=== PATIENT | male | born 1940 | race Caucasian/White ===

== ENCOUNTER 2016-08-08 17:17 | Outpatient (CLI) | payer MEDICARE, BC | END 2016-08-08 17:25 | disposition home or self-care (01) | LOC: SLEEP 17:17 | PROVIDERS: ATTEND Nurse Practitioner Family | DX: G47.10 Hypersomnia, unspecified (principal); R06.83 Snoring ==

== ENCOUNTER 2016-09-09 19:37 | Outpatient (CLI) | payer MEDICARE, BC | END 2016-09-10 05:54 | disposition home or self-care (01) | LOC: SLEEP 19:37 | PROVIDERS: ATTEND Otolaryngology Otolaryngology/Facial Plastic Surgery | DX: G47.33 Obstructive sleep apnea (adult) (pediatric) (principal) | CPT/HCPCS: 95811 ==

== ENCOUNTER 2016-11-18 20:20 | Outpatient (CLI) | payer MEDICARE, BC | END 2016-11-19 05:50 | disposition home or self-care (01) | LOC: SLEEP 20:20 | PROVIDERS: ATTEND Nurse Practitioner | DX: G47.33 Obstructive sleep apnea (adult) (pediatric) (principal) | CPT/HCPCS: 95811 ==

== ENCOUNTER 2018-12-07 22:02 | Inpatient (IN) | payer MEDICARE, BC ==
[~2018-12-07] VITALS: Ht 172.7 cm; Wt 91.2 kg
[2018-12-07 23:45] VITALS: BP 114/55
--- NOTE | 2018-12-07 23:45 | NUR ---
SERGIO RODAS JR admitted to room 412-1, with an admitting diagnosis of PNA/ POSS BOWEL PERFORATION, on 12/07/18 from [facility] via EMS, accompanied by EMS STAFF/SPOUSE.SERGIO RODAS JR introduced to surroundings, call light, bed controls, phone, TV, temperature control, lights, meal times, smoking policy, visitor policy, side rail policy, bathrooms and showers. Patient Rights given to patient in the handbook.SERGIO RODAS JR verbalizes understanding that [facility] is not responsible for the loss or damage to any personal effects or valuables that are kept in the patients posession during their hospitalization.
[2018-12-08] VITALS (28 sets, daily range): BP systolic 75–134; BP diastolic 50–72
--- OUTSIDE RECORDS SUMMARY | 2018-12-08 | XMS REPORT | Continuity of Care Document ---
Author Organization Unknown Address Unknown Allergies Active Description Code Type Severity Reaction Onset Reported/Identified Relationship to Patient Clinical Status Yes HYDROCODONE-ACETAMINOPHEN HYDROCODONE- ACETAMIN SEVERE Yes HYDROCODONE BITARTRATE MILD MILD Yes HYDROCODONE BITARTRATE MILD OTHER Yes HYDROCODONE-ACETAMINOPHEN SEVERE OTHER Medications Medication Packaging Start Date Stop Date Route Dosage Sig LACTATED RINGERS 1000CC IV BAG INJ ml 05/15/2017 05/22/2017 CONTINUOUSEVERY 0 Hour KETOROLAC VIAL INJ 30 MG/CC (TORADOL VIAL) MG 10/24/2018 10/24/2018 PRN ONCE Methylprednisolone inj susp 80mg (DEPO-Medrol) MG 10/24/2018 10/24/2018 ONCE&2111 DEXAMETHASONE VIAL INJ 4 MG/CC (DECADRON VIAL) MG 10/24/2018 10/31/2018 Q6H&0600,1200,1800,2359 LACTATED RINGERS 1000CC IV BAG INJ ml 12/07/2018 12/14/2018 CONTINUOUSEVERY 0 Hour ACETAMINOPHEN SUPPOS SUP 650 MG (TYLENOL) MG 12/07/2018 12/07/2018 ONCE&2116 IPRATROPIUM/ALBUTEROL INH SOLN (DUO-NEB INH SOLN) MLS 12/07/2018 12/07/2018 ONCE&2116 Piperacillin-tazobactam 3.375 Gm IV recon soln (Zosyn) GM 12/07/2018 12/07/2018 ONCE&2157 NORMAL SALINE 1000CC IV BAG INJ 0.9 % (NS 1000CC IV BAG) ml 12/07/2018 12/22/2018 CONTINUOUSEVERY 0 Hour Problems Date Dx Coded Attending Type Code Diagnosis Diagnosed By 01/18/2016 RANDOLPH SILVERIO V54.89 OTHER ORTHOPEDIC AFTERCARE 01/18/2016 RANDOLPH SILVERIO Z47.89 ENCOUNTER FOR OTHER ORTHOPEDIC AFTERCARE 04/16/2016 RANDOLPH SILVERIO V43.65 KNEE JOINT REPLACED BY OTHER MEANS 04/16/2016 RANDOLPH SILVERIO Z96.651 PRESENCE OF RIGHT ARTIFICIAL KNEE JOINT 05/16/2016 BHARGAVI, SERGIO Thompson 780.79 OTHER MALAISE AND FATIGUE 05/16/2016 BHARGAVI, SERGIO Varner 781.99 OTHER SYMPTOMS INVOLVING NERVOUS AND MUSCULOSKELETAL SYSTEMS 05/16/2016 BHARGAVISERGIO ABRAHAM R29.6 REPEATED FALLS 05/16/2016 BHARGAVI, SERGIO Thompson R53.1 WEAKNESS 05/15/2017 BHARGAVI, SERGIO Varner 427.31 ATRIAL FIBRILLATION 05/15/2017 BHARGAVI, SERGIO Varner 715.15 OSTEOARTHROSIS, LOCALIZED, PRIMARY, INVOLVING PELVIC REGION AND THIGH 05/15/2017 BHARGAVI, SERGIO Telly I48.1 PERSISTENT ATRIAL FIBRILLATION 05/15/2017 BHARGAVI, SERGIO Varner M16.12 UNILATERAL PRIMARY OSTEOARTHRITIS, LEFT HIP 07/24/2017 Robin Parrish W 401.9 UNSPECIFIED ESSENTIAL HYPERTENSION 07/24/2017 Pakaren, Robin W I10 ESSENTIAL (PRIMARY) HYPERTENSION 07/24/2017 Pakaren, Robin W 401.9 UNSPECIFIED ESSENTIAL HYPERTENSION 07/24/2017 Pakaren, Robin W 427.31 ATRIAL FIBRILLATION 07/24/2017 Pakaren, Robin W I10 ESSENTIAL (PRIMARY) HYPERTENSION 07/24/2017 Pakaren, Robin W I48.0 PAROXYSMAL ATRIAL FIBRILLATION 07/24/2017 Pakaren, Robin W 401.9 UNSPECIFIED ESSENTIAL HYPERTENSION 07/24/2017 Pakaren, Robin W 427.31 ATRIAL FIBRILLATION 07/24/2017 Pakaren, Robin W I10 ESSENTIAL (PRIMARY) HYPERTENSION 07/24/2017 Pakaren, Robin W I48.0 PAROXYSMAL ATRIAL FIBRILLATION 10/24/2018 DARINEL, FIDELIA W 274.00 GOUTY ARTHROPATHY, UNSPECIFIED 10/24/2018 LEISURE, FIDELIA W M10.0 IDIOPATHIC GOUT 10/24/2018 LEISURE, FIDELIA W M10.072 IDIOPATHIC GOUT, LEFT ANKLE AND FOOT Procedures There is no data. Results Test Result Range Protime - 05/07/16 09:36 INR 1.8 1.0-4.0 Protime 21.2 Sec 9.9-12.8 Protime - 05/14/16 09:59 INR 2.0 1.0-4.0 Protime 23.8 Sec 9.9-12.8 Protime - 06/04/16 09:54 INR 1.8 1.0-4.0 Protime 21.2 Sec 9.9-12.8 Protime - 06/18/16 09:36 INR 2.2 1.0-4.0 Protime 26.8 Sec 9.9-12.8 Comprehensive Metabolic Panel - 07/09/16 08:38 Albumin 4.3 g/dL 3.6-5.1 ALP 83 U/L 35-130 ALT 19 U/L 6-45 Anion Gap 13 6-14 AST 19 U/L 2-40 BUN 13 mg/dL 5-25 Calcium 8.9 mg/dL 8.3-10.4 Chloride 104 mmol/L 95-114 CO2 31 mEq/L 22-33 Creat 0.71 mg/dL 0.50-1.50 eGFR 108 mL/min/1.73m2 >59 Globulin 2.5 g/dL 2.3-3.5 Glucose 117 mg/dL 70-110 Osmo 298 280-295 Potassium 3.9 mmol/L 3.5-5.3 Sodium 144 mmol/L 134-148 TBil 1.0 mg/dL 0.2-1.2 TP 6.8 g/dL 6.0-8.3 Reticulocyte Count - 07/09/16 08:38 Reticulocyte Count 1.9 % 0.6-2.6 Holter Mont[place] 24 Hour - 07/12/16 16:29 Holter Monitor 24 Hour Complete Thyroid Stimulating Hormone - 07/30/16 06:39 TSH 1.65 mIU/mL 0.32-5.00 Protime - 08/30/16 07:00 INR 1.6 1.0-4.0 Protime 18.8 Sec 9.9-12.8 Protime - 09/13/16 09:51 INR 2.0 1.0-4.0 Protime 24.8 Sec 9.9-12.8 Protime - 09/25/16 07:19 INR 2.3 1.0-4.0 Protime 28.5 Sec 9.9-12.8 Thyroid Stimulating Hormone - 10/04/16 10:43 TSH 0.77 mIU/mL 0.32-5.00 PTH, Intact - 10/04/16 10:43 PTH, INTACT 29 PG/ML 15-65 Protime - 10/10/16 08:39 INR 2.3 1.0-4.0 Protime 27.7 Sec 9.9-12.8 Protime - 10/31/16 11:50 INR 2.5 1.0-4.0 Protime 30.0 Sec 9.9-12.8 Protime - 12/11/16 09:06 INR 2.9 1.0-4.0 Protime 36.3 Sec 9.9-12.8 Vitamin D, 25 OH - 01/10/17 08:00 Vitamin D, 25 OH 30.70 ng/mL 25.00-100.00 Protime - 02/07/17 06:35 INR 2.0 1.0-4.0 Protime 23.7 Sec 9.9-12.8 Protime - 03/07/17 09:33 INR 2.1 1.0-4.0 Protime 24.9 Sec 9.9-12.8 Protime - 04/10/17 10:34 INR 1.7 1.0-4.0 Protime 20.1 Sec 9.9-12.8 Protime - 04/21/17 08:14 INR 2.8 1.0-4.0 Protime 32.5 Sec 9.9-12.8 Lipid Panel - 04/23/17 08:59 C/HDL 4.4 3.7-6.7 Cholesterol 129 mg/dL 100-240 HDL 29 mg/dL 30-85 LDL-Calculated 67 mg/dL 0-100 Trig 163 mg/dL 35-160 VLDL 33 mg/dL 0-42 Protime - 05/06/17 11:32 INR 2.6 1.0-4.0 Protime 30.9 Sec 9.9-12.8 Protime - 05/15/17 12:06 INR 1.2 1.0-4.0 Protime 14.3 Sec 9.9-12.8 Protime - 05/21/17 10:10 INR 1.8 1.0-4.0 Protime 21.5 Sec 9.9-12.8 Protime - 06/04/17 12:57 INR 1.9 1.0-4.0 Protime 21.6 Sec 9.9-12.8 Protime - 06/19/17 09:38 INR 3.3 1.0-4.0 Protime 38.3 Sec 9.9-12.8 Protime - 06/20/17 07:18 INR 2.7 1.0-4.0 Protime 31.5 Sec 9.9-12.8 Protime - 07/02/17 07:54 INR 2.5 1.0-4.0 Protime 29.3 Sec 9.9-12.8 Protime - 07/24/17 08:48 INR 2.5 1.0-4.0 Protime 29.5 Sec 9.9-12.8 Lipid Panel - 07/24/17 08:51 C/HDL 3.9 3.7-6.7 Cholesterol 125 mg/dL 100-240 HDL 32 mg/dL 30-85 LDL-Calculated 66 mg/dL 0-100 Trig 133 mg/dL 35-160 VLDL 27 mg/dL 0-42 Protime - 07/30/17 08:38 INR 2.3 1.0-4.0 Protime 26.3 Sec 9.9-12.8 Protime - 10/01/17 08:51 INR 3.5 1.0-4.0 Protime 43.4 Sec 9.9-12.8 PSA Yearly Screen - 10/22/17 09:00 PSA TOTAL 0.5 ng/mL 0.0-4.0 Protime - 11/24/17 07:08 INR 2.9 1.0-4.0 Protime 33.9 Sec 9.9-12.8 Protime - 12/22/17 07:54 INR 3.0 1.0-4.0 Protime 34.6 Sec 9.9-12.8 Lipid Panel - 12/25/17 07:33 C/HDL 4.2 3.7-6.7 Cholesterol 138 mg/dL 100-240 HDL 33 mg/dL 30-85 LDL-Calculated 85 mg/dL 0-100 Trig 102 mg/dL 35-160 VLDL 20 mg/dL 0-42 Protime - 01/19/18 07:03 INR 2.8 1.0-4.0 Protime 32.7 Sec 9.9-12.8 Sed Rate - 01/22/18 07:57 Sed Rate 9 mm/hr 0-9 Protime - 02/24/18 08:47 INR 1.5 1.0-4.0 Protime 17.0 Sec 9.9-12.8 Protime - 03/03/18 09:41 INR 2.3 1.0-4.0 Protime 27.1 Sec 9.9-12.8 Uric Acid - 03/10/18 08:27 Uric Acid 6.5 mg/dL 2.6-7.2 Protime - 03/16/18 07:54 INR 2.8 1.0-4.0 Protime 32.2 Sec 9.9-12.8 Protime - 03/24/18 07:57 INR 3.5 1.0-4.0 Protime 40.5 Sec 9.9-12.8 Protime - 04/07/18 08:32 INR 2.6 1.0-4.0 Protime 30.1 Sec 9.9-12.8 Protime - 04/21/18 09:15 INR 2.3 1.0-4.0 Protime 26.9 Sec 9.9-12.8 Protime - 05/20/18 09:41 INR 3.5 1.0-4.0 Protime 41.8 Sec 9.9-12.8 Protime - 06/03/18 09:33 INR 2.0 1.0-4.0 Protime 23.3 Sec 9.9-12.8 Protime - 06/17/18 08:45 INR 2.0 1.0-4.0 Protime 23.9 Sec 9.9-12.8 Protime - 07/06/18 09:13 INR 1.7 1.0-4.0 Protime 20.6 Sec 9.9-12.8 Protime - 07/20/18 09:10 INR 1.8 1.0-4.0 Protime 20.9 Sec 9.9-12.8 Protime - 08/11/18 10:27 INR 1.9 1.0-4.0 Protime 22.6 Sec 9.9-12.8 Protime - 08/18/18 09:07 INR 1.9 1.0-4.0 Protime 22.0 Sec 9.9-12.8 Protime - 09/17/18 07:35 INR 2.1 1.0-4.0 Protime 25.0 Sec 9.9-12.8 Protime - 10/22/18 09:27 INR 1.7 1.0-4.0 Protime 20.2 Sec 9.9-12.8 Uric Acid - 10/24/18 21:15 Uric Acid 6.9 mg/dL 2.6-7.2 Protime - 11/06/18 08:46 INR 2.6 1.0-4.0 Protime 31.4 Sec 9.9-12.8 Protime - 11/20/18 09:34 INR 3.0 1.0-4.0 Protime 36.1 Sec 9.9-12.8 Protime - 12/04/18 06:43 INR 2.0 1.0-4.0 Protime 23.4 Sec 9.9-12.8 Surgical Pathology - 12/07/18 09:24 Surg Path Sent to [facility] Pathology Cardiac Panel - 12/07/18 20:25 CK 50 U/L 26-174 CK-MB 1.9 ng/ml 0.0-9.2 Myoglobin 29.0 ng/ml 1.6-154.9 Troponin <0.020 ng/mL 0.0-0.4 BNP - 12/07/18 20:25 BNP 73.10 pg/ml 0.00-100.00 Arterial Blood Gas - 12/07/18 20:30 Base 3.00 mmol/L 1.80-4.20 HCO3 28 mmol/L 20-31 O2 Sat 100 15L O2 % 95-100 pCO2 52 mm/Hg 35-45 pH 7.34 7.35-7.45 PO2 203 mm/Hg 80-95 EKG - 12/07/18 20:51 EKG Complete Urinalysis - 12/07/18 21:25 Icotest N/A Negative Urine Volume Urine Volume Insufficient (<10mL) May Affect Microscopic Exam Urine-Appearance Clear Clear Urine-Bacteria Negative Urine-Bilirubin Negative Negative Urine-Blood Negative Negative Urine-Color Yellow Colorless-Lt. Yellow Urine-Epithelial Cells 0-5/HPF Urine-Glucose Negative Negative Urine-Ketones Negative Negative Urine-Leukocytes Negative Negative Urine-Nitrite Negative Negative Urine-Other Culture to follow; cath urine specimen Urine-pH 5.0 5-8.5 Urine-Protein Negative Negative Urine-RBC 0-2/HPF Urine-Specific [place] 1.020 1.000-1.030 Urine-WBC 0-2/HPF Urobilinogen 0.2 0.2-1.0 Encounters ACCT No. Visit Date/Time Discharge Status Pt. Type Provider Facility Loc./Unit Complaint [id number] 12/07/2018 00:00:00 12/07/2018 10:00:00 DIS Outpatient Kenneth Ricci [id number] 12/04/2018 06:37:00 12/04/2018 23:59:00 DIS Outpatient TY LEAL [id number] 12/03/2018 12:26:00 12/03/2018 23:59:00 DIS Outpatient Kenneth Ricci [id number] 11/20/2018 09:29:00 11/20/2018 23:59:00 DIS Outpatient ELVISTY PETERSON [id number] 11/06/2018 08:39:00 11/06/2018 23:59:00 DIS Outpatient Josr Lopze [id number] 10/24/2018 20:52:00 10/24/2018 21:34:00 DIS Outpatient DARINEL [facility] [id number] 10/22/2018 09:23:00 10/22/2018 23:59:00 DIS Outpatient Josr Lopez [id number] 10/15/2018 08:39:00 10/15/2018 23:59:00 DIS Outpatient Josr Lopez [id number] 09/17/2018 07:33:00 09/17/2018 23:59:00 DIS Outpatient Josr Lopez [id number] 08/18/2018 09:04:00 08/18/2018 23:59:00 DIS Outpatient Robin Parrish [id number] 08/11/2018 10:24:00 08/11/2018 23:59:00 DIS Outpatient Josr Lopez [id number] 07/20/2018 09:06:00 07/20/2018 23:59:00 DIS Outpatient Robin Parrish [id number] 07/06/2018 09:08:00 07/06/2018 23:59:00 DIS Outpatient Josr Lopez [id number] 06/17/2018 08:39:00 06/17/2018 23:59:00 DIS Outpatient Josr Lopez [id number] 06/03/2018 09:25:00 06/03/2018 23:59:00 DIS Outpatient Robin Parrish [id number] 05/20/2018 09:36:00 05/20/2018 23:59:00 DIS Outpatient Robin Parrish [id number] 04/21/2018 09:11:00 04/21/2018 23:59:00 DIS Outpatient Paoni, Robin [id number] 04/07/2018 08:26:00 04/07/2018 23:59:00 DIS Outpatient Paoni, Robin [id number] 03/24/2018 07:54:00 03/24/2018 23:59:00 DIS Outpatient Paoni, Robin [id number] 03/16/2018 07:49:00 03/16/2018 23:59:00 DIS Outpatient Francois, Robin [id number] 03/10/2018 08:16:00 03/10/2018 23:59:00 DIS Outpatient Josr Lopez [id number] 03/03/2018 09:36:00 03/03/2018 23:59:00 DIS Outpatient Francois, Robin [id number] 02/24/2018 08:45:00 02/24/2018 23:59:00 DIS Outpatient Josr Lopez [id number] 02/17/2018 07:30:00 02/17/2018 23:59:00 DIS Outpatient Juan Josekaren, Robin [id number] 01/22/2018 07:54:00 01/22/2018 23:59:00 DIS Outpatient RAMAKRISHNA FLORES [id number] 12/25/2017 07:30:00 12/25/2017 23:59:00 DIS Outpatient Josr Lopez [id number] 12/22/2017 07:49:00 12/22/2017 23:59:00 DIS Outpatient Josr Lopez [id number] 11/24/2017 07:05:00 11/24/2017 23:59:00 DIS Outpatient Josr Lopez [id number] 10/22/2017 08:57:00 10/22/2017 23:59:00 DIS Outpatient Josr Lopez [id number] 10/01/2017 08:49:00 10/01/2017 23:59:00 DIS Outpatient Josr Lopez [id number] 08/27/2017 09:37:00 08/27/2017 23:59:00 DIS Outpatient Josr Lopez [id number] 07/30/2017 08:34:00 07/30/2017 23:59:00 DIS Outpatient Josr Lopez [id number] 07/24/2017 08:45:00 07/24/2017 23:59:00 DIS Outpatient Francois Robin [id number] 07/02/2017 07:35:00 07/02/2017 23:59:00 DIS Outpatient Josr Lopez [id number] 06/20/2017 07:15:00 06/20/2017 23:59:00 DIS Outpatient Josr Lopez [id number] 06/19/2017 09:31:00 06/19/2017 23:59:00 DIS Outpatient Josr Lopez [id number] 06/04/2017 12:54:00 06/04/2017 23:59:00 DIS Outpatient Josr Lopez [id number] 05/21/2017 00:00:00 05/21/2017 23:59:00 DIS Outpatient Robin Parrish [id number] 05/15/2017 10:28:00 05/15/2017 15:08:00 DIS Outpatient BHARGAVI SERGIO [id number] 05/06/2017 10:57:00 05/06/2017 23:59:00 DIS Outpatient BHARGAVISERGIO ABRAHAM [id number] 05/02/2017 10:37:00 05/02/2017 23:59:00 DIS Outpatient BHARGAVI SERGIO [id number] 04/23/2017 08:47:00 04/23/2017 23:59:00 DIS Outpatient Robin Parrish [id number] 04/21/2017 08:07:00 04/21/2017 23:59:00 DIS Outpatient Josr Lopez [id number] 04/10/2017 10:30:00 04/10/2017 23:59:00 DIS Outpatient Josr Lopez [id number] 03/07/2017 09:30:00 03/07/2017 23:59:00 DIS Outpatient Josr Lopez [id number] 02/07/2017 06:30:00 02/07/2017 23:59:00 DIS Outpatient Josr Lopez [id number] 01/10/2017 07:55:00 01/10/2017 23:59:00 DIS Outpatient BREANAISTEDALISSON [id number] 12/11/2016 09:03:00 12/11/2016 23:59:00 DIS Outpatient Josr Lopez [id number] 11/13/2016 07:37:00 11/13/2016 23:59:00 DIS Outpatient Josr Lopez [id number] 08/06/2016 12:49:00 11/06/2016 09:30:00 DIS Outpatient SERGIO BURK [id number] 10/31/2016 11:45:00 10/31/2016 23:59:00 DIS Outpatient Josr Lopez [id number] 10/10/2016 08:37:00 10/10/2016 23:59:00 DIS Outpatient Josr Lopez [id number] 10/04/2016 10:38:00 10/04/2016 23:59:00 DIS Outpatient DEMETRIUS GOFF JR [id number] 09/25/2016 07:14:00 09/25/2016 23:59:00 DIS Outpatient Josr Lopez [id number] 09/13/2016 09:47:00 09/13/2016 23:59:00 DIS Outpatient Josr Lopez [id number] 08/30/2016 06:53:00 08/30/2016 23:59:00 DIS Outpatient Josr Lopez [id number] 08/02/2016 10:59:00 08/02/2016 23:59:00 DIS Outpatient SERGIO BURK [id number] 07/30/2016 06:31:00 07/30/2016 23:59:00 DIS Outpatient Robin Parrish [id number] 07/12/2016 16:20:00 07/12/2016 23:59:00 DIS Outpatient Josr Lopez [id number] 07/09/2016 08:34:00 07/09/2016 23:59:00 DIS Outpatient Robin Parrish [id number] 06/18/2016 09:31:00 06/18/2016 23:59:00 DIS Outpatient Josr Lopez [id number] 06/04/2016 09:46:00 06/04/2016 23:59:00 DIS Outpatient Josr Lopez [id number] 05/14/2016 09:39:00 05/14/2016 23:59:00 DIS Outpatient Josr Lopez [id number] 05/07/2016 09:33:00 05/07/2016 23:59:00 DIS Outpatient Josr Lopez [id number] 01/18/2016 16:19:00 04/16/2016 11:30:00 DIS Outpatient RANDOLPH SILVERIO [id number] 12/07/2018 20:28:00 Document Registration [id number] 01/19/2018 06:58:05 Document Registration [id number] 05/14/2017 14:54:15 Document Registration [id number] 10/24/2018 20:52:00 Document Registration
--- OUTSIDE RECORDS SUMMARY | 2018-12-08 | XMS REPORT | Clinical Summary ---
Author Author [facility] Organization [facility] Address Unknown Phone Unavailable Care Team Providers Care Technical Buyer Name Role Phone PCP Unavailable Allergies Not on File Current Medications Not on file Active Problems Not on file Social History Tobacco Use Types Packs/Day Years Used Date Never Assessed Sex Assigned at Date Recorded Not on file Last Filed Vital Signs Not on file Plan of Treatment Not on file Results Not on filefrom Last 3 Months
[2018-12-08 00:28] LABS: PROTHROMBIN TIME PATIENT 17.4 SEC (12.2-14.7)
[2018-12-08 00:29] LABS: INR 1.4 (0.8-1.4)
--- NOTE | 2018-12-08 00:37 | NUR ---
CONTACTED DR FOSTER RE; CRITICAL LACTIC ACID 2.65 ORDER RECV'D FOR 2000 ML BOLUS IV. OK TO RUN AFTER PATIENT RETURNS FROM CT SCAN. TORBV
[2018-12-08] MEDS ORDERED: IOHEXOL 350 MG/ML 100 ML (OMNIPAQUE 350) VIAL IV ONE (01:45)
[2018-12-08] MEDS ORDERED: HOLD METFORMIN - RECEIVED CONTRAST 20 ML VIAL IV SCH (01:45)
[2018-12-08] MEDS ORDERED: NS 100 ML (IVPB) BAG IV ONE (01:45)
[2018-12-08] MEDS ORDERED: NS IV 1000 ML 1,000 ML ONE ×2 (01:51→04:36)
[2018-12-08] MEDS: NS IV 1000 ML 1,000 ML IV SCH ×2 (02:01→04:42)
[2018-12-08 02:05] LABS: BASOPHILS % (AUTO) 0 % (0-10); EOSINOPHILS % (AUTO) 0 % (0-10); HEMATOCRIT 33 % (40-54); HEMOGLOBIN 10.7 G/DL (13.3-17.7); LYMPHOCYTES # (AUTO) 0.7 X 10^3 (1.0-4.0); LYMPHOCYTES % (AUTO) 2 % (12-44); MEAN CORPUSCULAR HEMOGLOBIN 31 PG (25-34); MEAN CORPUSCULAR HGB CONC 32 G/DL (32-36); MEAN CORPUSCULAR VOLUME 97 FL (80-99); MEAN PLATELET VOLUME 8.6 FL (7.4-10.4); MONOCYTES % (AUTO) 11 % (0-12); NEUTROPHILS # (AUTO) 32.2 X 10^3 (1.8-7.8); NEUTROPHILS % (AUTO) 87 % (42-75); PLATELET COUNT 357 10^3/uL (130-400); RED CELL DISTRIBUTION WIDTH 15.5 % (10.0-14.5)
[2018-12-08 02:13] LABS: WHITE BLOOD COUNT 36.9 10^3/uL (4.3-11.0)
[2018-12-08 02:23] LABS: ALANINE AMINOTRANSFERASE 21 U/L (0-55); ALBUMIN 3.7 GM/DL (3.2-4.5); ALKALINE PHOSPHATASE 55 U/L (40-136); BILIRUBIN,TOTAL 1.6 MG/DL (0.1-1.0); BUN/CREATININE RATIO 17; CALCIUM 8.7 MG/DL (8.5-10.1); CARBON DIOXIDE 27 MMOL/L (21-32); CHLORIDE 103 MMOL/L (98-107); CREATININE SERUM 0.78 MG/DL (0.60-1.30); GFR ESTIMATED > 60; GLUCOSE 135 MG/DL (70-105); POTASSIUM 3.1 MMOL/L (3.6-5.0); SODIUM 141 MMOL/L (135-145); TOTAL PROTEIN 5.7 GM/DL (6.4-8.2)
[2018-12-08 02:44] LABS: LYMPHOCYTES % (MANUAL) 1 %; MONOCYTES % (MANUAL) 9 %; NEUTROPHILS % (MANUAL) 90 %
--- NOTE | 2018-12-08 02:47 | NUR ---
CONTACTED DR FOSTER RE: CRITICAL LAB VALUE WBC 36.9. 1G VANCOMYCIN IV X1 NOW. TORBV.
[2018-12-08] MEDS ORDERED: VANCOMYCIN INJECTION 1GM (OMNI 250 ML IV ONE (02:59)
[2018-12-08] MEDS ORDERED: VANCOMYCIN INJECTION 1,000 MG in NS (IVPB) 250 ML IV SCH (03:00)
[2018-12-08] MEDS: PIPERACILLIN/TAZOBACTAM (BULK) 4.5 GM in NS (IVPB) 100 ML IV SCH ×4 (04:35→23:33)
--- NOTE | 2018-12-08 07:11 | History & Physical-Hospitalist ---
History of Present Illness HPI/Chief Complaint The patient is a 78-year-old white male admitted to the hospitalist service after a phone call from the nurse practitioner in the [facility] emergency room. The patient had had a colonoscopy at [facility] performed by Dr. Ricci. This was at approximately 7 o'clock and by 1030 he was released and went home. Slice states that he was a bit sluggish through the day. They ate early supper at about 1630 hours. After that they went for a ride around [facility] and went back to their home. He had difficulty getting out of the car and ultimately leaned forward and slid down the front of his and sat on the driveway. He was unable to get up and she called her grandson and son-in-law to come help get him up. At that point they went to the [facility] emergency room arriving at about 1930 hours. He really had no localizing signs but was found to have a temperature of 104 at arrival and a white count of 31,000. He denies cough or sputum production. There was no apparent belly pain. I was then called and arrangements were made to transfer him here. He had been given Zosyn prior to his departure from the [facility]. On arrival here he underwent CT scans with contrast of the chest abdomen and pelvis. There was no pneumonia reported on the chest and no evidence of free air or abscess formation on the abdomen or pelvis. His maximum temp after arriving here was 99.6. His blood pressure has been 95/60 range. Lactic acid on arrival was 2.65 and he was given the fluid bolus to achieve the 30 mL/kg Date Seen 12/08/18 Time Seen by a Provider: 07:06 Attending Physician Hemal Foster MD PCP Robin Parrish DO Referring Physician Date of Admission Dec 07, 2018 at 23:56 Home Medications & Allergies Home Medications Reviewed patient Home Medication Reconciliation performed by pharmacy medication reconciliations procurement technician and/or nursing. Patients Allergies have been reviewed. Allergies Allergies Coded Allergies No Known Drug Allergies (Unverified12/07/18) Past Otxoimx-Gbqesu-Pecqbo Hx Patient Social History Alcohol Use: Denies Use Recreational Drug Use: No Physical Abuse Screen: No Sexual Abuse: No Recent Foreign Travel: No Contact w/other who traveled: No Recent Hopitalizations: No Recent Infectious Disease Expo: No Seasonal Allergies Seasonal Allergies: No Past Medical History HEENT: Cataract, Macular Degeneration Loss of Vision: Right Hearing Impairment: Denies History of Blood Disorders: No Adverse Reaction to Blood Back: No Review of Systems Constitutional: see HPI EENTM: no symptoms reported Respiratory: no symptoms reported Cardiovascular: other (known atrial fibrillation. Previous coronary bypass surgery.) Gastrointestinal: no symptoms reported Genitourinary: no symptoms reported Musculoskeletal: muscle weakness, other (childhood polio with some muscle wasting in the right lower extremity.) Skin: other Psychiatric/Neurological: No Symptoms Reported Physical Exam Physical Exam Vital Signs Vital Signs - First Documented 12/07/18 23:45 Temp 99.6 Pulse 94 Resp 20 B/P (MAP) 114/55 (74) Pulse Ox 94 O2 Delivery Nasal Cannula O2 Flow Rate 6.00 Capillary Refill : Height, Weight, BMI Height: 5'8.00" Weight: 189lbs. 2.0oz. 85.257347wc; 28.8 BMI Method: General Appearance: No Apparent Distress, WD/WN Eyes: Bilateral Eye Normal Inspection HEENT: Normal ENT Inspection Neck: Normal Inspection Respiratory: Chest Non Tender, Lungs Clear, Normal Breath Sounds, No Accessory Muscle Use, No Respiratory Distress Cardiovascular: Regular Rate, Rhythm, No Edema, No Gallop, No JVD, No Murmur Gastrointestinal: Normal Bowel Sounds, No Organomegaly, Non Tender, Soft Extremity: Other (right calf and quadriceps less developed than the left) Skin: Normal Color, Warm/Dry Lymphatic: No Adenopathy Results Results/Procedures Labs Laboratory Tests 12/08/18 01:55 Patient resulted labs reviewed. Assessment/Plan Admission Diagnosis 1.apparent bacteremia. 2.severe sepsis by definition. 3.history of atrial fibrillation. 4.history of childhood polio. Admission Status: Inpatient Order (span 2 midnights) Reason for Inpatient Admission: Will require greater than 2 midnights for administration of IV antibiotics. Clinical Quality Measures DVT/VTE Risk/Contraindication: Risk Factor Score Per Nursin RFS Level Per Nursing on Admit: 4+=Very High HEMAL FOSTER MD Dec 08, 2018 07:11
--- NOTE | 2018-12-08 07:42 | Diagnostic Imaging Report ---
PROCEDURE: CT chest, abdomen, and pelvis with contrast. TECHNIQUE: Multiple contiguous axial images were obtained through the chest, abdomen, and pelvis after the administration of intravenous contrast. Auto Exposure Controls were utilized during the CT exam to meet ALARA standards for radiation dose reduction. INDICATION: Fever, cough, shortness of air, recent colonoscopy. No priors. Chest: There is no alveolar consolidation. There is no substantial pleural fluid. The atherosclerotic aorta is nonaneurysmal. There is coronary arterial atherosclerosis and previous sternotomy without acute chest wall pathology. Sensitivity limited by motion artifact. No mass or suspicious nodule. Abdomen and pelvis: Lack of distention of the colon to the descending levels as well as at the hepatic flexure limiting those segmentals evaluations. There is noninflamed sigmoid diverticulosis. The urinary bladder is catheterized. Urinary tracts unobstructed with right mid to lower pole calculi. No ureteral stone. The pancreas and adrenals are negative. The pancreas is nonacute. There is left adrenal nodule indeterminate at the lateral limb measuring a thickness of 1.4 cm. Gallstone is present without bile duct dilatation. There is no ascites, abscess, hematoma or fluid collection. There is no free air. No acute appearing bony pathology. IMPRESSION: Chest: Nonaneurysmal atherosclerosis. No acute abnormality identified. Abdomen and pelvis: Gallstones and nonobstructing nephrolithiasis with noninflamed diverticulosis. Indeterminate left adrenal nodule. Areas of large bowel distention limiting evaluation of its nash. No definite pericolonic edema, perforation, abscess or obstruction. Dictated by: Dictated on workstation # [id number]
[2018-12-08] MEDS ORDERED: SOTA80TA62 PO (09:26)
[2018-12-08] MEDS ORDERED: FESO4TAB PO (09:26)
[2018-12-08] MEDS ORDERED: FLUO40CR8 TOP (09:26)
[2018-12-08] MEDS ORDERED: AMLO5TAB9 PO (09:26)
[2018-12-08] MEDS ORDERED: ATOR20TA66 PO (09:26)
[2018-12-08] MEDS ORDERED: SERT25TA5 PO (09:26)
[2018-12-08] MEDS ORDERED: WARF3TAB56 PO ×2 (09:26→09:43)
[2018-12-08] MEDS ORDERED: TELM1TAB27 PO (09:26)
[2018-12-08 09:32] LABS: BASOPHILS % (AUTO) 0 % (0-10); EOSINOPHILS % (AUTO) 0 % (0-10); HEMATOCRIT 31 % (40-54); HEMOGLOBIN 10.2 G/DL (13.3-17.7); LYMPHOCYTES # (AUTO) 0.6 X 10^3 (1.0-4.0); LYMPHOCYTES % (AUTO) 2 % (12-44); MEAN CORPUSCULAR HEMOGLOBIN 32 PG (25-34); MEAN CORPUSCULAR HGB CONC 33 G/DL (32-36); MEAN CORPUSCULAR VOLUME 98 FL (80-99); MEAN PLATELET VOLUME 8.4 FL (7.4-10.4); MONOCYTES # (AUTO) 2.9 X 10^3 (0.0-1.0); MONOCYTES % (AUTO) 9 % (0-12); NEUTROPHILS # (AUTO) 27.7 X 10^3 (1.8-7.8); NEUTROPHILS % (AUTO) 89 % (42-75); PLATELET COUNT 366 10^3/uL (130-400); RED CELL DISTRIBUTION WIDTH 15.5 % (10.0-14.5)
[2018-12-08 09:35] LABS: WHITE BLOOD COUNT 31.2 10^3/uL (4.3-11.0)
[2018-12-08 09:51] LABS: ALANINE AMINOTRANSFERASE 20 U/L (0-55); ALBUMIN 3.5 GM/DL (3.2-4.5); ALKALINE PHOSPHATASE 53 U/L (40-136); BILIRUBIN,TOTAL 1.1 MG/DL (0.1-1.0); BUN/CREATININE RATIO 18; CALCIUM 8.4 MG/DL (8.5-10.1); CARBON DIOXIDE 28 MMOL/L (21-32); CHLORIDE 107 MMOL/L (98-107); CREATININE SERUM 0.68 MG/DL (0.60-1.30); GFR ESTIMATED > 60; GLUCOSE 131 MG/DL (70-105); POTASSIUM 3.2 MMOL/L (3.6-5.0); SODIUM 143 MMOL/L (135-145); TOTAL PROTEIN 5.5 GM/DL (6.4-8.2)
[2018-12-08] MEDS ORDERED: TR1C15 TP (09:55)
[2018-12-08] MEDS ORDERED: ACET-93 PO (09:55)
--- NOTE | 2018-12-08 10:04 | NUR ---
SPOKE WITH PATIENT AND HIS ABOUT HOME MEDS AND COMPARED IT WITH THE EXTERNAL MED HISTORY. SHE VERIFIED THE FOLLOWING CREAMS: FLUOCINOLONE: APPLY TO FACE AND CHEST BID X 2 WEEKS, THEN APPLY TO ARMS BID X 2 WEEKS- THEN RESTART CYCLE (PATIENT HAS CURRENTLY JUST STARTED APPLY TO HIS ARMS). TRIAMCINOLONE: APPLY TO ARMS BID X WEEKS, THEN APPLY TO FACE AND CHEST BID X WEEKS - THEN RESTART CYCYLE (PATIENT IS CURRENTLY APPLYING TO HIS FACE AND CHEST) OTC MEDICATIONS: ACETAMINOPHEN 1000MG Q 8 H PRN
[2018-12-08] MEDS ORDERED: VANCOMYCIN INJECTION 0.1 MG in NS (IVPB) 250 ML IV SCH (10:30)
--- NOTE | 2018-12-08 10:38 | NUR ---
ptd vancomycin labs: scr 0.78 gram + in blood from [place] plan: Patient received vancomycin 1 gram at 0300 this morning, we will start vancomycin 1,250mg IV q12 hours, next dose due today at 1100. We will check a vancomycin trough on 12/09 @ 1000 and adjust if needed (goal 10-20).
[2018-12-08] MEDS: VANCOMYCIN 1250 MG/NS 250 ML IVPB IV SCH ×4 (10:58→23:33)
--- NOTE | 2018-12-08 14:44 | NUR ---
bedside report received from Samina SUE
[2018-12-08] MEDS ORDERED: SOTALOL 80 MG (BETAPACE) TAB ONE (16:05)
--- NOTE | 2018-12-08 16:17 | NUR ---
reported icu patient pulse 140s, dr kumar notified orders to give 40mg of sotalol and consult cardiology
--- NOTE | 2018-12-08 16:40 | NUR ---
Received pt from Sravani, 4th floor nurse. Pt transferred to ICU in bed and luke transfer well. Pt placed on monitors, and this RN spoke with ROSARIO Arzate, to find out the plan for pt. Will start pt on Cardizem drip as soon as pharmacy able to mix medication.
--- NOTE | 2018-12-08 16:55 | Consultation-Cardiology ---
HPI-Cardiology Cardiology Consultation: Date of Consultation 12/08/18 Time Seen by a Provider: 16:30 Date of Admission 12-08-18 Attending Physician Eva Foster MD Admitting Physician Robin Parrish DO Consulting Physician Liv Lberon MD HPI: Chief Complaint: A-fib with RVR Mr. Rodas is a 78 year old male who was transferred to [facility] from [facility] ED. He underwent colonoscopy yesterday by Dr. Ricci at [facility] d/t episodes of diarrhea at home. His spouse reports last night he began to feel unwell. She reports temp of 104 last night with weakness, increasing SOB. EMS was summoned. We were consulted d/t conversion to a-fib with RVR. He is currently not reporting any c/o CP. He does not report any palpitations. He does report feeling SOB. He denies any abdominal discomfort. He reports he was seeing Dr. Lopez of [facility] and had a stress test approx 6 months ago which they were told was ok. He is on chronic warfarin, but has been off of warfarin for several days in order to have colonoscopy yesterday. Review of Systems-Cardiology Review of Systems Constitutional: chills, fever, malaise Eyes: No vision change Ears/Nose/Throat: No epistaxis, No recent hearing loss Respiratory: As described under HPI Cardiovascular: As described under HPI Gastrointestinal: As described under HPI Genitourinary: No dysuria, No hematuria Musculoskeletal: back pain (chronic) Skin: No rash on exposed areas, No ulcerations on exposed areas Psychiatric/Neurological: No anxiety, No depression, No seizure, No focal weakness, No syncope Hematologic: No bleeding abnormalities JCL-Bztsln-Wxsysy Hx Patient Social History Alcohol Use: Denies Use Recreational Drug Use: No Recent Foreign Travel: No Recent Infectious Disease Expo: No Hospitalization with Isolation: Denies Physical Abuse Screen: No Sexual Abuse: No Past Medical History PMH As described under Assessment. Allergies and Home Medications Allergies Coded Allergies: No Known Drug Allergies (Unverified , 12/07/18) Home Medications Acetaminophen 500 Mg Tablet, 1,000 MG PO Q8H PRN for PAIN-MILD, (Reported) Amlodipine Besylate 5 Mg Tablet, 5 MG PO DAILY, (Reported) Atorvastatin Calcium 20 Mg Tablet, 20 MG PO DAILY, (Reported) Fesoterodine Fumarate 4 Mg Tab.sr.24h, 4 MG PO DAILY, (Reported) Fluorouracil 40 Gm Cream..g., TOP UD, (Reported) USES ON FACE & CHEST 2X DAILY X 2 WEEKS THEN ON ARMS 2X DAILY X 2 WEEKS (ALTERNATES LOCATIONS WITH TRIAMCINOLONE CREAM) Sertraline HCl 25 Mg Tablet, 25 MG PO DAILY, (Reported) Sotalol HCl 80 Mg Tablet, 80 MG PO BID, (Reported) Telmisartan/Hydrochlorothiazid 1 Each Tablet, 1 TAB PO DAILY, (Reported) Triamcinolone Acet 15 Gm Cr, TP UD, (Reported) USES ON FACE & CHEST 2X DAILY X 2 WEEKS THEN ON ARMS 2X DAILY X 2 WEEKS (ALTERNATES LOCATIONS WITH FLUOROURACIL CREAM) Warfarin Sodium 3 Mg Tablet, 3 MG PO Mo, (Reported) Warfarin Sodium 3 Mg Tablet, 4.5 MG PO SuTuWeThFrSa, (Reported) Patient Home Medication List Home Medication List Reviewed: Yes Physical Exam-Cardiology Physical Exam Vital Signs/I&O 12/11/18 12/11/18 12/11/18 12/11/18 03:00 03:57 04:00 04:00 Pulse 58 77 77 Resp 20 23 23 B/P (MAP) 117/56 (76) 140/63 (88) Pulse Ox 100 100 100 O2 Delivery NIV Bilevel NIV Bilevel NIV Bilevel O2 Flow Rate 30.00 40.00 30.00 FiO2 30 12/11/18 12/11/18 12/11/18 12/11/18 05:00 05:12 05:34 06:00 Pulse 77 76 Resp 24 16 B/P (MAP) 132/63 (86) 120/58 (78) Pulse Ox 100 97 O2 Delivery NIV Bilevel Nasal Cannula NIV Bilevel NIV Bilevel O2 Flow Rate 30.00 5.00 30.00 30.00 12/11/18 12/11/18 12/11/18 12/11/18 07:00 07:09 07:17 07:17 Pulse 78 73 59 Resp 21 B/P (MAP) 114/56 (75) Pulse Ox 97 100 100 O2 Delivery NIV Bilevel Vapotherm Vapotherm O2 Flow Rate 30.00 30.00 40.00 30.00 FiO2 40 12/11/18 12/11/18 12/11/18 12/11/18 08:00 08:58 09:00 11:26 Pulse 71 73 71 Resp 19 23 34 B/P (MAP) 131/63 (85) 133/69 (90) Pulse Ox 95 90 92 O2 Delivery Vapotherm NIV Bilevel NIV Bilevel O2 Flow Rate 80.00 50.00 50.00 30.00 40.00 12/11/18 12/11/18 11:26 14:37 Pulse 58 55 Resp 25 22 Pulse Ox 96 95 O2 Flow Rate 30.00 25.00 12/11/18 00:00 Intake Total 1895.0 ml Output Total 2275 ml Balance -380.0 ml Capillary Refill : Constitutional: AAO x 3, well-developed, well-nourished HEENT: PERRL, hearing is well preserved, oral hygience is good Neck: No carotid bruit; carotid pulses are 2 + bilaterally Respiratory: No accessory muscle use, No respiratory distress; chest expansion is symmetric, chest is bilaterally symmetric, other (good air entry) Cardiovascular: irregularly irregular; No JVD; S1 and S2, systolic murmur Gastrointestinal: No tender; distended, audible bowel sounds Extremities: no lower extremity edema bilateral Neurologic/Psychiatric: grossly intact, power is 5/5 both on sides Skin: No rash on exposed areas, No ulcerations on exposed areas Data Review Labs Laboratory Tests 12/11/18 03:06: White Blood Count 10.6, Red Blood Count 2.68L, Hemoglobin 8.2L, Hematocrit 27L, Mean Corpuscular Volume 99, Mean Corpuscular Hemoglobin 31, Mean Corpuscular Hemoglobin Concent 31L, Red Cell Distribution Width 15.9H, Platelet Count 323, Mean Platelet Volume 8.9, Neutrophils (%) (Auto) 77H, Lymphocytes (%) (Auto) 7L, Monocytes (%) (Auto) 16H, Eosinophils (%) (Auto) 0, Basophils (%) (Auto) 0, Neutrophils # (Auto) 8.2H, Lymphocytes # (Auto) 0.7L, Monocytes # (Auto) 1.7H, Eosinophils # (Auto) 0.0, Basophils # (Auto) 0.0, Sodium Level 143, Potassium Level 3.5L, Chloride Level 110H, Carbon Dioxide Level 24, Anion Gap 9, Blood Urea Nitrogen 23H, Creatinine 1.77H, Estimat Glomerular Filtration Rate 37, BUN/Creatinine Ratio 13, Glucose Level 106H, Calcium Level 7.7L, Phosphorus Level 2.2L, Magnesium Level 1.7L 12/11/18 03:15: Blood Gas Puncture Site LEFT RADIAL, Blood Gas Patient Temperature 98.9, Arterial Blood pH 7.38, Arterial Blood Partial Pressure CO2 45, Arterial Blood Partial Pressure O2 86, Arterial Blood HCO3 26, Arterial Blood Total CO2 27.5, Arterial Blood Oxygen Saturation 98, Arterial Blood Base Excess 1.7, Zachery Test YES-POS, Blood Gas Ventilator Setting NO, Blood Gas Inspired Oxygen 30% Microbiology 12/08/18 Blood Culture - Preliminary, Resulted No growth Radiology NAME: SERGIO RODAS [facility] REC#: [id number] PT STATUS: ADM IN : 1940 PHYSICIAN: EVA FOSTER MD ADMIT DATE: 12/07/18 Signed Date of Exam: 12/08/18 CT CHEST/ABDOMEN/PELVIS W PROCEDURE: CT chest, abdomen, and pelvis with contrast. TECHNIQUE: Multiple contiguous axial images were obtained through the chest, abdomen, and pelvis after the administration of intravenous contrast. Auto Exposure Controls were utilized during the CT exam to meet ALARA standards for radiation dose reduction. INDICATION: Fever, cough, shortness of air, recent colonoscopy. No priors. Chest: There is no alveolar consolidation. There is no substantial pleural fluid. The atherosclerotic aorta is nonaneurysmal. There is coronary arterial atherosclerosis and previous sternotomy without acute chest wall pathology. Sensitivity limited by motion artifact. No mass or suspicious nodule. Abdomen and pelvis: Lack of distention of the colon to the descending levels as well as at the hepatic flexure limiting those segmentals evaluations. There is noninflamed sigmoid diverticulosis. The urinary bladder is catheterized. Urinary tracts unobstructed with right mid to lower pole calculi. No ureteral stone. The pancreas and adrenals are negative. The pancreas is nonacute. There is left adrenal nodule indeterminate at the lateral limb measuring a thickness of 1.4 cm. Gallstone is present without bile duct dilatation. There is no ascites, abscess, hematoma or fluid collection. There is no free air. No acute appearing bony pathology. IMPRESSION: Chest: Nonaneurysmal atherosclerosis. No acute abnormality identified. Abdomen and pelvis: Gallstones and nonobstructing nephrolithiasis with noninflamed diverticulosis. Indeterminate left adrenal nodule. Areas of large bowel distention limiting evaluation of its nash. No definite pericolonic edema, perforation, abscess or obstruction. Dictated by: Dictated on workstation # [id number] Dict: 12/08/18 0640 Trans: 12/08/18 1154 Interpreted by: CHIARA SPICER Electronically signed by: CHIARA SPICER 12/08/18 1152 ECG Impression ECG Initial ECG Impression: Atrial Fibrillation w/RVR A/P-Cardiology Assessment/Admission Diagnosis A-fib with RVR Sepsis of undetermined etiology - surgical/medical services managing H/O PAF - maintained on Sotalol Chronic anti-coagulation with warfarin - sub-therapeutic INR CAD - H/O CABG x [address] Huang at [facility] [place] - reports recent MPI in the last [address] Lopez (reported to be normal) Sleep apnea - CPAP tx Hypokalemia - likely d/t chronic diuretics Discussion and Recomendations A-fib with RVR - start Cardizem gtt for rate control H/O PAF Chronic anticoagulation with warfarin - has been held for several days for colonoscopy by Dr. Ricci at [facility] yesterday - sub-therapeutic INR Start Lovenox for stroke prophylaxis if ok with surgical services Management of sepsis is with medical services Replace potassium Request records from [facility] to eval structure and function Monitor lab closely Further recs with be based on his hospital course We would like to thank medical services for this consult Clinical Quality Measures DVT/VTE Risk/Contraindication: Risk Factor Score Per Nursin RFS Level Per Nursing on Admit: 4+=Very High JED ROMERO Dec 08, 2018 16:55
--- NOTE | 2018-12-08 16:57 | NUR ---
Dr. Lebron consulted, notified, orders transfer to ICU, Carito IZQUIERDO giving orders, and here to see patient, bedside report given Shwetha RN , patient transfered to ICU 8
[2018-12-08] MEDS: DILTIAZEM IV FOR DRIP 125 MG in NS (IVPB) 100 ML IV SCH (17:04)
[2018-12-08] MEDS ORDERED: KCL 20 MEQ TAB (K-DUR) PO NR ×2 (17:15→21:00)
--- NOTE | 2018-12-08 17:26 | NUR ---
THIS RN SPOKE WITH DR. MANE WHO STATED THAT IS WAS OK TO START LOVENOX. NURSES TO WATCH FOR ANY INDICATION OF BLEEDING.
[2018-12-08] MEDS: ENOXAPARIN 100 MG/1 ML (LOVENOX) SYR SC SCH (17:33)
--- NOTE | 2018-12-08 18:15 | Consultation-Cardiology ---
HPI-Cardiology Cardiology Consultation: Date of Consultation 12/08/18 Time Seen by a Provider: 17:45 Date of Admission Attending Physician Hemal Dos Santos MD Admitting Physician Robin Parrish DO Consulting Physician BRENDA VANN MD, MA, FACP, FAC, [facility], [facility] Physician requesting consult: Dr Dos Santos HPI: Chief Complaint: Reason for consultation: A-fib with RVR, sepsis Mr. Madrid is a 78 year old male who was transferred to [facility] from [facility]. He underwent colonoscopy yesterday by Dr. Ricci at [facility] d/t episodes of diarrhea at home. His spouse reports last night he began to feel unwell. She reports temp of 104 last night with weakness, increasing SOB. EMS was summoned. We were consulted d/t conversion to a-fib with RVR. He is currently not reporting any c/o CP. He does not report any palpitations. He does report feeling SOB. He denies any abdominal discomfort. He reports he was seeing Dr. Lopez of [facility] and had a stress test approx 6 months ago which they were told was ok. He is on chronic warfarin, but has been off of warfarin for several days in order to have colonoscopy yesterday. Review of Systems-Cardiology Review of Systems Constitutional: chills, fever, malaise Eyes: No vision change Ears/Nose/Throat: No epistaxis, No recent hearing loss Respiratory: As described under HPI Cardiovascular: As described under HPI Gastrointestinal: As described under HPI Genitourinary: No dysuria, No hematuria Musculoskeletal: back pain (chronic) Skin: No rash on exposed areas, No ulcerations on exposed areas Psychiatric/Neurological: No anxiety, No depression, No seizure, No focal weakn ess, No syncope Hematologic: No bleeding abnormalities VWR-Iuzgej-Fqfvvu Hx Patient Social History Alcohol Use: Denies Use Recreational Drug Use: No Recent Foreign Travel: No Recent Infectious Disease Expo: No Hospitalization with Isolation: Denies Physical Abuse Screen: No Sexual Abuse: No Past Medical History PMH As described under Assessment. Allergies and Home Medications Allergies Coded Allergies: No Known Drug Allergies (Unverified , 12/07/18) Home Medications Acetaminophen 500 Mg Tablet, 1,000 MG PO Q8H PRN for PAIN-MILD, (Reported) Amlodipine Besylate 5 Mg Tablet, 5 MG PO DAILY, (Reported) Atorvastatin Calcium 20 Mg Tablet, 20 MG PO DAILY, (Reported) Fesoterodine Fumarate 4 Mg Tab.sr.24h, 4 MG PO DAILY, (Reported) Fluorouracil 40 Gm Cream..g., TOP UD, (Reported) USES ON FACE & CHEST 2X DAILY X 2 WEEKS THEN ON ARMS 2X DAILY X 2 WEEKS (ALTERNATES LOCATIONS WITH TRIAMCINOLONE CREAM) Sertraline HCl 25 Mg Tablet, 25 MG PO DAILY, (Reported) Sotalol HCl 80 Mg Tablet, 80 MG PO BID, (Reported) Telmisartan/Hydrochlorothiazid 1 Each Tablet, 1 TAB PO DAILY, (Reported) Triamcinolone Acet 15 Gm Cr, TP UD, (Reported) USES ON FACE & CHEST 2X DAILY X 2 WEEKS THEN ON ARMS 2X DAILY X 2 WEEKS ( ALTERNATES LOCATIONS WITH FLUOROURACIL CREAM) Warfarin Sodium 3 Mg Tablet, 3 MG PO Mo, (Reported) Warfarin Sodium 3 Mg Tablet, 4.5 MG PO SuTuWeThFrSa, (Reported) Patient Home Medication List Home Medication List Reviewed: Yes Physical Exam-Cardiology Physical Exam Vital Signs/I&O 12/08/18 12/08/18 12/08/18 12/08/18 06:45 07:00 08:00 08:00 Temp 98.6 98.8 Pulse 79 75 75 Resp 20 36 B/P (MAP) 111/62 (78) 107/60 (76) Pulse Ox 96 97 97 O2 Delivery Nasal Cannula Nasal Cannula Nasal Cannula O2 Flow Rate 6.00 6.00 6.00 12/08/18 12/08/18 12/08/18 12/08/18 10:06 12:00 12:51 14:00 Temp 98.6 99.4 98.5 Pulse 92 75 77 95 Resp 24 24 24 B/P (MAP) 107/61 (76) 108/62 (77) 109/68 (82) Pulse Ox 98 97 99 O2 Delivery Nasal Cannula Nasal Cannula Nasal Cannula O2 Flow Rate 6.00 6.00 6.00 12/08/18 12/08/18 12/08/18 12/08/18 15:46 16:04 16:28 17:04 Pulse 150 140 126 151 B/P (MAP) 118/67 (84) 134/71 Capillary Refill : Constitutional: AAO x 3, well-developed, well-nourished HEENT: PERRL, hearing is well preserved, oral hygience is good Neck: No carotid bruit; carotid pulses are 2 + bilaterally Respiratory: No accessory muscle use, No respiratory distress; chest expansion is symmetric, chest is bilaterally symmetric, other (good air entry) Cardiovascular: irregularly irregular; No JVD; S1 and S2, systolic murmur Gastrointestinal: No tender; distended, audible bowel sounds Extremities: no lower extremity edema bilateral Neurologic/Psychiatric: grossly intact, power is 5/5 both on sides Skin: No rash on exposed areas, No ulcerations on exposed areas Data Review Labs Laboratory Tests 12/07/18 23:55: Prothrombin Time 17.4H, INR Comment 1.4, Activated Partial Thromboplast Time 33, Lactic Acid Level 2.65*H 12/08/18 01:55: Lactic Acid Level 2.00, White Blood Count 36.9*H, Red Blood Count 3.42L, Hemoglobin 10.7L, Hematocrit 33L, Mean Corpuscular Volume 97, Mean Corpuscular Hemoglobin 31, Mean Corpuscular Hemoglobin Concent 32, Red Cell Distribution Width 15.5H, Platelet Count 357, Mean Platelet Volume 8.6, Neutrophils (%) (Auto) 87H, Lymphocytes (%) (Auto) 2L, Monocytes (%) (Auto) 11, Eosinophils (%) (Auto) 0, Basophils (%) (Auto) 0, Neutrophils # (Auto) 32.2H, Lymphocytes # (Auto) 0.7L, Monocytes # (Auto) 4.0H, Eosinophils # (Auto) 0.0, Basophils # (Auto) 0.0, Neutrophils % (Manual) 90, Lymphocytes % (Manual) 1, Monocytes % (Manual) 9, Sodium Level 141, Potassium Level 3.1L, Chloride Level 103, Carbon Dioxide Level 27, Anion Gap 11, Blood Urea Nitrogen 13, Creatinine 0.78, Estimat Glomerular Filtration Rate > 60, BUN/Creatinine Ratio 17, Glucose Level 135H, Calcium Level 8.7, Corrected Calcium 8.9, Total Bilirubin 1.6H, Aspartate Amino Transf (AST/SGOT) 15, Alanine Aminotransferase (ALT/SGPT) 21, Alkaline Phosphatase 55, Total Protein 5.7L, Albumin 3.7 12/08/18 09:24: White Blood Count 31.2*H, Red Blood Count 3.22L, Hemoglobin 10.2L, Hematocrit 31L, Mean Corpuscular Volume 98, Mean Corpuscular Hemoglobin 32, Mean Corpuscular Hemoglobin Concent 33, Red Cell Distribution Width 15.5H, Platelet Count 366, Mean Platelet Volume 8.4, Neutrophils (%) (Auto) 89H, Lymphocytes (%) (Auto) 2L, Monocytes (%) (Auto) 9, Eosinophils (%) (Auto) 0, Basophils (%) (Au to) 0, Neutrophils # (Auto) 27.7H, Lymphocytes # (Auto) 0.6L, Monocytes # (Auto) 2.9H, Eosinophils # (Auto) 0.0, Basophils # (Auto) 0.0, Sodium Level 143, Potassium Level 3.2L, Chloride Level 107, Carbon Dioxide Level 28, Anion Gap 8, Blood Urea Nitrogen 12, Creatinine 0.68, Estimat Glomerular Filtration Rate > 60, BUN/Creatinine Ratio 18, Glucose Level 131H, Calcium Level 8.4L, Corrected Calcium 8.8, Total Bilirubin 1.1H, Aspartate Amino Transf (AST/SGOT) 16, Alanine Aminotransferase (ALT/SGPT) 20, Alkaline Phosphatase 53, Total Protein 5.5L, Albumin 3.5 Microbiology 12/08/18 Blood Culture - Preliminary, Resulted No growth A/P-Cardiology Assessment/Admission Diagnosis PA-fib with RVR Sepsis of undetermined etiology - surgical/medical services managing Chronic anti-coagulation with warfarin - sub-therapeutic INR CAD - H/O CABG x [address] Huang at [facility] [place], [place] - reports recent MPI in the last [address] Lopez (reported to be normal) Sleep apnea - CPAP tx Hypokalemia - likely d/t chronic diuretics Discussion and Recomendations A-fib with RVR - start Cardizem gtt for rate control H/O PAF Chronic anticoagulation with warfarin - has been held for several days for colonoscopy by Dr. Ricci at [facility] yesterday - sub-therapeutic INR/ Start Lovenox for stroke prophylaxis if ok with surgical services Management of sepsis is with Medical Services Replace potassium Request records from [facility] structure and function Monitor lab closely Further recs with be based on his hospital course We would like to thank Medical Services for this consult I had a detailed discussion with him and his fam ( and two daughters) and answered CV-related questions Clinical Quality Measures DVT/VTE Risk/Contraindication: Risk Factor Score Per Nursin RFS Level Per Nursing on Admit: 4+=Very High BRENDA VANN MD FACP FAC CCDS Dec 08, 2018 18:15
[2018-12-08] MEDS ORDERED: RT-ALBUTEROL/IPRATROPIUM 3 ML (DUONEB) VIAL ONE (18:55)
[2018-12-08] MEDS ORDERED: morphine INJ 4 MG/ML 1 ML (VIAL/SYRINGE) ONE (19:13)
[2018-12-08] MEDS ORDERED: morphine INJ 4 MG/ML 1 ML (VIAL/SYRINGE) IV NR (19:15)
--- NOTE | 2018-12-08 19:45 | NUR ---
MORPHINE 4 MG GIVEN IV FOR AIR HUNGER AND PT PLACED IN BI-PAP AT 50%
--- NOTE | 2018-12-08 20:12 | NUR ---
PT RESTING WELL, TOLERATING BI-PAP WELL
[2018-12-08 20:21] LABS: ALBUMIN 3.6 GM/DL (3.2-4.5); BUN/CREATININE RATIO 16; CALCIUM 8.6 MG/DL (8.5-10.1); CARBON DIOXIDE 25 MMOL/L (21-32); CHLORIDE 106 MMOL/L (98-107); CREATININE SERUM 0.67 MG/DL (0.60-1.30); GFR ESTIMATED > 60; GLUCOSE 129 MG/DL (70-105); MAGNESIUM 1.4 MG/DL (1.8-2.4); POTASSIUM 3.5 MMOL/L (3.6-5.0); SODIUM 140 MMOL/L (135-145)
[2018-12-08] MEDS ORDERED: MAGNESIUM 1 GM/100 ML IVPB 200 ML IV ONE (20:31)
[2018-12-08] MEDS: MAGNESIUM 1 GM/100 ML IVPB 100 ML IV SCH (20:43)
[2018-12-08] MEDS ORDERED: SOTALOL 80 MG (BETAPACE) TAB PO NR (21:00)
--- NOTE | 2018-12-08 21:33 | Consultation (Surgery) ---
History of Present Illness History of Present Illness Patient Consulted On(katelyn/time) 12/08/18 21:25 Date Seen by Provider: Dec 08, 2018 Time Seen by Provider: 12:36 History of Present Illness consult requested by Dr. Dos Santos status post colonoscopy with snare polypectomy Patient is a 78-year-old male who underwent colonoscopy yesterday with hot biopsy polypectomy and snare polypectomy of polyps of the right colon. Patient course was uncomplicated. Patient yesterday evening began having significant shortness of breath and fever up to 104 Patient was taken by EMS to [facility]. He is not having any abdominal pain or discomfort. He contin ues to have respiratory issues and was transferred to [facility] for further management. Patient breathing has improved he states. He is not having any abdominal pain or discomfort. He has not had fever while here. He has no other complaints at this time. He denies any nausea vomiting fever sweats chills shortness of breath or chest pain at this time. Allergies and Home Medications Allergies Coded Allergies: No Known Drug Allergies (Unverified , 12/07/18) Home Medications Acetaminophen 500 Mg Tablet, 1,000 MG PO Q8H PRN for PAIN-MILD, (Reported) Amlodipine Besylate 5 Mg Tablet, 5 MG PO DAILY, (Reported) Atorvastatin Calcium 20 Mg Tablet, 20 MG PO DAILY, (Reported) Fesoterodine Fumarate 4 Mg Tab.sr.24h, 4 MG PO DAILY, (Reported) Fluorouracil 40 Gm Cream..g., TOP UD, (Reported) USES ON FACE & CHEST 2X DAILY X 2 WEEKS THEN ON ARMS 2X DAILY X 2 WEEKS (ALTERNATES LOCATIONS WITH TRIAMCINOLONE CREAM) Sertraline HCl 25 Mg Tablet, 25 MG PO DAILY, (Reported) Sotalol HCl 80 Mg Tablet, 80 MG PO BID, (Reported) Telmisartan/Hydrochlorothiazid 1 Each Tablet, 1 TAB PO DAILY, (Reported) Triamcinolone Acet 15 Gm Cr, TP UD, (Reported) USES ON FACE & CHEST 2X DAILY X 2 WEEKS THEN ON ARMS 2X DAILY X 2 WEEKS (ALTERNATES LOCATIONS WITH FLUOROURACIL CREAM) Warfarin Sodium 3 Mg Tablet, 3 MG PO Mo, (Reported) Warfarin Sodium 3 Mg Tablet, 4.5 MG PO SuTuWeThFrSa, (Reported) Patient Home Medication List Home Medication List Reviewed: Yes Past Vqtrjbe-Uazzip-Wezaog Hx Patient Social History Alcohol Use: Denies Use Recreational Drug Use: No Recent Foreign Travel: No Contact w/Someone Who Travel: No Recent Infectious Disease Expo: No Recent Hopitalizations: No Physical Abuse Screen: No Sexual Abuse: No Seasonal Allergies Seasonal Allergies: No Surgeries History of Surgeries: Yes Respiratory History of Respiratory Disorde: No Cardiovascular History of Cardiac Disorders: Yes Neurological History of Neurological Disord: No Genitourinary History of Genitourinary Disor: No Gastrointestinal History of Gastrointestinal Di: No Musculoskeletal History of Musculoskeletal Dis: No Endocrine History of Endocrine Disorders: No HEENT History of HEENT Disorders: Yes HEENT Disorders: Cataract, Macular Degeneration Loss of Vision: Right Hearing Impairment: Denies Cancer History of Cancer: No Psychosocial History of Psychiatric Problem: No Integumentary History of Skin or Integumenta: No Blood Transfusions History of Blood Disorders: No Adverse Reaction to a Blood Tr: No Family Medical History Significant Family History: No Pertinent Family Hx Review of Systems-General Constitutional: see HPI, fever EENTM: no symptoms reported Respiratory: see HPI Cardiovascular: no symptoms reported Gastrointestinal: no symptoms reported Genitourinary: no symptoms reported Musculoskeletal: no symptoms reported Skin: no symptoms reported Psychiatric/Neurological: No Symptoms Reported Physical Exam-General Problems Physical Exam Vital Signs Vital Signs - First Documented 12/07/18 12/08/18 23:45 20:00 Temp 99.6 Pulse 94 Resp 20 B/P (MAP) 114/55 (74) Pulse Ox 94 O2 Delivery Nasal Cannula O2 Flow Rate 6.00 FiO2 50 Capillary Refill : General Appearance: no apparent distress HEENT: PERRL/EOMI, normal ENT inspection Neck: non-tender, normal inspection Respiratory: chest non-tender, no respiratory distress, no accessory muscle use, other (appears slightly short of air) Cardiovascular: regular rate, rhythm Gastrointestinal: non tender, soft, no organomegaly, no pulsatile mass Back: normal inspection, no CVA tenderness, no vertebral tenderness Extremities: normal range of motion, normal inspection, no calf tenderness 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, no motor/sensory deficits, alert, normal mood/affect, oriented x 3 Skin: normal color, warm/dry Lymphatic: no adenopathy Data Review Labs Laboratory Tests 12/07/18 23:55: Prothrombin Time 17.4H, INR Comment 1.4, Activated Partial Thromboplast Time 33, Lactic Acid Level 2.65*H 12/08/18 01:55: Lactic Acid Level 2.00, White Blood Count 36.9*H, Red Blood Count 3.42L, Hemoglobin 10.7L, Hematocrit 33L, Mean Corpuscular Volume 97, Mean Corpuscular Hemoglobin 31, Mean Corpuscular Hemoglobin Concent 32, Red Cell Distribution Width 15.5H, Platelet Count 357, Mean Platelet Volume 8.6, Neutrophils (%) (Auto) 87H, Lymphocytes (%) (Auto) 2L, Monocytes (%) (Auto) 11, Eosinophils (%) (Auto) 0, Basophils (%) (Auto) 0, Neutrophils # (Auto) 32.2H, Lymphocytes # (Auto) 0.7L, Monocytes # (Auto) 4.0H, Eosinophils # (Auto) 0.0, Basophils # (Auto) 0.0, Neutrophils % (Manual) 90, Lymphocytes % (Manual) 1, Monocytes % (Manual) 9, Sodium Level 141, Potassium Level 3.1L, Chloride Level 103, Carbon Dioxide Level 27, Anion Gap 11, Blood Urea Nitrogen 13, Creatinine 0.78, Estimat Glomerular Filtration Rate > 60, BUN/Creatinine Ratio 17, Glucose Level 135H, Calcium Level 8.7, Corrected Calcium 8.9, Total Bilirubin 1.6H, Aspartate Amino Transf (AST/SGOT) 15, Alanine Aminotransferase (ALT/SGPT) 21, Alkaline Phosphatase 55, Total Protein 5.7L, Albumin 3.7 12/08/18 09:24: White Blood Count 31.2*H, Red Blood Count 3.22L, Hemoglobin 10.2L, Hematocrit 31L, Mean Corpuscular Volume 98, Mean Corpuscular Hemoglobin 32, Mean Corpuscular Hemoglobin Concent 33, Red Cell Distribution Width 15.5H, Platelet Count 366, Mean Platelet Volume 8.4, Neutrophils (%) (Auto) 89H, Lymphocytes (%) (Auto) 2L, Monocytes (%) (Auto) 9, Eosinophils (%) (Auto) 0, Basophils (%) (Auto) 0, Neutrophils # (Auto) 27.7H, Lymphocytes # (Auto) 0.6L, Monocytes # (Auto) 2.9H, Eosinophils # (Auto) 0.0, Basophils # (Auto) 0.0, Sodium Level 143, Potassium Level 3.2L, Chloride Level 107, Carbon Dioxide Level 28, Anion Gap 8, Blood Urea Nitrogen 12, Creatinine 0.68, Estimat Glomerular Filtration Rate > 60, BUN/Creatinine Ratio 18, Glucose Level 131H, Calcium Level 8.4L, Corrected Calcium 8.8, Total Bilirubin 1.1H, Aspartate Amino Transf (AST/SGOT) 16, Alanine Aminotransferase (ALT/SGPT) 20, Alkaline Phosphatase 53, Total Protein 5.5L, Albumin 3.5 12/08/18 19:35: Lactic Acid Level 1.04, Hemoglobin 10.5L, Sodium Level 140, Potassium Level 3.5L , Chloride Level 106, Carbon Dioxide Level 25, Anion Gap 9, Blood Urea Nitrogen 11, Creatinine 0.67, Estimat Glomerular Filtration Rate > 60, BUN/Creatinine Ratio 16, Glucose Level 129H, Calcium Level 8.6, Albumin 3.6, Magnesium Level 1.4L, Troponin I 0.055H, B-Type Natriuretic Peptide 265.2H Microbiology 12/08/18 Blood Culture - Preliminary, Resulted No growth Assessment/Plan Assessment/Plan Assessment/Plan Shortness of breath Hypoxia Status post colonoscopy with snare polypectomy and hot biopsy polypectomy 2 of right colon yesterday. Severe sepsis by criteria Fever Patient is 78-year-old male reviewed his CT scan is no evidence of any bowel perforation no free air. He is not having abdominal pain or discomfort in the abdomen. Patient no source of fever at this time. He is on broad-spectrum antibiotics and receiving IV fluids appropriate for severe sepsis. Patient has significant leukocytosis. Continue to follow. No surgical intervention needed at this time. Clinical Quality Measures DVT/VTE Risk/Contraindication: Risk Factor Score Per Nursin RFS Level Per Nursing on Admit: 4+=Very High ANDREAS MANE DO Dec 08, 2018 21:33
[2018-12-08] MEDS ORDERED: morphine INJ 4 MG/ML 1 ML (VIAL/SYRINGE) IV PRN (21:45)
[2018-12-08] MEDS: PANTOPRAZOLE 40 MG (PROTONIX) VIAL IV SCH (21:55)
[2018-12-08] MEDS ORDERED: RT-ALBUTEROL/IPRATROPIUM 3 ML (DUONEB) VIAL INH PRN (22:00)
--- NOTE | 2018-12-08 22:30 | NUR ---
PT NOW IN SR
[2018-12-09] VITALS (25 sets, daily range): BP systolic 80–137; BP diastolic 32–90
[2018-12-09] MEDS: RT-ALBUTEROL/IPRATROPIUM 3 ML (DUONEB) VIAL INH SCH ×6 (03:20→23:10)
[2018-12-09 03:37] LABS: BASOPHILS % (AUTO) 0 % (0-10); EOSINOPHILS % (AUTO) 0 % (0-10); HEMATOCRIT 30 % (40-54); HEMOGLOBIN 9.5 G/DL (13.3-17.7); LYMPHOCYTES % (AUTO) 5 % (12-44); MEAN CORPUSCULAR HEMOGLOBIN 31 PG (25-34); MEAN CORPUSCULAR HGB CONC 32 G/DL (32-36); MEAN CORPUSCULAR VOLUME 99 FL (80-99); MEAN PLATELET VOLUME 8.7 FL (7.4-10.4); MONOCYTES # (AUTO) 2.6 X 10^3 (0.0-1.0); MONOCYTES % (AUTO) 13 % (0-12); NEUTROPHILS # (AUTO) 16.7 X 10^3 (1.8-7.8); NEUTROPHILS % (AUTO) 82 % (42-75); PLATELET COUNT 370 10^3/uL (130-400); RED CELL DISTRIBUTION WIDTH 16.1 % (10.0-14.5); WHITE BLOOD COUNT 20.3 10^3/uL (4.3-11.0)
[2018-12-09 04:03] LABS: ALANINE AMINOTRANSFERASE 23 U/L (0-55); ALBUMIN 3.3 GM/DL (3.2-4.5); ALKALINE PHOSPHATASE 61 U/L (40-136); BILIRUBIN,TOTAL 0.5 MG/DL (0.1-1.0); BUN/CREATININE RATIO 16; CALCIUM 8.6 MG/DL (8.5-10.1); CARBON DIOXIDE 24 MMOL/L (21-32); CHLORIDE 107 MMOL/L (98-107); CREATININE SERUM 0.68 MG/DL (0.60-1.30); GFR ESTIMATED > 60; GLUCOSE 124 MG/DL (70-105); MAGNESIUM 2.1 MG/DL (1.8-2.4); PHOSPHORUS 1.5 MG/DL (2.3-4.7); SODIUM 138 MMOL/L (135-145); TOTAL PROTEIN 5.4 GM/DL (6.4-8.2)
[2018-12-09] MEDS: DILTIAZEM IV FOR DRIP 125 MG in NS (IVPB) 100 ML IV SCH (04:16)
[2018-12-09] MEDS: ENOXAPARIN 100 MG/1 ML (LOVENOX) SYR SC SCH (05:30)
--- NOTE | 2018-12-09 05:47 | Pulmonary Consultation ---
History of Present Illness History of Present Illness Date of Consultation 12/09/18 05:46 Date of Admission Allergies and Home Medications Allergies Coded Allergies: No Known Drug Allergies (Unverified , 12/07/18) Home Medications Acetaminophen 500 Mg Tablet, 1,000 MG PO Q8H PRN for PAIN-MILD, (Reported) Amlodipine Besylate 5 Mg Tablet, 5 MG PO DAILY, (Reported) Atorvastatin Calcium 20 Mg Tablet, 20 MG PO DAILY, (Reported) Fesoterodine Fumarate 4 Mg Tab.sr.24h, 4 MG PO DAILY, (Reported) Fluorouracil 40 Gm Cream..g., TOP UD, (Reported) USES ON FACE & CHEST 2X DAILY X 2 WEEKS THEN ON ARMS 2X DAILY X 2 WEEKS (ALTERNATES LOCATIONS WITH TRIAMCINOLONE CREAM) Sertraline HCl 25 Mg Tablet, 25 MG PO DAILY, (Reported) Sotalol HCl 80 Mg Tablet, 80 MG PO BID, (Reported) Telmisartan/Hydrochlorothiazid 1 Each Tablet, 1 TAB PO DAILY, (Reported) Triamcinolone Acet 15 Gm Cr, TP UD, (Reported) USES ON FACE & CHEST 2X DAILY X 2 WEEKS THEN ON ARMS 2X DAILY X 2 WEEKS (ALTERNATES LOCATIONS WITH FLUOROURACIL CREAM) Warfarin Sodium 3 Mg Tablet, 3 MG PO Mo, (Reported) Warfarin Sodium 3 Mg Tablet, 4.5 MG PO SuTuWeThFrSa, (Reported) Past Uqrdfee-Lsihip-Zhjooy Hx Patient Social History Alcohol Use: Denies Use Recreational Drug Use: No Recent Foreign Travel: No Contact w/Someone Who Travel: No Recent Infectious Disease Expo: No Recent Hopitalizations: No Seasonal Allergies Seasonal Allergies: No Past Medical History Surgeries: Yes Respiratory: No Cardiac: Yes Neurological: No Genitourinary: No Gastrointestinal: No Musculoskeletal: No Endocrine: No HEENT: Yes Cataract, Macular Degeneration Loss of Vision: Right Hearing Impairment: Denies Cancer: No Psychosocial: No Integumentary: No Blood Disorders: No Adverse Reaction/Blood Tranf: No Family Medical History No Pertinent Family Hx Sepsis Event Evaluation Height, Weight, BMI Height: 5'8.00" Weight: 189lbs. 2.0oz. [id number]; 28.8 BMI Method: Exam Exam Vital Signs Date Time Temp Pulse Resp B/P (MAP) Pulse Ox O2 Delivery O2 Flow Rate FiO2 12/09/18 05:00 73 16 110/54 (72) 97 NIV Bilevel 45.00 12/09/18 04:16 75 12/09/18 04:00 70 22 96/44 (61) 95 NIV Bilevel 45.00 12/09/18 04:00 97 NIV Bilevel 45 12/09/18 03:20 71 23 95 45.00 12/09/18 03:00 71 30 93/49 (64) 99 NIV Bilevel 45.00 12/09/18 02:00 74 13 98/61 (73) 100 NIV Bilevel 45.00 12/09/18 01:00 68 23 96/46 (63) 97 NIV Bilevel 45.00 12/09/18 01:00 68 12/09/18 00:00 97 NIV Bilevel 45 12/09/18 00:00 75 20 93/47 (62) 95 NIV Bilevel 45.00 12/08/18 23:00 76 12 95/52 (66) 93 NIV Bilevel 50.00 12/08/18 22:30 96 27 96 45.00 12/08/18 22:00 72 26 91/50 (64) 97 NIV Bilevel 50.00 12/08/18 21:41 107 96 12/08/18 21:00 74 21 106/50 (68) 97 NIV Bilevel 50.00 12/08/18 20:00 99.5 12/08/18 20:00 77 13 75/53 (60) 96 NIV Bilevel 50.00 12/08/18 20:00 97 NIV Bilevel 50 12/08/18 19:38 88 12/08/18 19:25 112 30 96 50.00 12/08/18 19:05 96 Nasal Cannula 6.00 12/08/18 19:00 104 12/08/18 19:00 137 20 120/62 (81) 95 Nasal Cannula 6.00 12/08/18 18:00 108 11 112/57 (75) 99 Nasal Cannula 6.00 12/08/18 17:45 124 9 104/67 (79) 98 Nasal Cannula 6.00 12/08/18 17:30 135 16 117/62 (80) 98 Nasal Cannula 6.00 12/08/18 17:15 129 37 96 Nasal Cannula 6.00 12/08/18 17:04 151 134/71 12/08/18 17:00 135 22 134/71 (92) 98 Nasal Cannula 6.00 12/08/18 16:45 133 14 122/72 (89) Nasal Cannula 6.00 12/08/18 16:28 126 12/08/18 16:04 140 118/67 (84) 12/08/18 15:46 150 12/08/18 14:00 98.5 95 24 109/68 (82) 99 Nasal Cannula 6.00 12/08/18 12:51 77 12/08/18 12:00 99.4 75 24 108/62 (77) 97 Nasal Cannula 6.00 12/08/18 10:06 98.6 92 24 107/61 (76) 98 Nasal Cannula 6.00 12/08/18 08:00 98.8 75 36 107/60 (76) 97 Nasal Cannula 6.00 12/08/18 08:00 97 Nasal Cannula 6.00 12/08/18 07:00 75 12/08/18 06:45 98.6 79 20 111/62 (78) 96 Nasal Cannula 6.00 I & O 12/09/18 07:00 Intake Total 840 ml Output Total 650 ml Balance 190 ml Height & Weight Height: 5'8.00" Weight: 189lbs. 2.0oz. 85.255617ni; 28.8 BMI Method: General Appearance: No Apparent Distress, WD/WN HEENT: Normal ENT Inspection Neck: Normal Inspection Respiratory: Chest Non Tender, Lungs Clear, Normal Breath Sounds, No Accessory Muscle Use, No Respiratory Distress Cardiovascular: Regular Rate, Rhythm, No Edema, No Gallop, No JVD, No Murmur Gastrointestinal: non tender, soft, no organomegaly, no pulsatile mass Extremity: Other (right calf and quadriceps less developed than the left) Skin: Normal Color, Warm/Dry Lymphatic: No Adenopathy Results Lab Laboratory Tests 12/08/18 01:55 12/08/18 09:24 12/08/18 19:35 12/09/18 03:05 Assessment/Plan Assessment/Plan Severe sepsis Afib RVR - now converted -Cardizem gtt -Cardiology following Hx of childhood polio ROSE -CPAP -Will try to get down load DANIELITO DELGADILLO DO Dec 09, 2018 05:47
[2018-12-09] MEDS: KCL 20 MEQ TAB (K-DUR) PO SCH (06:25)
[2018-12-09] MEDS: POTASSIUM CL 10MEQ/50ML IVPB 50 ML IV SCH (06:25)
[2018-12-09] MEDS: MAGNESIUM 1 GM/100 ML IVPB 100 ML IV SCH (06:25)
[2018-12-09] MEDS: PIPERACILLIN/TAZOBACTAM (BULK) 4.5 GM in NS (IVPB) 100 ML IV SCH ×3 (06:25→22:22)
--- NOTE | 2018-12-09 07:49 | Diagnostic Imaging Report ---
INDICATION: Respiratory distress. Comparison with CT scan from 12/08/2018. FINDINGS: Cardiomegaly and median sternotomy changes noted. No acute infiltrates have developed. There is mild atelectasis left lung base. No pneumothorax or pleural effusion. IMPRESSION: Postoperative residue with mild left basilar atelectasis. Dictated by: Dictated on workstation # [id number]
--- NOTE | 2018-12-09 09:17 | Progress Note-Cardiology ---
Cardiology SOAP Progress Note Subjective: Didn't sleep well. Feels tired. Reports malaise Does not report cp or palp or syncope or shortness of breath Objective: I&O/Vital Signs 12/08/18 12/08/18 12/08/18 12/08/18 21:41 22:00 22:30 23:00 Pulse 107 72 96 76 Resp 26 27 12 B/P (MAP) 91/50 (64) 95/52 (66) Pulse Ox 96 97 96 93 O2 Delivery NIV Bilevel NIV Bilevel O2 Flow Rate 50.00 45.00 50.00 12/09/18 12/09/18 12/09/18 12/09/18 00:00 00:00 01:00 01:00 Pulse 75 68 68 Resp 20 23 B/P (MAP) 93/47 (62) 96/46 (63) Pulse Ox 95 97 97 O2 Delivery NIV Bilevel NIV Bilevel NIV Bilevel O2 Flow Rate 45.00 45.00 FiO2 45 12/09/18 12/09/18 12/09/18 12/09/18 02:00 03:00 03:20 04:00 Pulse 74 71 71 Resp 13 30 23 B/P (MAP) 98/61 (73) 93/49 (64) Pulse Ox 100 99 95 97 O2 Delivery NIV Bilevel NIV Bilevel NIV Bilevel O2 Flow Rate 45.00 45.00 45.00 FiO2 45 12/09/18 12/09/18 12/09/18 12/09/18 04:00 04:16 05:00 06:00 Pulse 70 75 73 73 Resp 22 16 22 B/P (MAP) 96/44 (61) 110/54 (72) 113/56 (75) Pulse Ox 95 97 99 O2 Delivery NIV Bilevel NIV Bilevel NIV Bilevel O2 Flow Rate 45.00 45.00 45.00 12/09/18 12/09/18 12/09/18 12/09/18 07:00 07:02 07:57 08:00 Temp 98.6 Pulse 70 72 75 Resp 21 28 B/P (MAP) 104/54 (71) 88/32 (50) Pulse Ox 98 97 O2 Delivery Nasal Cannula Nasal Cannula O2 Flow Rate 5.00 5.00 12/09/18 12/09/18 08:03 08:23 Pulse Ox 95 O2 Delivery Nasal Cannula Nasal Cannula O2 Flow Rate 5.00 6.00 6/26/19 00:00 Intake Total 740 ml Output Total 500 ml Balance 240 ml Weight (Pounds): 189 Weight (Ounces): 2.0 Weight (Calculated Kilograms): 85.848283 Constitutional: AAO x 3, well-developed, well-nourished Respiratory: No accessory muscle use, No respiratory distress; chest expansion is symmetric, chest is bilaterally symmetric, other (good air entry) Cardiovascular: regular rate-rhythm; No JVD; S1 and S2, systolic murmur Gastrointestional: No tender; distended, audible bowel sounds Extremities: no lower extremity edema bilateral Neurologic/Psychiatric: grossly intact, power is 5/5 both on sides Skin: No rash on exposed areas, No ulcerations on exposed areas Results/Procedures: Labs Laboratory Tests 12/08/18 09:24: White Blood Count 31.2*H, Red Blood Count 3.22L, Hemoglobin 10.2L, Hematocrit 31L, Mean Corpuscular Volume 98, Mean Corpuscular Hemoglobin 32, Mean Lanie uscular Hemoglobin Concent 33, Red Cell Distribution Width 15.5H, Platelet Count 366, Mean Platelet Volume 8.4, Neutrophils (%) (Auto) 89H, Lymphocytes (%) (Auto) 2L, Monocytes (%) (Auto) 9, Eosinophils (%) (Auto) 0, Basophils (%) (Auto) 0, Neutrophils # (Auto) 27.7H, Lymphocytes # (Auto) 0.6L, Monocytes # (Auto) 2.9H, Eosinophils # (Auto) 0.0, Basophils # (Auto) 0.0, Sodium Level 143, Potassium Level 3.2L, Chloride Level 107, Carbon Dioxide Level 28, Anion Gap 8, Blood Urea Nitrogen 12, Creatinine 0.68, Estimat Glomerular Filtration Rate > 60, BUN/Creatinine Ratio 18, Glucose Level 131H, Calcium Level 8.4L, Corrected Calcium 8.8, Total Bilirubin 1.1H, Aspartate Amino Transf (AST/SGOT) 16, Alanine Aminotransferase (ALT/SGPT) 20, Alkaline Phosphatase 53, Total Protein 5.5L, Albumin 3.5 12/08/18 19:35: Hemoglobin 10.5L, Sodium Level 140, Potassium Level 3.5L, Chloride Level 106, Carbon Dioxide Level 25, Anion Gap 9, Blood Urea Nitrogen 11, Creatinine 0.67, Estimat Glomerular Filtration Rate > 60, BUN/Creatinine Ratio 16, Glucose Level 129H, Calcium Level 8.6, Albumin 3.6, Lactic Acid Level 1.04, Magnesium Level 1.4L, Troponin I 0.055H, B-Type Natriuretic Peptide 265.2H 12/09/18 03:05: White Blood Count 20.3H, Red Blood Count 3.03L, Hemoglobin 9.5L, Hematocrit 30L, Mean Corpuscular Volume 99, Mean Corpuscular Hemoglobin 31, Mean Corpuscular Hemoglobin Concent 32, Red Cell Distribution Width 16.1H, Platelet Count 370, Mean Platelet Volume 8.7, Neutrophils (%) (Auto) 82H, Lymphocytes (%) (Auto) 5L, Monocytes (%) (Auto) 13H, Eosinophils (%) (Auto) 0, Basophils (%) (Auto) 0, Neutrophils # (Auto) 16.7H, Lymphocytes # (Auto) 1.0, Monocytes # (Auto) 2.6H, Eosinophils # (Auto) 0.0, Basophils # (Auto) 0.0, Sodium Level 138, Potassium Le ian 4.0, Chloride Level 107, Carbon Dioxide Level 24, Anion Gap 7, Blood Urea Nitrogen 11, Creatinine 0.68, Estimat Glomerular Filtration Rate > 60, BUN/Creatinine Ratio 16, Glucose Level 124H, Calcium Level 8.6, Corrected Calcium 9.2, Total Bilirubin 0.5, Aspartate Amino Transf (AST/SGOT) 19, Alanine Aminotransferase (ALT/SGPT) 23, Alkaline Phosphatase 61, Total Protein 5.4L, Albumin 3.3, Magnesium Level 2.1, Phosphorus Level 1.5L, Thyroid Stimulating Hormone (TSH) 0.87 Microbiology 12/08/18 Blood Culture - Preliminary, Resulted No growth Laboratory Tests 12/08/18 01:55 12/08/18 09:24 12/08/18 19:35 12/09/18 03:05 A/P: Assessment: PA-fib with RVR, now NSR Sepsis of undetermined etiology - surgical/medical services managing Chronic anti-coagulation with warfarin - sub-therapeutic INR CAD - H/O CABG x [address] Huang at [facility], [place] - reports recent MPI in the last [address] Lopez (reported to be normal) Sleep apnea - CPAP tx Hypokalemia - likely d/t chronic diuretics Plan: * Stop diltiazem * Continue sotalol * Change to oral anticoag. I discussed the choice of OAC in detail with him and his and his two daughter last night. They agree with going a newer oral anticoag. Will initiate apixaban if approved by the Hospitalist and Surgical services * Monitor labs BRENDA VANN MD FACP FAC CCDS Dec 09, 2018 09:17
[2018-12-09] MEDS: PANTOPRAZOLE 40 MG (PROTONIX) VIAL IV SCH ×2 (09:29→21:29)
[2018-12-09] MEDS: SOTALOL 80 MG (BETAPACE) TAB PO SCH ×2 (09:29→21:29)
[2018-12-09] MEDS ORDERED: TROUGH ORDER-PHARMACY XX ONE (10:00)
--- NOTE | 2018-12-09 10:28 | NUR ---
VINCENT W/ DR GROVE TO START ELIQUIS.
[2018-12-09] MEDS: VANCOMYCIN 1250 MG/NS 250 ML IVPB IV SCH ×4 (10:56→22:22)
--- NOTE | 2018-12-09 11:16 | Progress Note-Hospitalist ---
Subjective HPI/CC On Admission Date Seen by Provider: Dec 09, 2018 Time Seen by Provider: 10:00 The patient is a 78-year-old white male admitted to the hospitalist service after a phone call from the nurse practitioner in the [facility] emergency room. The patient had had a colonoscopy at [facility] performed by Dr. Ricci. This was at approximately 7 o'clock and by 1030 he was released and went home. Slice states that he was a bit sluggish through the day. They ate early supper at about 1630 hours. After that they went for a ride around [facility] and went back to their home. He had difficulty getting out of the car and u ltimately leaned forward and slid down the front of his and sat on the driveway. He was unable to get up and she called her grandson and son-in-law to come help get him up. At that point they went to the [facility] emergency room arriving at about 1930 hours. He really had no localizing signs but was found to have a temperature of 104 at arrival and a white count of 31,000. He denies cough or sputum production. There was no apparent belly pain. I was then called and arrangements were made to transfer him here. He had been given Zosyn prior to his departure from the [facility]. On arrival here he underwent CT scans with contrast of the chest abdomen and pelvis. There was no pneumonia reported on the chest and no evidence of free air or abscess formation on the abdomen or pelvis. His maximum temp after arriving here was 99.6. His blood pressure has been 95/60 range. Lactic acid on arrival was 2.65 and he was given the fluid bolus to achieve the 30 mL/kg Subjective/Events-last exam Pt required ICU transfer and placement on Cardizem drip due to atrial fibrillati on with rapid ventricular response. required BIPAP last night. Maintained on oxygen right now and he is a little bit tachypneic so will remain in the ICU today. Updated the Pt and went back after rounds and talked to his who is requesting rehab so we will have PT and OT evaluate him and will likely admit to inpatient rehab on second floor to further his recovery prior to returning home since he is so weak he cannot return to home at current state. Review of Systems General: Fatigue Pulmonary: Dyspnea Focused Exam Lactate Level 12/07/18 23:55: Lactic Acid Level 2.65*H 12/08/18 01:55: Lactic Acid Level 2.00 12/08/18 19:35: Lactic Acid Level 1.04 Objective Exam Vital Signs Vital Signs Date Time Temp Pulse Resp B/P (MAP) Pulse Ox O2 Delivery O2 Flow Rate FiO2 12/09/18 18:59 94 Nasal Cannula 6.00 12/09/18 18:00 86 26 125/66 (85) 12/09/18 15:36 98.8 12/09/18 04:00 45 Capillary Refill : General Appearance: No Apparent Distress, WD/WN HEENT: PERRL/EOMI, TMs Normal, Normal ENT Inspection Neck: Normal Inspection Respiratory: Chest Non Tender, Lungs Clear, Normal Breath Sounds, No Respiratory Distress, Accessory Muscle Use, Decreased Breath Sounds Cardiovascular: Regular Rate, Rhythm, No Edema, No Gallop, No JVD, No Murmur Gastrointestinal: Normal Bowel Sounds, No Organomegaly, Non Tender, Soft Extremity: Other (right calf and quadriceps less developed than the left) Skin: Normal Color, Warm/Dry Lymphatic: No Adenopathy Results/Procedures Lab Laboratory Tests 12/09/18 03:05 Patient resulted labs reviewed. Assessment/Plan Assessment and Plan Assess & Plan/Chief Complaint Assessment: Severe sepsis Afib RVR requiring Cardizem drip now converted Hx of childhood polio ROSE on CPAP Debilitated status in need of IRF after stable Plan: Monitor respiratory status closely Appreciate Dr Vargas and Dr Lebron consultation Diagnosis/Problems Diagnosis/Problems (1) SEPSIS Status: Acute (2) Atrial fibrillation with rapid ventricular response Status: Acute (3) Tachypnea Status: Acute (4) ROSE on CPAP Status: Chronic (5) History of poliomyelitis Status: Chronic (6) Debilitated Status: Acute Clinical Quality Measures DVT/VTE Risk/Contraindication: Risk Factor Score Per Nursin RFS Level Per Nursing on Admit: 4+=Very High ISADORA GROVE DO Dec 09, 2018 11:16
[2018-12-09] MEDS ORDERED: LACTATED RINGERS 1,000 ML IV ONE (13:45)
--- NOTE | 2018-12-09 15:14 | Occupational Therapy Eval ---
OT Evaluation-General/PLF Medical Diagnosis Admission Date Dec 07, 2018 at 23:56 Medical Diagnosis: PNA/ POSS BOWEL PERFORATION Onset Date: Dec 09, 2018 Therapy Diagnosis Therapy Diagnosis: impaired ADL and mobility Height/Weight Height (Feet): 5 Height (Inches): 8.00 Weight (Pounds): 189 Weight (Ounces): 2.0 Precautions Precautions/Isolations: Fall Prevention, Standard Precautions, Pressure Ulcer Safety Interventions: None Medical History Additional Medical History Past Rgefewf-Eiijrw-Ihtsxf Hx Patient Social History Alcohol Use: Denies Use Recreational Drug Use: No Physical Abuse Screen: No Sexual Abuse: No Recent Foreign Travel: No Contact w/other who traveled: No Recent Hopitalizations: No Recent Infectious Disease Expo: No Seasonal Allergies Seasonal Allergies: No Past Medical History HEENT: Cataract, Macular Degeneration Loss of Vision: Right Hearing Impairment: Denies History of Blood Disorders: No Adverse Reaction to Blood Back: No Current History per h&P: "The patient is a 78-year-old white male admitted to the hospitalist service after a phone call from the nurse practitioner in the [facility] emergency room. The patient had had a colonoscopy at [facility] performed by Dr. Ricci. This was at approximately 7 o'clock and by 1030 he was released and went home. Slice states that he was a bit sluggish through the day. They ate early supper at about 1630 hours. After that they went for a ride around [facility] and went back to their home. He had difficulty getting out of the car and ultimately leaned forward and slid down the front of his and sat on the driveway. He was unable to get up and she called her grandson and son-in-law to come help get him up. At that point they went to the [facility] emergency room arriving at about 1930 hours. He really had no localizing signs but was found to have a temperature of 104 at arrival and a white count of 31,000. He denies cough or sputum production. There was no apparent belly pain. I was then called and arrangements were made to transfer him here. He had been given Zosyn prior to his departure from the [facility]. On arrival here he underwent CT scans with contrast of the chest abdomen and pelvis. There was no pneumonia reported on the chest and no evidence of free air or abscess formation on the abdomen or pelvis. His maximum temp after arriving here was 99.6. His blood pressure has been 95/60 range. Lactic acid on arrival was 2.65 " Social History Home: Single Level Current Living Status: Significant Other Entry Into Home: Stairs With Railing Steps Inside Home: 3 ADL-Prior Level of Function Therapy Code Descriptions/Definitions Functional [place] Measure: 0=Not Assessed/NA 4=Minimal Assistance 1=Total Assistance 5=Supervision or Setup 2=Maximal Assistance 6=Modified [place] 3=Moderate Assistance 7=Complete [place] Therapy Quality Codes: 6 Independent with activity with or without an assistive device 5 Patient requires set up or clean up by helper. Patient completes activity by themselves 4 Supervision or touching assist (CGA). [place] provide cues , steadying assist 3 The helper provides less than half the effort to complete the activity 2 The helper provides more than half the effort to complete the activity 1 Dependent. The helper does all the effort to complete an activity 7 Patient refused to complete or attempt activity 9 The patient did not perform the activity before the current illness or injury 88 Not attempted due to Medical conditions or safety concerns Functional Abilities and Goals: Independent: Patient completed the activities by him/herself, with or without an assistive device, with no assistance from a helper. Needed Some Help: Patient needed partial assistance from another person to complete activities. Dependent: A helper completed the activities for the patient. Unknown: Not Applicable: ADL PLOF Comments independent with ADLs/ functional transfers using no AD Self Care: Independent Functional Cognition: Independent OT Current Status Subjective pt agreed to OT evaluation session. pt reports no pain. pt and daughter present in room during evaluation session. Appearance noted post OT session pt sweating. NSG with patient post session. NOTED : LLE edema, warm, and RED. NSG is aware. Mental Status/Objective Patient Orientation: Person, Place, Time, Situation Attachments: [place] Catheter, IV, Oxygen, Telemetry Current Glasses/Contacts: Yes Hearing Aids: No Hand Dominance: Right Upper Extremity ROM WFL Upper Extremity Coordination figure to nose test WFL Upper Extremity Sensation WFL light touch Upper Extremity Strength 4-/5 MMT cornel UE ADL-Treatment Therapy Code Descriptions/Definitions Functional [place] Measure: 0=Not Assessed/NA 4=Minimal Assistance 1=Total Assistance 5=Supervision or Setup 2=Maximal Assistance 6=Modified [place] 3=Moderate Assistance 7=Complete [place] Therapy Quality Codes: 6 Independent with activity with or without an assistive device 5 Patient requires set up or clean up by helper. Patient completes activity by themselves 4 Supervision or touching assist (CGA). [place] provide cues , steadying assist 3 The helper provides less than half the effort to complete the activity 2 The helper provides more than half the effort to complete the activity 1 Dependent. The helper does all the effort to complete an activity 7 Patient refused to complete or attempt activity 9 The patient did not perform the activity before the current illness or injury 88 Not attempted due to Medical conditions or safety concerns pt currently dependent for all ADLs and functional mobility Other Treatments pt education on proper sit to stand method.. pt required TA to scoot forward in chair. noted activity tolerance and increase HR (90 BPM) with activity. pt attempted to stand but unsuccessful secondary to decrease overall strength. O2 desaturated to 84% with activity. pt education on pursed lip breathing. pt demo correctly. pt required 3 minute recovery time to increase o2 sats above 90%. OT Short Term Goals Short Term Goals Eating(FIM): 6 Grooming(FIM): 4 Bathing(FIM): 3 Upper Body Dressing(FIM): 3 Lower Body Dressing(FIM): 3 Toileting(FIM): 3 Transfers (B,C,W/C) (FIM): 2 Toilet/Commode Transfer(FIM): 2 1=Demonstrate adherence to instructed precautions during ADL tasks. 2=Patient will verbalize/demonstrate understanding of assistive devices/modifications for ADL. 3=Patient will improve strength/tolerance for activity to enable patient to pe rform ADL's. OT Laser Beam Color Scanner Operator Goals Prison Goals Eating (FIM): 7 Grooming(FIM): 6 Bathing(FIM): 5 Upper Body Dressing(FIM): 5 Lower Body Dressing(FIM): 5 Toileting(FIM): 5 Transfers (B,C,W/C) (FIM): 5 Toilet/Commode Transfer(FIM): 5 1=Demonstrate adherence to instructed precautions during ADL tasks. 2=Patient will verbalize/demonstrate understanding of assistive devices/modifications for ADL. 3=Patient will improve strength/tolerance for activity to enable patient to perform ADL's. OT Education/Plan Problem List/Assessment Assessment: Decreased Activ Tolerance, Decreased Safety Aware, Decreased UE Strength, Dependent Transfers, Impaired Bed Mobility, Impaired Cognition, Impaired Coordination, Impaired Funct Balance, Impaired I ADL's, Impaired Self- Care Skills pt present with functional limitations affecting areas of ADLs and functional transfers with deficits in the above mention. pt currently required total assist X 2 person to perform sit to stands, TA for LB dressing, UE dressing, and toileting. pt has very limited activity tolerance and tires easily from slight activity such as UE ROM. pt would benefit from OT Services to increase independence with ADLs//. functional transfers. pt is NOT safe to return home at this time. Discharge Recommendations Plan/Recommendations: Continue POC Therapy D/C Recommendations: Acute Rehab Treatment Plan/Plan of Care Treatment,Training & Education: Yes Patient would benefit from OT for education, treatment and training to promote independence in ADL's, mobility, safety and/or upper extremity function for ADL's. Plan of Care: ADL Retraining, Caregiver Training, Concurrent Therapy, Functional Mobility, Group Exercise/Act as Ind, UE Funct Exercise/Act Treatment Duration: Dec 30, 2018 Frequency: 5 times per week Estimated Hrs Per Day: .25 hour per day Agreement: Yes Rehab Potential: Fair Time/GCodes Start Time: 14:40 Stop Time: 15:10 Billed Treatment Time EVM 15 minutes FA 10 minutes BRANNON DUGAN OT Dec 09, 2018 15:14
--- NOTE | 2018-12-09 16:00 | NUR ---
IRF Evaluation Order received to evaluate patient for the ARU. Will continue to follow patient's progress as it relates to evaluation for rehabilitation program. Thank you for this referral.
--- NOTE | 2018-12-09 16:36 | Physical Therapy Evaluation ---
PT Evaluation-General Medical Diagnosis Admission Date Dec 07, 2018 at 23:56 Medical Diagnosis: PNA/ POSS BOWEL PERFORATION Onset Date: Dec 07, 2018 Therapy Diagnosis Therapy Diagnosis: impaired mobility, strength, endurance, balance Height/Weight Height (Feet): 5 Height (Inches): 8.00 Weight (Pounds): 189 Weight (Ounces): 2.0 Precautions Precautions/Isolations: Fall Prevention, Standard Precautions, Pressure Ulcer Referral Physician: Ceci Quarles DO Reason for Referral: Evaluation/Treatment Medical History Additional Medical History Past Medical History Surgeries: Yes Respiratory: No Cardiac: Yes Neurological: No Genitourinary: No Gastrointestinal: No Musculoskeletal: No Endocrine: No HEENT: Yes Cataract, Macular Degeneration Loss of Vision: Right Hearing Impairment: Denies Cancer: No Psychosocial: No Integumentary: No Blood Disorders: No Current History polio Reviewed History: Yes Social History Home: Single Level Current Living Status: Significant Other Entry Into Home: Stairs With Railing PT Steps Inside Home: 3 Prior/Core FIM Prior Level of Function Therapy Code Descriptions/Definitions Functional [place] Measure: 0=Not Assessed/NA 4=Minimal Assistance 1=Total Assistance 5=Supervision or Setup 2=Maximal Assistance 6=Modified [place] 3=Moderate Assistance 7=Complete [place] Therapy Quality Codes: 6 Independent with activity with or without an assistive device 5 Patient requires set up or clean up by helper. Patient completes activity by themselves 4 Supervision or touching assist (CGA). [place] provide cues , steadying assist 3 The helper provides less than half the effort to complete the activity 2 The helper provides more than half the effort to complete the activity 1 Dependent. The helper does all the effort to complete an activity 7 Patient refused to complete or attempt activity 9 The patient did not perform the activity before the current illness or injury 88 Not attempted due to Medical conditions or safety concerns Functional Abilities and Goals: Independent: Patient completed the activities by him/herself, with or without an assistive device, with no assistance from a helper. Needed Some Help: Patient needed partial assistance from another person to complete activities. Dependent: A helper completed the activities for the patient. Unknown: Not Applicable: Bed Mobility: 6 Transfers (B,C,W/C) (FIM): 6 Gait: 6 Stairs: 6 Indoor Mobility (Ambulation): Independent Stairs: Independent Patient used a 4 wheeled walker in his home PT Evaluation-Current Subjective Patient in recliner pre tx, agrees to PT, has no complaints of pain. Patient has redness in his left calf and a wound that seems to be seeping a bit. Demarco sign is negative, and he has no pain with squeezing calf. Pt/Family Goals "to get stronger" Objective Patient Orientation: Person, Place, Situation Attachments: Oxygen, [place] Catheter, IV 5L of O2 nasal canula ROM/Strength ROM Lower Extremities limited in right ankle due to past polio, cannot achieve neutral dorsiflexion Strength Lower Extremities right lower extremity (hip flexion 2/5, knee flexion 2/5, knee extension 2/5, dorsiflexion 0/5), left lower extremity (hip flexion 3/5, knee flexion 3+/5, knee extension 3+/5, dorsiflexion 3/5) Integumentary/Posture Bladder Incontinence: Pickens Cath Neuromuscular (Tone, Coordination, Reflexes) NT Sensory Hearing: Functional Hand Dominance: Right Sensation Right Lower Extremit: Intact Sensation Left Lower Extremity: Intact Transfers Therapy Code Descriptions/Definitions Functional [place] Measure: 0=Not Assessed/NA 4=Minimal Assistance 1=Total Assistance 5=Supervision or Setup 2=Maximal Assistance 6=Modified [place] 3=Moderate Assistance 7=Complete [place] Transfers (B, C, W/C) (FIM): 2 Sit to/from Stand: 2 Patient stood with PT x2 with max assist. His feet slide forward and help was needed to prevent this. He stands flexed at the hips and extended at the knees and ankles. He stood again a 3rd time so he could sit on the commode for a BM. Stand pivot max assist. Balance Sitting Static: Fair Sitting Dynamic: Fair Standing Static: Poor Standing Dynamic: Poor Treatment BLE exercises x15, ankle pumps (cant do on the right side), LAQ Assessment/Needs Patient has impaired mobility, strength, endurance, balance. He is max assist for standing and transfers. Patient on commode post tx with nursing in the room. Rehab Potential: Fair PT Short Term Goals Short Term Goals Time Frame: Dec 16, 2018 Transfers (B,C,W/C) (FIM): 3 Gait (FIM): 1 Gait Distance Comment: 3' Gait Level of Assist: 3 Gait Assistive Device: FWW PT Plan Problem List Problem List: Activity Tolerance, Functional Strength, Safety, Balance, Gait, Transfer, Bed Mobility, ROM Treatment/Plan Treatment Plan: Continue Plan of Care Treatment Plan: Bed Mobility, Concurrent Therapy, Education, Functional Activity Janny, Functional Strength, Gait, Safety, Therapeutic Exercise, Transfers Treatment Duration: Dec 16, 2018 Frequency: 6 times per week Estimated Hrs Per Day: .25 hour per day Patient and/or Family Agrees t: Yes Safety Risks/Education Patient Education: Transfer Techniques, Correct Positioning, Safety Issues Teaching Recipient: Patient Teaching Methods: Demonstration, Discussion Response to Teaching: Reinforcement Needed Discharge Recommendations Plan Patient will perform bed mobility and transfer training, balance and endurance training, functional strengthening, gait training, and education, to improve functional mobility and independence at home. Therapy D/C Recommendations: Home w/ Family Support Time/GCodes Time In: 1554 Time Out: 1625 Total Billed Treatment Time: 31 Total Billed Treatment 1 visit UMER 20' FA 11' EDY VOGEL PT Dec 09, 2018 16:36
--- NOTE | 2018-12-09 17:24 | NUR ---
PER [facility] MEADOWS TO START ELIQUIS IF HGB STABLE. DR GAGNON HGB IS 9.5 TODAY.
[2018-12-09] MEDS: APIXABAN 5 MG (ELIQUIS) TABLET PO SCH (21:30)
--- NOTE | 2018-12-09 22:24 | Progress Note ---
Subjective Date Seen by a Provider: Dec 09, 2018 Time Seen by a Provider: 07:25 Subjective/Events-last exam Patient transferred to ICU for afib rvr. Patient not having any abdominal pain. Breathing is a little improved he states. Deneis nause fever sweats chills Focused Exam Lactate Level 12/07/18 23:55: Lactic Acid Level 2.65*H 12/08/18 01:55: Lactic Acid Level 2.00 12/08/18 19:35: Lactic Acid Level 1.04 Objective Exam Vital Signs Date Time Temp Pulse Resp B/P (MAP) Pulse Ox O2 Delivery O2 Flow Rate FiO2 12/09/18 22:00 105 21 93/69 (77) 98 NIV Bilevel 60.00 12/09/18 22:00 100.1 12/09/18 21:00 75 21 105/51 (69) 97 NIV Bilevel 60.00 12/09/18 20:00 88 16 137/61 (86) 96 NIV Bilevel 60.00 12/09/18 20:00 99.8 12/09/18 19:00 76 26 90/66 (74) 94 NIV Bilevel 50.00 12/09/18 19:00 83 12/09/18 18:59 94 Nasal Cannula 6.00 12/09/18 18:00 86 26 125/66 (85) 100 NIV Bilevel 50.00 12/09/18 17:00 96 37 117/90 (99) 95 NIV Bilevel 50.00 12/09/18 16:49 NIV Bilevel 50.00 12/09/18 16:00 87 35 126/57 (80) 95 Nasal Cannula 5.00 12/09/18 15:36 98.8 12/09/18 15:15 100.0 12/09/18 15:15 97 Nasal Cannula 6.00 12/09/18 15:06 Nasal Cannula 5.00 12/09/18 15:00 90 28 91 Nasal Cannula 5.00 12/09/18 14:00 78 36 115/62 (79) 90 Nasal Cannula 5.00 12/09/18 13:00 66 25 109/50 (69) 97 Nasal Cannula 5.00 12/09/18 12:53 66 12/09/18 12:00 70 34 105/47 (66) 98 Nasal Cannula 5.00 12/09/18 11:37 99 Nasal Cannula 6.00 12/09/18 11:28 98.6 12/09/18 11:03 Nasal Cannula 5.00 12/09/18 11:00 67 22 104/45 (64) 97 Nasal Cannula 5.00 12/09/18 10:00 69 26 97/46 (63) 95 Nasal Cannula 5.00 12/09/18 09:00 70 26 80/39 (53) 92 Nasal Cannula 5.00 12/09/18 08:23 95 Nasal Cannula 6.00 12/09/18 08:03 Nasal Cannula 5.00 12/09/18 08:00 75 28 88/32 (50) 97 Nasal Cannula 5.00 12/09/18 07:57 98.6 12/09/18 07:02 72 12/09/18 07:00 70 21 104/54 (71) 98 Nasal Cannula 5.00 12/09/18 06:00 73 22 113/56 (75) 99 NIV Bilevel 45.00 12/09/18 05:00 73 16 110/54 (72) 97 NIV Bilevel 45.00 12/09/18 04:16 75 12/09/18 04:00 70 22 96/44 (61) 95 NIV Bilevel 45.00 12/09/18 04:00 97 NIV Bilevel 45 12/09/18 03:20 71 23 95 45.00 12/09/18 03:00 71 30 93/49 (64) 99 NIV Bilevel 45.00 12/09/18 02:00 74 13 98/61 (73) 100 NIV Bilevel 45.00 12/09/18 01:00 68 23 96/46 (63) 97 NIV Bilevel 45.00 12/09/18 01:00 68 12/09/18 00:00 97 NIV Bilevel 45 12/09/18 00:00 75 20 93/47 (62) 95 NIV Bilevel 45.00 12/08/18 23:00 76 12 95/52 (66) 93 NIV Bilevel 50.00 12/08/18 22:30 96 27 96 45.00 I & O 12/09/18 07:00 Intake Total 965 ml Output Total 775 ml Balance 190 ml Capillary Refill : General Appearance: No Apparent Distress, WD/WN HEENT: PERRL/EOMI, TMs Normal, Normal ENT Inspection Neck: Normal Inspection Respiratory: Chest Non Tender, No Accessory Muscle Use, No Respiratory Distress, Accessory Muscle Use Cardiovascular: Regular Rate, Rhythm Gastrointestinal: non tender, soft, no organomegaly, no pulsatile mass; No distended Extremity: Non Tender Neurologic/Psychiatric: Alert, Oriented x3 Skin: Normal Color, Warm/Dry Lymphatic: No Adenopathy Results Lab Laboratory Tests 12/09/18 03:05: White Blood Count 20.3H, Red Blood Count 3.03L, Hemoglobin 9.5L, Hematocrit 30L, Mean Corpuscular Volume 99, Mean Corpuscular Hemoglobin 31, Mean Corpuscular Hemoglobin Concent 32, Red Cell Distribution Width 16.1H, Platelet Count 370, Mean Platelet Volume 8.7, Neutrophils (%) (Auto) 82H, Lymphocytes (%) (Auto) 5L, Monocytes (%) (Auto) 13H, Eosinophils (%) (Auto) 0, Basophils (%) (Auto) 0, Neutrophils # (Auto) 16.7H, Lymphocytes # (Auto) 1.0, Monocytes # (Auto) 2.6H, Eosinophils # (Auto) 0.0, Basophils # (Auto) 0.0, Sodium Level 138, Potassium Level 4.0, Chloride Level 107, Carbon Dioxide Level 24, Anion Gap 7, Blood Urea Nitrogen 11, Creatinine 0.68, Estimat Glomerular Filtration Rate > 60, BUN/Creatinine Ratio 16, Glucose Level 124H, Calcium Level 8.6, Corrected Calcium 9.2, Phosphorus Level 1.5L, Magnesium Level 2.1, Total Bilirubin 0.5, Aspartate Amino Transf (AST/SGOT) 19, Alanine Aminotransferase (ALT/SGPT) 23, Alkaline Phosphatase 61, Total Protein 5.4L, Albumin 3.3, Thyroid Stimulating Hormone (TSH) 0.87 12/09/18 10:07: Vancomycin Level Trough 13.0 Microbiology 12/08/18 Blood Culture - Preliminary, Resulted No growth Assessment/Plan Assessment/Plan Assessment/Plan Shortness of breath Hypoxia Status post colonoscopy with snare polypectomy and hot biopsy polypectomy 2 of right colon yesterday. Severe sepsis by criteria Fever Afib rvr Patient is 78-year-old male reviewed his CT scan is no evidence of any bowel perforation no free air. He is not having abdominal pain or discomfort in the abdomen. Patient no source of fever at this time. He is on broad-spectrum antibiotics and receiving IV fluids appropriate for severe sepsis. Patient has significant leukocytosis now decreasing. Afib rvr on Cardizem and in ICU. Continue to follow. No surgical intervention needed at this time. On Lovenox, no evidence of bleeding, okay with switching to Eliquis. If any bleeding will need to hold. Clinical Quality Measures DVT/VTE Risk/Contraindication: Risk Factor Score Per Nursin RFS Level Per Nursing on Admit: 4+=Very High ANDREAS MANE DO Dec 09, 2018 22:24
[2018-12-10] VITALS (33 sets, daily range): BP systolic 85–127; BP diastolic 45–97
--- NOTE | 2018-12-10 00:35 | NUR ---
CALLED E-ICU AND INFORMED THEM THAT PATIENT WENT BACK INTO A-FIB WITH RATES INTO THE 140'S AROUND 2200 AND CARDIZEM WAS RESTARTED. AT 0000, HEART RATE WAS 95 AND BLOOD PRESSURES RUNNING UPPER 80'S/50. RECEIVED ORDER FOR 500ML NORMAL SALINE BOLUS.
[2018-12-10] MEDS ORDERED: NS IV 500 ML 500 ML ONE (00:59)
[2018-12-10] MEDS ORDERED: NS IV 500 ML 500 ML IV SCH (01:30)
[2018-12-10] MEDS: RT-ALBUTEROL/IPRATROPIUM 3 ML (DUONEB) VIAL INH SCH ×6 (02:28→21:56)
[2018-12-10 03:52] LABS: BASOPHILS % (AUTO) 0 % (0-10); EOSINOPHILS % (AUTO) 0 % (0-10); HEMATOCRIT 27 % (40-54); HEMOGLOBIN 8.9 G/DL (13.3-17.7); LYMPHOCYTES % (AUTO) 7 % (12-44); MEAN CORPUSCULAR HEMOGLOBIN 32 PG (25-34); MEAN CORPUSCULAR HGB CONC 33 G/DL (32-36); MEAN CORPUSCULAR VOLUME 100 FL (80-99); MEAN PLATELET VOLUME 9.3 FL (7.4-10.4); MONOCYTES # (AUTO) 2.8 X 10^3 (0.0-1.0); MONOCYTES % (AUTO) 19 % (0-12); NEUTROPHILS % (AUTO) 74 % (42-75); PLATELET COUNT 344 10^3/uL (130-400); RED CELL DISTRIBUTION WIDTH 15.9 % (10.0-14.5); WHITE BLOOD COUNT 14.7 10^3/uL (4.3-11.0)
[2018-12-10 04:14] LABS: CALCIUM 7.8 MG/DL (8.5-10.1); CREATININE SERUM 1.26 MG/DL (0.60-1.30); MAGNESIUM 1.9 MG/DL (1.8-2.4); PHOSPHORUS 2.4 MG/DL (2.3-4.7); POTASSIUM 3.7 MMOL/L (3.6-5.0)
[2018-12-10 04:43] LABS: ABG BASE EXCESS 0.5 MMOL/L (-2.5-2.5); ABG OXYGEN SATURATION 99 % (94-100); ABG PCO2 49 MMHG (35-45); ABG PO2 110 MMHG (79-93); ABG TCO2 27.3 MMOL/L (21.0-31.0)
[2018-12-10 04:44] LABS: ALLENS TEST YES-POS; INSPIRED O2 40% BIPAP; PATIENT TEMP 97.4; VENTILATOR NO
[2018-12-10 04:45] LABS: ABG PH 7.34 (7.37-7.43)
--- NOTE | 2018-12-10 05:49 | Pulmonary Progress Note ---
Subjective Time Seen by a Provider: 06:46 Subjective/Events-last exam Currently on BiPAP Sepsis Event Evaluation Height, Weight, BMI Height: 5'8.00" Weight: 189lbs. 2.0oz. 85.608915ew; 28.8 BMI Method: Focused Exam Lactate Level 12/07/18 23:55: Lactic Acid Level 2.65*H 12/08/18 01:55: Lactic Acid Level 2.00 12/08/18 19:35: Lactic Acid Level 1.04 Exam Exam Vital Signs Date Time Temp Pulse Resp B/P (MAP) Pulse Ox O2 Delivery O2 Flow Rate FiO2 12/10/18 05:12 54 18 91 NIV Bilevel 50.00 12/10/18 05:00 57 22 107/58 (74) 91 NIV Bilevel 40.00 12/10/18 04:00 53 18 101/50 (67) 96 NIV Bilevel 40.00 12/10/18 03:30 54 18 110/55 (73) 96 NIV Bilevel 40.00 12/10/18 03:00 53 17 92/50 (64) 97 NIV Bilevel 40.00 12/10/18 02:29 54 18 95 40.00 12/10/18 02:00 61 18 96/46 (63) 98 NIV Bilevel 40.00 12/10/18 01:00 64 17 91/47 (62) 98 NIV Bilevel 40.00 12/10/18 01:00 64 12/10/18 00:15 80 18 85/46 (59) 97 NIV Bilevel 40.00 12/10/18 00:02 79 18 90/53 (65) 97 NIV Bilevel 40.00 12/10/18 00:00 79 14 85/47 (60) 97 NIV Bilevel 40.00 12/10/18 00:00 95 NIV Bilevel 40 12/10/18 00:00 98.8 12/09/18 23:10 85 21 99 60.00 12/09/18 23:10 98 18 99 NIV Bilevel 40.00 12/09/18 23:00 95 13 92/52 (65) 98 NIV Bilevel 60.00 12/09/18 22:00 105 21 93/69 (77) 98 NIV Bilevel 60.00 12/09/18 22:00 100.1 12/09/18 21:00 75 21 105/51 (69) 97 NIV Bilevel 60.00 12/09/18 20:00 95 NIV Bilevel 60 12/09/18 20:00 88 16 137/61 (86) 96 NIV Bilevel 60.00 12/09/18 20:00 99.8 12/09/18 19:00 76 26 90/66 (74) 94 NIV Bilevel 50.00 12/09/18 19:00 83 12/09/18 18:59 94 Nasal Cannula 6.00 12/09/18 18:00 86 26 125/66 (85) 100 NIV Bilevel 50.00 12/09/18 17:00 96 37 117/90 (99) 95 NIV Bilevel 50.00 12/09/18 16:49 NIV Bilevel 50.00 12/09/18 16:00 87 35 126/57 (80) 95 Nasal Cannula 5.00 12/09/18 15:36 98.8 12/09/18 15:15 100.0 12/09/18 15:15 97 Nasal Cannula 6.00 12/09/18 15:06 Nasal Cannula 5.00 12/09/18 15:00 90 28 91 Nasal Cannula 5.00 12/09/18 14:00 78 36 115/62 (79) 90 Nasal Cannula 5.00 12/09/18 13:00 66 25 109/50 (69) 97 Nasal Cannula 5.00 12/09/18 12:53 66 12/09/18 12:00 70 34 105/47 (66) 98 Nasal Cannula 5.00 12/09/18 11:37 99 Nasal Cannula 6.00 12/09/18 11:28 98.6 12/09/18 11:03 Nasal Cannula 5.00 12/09/18 11:00 67 22 104/45 (64) 97 Nasal Cannula 5.00 12/09/18 10:00 69 26 97/46 (63) 95 Nasal Cannula 5.00 12/09/18 09:00 70 26 80/39 (53) 92 Nasal Cannula 5.00 12/09/18 08:23 95 Nasal Cannula 6.00 12/09/18 08:03 Nasal Cannula 5.00 12/09/18 08:00 75 28 88/32 (50) 97 Nasal Cannula 5.00 12/09/18 07:57 98.6 12/09/18 07:02 72 12/09/18 07:00 70 21 104/54 (71) 98 Nasal Cannula 5.00 12/09/18 06:00 73 22 113/56 (75) 99 NIV Bilevel 45.00 I & O 12/10/18 07:00 Intake Total 3085.0 ml Output Total 550 ml Balance 2535.0 ml Height & Weight Height: 5'8.00" Weight: 189lbs. 2.0oz. [id number]; 28.8 BMI Method: General Appearance: No Apparent Distress, WD/WN HEENT: PERRL/EOMI, TMs Normal, Normal ENT Inspection Neck: Normal Inspection Respiratory: Chest Non Tender, No Accessory Muscle Use, No Respiratory Distress, Accessory Muscle Use Cardiovascular: Regular Rate, Rhythm Gastrointestinal: non tender, soft, no organomegaly, no pulsatile mass; No distended Extremity: Non Tender Neurologic/Psychiatric: Alert, Oriented x3 Skin: Normal Color, Warm/Dry Lymphatic: No Adenopathy Results Lab Laboratory Tests 12/08/18 09:24 12/08/18 19:35 12/09/18 03:05 12/10/18 03:15 Assessment/Plan Assessment/Plan Severe sepsis with PNA -Vanco/Zosyn -IVF Respiratory failure -Currently on BiPAP -Trial on Vapotherm today. Cellulitis LLL Afib RVR - now converted -Cardizem gtt -Cardiology following Hx of childhood polio ROSE -CPAP -Will try to get down load DANIELITO DELGADILLO DO Dec 10, 2018 05:49
[2018-12-10] MEDS: POTASSIUM CL 10MEQ/50ML IVPB 50 ML IV SCH ×5 (06:08→13:12)
[2018-12-10] MEDS: MAGNESIUM 1 GM/100 ML IVPB 100 ML IV SCH (06:08)
[2018-12-10] MEDS: KCL 20 MEQ TAB (K-DUR) PO SCH (06:08)
[2018-12-10] MEDS ORDERED: LACTATED RINGERS 1,000 ML IV ONE (06:13)
[2018-12-10] MEDS: PIPERACILLIN/TAZOBACTAM (BULK) 4.5 GM in NS (IVPB) 100 ML IV SCH ×3 (06:20→23:33)
[2018-12-10] MEDS: LACTATED RINGERS 1,000 ML IV SCH (06:20)
[2018-12-10] MEDS: SOTALOL 80 MG (BETAPACE) TAB PO SCH ×2 (08:05→20:21)
[2018-12-10] MEDS: PANTOPRAZOLE 40 MG (PROTONIX) VIAL IV SCH ×2 (08:05→20:21)
[2018-12-10] MEDS: APIXABAN 5 MG (ELIQUIS) TABLET PO SCH ×2 (08:05→20:21)
--- NOTE | 2018-12-10 08:32 | Progress Note-Hospitalist ---
Subjective HPI/CC On Admission Date Seen by Provider: Dec 10, 2018 Time Seen by Provider: 08:15 The patient is a 78-year-old white male admitted to the hospitalist service after a phone call from the nurse practitioner in the [place] emergency room. The patient had had a colonoscopy at [place] performed by Dr. Ricci. This was at approximately 7 o'clock and by 1030 he was released and went home. Slice states that he was a bit sluggish through the day. They ate early supper at about 1630 hours. After that they went for a ride around [facility] and went back to their home. He had difficulty getting out of the car and u ltimately leaned forward and slid down the front of his and sat on the driveway. He was unable to get up and she called her grandson and son-in-law to come help get him up. At that point they went to the [place] emergency room arriving at about 1930 hours. He really had no localizing signs but was found to have a temperature of 104 at arrival and a white count of 31,000. He denies cough or sputum production. There was no apparent belly pain. I was then called and arrangements were made to transfer him here. He had been given Zosyn prior to his departure from the [place]. On arrival here he underwent CT scans with contrast of the chest abdomen and pelvis. There was no pneumonia reported on the chest and no evidence of free air or abscess formation on the abdomen or pelvis. His maximum temp after arriving here was 99.6. His blood pressure has been 95/60 range. Lactic acid on arrival was 2.65 and he was given the fluid bolus to achieve the 30 mL/kg Subjective/Events-last exam Pt had a recurrence of atrial fibrillation with rapid ventricular response relat ed to his breathing issue since he did require BiPAP. Bowel movement treatment will be given of Senna BID. Eating breakfast then will go back on BiPAP. Generalized weakness may need swingbed before inpatient rehab. Conferred with Dr. 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 Review of Systems General: Fatigue Focused Exam Lactate Level 12/07/18 23:55: Lactic Acid Level 2.65*H 12/08/18 01:55: Lactic Acid Level 2.00 12/08/18 19:35: Lactic Acid Level 1.04 Objective Exam Vital Signs Vital Signs Date Time Temp Pulse Resp B/P (MAP) Pulse Ox O2 Delivery O2 Flow Rate FiO2 12/10/18 20:27 NIV Bilevel 30.00 12/10/18 19:30 98.8 12/10/18 19:03 72 25 100 12/10/18 18:00 118/55 (76) 12/10/18 15:40 30 Capillary Refill : General Appearance: No Apparent Distress, WD/WN HEENT: PERRL/EOMI, TMs Normal, Normal ENT Inspection Neck: Normal Inspection Respiratory: Chest Non Tender, No Accessory Muscle Use, No Respiratory Distress, Accessory Muscle Use Cardiovascular: Regular Rate, Rhythm Gastrointestinal: Normal Bowel Sounds, No Organomegaly, Non Tender, Soft Extremity: Non Tender Neurologic/Psychiatric: Alert, Oriented x3 Skin: Normal Color, Warm/Dry Lymphatic: No Adenopathy Results/Procedures Lab Laboratory Tests 12/10/18 03:15 Patient resulted labs reviewed. Assessment/Plan Assessment and Plan Assess & Plan/Chief Complaint Assessment: Severe sepsis Afib RVR requiring Cardizem drip x 2 Hx of childhood polio ROSE on CPAP Debilitated status in need of IRF after stable Plan: Monitor respiratory status closely Appreciate Dr Vargas and Dr Lebron consultation Diagnosis/Problems Diagnosis/Problems (1) SEPSIS Status: Acute (2) Atrial fibrillation with rapid ventricular response Status: Acute (3) Tachypnea Status: Acute (4) ROSE on CPAP Status: Chronic (5) History of poliomyelitis Status: Chronic (6) Debilitated Status: Acute Clinical Quality Measures DVT/VTE Risk/Contraindication: Risk Factor Score Per Nursin RFS Level Per Nursing on Admit: 4+=Very High ISADORA GROVE DO Dec 10, 2018 08:32
[2018-12-10] MEDS ORDERED: FUROSEMIDE 40 MG/4 ML INJ (LASIX) IVP ONE (09:15)
--- NOTE | 2018-12-10 10:15 | Progress Note-Cardiology ---
Cardiology SOAP Progress Note Subjective: Has gen malaise and weakness Denies cp or palp or syncope Objective: I&O/Vital Signs 12/09/18 12/09/18 12/09/18 12/10/18 23:00 23:10 23:10 00:00 Temp 98.8 Pulse 95 98 85 Resp 13 18 21 B/P (MAP) 92/52 (65) Pulse Ox 98 99 99 O2 Delivery NIV Bilevel NIV Bilevel O2 Flow Rate 60.00 40.00 60.00 12/10/18 12/10/18 12/10/18 12/10/18 00:00 00:00 00:02 00:15 Pulse 79 79 80 Resp 14 18 18 B/P (MAP) 85/47 (60) 90/53 (65) 85/46 (59) Pulse Ox 95 97 97 97 O2 Delivery NIV Bilevel NIV Bilevel NIV Bilevel NIV Bilevel O2 Flow Rate 40.00 40.00 40.00 FiO2 40 12/10/18 12/10/18 12/10/18 12/10/18 01:00 01:00 02:00 02:29 Pulse 64 64 61 54 Resp 17 18 18 B/P (MAP) 91/47 (62) 96/46 (63) Pulse Ox 98 98 95 O2 Delivery NIV Bilevel NIV Bilevel O2 Flow Rate 40.00 40.00 40.00 12/10/18 12/10/18 12/10/18 12/10/18 03:00 03:30 04:00 04:00 Pulse 53 54 53 Resp 17 18 18 B/P (MAP) 92/50 (64) 110/55 (73) 101/50 (67) Pulse Ox 97 96 96 94 O2 Delivery NIV Bilevel NIV Bilevel NIV Bilevel NIV Bilevel O2 Flow Rate 40.00 40.00 40.00 FiO2 40 12/10/18 12/10/18 12/10/18 12/10/18 04:00 05:00 05:12 06:00 Temp 97.4 Pulse 57 54 57 Resp 22 18 23 B/P (MAP) 107/58 (74) 115/56 (75) Pulse Ox 91 91 94 O2 Delivery NIV Bilevel NIV Bilevel NIV Bilevel O2 Flow Rate 40.00 50.00 50.00 12/10/18 12/10/18 12/10/18 12/10/18 06:43 07:00 07:06 07:50 Pulse 56 57 60 Resp 19 15 B/P (MAP) 118/57 (77) Pulse Ox 95 96 O2 Delivery NIV Bilevel NIV Bilevel O2 Flow Rate 50.00 50.00 FiO2 50 12/10/18 12/10/18 12/10/18 08:00 08:00 09:00 Temp 97.9 Pulse 58 89 Resp 22 20 B/P (MAP) 112/57 (75) 109/64 (79) Pulse Ox 96 91 O2 Delivery Nasal Cannula Nasal Cannula O2 Flow Rate 5.00 5.00 12/10/18 00:00 Intake Total 2245.0 ml Output Total 450 ml Balance 1795.0 ml Weight (Pounds): 189 Weight (Ounces): 2.0 Weight (Calculated Kilograms): 85.484427 Constitutional: AAO x 3, well-developed, well-nourished Respiratory: No accessory muscle use, No respiratory distress; chest expansion is symmetric, chest is bilaterally symmetric, other (good air entry) Cardiovascular: regular rate-rhythm; No JVD; S1 and S2, systolic murmur Gastrointestional: No tender; distended, audible bowel sounds Extremities: no lower extremity edema bilateral Neurologic/Psychiatric: grossly intact, power is 5/5 both on sides Skin: No rash on exposed areas, No ulcerations on exposed areas Results/Procedures: Labs Laboratory Tests 12/10/18 03:15: White Blood Count 14.7H, Red Blood Count 2.75L, Hemoglobin 8.9L, Hematocrit 27L, Mean Corpuscular Volume 100H, Mean Corpuscular Hemoglobin 32, Mean Corpuscular Hemoglobin Concent 33, Red Cell Distribution Width 15.9H, Platelet Count 344, Mean Platelet Volume 9.3, Neutrophils (%) (Auto) 74, Lymphocytes (%) (Auto) 7L, Monocytes (%) (Auto) 19H, Eosinophils (%) (Auto) 0, Basophils (%) (Auto) 0, Neutrophils # (Auto) 11.0H, Lymphocytes # (Auto) 1.0, Monocytes # (Auto) 2.8H, Eosinophils # (Auto) 0.0, Basophils # (Auto) 0.0, Sodium Level 142, Potassium Level 3.7, Chloride Level 110H, Carbon Dioxide Level 25, Anion Gap 7, Blood Urea Nitrogen 16, Creatinine 1.26, Estimat Glomerular Filtration Rate 55, BUN/Creatinine Ratio 13, Glucose Level 137H, Calcium Level 7.8L, Phosphorus Level 2.4, Magnesium Level 1.9, B-Type Natriuretic Peptide 503.6H 12/10/18 04:35: Blood Gas Puncture Site R RAD, Blood Gas Patient Temperature 97.4, Arterial Blood pH 7.34*L, Arterial Blood Partial Pressure CO2 49H, Arterial Blood Partial Pressure O2 110H, Arterial Blood HCO3 26, Arterial Blood Total CO2 27.3, Arterial Blood Oxygen Saturation 99, Arterial Blood Base Excess 0.5, Zachery Test YES-POS, Blood Gas Ventilator Setting NO, Blood Gas Inspired Oxygen 40% BIPAP Microbiology 12/08/18 Blood Culture - Preliminary, Resulted No growth Laboratory Tests 12/08/18 19:35 12/09/18 03:05 12/10/18 03:15 A/P: Assessment: PA-fib Sepsis of undetermined etiology - surgical/medical services managing L leg cellulitis Stroke prophylaxis with apixaban CAD - H/O CABG x [address] Huang at [facility], [place] - reports recent MPI in the last [address] Lopez (reported to be normal) Sleep apnea - CPAP tx Plan: * Dilt for vent rate control * Sotalol for rhythm maintenance * Apixaban for stroke prophylaxis * Monitor labs BRENDA VANN MD FACP FAC CCDS Dec 10, 2018 10:14
[2018-12-10] MEDS: VANCOMYCIN 1250 MG/NS 250 ML IVPB IV SCH ×4 (10:52→22:11)
[2018-12-10] MEDS ORDERED: SENNA W/DOCUSATE (SENOKOT S) TABLET PO ONE (11:00)
--- NOTE | 2018-12-10 11:06 | Diagnostic Imaging Report ---
INDICATION: Respiratory distress. COMPARISON: 12/09/2018 FINDINGS: Heart size is stable. There is increased prominence of the central vascularity as well as increased bilateral perihilar mixed interstitial and airspace density suspicious for edema however pneumonia superimposed could not be excluded in the appropriate scenario. There does appear to be at least a small left pleural effusion. There is no pneumothorax. Midline sternal wires are intact. IMPRESSION: Suspicion for perihilar edema versus pneumonia with small left effusion. No pneumothorax. Dictated by: Dictated on workstation # [id number]
--- NOTE | 2018-12-10 12:01 | Physical Therapy Daily Note ---
PT Daily Note-Current Subjective Patient currently on BiPaP. Patient agrees to PT. Pain Numeric Pain Scale: 0-No Pain Location: No Pain Reported Mental Status Patient Orientation: Normal For Age Attachments: Oxygen (BiPap), [place] Catheter, IV Transfers Therapy Code Descriptions/Definitions Functional [place] Measure: 0=Not Assessed/NA 4=Minimal Assistance 1=Total Assistance 5=Supervision or Setup 2=Maximal Assistance 6=Modified [place] 3=Moderate Assistance 7=Complete [place] Therapy Quality Codes: 6 Independent with activity with or without an assistive device 5 Patient requires set up or clean up by helper. Patient completes activity by themselves 4 Supervision or touching assist (CGA). Traer provide cues , steadying assist 3 The helper provides less than half the effort to complete the activity 2 The helper provides more than half the effort to complete the activity 1 Dependent. The helper does all the effort to complete an activity 7 Patient refused to complete or attempt activity 9 The patient did not perform the activity before the current illness or injury 88 Not attempted due to Medical conditions or safety concerns Transfers (B, C, W/C) (FIM): 2 Scootin Rollin Supine to/from Sit: 2 Patient did perform 25% of activity to assist with bed mobility and sitting EOB. Patient maintained sitting EOB x 15 min with CGA and VC's for balance cues Exercises Supine Ex: Ankle pumps, Heel Slides Supine Reps: 10 (AAROM) Seated Therapy Exercises: Ankle pumps, Long arc quads Seated Reps: 10 Assessment PT/OT cotreat secondary to patient unable to tolerate separate times due to decreased SAO2 with minimal activity. PT addressed sitting balance and bilateral LE exercises while OT address bilateral UE exercises and UE position with bed mobility exercises with rolling side to side to change bedding due to urine leakage from catheter. Patient SAO2 decrease to 60's% with minimal activity and recovered when returned to supine with HOB elevated and bilateral LE's positioned on pillows with heels free. PT Short Term Goals Short Term Goals Time Frame: Dec 16, 2018 Transfers (B,C,W/C) (FIM): 3 Gait (FIM): 1 Gait Distance Comment: 3' Gait Level of Assist: 3 Gait Assistive Device: FWW PT Plan Treatment/Plan Treatment Plan: Continue Plan of Care Treatment Plan: Bed Mobility, Concurrent Therapy, Education, Functional Activity Janny, Functional Strength, Gait, Safety, Therapeutic Exercise, Transfe rs Treatment Duration: Dec 16, 2018 Frequency: 6 times per week Estimated Hrs Per Day: .25 hour per day Patient and/or Family Agrees t: Yes Time/GCodes Time In: 1120 Time Out: 1145 Total Billed Treatment Time: 25 Total Billed Treatment 1 visit FA x 2 25 min SHEA HOWARD PT Dec 10, 2018 12:01
--- NOTE | 2018-12-10 13:12 | Occupational Ther Daily Note ---
OT Current Status-Daily Note Subjective pt agreed to OT/ PT tx session with focus on increasing bed mobility, static sitting balance, and overall activity tolerance for daily activities. pt complains of no pain. Mental Status/Objective Therapy Code Descriptions/Definitions Functional [place] Measure: 0=Not Assessed/NA 4=Minimal Assistance 1=Total Assistance 5=Supervision or Setup 2=Maximal Assistance 6=Modified [place] 3=Moderate Assistance 7=Complete [place] ADL-Treatment Transfers (B, C, W/C) (FIM): 1 Other Treatment PT/ OT co-treat secondary to complexity of patient deficits requiring skills of both disciplines. PT addressed sitting balance and bilateral LE positioning/ exercises while OT address bilateral UE positioning/ sequencing with bed mobility. pt required MAX A to perform rolling from R<> L with tactile cuing for correct positioning with rolling side to side to change bedding due to urine leakage from catheter. pt perform supine to sit with MAX A X 2 person assist noted Patient SAO2 decrease to 60's% with minimal activity and recovered when returned to supine with HOB elevated. all needs met, call light within reach. Education OT Patient Education: Energy conservation, Progress toward Goal/Update tx plan, Purpose of tx/functional activities, Reviewed precautions, Rehab process, Safety issues, Transfer techniques Teaching Recipient: Patient Teaching Methods: Demonstration, Discussion Response to Teaching: Verbalize Understanding, Return Demonstration OT Short Term Goals Short Term Goals Eating(FIM): 6 Grooming(FIM): 4 Bathing(FIM): 3 Upper Body Dressing(FIM): 3 Lower Body Dressing(FIM): 3 Toileting(FIM): 3 Transfers (B,C,W/C) (FIM): 3 Toilet/Commode Transfer(FIM): 2 1=Demonstrate adherence to instructed precautions during ADL tasks. 2=Patient will verbalize/demonstrate understanding of assistive devices/modifications for ADL. 3=Patient will improve strength/tolerance for activity to enable patient to perform ADL's. OT Communications Field Technician Goals Intermediate Goals Eating (FIM): 7 Grooming(FIM): 6 Bathing(FIM): 5 Upper Body Dressing(FIM): 5 Lower Body Dressing(FIM): 5 Toileting(FIM): 5 Transfers (B,C,W/C) (FIM): 5 Toilet/Commode Transfer(FIM): 5 1=Demonstrate adherence to instructed precautions during ADL tasks. 2=Patient will verbalize/demonstrate understanding of assistive devices/modifications for ADL. 3=Patient will improve strength/tolerance for activity to enable patient to perform ADL's. OT Education/Plan Problem List/Assessment Assessment: Decreased Activ Tolerance, Decreased Safety Aware, Decreased UE Strength, Dependent Transfers, Impaired Bed Mobility, Impaired Cognition, Impaired Coordination, Impaired Funct Balance, Impaired I ADL's, Impaired Self- Care Skills pt present with functional limitations affecting areas of ADLs and functional transfers with deficits in the above mention. pt currently required total assist X 2 person to perform sit to stands, TA for LB dressing, UE dressing, and toileting. pt has very limited activity tolerance and tires easily from slight activity such as UE ROM. pt would benefit from OT Services to increase independence with ADLs//. functional transfers. pt is NOT safe to return home at this time. Discharge Recommendations Plan/Recommendations: Continue POC Barriers to Progress decrease O2 saturation Treatment Plan/Plan of Care Treatment,Training & Education: Yes Patient would benefit from OT for education, treatment and training to promote independence in ADL's, mobility, safety and/or upper extremity function for ADL's. Plan of Care: ADL Retraining, Caregiver Training, Concurrent Therapy, Functional Mobility, Group Exercise/Act as Ind, UE Funct Exercise/Act Treatment Duration: Dec 30, 2018 Frequency: 5 times per week Estimated Hrs Per Day: .25 hour per day Agreement: Yes Rehab Potential: Fair Time/GCodes Start Time: 11:20 Stop Time: 11:45 Billed Treatment Time FA 25 minutes, 2 units BRANNON DUGAN OT Dec 10, 2018 13:12
--- NOTE | 2018-12-10 14:29 | NUR ---
PROVIDED EDUCATION TO PATIENT AND ABOUT ELIQUIS THERAPY, DISCUSSED COMMON ADR (BRUISING, BLEEDING) AND HOW TO MANAGE. I WAS ABLE TO ANSWER ALL DRUG RELATED QUESTIONS. I ALSO PROVIDED A 30 DAY SUPPLY COUPON AND RECOMMENDED CONTACTING [employer] TO FIND OUT OUTPATIENT COPAY. Addendum: 12/10/18 at 1430 by [facility] ALSO DISCUSSED HOW TO TAKE, AND WHAT TO DO IF MISSED ANY DOSES.
--- NOTE | 2018-12-10 15:47 | Diagnostic Imaging Report ---
INDICATION: Central venous catheter evaluation. TIME OF EXAM: 1539 hours. FINDINGS: Since the study of earlier in the day, there has been mild overall improvement in central airspace disease. There has been placement of right upper extremity PICC with catheter tip projecting over the junction of superior vena cava and right atrium. Monitoring leads overlie the chest. IMPRESSION: Mild improvement in presumed pulmonary edema. There is no evidence of complication related to right upper extremity PICC. Dictated by: Dictated on workstation # [id number]
[2018-12-10] MEDS: DILTIAZEM IV FOR DRIP 125 MG in NS (IVPB) 100 ML IV SCH (16:39)
--- NOTE | 2018-12-10 20:51 | Progress Note ---
Subjective Date Seen by a Provider: Dec 10, 2018 Time Seen by a Provider: 17:00 Subjective/Events-last exam patient on NIV Bilevel 30 states that his breathing is a little bit easier now. Patient being diuresed and he states that is a lot of fluid coming off. He is not having any abdominal pain. He did have a bowel movement with no blood he states. his breathing seems to be the main issue.denies nausea vomiting fever sweats chills or chest pain at this time. Focused Exam Lactate Level 12/07/18 23:55: Lactic Acid Level 2.65*H 12/08/18 01:55: Lactic Acid Level 2.00 12/08/18 19:35: Lactic Acid Level 1.04 Objective Exam Vital Signs Date Time Temp Pulse Resp B/P (MAP) Pulse Ox O2 Delivery O2 Flow Rate FiO2 12/10/18 20:27 NIV Bilevel 30.00 12/10/18 19:30 98.8 Nasal Cannula 5.00 12/10/18 19:03 72 25 100 40.00 12/10/18 19:00 72 12/10/18 18:00 64 21 118/55 (76) 100 NIV Bilevel 30.00 12/10/18 17:00 82 29 114/52 (72) 100 NIV Bilevel 30.00 12/10/18 16:00 68 20 115/97 (103) 100 NIV Bilevel 30.00 12/10/18 15:43 97.9 12/10/18 15:40 NIV Bilevel 30 12/10/18 15:30 NIV Bilevel 30.00 12/10/18 15:16 88 12/10/18 15:00 98 25 112/54 (73) 96 NIV Bilevel 40.00 12/10/18 14:29 115 25 100 40.00 12/10/18 14:00 110 22 127/60 (82) 100 NIV Bilevel 40.00 12/10/18 13:51 NIV Bilevel 40.00 12/10/18 13:01 86 12/10/18 13:00 92 25 108/64 (79) 100 Room Air 5.00 12/10/18 12:00 101 15 112/63 (79) 90 NIV Bilevel 40.00 12/10/18 12:00 97.9 12/10/18 11:19 92 12/10/18 11:01 NIV Bilevel 40 6/27/19 11:00 90 17 115/70 (85) 97 NIV Bilevel 40.00 12/10/18 10:42 NIV Bilevel 40.00 12/10/18 10:36 100 25 99 50.00 12/10/18 10:00 97 39 112/57 (75) 94 Nasal Cannula 5.00 12/10/18 09:40 93 12/10/18 09:00 89 20 109/64 (79) 91 Nasal Cannula 5.00 12/10/18 08:00 97.9 12/10/18 08:00 58 22 112/57 (75) 96 Nasal Cannula 5.00 12/10/18 07:50 NIV Bilevel 50 12/10/18 07:06 60 12/10/18 07:00 57 15 118/57 (77) 96 NIV Bilevel 50.00 12/10/18 06:43 56 19 95 50.00 12/10/18 06:00 57 23 115/56 (75) 94 NIV Bilevel 50.00 12/10/18 05:12 54 18 91 NIV Bilevel 50.00 12/10/18 05:00 57 22 107/58 (74) 91 NIV Bilevel 40.00 12/10/18 04:00 97.4 12/10/18 04:00 94 NIV Bilevel 40 12/10/18 04:00 53 18 101/50 (67) 96 NIV Bilevel 40.00 12/10/18 03:30 54 18 110/55 (73) 96 NIV Bilevel 40.00 12/10/18 03:00 53 17 92/50 (64) 97 NIV Bilevel 40.00 12/10/18 02:29 54 18 95 40.00 12/10/18 02:00 61 18 96/46 (63) 98 NIV Bilevel 40.00 12/10/18 01:00 64 17 91/47 (62) 98 NIV Bilevel 40.00 12/10/18 01:00 64 12/10/18 00:15 80 18 85/46 (59) 97 NIV Bilevel 40.00 12/10/18 00:02 79 18 90/53 (65) 97 NIV Bilevel 40.00 12/10/18 00:00 79 14 85/47 (60) 97 NIV Bilevel 40.00 12/10/18 00:00 95 NIV Bilevel 40 12/10/18 00:00 98.8 12/09/18 23:10 85 21 99 60.00 12/09/18 23:10 98 18 99 NIV Bilevel 40.00 12/09/18 23:00 95 13 92/52 (65) 98 NIV Bilevel 60.00 12/09/18 22:00 105 21 93/69 (77) 98 NIV Bilevel 60.00 12/09/18 22:00 100.1 12/09/18 21:00 75 21 105/51 (69) 97 NIV Bilevel 60.00 I & O 12/10/18 07:00 Intake Total 3085.0 ml Output Total 900 ml Balance 2185.0 ml Capillary Refill : General Appearance: WD/WN, Chronically ill HEENT: PERRL/EOMI, TMs Normal, Normal ENT Inspection Neck: Normal Inspection Respiratory: Chest Non Tender, Accessory Muscle Use, Other (slightly labored breathing) Cardiovascular: Regular Rate, Rhythm Gastrointestinal: non tender, soft, no organomegaly, no pulsatile mass; No distended Extremity: Non Tender, Other (Left lower extremities slight swelling small scab left medial lower extremity slight surrounding erythema) Neurologic/Psychiatric: Alert, Oriented x3 Skin: Normal Color, Warm/Dry Lymphatic: No Adenopathy Results Lab Laboratory Tests 12/10/18 03:15: White Blood Count 14.7H, Red Blood Count 2.75L, Hemoglobin 8.9L, Hematocrit 27L, Mean Corpuscular Volume 100H, Mean Corpuscular Hemoglobin 32, Mean Corpuscular Hemoglobin Concent 33, Red Cell Distribution Width 15.9H, Platelet Count 344, Mean Platelet Volume 9.3, Neutrophils (%) (Auto) 74, Lymphocytes (%) (Auto) 7L, Monocytes (%) (Auto) 19H, Eosinophils (%) (Auto) 0, Basophils (%) (Auto) 0, Neutrophils # (Auto) 11.0H, Lymphocytes # (Auto) 1.0, Monocytes # (Auto) 2.8H, Eosinophils # (Auto) 0.0, Basophils # (Auto) 0.0, Sodium Level 142, Potassium Level 3.7, Chloride Level 110H, Carbon Dioxide Level 25, Anion Gap 7, Blood Urea Nitrogen 16, Creatinine 1.26, Estimat Glomerular Filtration Rate 55, BUN/Creatinine Ratio 13, Glucose Level 137H, Calcium Level 7.8L, Phosphorus Level 2.4, Magnesium Level 1.9, B-Type Natriuretic Peptide 503.6H 12/10/18 04:35: Blood Gas Puncture Site R RAD, Blood Gas Patient Temperature 97.4, Arterial Blood pH 7.34*L, Arterial Blood Partial Pressure CO2 49H, Arterial Blood Partial Pressure O2 110H, Arterial Blood HCO3 26, Arterial Blood Total CO2 27.3, Arterial Blood Oxygen Saturation 99, Arterial Blood Base Excess 0.5, Zachery Test YES-POS, Blood Gas Ventilator Setting NO, Blood Gas Inspired Oxygen 40% BIPAP Microbiology 12/08/18 Blood Culture - Preliminary, Resulted No growth Assessment/Plan Assessment/Plan Assessment/Plan Shortness of breath Hypoxia Status post colonoscopy with snare polypectomy and hot biopsy polypectomy 2 of right colon yesterday. Severe sepsis by criteria Fever Afib rvr Cellulitis left lower extremity Patient is 78-year-old male reviewed his CT scan is no evidence of any bowel perforation no free air. He is not having abdominal pain or discomfort in the abdomen. Patient no source of fever at this time. He is on broad-spectrum antibiotics and receiving IV fluids appropriate for severe sepsis. Patient has significant leukocytosis now decreasing. Afib rvr on Cardizem and in ICU. Continue to follow. had a bowel movement with no evidence of gross blood. Continue to monitor. No surgical intervention needed at this time. On Eliquis. If any bleeding will need to hold. Clinical Quality Measures DVT/VTE Risk/Contraindication: Risk Factor Score Per Nursin RFS Level Per Nursing on Admit: 4+=Very High ANDREAS MANE DO Dec 10, 2018 20:51
[2018-12-11] VITALS (31 sets, daily range): BP systolic 104–157; BP diastolic 49–96
[2018-12-11] MEDS: RT-ALBUTEROL/IPRATROPIUM 3 ML (DUONEB) VIAL INH SCH ×6 (01:41→22:03)
[2018-12-11 03:27] LABS: BASOPHILS % (AUTO) 0 % (0-10); EOSINOPHILS % (AUTO) 0 % (0-10); HEMATOCRIT 27 % (40-54); HEMOGLOBIN 8.2 G/DL (13.3-17.7); LYMPHOCYTES # (AUTO) 0.7 X 10^3 (1.0-4.0); LYMPHOCYTES % (AUTO) 7 % (12-44); MEAN CORPUSCULAR HEMOGLOBIN 31 PG (25-34); MEAN CORPUSCULAR HGB CONC 31 G/DL (32-36); MEAN CORPUSCULAR VOLUME 99 FL (80-99); MEAN PLATELET VOLUME 8.9 FL (7.4-10.4); MONOCYTES # (AUTO) 1.7 X 10^3 (0.0-1.0); MONOCYTES % (AUTO) 16 % (0-12); NEUTROPHILS # (AUTO) 8.2 X 10^3 (1.8-7.8); NEUTROPHILS % (AUTO) 77 % (42-75); PLATELET COUNT 323 10^3/uL (130-400); RED CELL DISTRIBUTION WIDTH 15.9 % (10.0-14.5); WHITE BLOOD COUNT 10.6 10^3/uL (4.3-11.0)
[2018-12-11 03:27] LABS: ABG BASE EXCESS 1.7 MMOL/L (-2.5-2.5); ABG OXYGEN SATURATION 98 % (94-100); ABG PCO2 45 MMHG (35-45); ABG PH 7.38 (7.37-7.43); ABG PO2 86 MMHG (79-93); ABG TCO2 27.5 MMOL/L (21.0-31.0)
[2018-12-11 03:28] LABS: ALLENS TEST YES-POS; INSPIRED O2 30%; PATIENT TEMP 98.9; VENTILATOR NO
[2018-12-11 03:44] LABS: CALCIUM 7.7 MG/DL (8.5-10.1); CREATININE SERUM 1.77 MG/DL (0.60-1.30); MAGNESIUM 1.7 MG/DL (1.8-2.4); PHOSPHORUS 2.2 MG/DL (2.3-4.7); POTASSIUM 3.5 MMOL/L (3.6-5.0)
[2018-12-11] MEDS: POTASSIUM CL 10MEQ/50ML IVPB 50 ML IV SCH ×3 (04:33→05:29)
[2018-12-11] MEDS: MAGNESIUM 1 GM/100 ML IVPB 100 ML IV SCH ×3 (04:33→05:29)
[2018-12-11] MEDS: KCL 20 MEQ TAB (K-DUR) PO SCH (05:17)
--- NOTE | 2018-12-11 06:11 | Pulmonary Progress Note ---
Subjective Time Seen by a Provider: 06:13 Subjective/Events-last exam Pt is very weak. Currently on BiPAP Sepsis Event Evaluation Height, Weight, BMI Height: 5'8.00" Weight: 197lbs. 3.0oz. 89.688571mm; 28.8 BMI Method: Focused Exam Lactate Level 12/08/18 19:35: Lactic Acid Level 1.04 Exam Exam Vital Signs Date Time Temp Pulse Resp B/P (MAP) Pulse Ox O2 Delivery O2 Flow Rate FiO2 12/11/18 05:34 NIV Bilevel 30.00 12/11/18 05:12 Nasal Cannula 5.00 12/11/18 05:00 77 24 132/63 (86) 100 NIV Bilevel 30.00 12/11/18 04:00 NIV Bilevel 30 12/11/18 04:00 77 23 140/63 (88) 100 NIV Bilevel 30.00 12/11/18 03:57 77 23 100 40.00 12/11/18 03:00 58 20 117/56 (76) 100 NIV Bilevel 30.00 12/11/18 02:00 59 21 120/58 (78) 99 NIV Bilevel 30.00 12/11/18 01:41 60 30 100 40.00 12/11/18 01:00 61 12/11/18 01:00 58 16 122/58 (79) 100 NIV Bilevel 30.00 12/11/18 00:00 NIV Bilevel 30 12/11/18 00:00 59 24 110/59 (76) 99 NIV Bilevel 30.00 12/10/18 23:00 61 16 107/54 (71) 100 NIV Bilevel 30.00 12/10/18 22:00 62 22 116/58 (77) 100 NIV Bilevel 30.00 12/10/18 21:56 64 30 99 40.00 12/10/18 21:00 75 17 118/57 (77) 100 NIV Bilevel 30.00 12/10/18 20:27 NIV Bilevel 30.00 12/10/18 20:00 NIV Bilevel 30 12/10/18 20:00 86 20 127/69 (88) 96 Nasal Cannula 5.00 12/10/18 19:30 98.8 Nasal Cannula 5.00 12/10/18 19:03 72 25 100 40.00 12/10/18 19:00 72 12/10/18 19:00 71 18 102/55 (71) 100 NIV Bilevel 30.00 12/10/18 18:00 64 21 118/55 (76) 100 NIV Bilevel 30.00 12/10/18 17:00 82 29 114/52 (72) 100 NIV Bilevel 30.00 12/10/18 16:00 68 20 115/97 (103) 100 NIV Bilevel 30.00 12/10/18 15:43 97.9 12/10/18 15:40 NIV Bilevel 30 12/10/18 15:30 NIV Bilevel 30.00 12/10/18 15:16 88 12/10/18 15:00 98 25 112/54 (73) 96 NIV Bilevel 40.00 12/10/18 14:29 115 25 100 40.00 12/10/18 14:00 110 22 127/60 (82) 100 NIV Bilevel 40.00 12/10/18 13:51 NIV Bilevel 40.00 12/10/18 13:01 86 12/10/18 13:00 92 25 108/64 (79) 100 Room Air 5.00 12/10/18 12:00 101 15 112/63 (79) 90 NIV Bilevel 40.00 12/10/18 12:00 97.9 12/10/18 11:19 92 12/10/18 11:01 NIV Bilevel 40 12/10/18 11:00 90 17 115/70 (85) 97 NIV Bilevel 40.00 12/10/18 10:42 NIV Bilevel 40.00 12/10/18 10:36 100 25 99 50.00 12/10/18 10:00 97 39 112/57 (75) 94 Nasal Cannula 5.00 12/10/18 09:40 93 12/10/18 09:00 89 20 109/64 (79) 91 Nasal Cannula 5.00 12/10/18 08:00 97.9 12/10/18 08:00 58 22 112/57 (75) 96 Nasal Cannula 5.00 12/10/18 07:50 NIV Bilevel 50 12/10/18 07:06 60 12/10/18 07:00 57 15 118/57 (77) 96 NIV Bilevel 50.00 12/10/18 06:43 56 19 95 50.00 I & O 12/11/18 07:00 Intake Total 2745.0 ml Output Total 2775 ml Balance -30.0 ml Height & Weight Height: 5'8.00" Weight: 197lbs. 3.0oz. 89.420770wu; 28.8 BMI Method: General Appearance: No Apparent Distress, WD/WN HEENT: PERRL/EOMI, TMs Normal, Normal ENT Inspection Neck: Normal Inspection Respiratory: Chest Non Tender, No Accessory Muscle Use, No Respiratory Distress, Accessory Muscle Use Cardiovascular: Regular Rate, Rhythm Gastrointestinal: non tender, soft, no organomegaly, no pulsatile mass; No distended Extremity: Non Tender Neurologic/Psychiatric: Alert, Oriented x3 Skin: Normal Color, Warm/Dry Lymphatic: No Adenopathy Results Lab Laboratory Tests 12/10/18 03:15 12/11/18 03:06 Assessment/Plan Assessment/Plan Severe sepsis with PNA -Vanco/Zosyn -IVF Respiratory failure -BiPAP QHS and PRN -Trial pt back to Vapotherm today Cellulitis LLL Afib RVR - now converted -Cardizem gtt -Cardiology following Hx of childhood polio Debility/weakness -PT/OT ROSE -CPAP DANIELITO DELGADILLO DO Dec 11, 2018 06:11
[2018-12-11] MEDS ORDERED: POTASSIUM PHOSPHATE INJ 30 MM in NS (IVPB) 250 ML IV ONE (06:15)
[2018-12-11] MEDS: LACTATED RINGERS 1,000 ML IV SCH (06:35)
--- NOTE | 2018-12-11 06:54 | Diagnostic Imaging Report ---
Indication: Respiratory distress. Portable chest 3:54 AM There are postop changes from CABG surgery. Right upper extremity PICC line tip projects over the SVC. Heart size and pulmonary vascularity are normal. There is minimal perihilar atelectasis. There are no effusions or pneumothoraces. Impression: Postsurgical changes. No acute abnormality seen. Dictated by: Dictated on workstation # [id number]
[2018-12-11] MEDS: PANTOPRAZOLE 40 MG (PROTONIX) VIAL IV SCH ×2 (08:17→20:19)
[2018-12-11] MEDS: APIXABAN 5 MG (ELIQUIS) TABLET PO SCH (08:17)
[2018-12-11] MEDS: PIPERACILLIN/TAZOBACTAM (BULK) 4.5 GM in NS (IVPB) 100 ML IV SCH ×3 (08:17→22:53)
[2018-12-11] MEDS: SOTALOL 80 MG (BETAPACE) TAB PO SCH (08:17)
--- NOTE | 2018-12-11 10:02 | Progress Note-Cardiology ---
Cardiology SOAP Progress Note Subjective: More short of breath this morning Gen malaise No cp or palp or syncope Objective: I&O/Vital Signs 12/10/18 12/10/18 12/11/18 12/11/18 22:00 23:00 00:00 00:00 Pulse 62 61 59 Resp 22 16 24 B/P (MAP) 116/58 (77) 107/54 (71) 110/59 (76) Pulse Ox 100 100 99 O2 Delivery NIV Bilevel NIV Bilevel NIV Bilevel NIV Bilevel O2 Flow Rate 30.00 30.00 30.00 FiO2 30 12/11/18 12/11/18 12/11/18 12/11/18 01:00 01:00 01:41 02:00 Pulse 58 61 60 59 Resp 16 30 21 B/P (MAP) 122/58 (79) 120/58 (78) Pulse Ox 100 100 99 O2 Delivery NIV Bilevel NIV Bilevel O2 Flow Rate 30.00 40.00 30.00 12/11/18 12/11/18 12/11/18 12/11/18 03:00 03:57 04:00 04:00 Pulse 58 77 77 Resp 20 23 23 B/P (MAP) 117/56 (76) 140/63 (88) Pulse Ox 100 100 100 O2 Delivery NIV Bilevel NIV Bilevel NIV Bilevel O2 Flow Rate 30.00 40.00 30.00 FiO2 30 12/11/18 12/11/18 12/11/18 12/11/18 05:00 05:12 05:34 06:00 Pulse 77 76 Resp 24 16 B/P (MAP) 132/63 (86) 120/58 (78) Pulse Ox 100 97 O2 Delivery NIV Bilevel Nasal Cannula NIV Bilevel NIV Bilevel O2 Flow Rate 30.00 5.00 30.00 30.00 12/11/18 12/11/18 12/11/18 12/11/18 07:00 07:09 07:17 07:17 Pulse 78 73 59 Resp 21 B/P (MAP) 114/56 (75) Pulse Ox 97 100 100 O2 Delivery NIV Bilevel Vapotherm Vapotherm O2 Flow Rate 30.00 30.00 40.00 30.00 FiO2 40 12/11/18 12/11/18 12/11/18 08:00 08:58 09:00 Pulse 71 73 71 Resp 19 23 34 B/P (MAP) 131/63 (85) 133/69 (90) Pulse Ox 95 90 92 O2 Delivery Vapotherm NIV Bilevel O2 Flow Rate 80.00 50.00 50.00 40.00 12/11/18 00:00 Intake Total 1895.0 ml Output Total 2275 ml Balance -380.0 ml Weight (Pounds): 197 Weight (Ounces): 3.0 Weight (Calculated Kilograms): 89.177482 Constitutional: AAO x 3, well-developed, well-nourished Respiratory: No accessory muscle use, No respiratory distress; chest expansion is symmetric, chest is bilaterally symmetric, other (good air entry) Cardiovascular: regular rate-rhythm; No JVD; S1 and S2, systolic murmur Gastrointestional: No tender; distended, audible bowel sounds Extremities: no lower extremity edema bilateral Neurologic/Psychiatric: grossly intact, power is 5/5 both on sides Skin: No rash on exposed areas, No ulcerations on exposed areas Results/Procedures: Labs Laboratory Tests 12/11/18 03:06: White Blood Count 10.6, Red Blood Count 2.68L, Hemoglobin 8.2L, Hematocrit 27L, Mean Corpuscular Volume 99, Mean Corpuscular Hemoglobin 31, Mean Corpuscular Hemoglobin Concent 31L, Red Cell Distribution Width 15.9H, Platelet Count 323, Mean Platelet Volume 8.9, Neutrophils (%) (Auto) 77H, Lymphocytes (%) (Auto) 7L, Monocytes (%) (Auto) 16H, Eosinophils (%) (Auto) 0, Basophils (%) (Auto) 0, Neutrophils # (Auto) 8.2H, Lymphocytes # (Auto) 0.7L, Monocytes # (Auto) 1.7H, Eosinophils # (Auto) 0.0, Basophils # (Auto) 0.0, Sodium Level 143, Potassium Level 3.5L, Chloride Level 110H, Carbon Dioxide Level 24, Anion Gap 9, Blood Urea Nitrogen 23H, Creatinine 1.77H, Estimat Glomerular Filtration Rate 37, BUN/Creatinine Ratio 13, Glucose Level 106H, Calcium Level 7.7L, Phosphorus Level 2.2L, Magnesium Level 1.7L 12/11/18 03:15: Blood Gas Puncture Site LEFT RADIAL, Blood Gas Patient Temperature 98.9, Arter ial Blood pH 7.38, Arterial Blood Partial Pressure CO2 45, Arterial Blood Partial Pressure O2 86, Arterial Blood HCO3 26, Arterial Blood Total CO2 27.5, Arterial Blood Oxygen Saturation 98, Arterial Blood Base Excess 1.7, Zachery Test YES-POS, Blood Gas Ventilator Setting NO, Blood Gas Inspired Oxygen 30% Microbiology 12/08/18 Blood Culture - Preliminary, Resulted No growth Laboratory Tests 12/10/18 03:15 12/11/18 03:06 A/P: Assessment: Worsening of shortness of breath: consider volume overload and/or ac cooper CHF PA-fib Ac renal insufficiency Echo 12/09/18: LVEF 55-60%, mild MR, mild enlargement of LA, RVSP 38 mmHg Sepsis of undetermined etiology - surgical/medical services managing L leg cellulitis Stroke prophylaxis with apixaban CAD - H/O CABG x [address] Huang at [facility], [place] - reports recent MPI in the last [address] Lopez (reported to be normal) Sleep apnea - CPAP tx Plan: * I discussed his case with Dr Vargas on the phone this am * iv diuretics today * Dilt for vent rate control * Sotalol for rhythm maintenance * Apixaban for stroke prophylaxis * Monitor labs * Dr Deleon covering the Cardiology Service over the weekend BRENDA VANN MD FACP [facility] Dec 11, 2018 10:02
[2018-12-11] MEDS ORDERED: warFARin 3 MG (COUMADIN) TAB PO SCH (10:15)
[2018-12-11] MEDS ORDERED: ALPRAZolam 0.25 MG (XANAX) TAB PO PRN (10:15)
[2018-12-11] MEDS ORDERED: FUROSEMIDE 40 MG/4 ML INJ (LASIX) IVP ONE (10:15)
--- NOTE | 2018-12-11 10:33 | Progress Note-Hospitalist ---
Subjective HPI/CC On Admission Date Seen by Provider: Dec 11, 2018 Time Seen by Provider: 09:45 The patient is a 78-year-old white male admitted to the hospitalist service after a phone call from the nurse practitioner in the [place] emergency room. The patient had had a colonoscopy at [place] performed by Dr. Ricci. This was at approximately 7 o'clock and by 1030 he was released and went home. Slice states that he was a bit sluggish through the day. They ate early supper at about 1630 hours. After that they went for a ride around [facility] and went back to their home. He had difficulty getting out of the car and u ltimately leaned forward and slid down the front of his and sat on the driveway. He was unable to get up and she called her grandson and son-in-law to come help get him up. At that point they went to the [place] emergency room arriving at about 1930 hours. He really had no localizing signs but was found to have a temperature of 104 at arrival and a white count of 31,000. He denies cough or sputum production. There was no apparent belly pain. I was then called and arrangements were made to transfer him here. He had been given Zosyn prior to his departure from the [place]. On arrival here he underwent CT scans with contrast of the chest abdomen and pelvis. There was no pneumonia reported on the chest and no evidence of free air or abscess formation on the abdomen or pelvis. His maximum temp after arriving here was 99.6. His blood pressure has been 95/60 range. Lactic acid on arrival was 2.65 and he was given the fluid bolus to achieve the 30 mL/kg Subjective/Events-last exam Patient requiring BiPAP again Very well may require intubation before it started Updated patient and family regarding this possibility Inpatient rehabilitation still an option once he becomes strong enough and stabilizes We'll restart some of his home medications Overall guarded prognosis considering elevated creatinine about 1.77 likely due to poor oral intake Review of Systems General: Fatigue Pulmonary: Dyspnea Neurological: Confusion Focused Exam Lactate Level 12/08/18 19:35: Lactic Acid Level 1.04 Objective Exam Vital Signs Vital Signs Date Time Temp Pulse Resp B/P (MAP) Pulse Ox O2 Delivery O2 Flow Rate FiO2 12/11/18 11:26 58 25 96 30.00 12/11/18 11:26 NIV Bilevel 12/11/18 07:17 40 12/10/18 19:30 98.8 Capillary Refill : General Appearance: WD/WN, Moderate Distress, Other (biPAP intact) HEENT: PERRL/EOMI, TMs Normal, Normal ENT Inspection Neck: Normal Inspection Respiratory: Chest Non Tender, No Accessory Muscle Use, No Respiratory Distress, Accessory Muscle Use Cardiovascular: Regular Rate, Rhythm Gastrointestinal: Normal Bowel Sounds, No Organomegaly, Non Tender, Soft Extremity: Non Tender Neurologic/Psychiatric: Alert, Oriented x3 Skin: Normal Color, Warm/Dry Lymphatic: No Adenopathy Results/Procedures Lab Laboratory Tests 12/11/18 03:06 Patient resulted labs reviewed. Assessment/Plan Assessment and Plan Assess & Plan/Chief Complaint Assessment: Severe sepsis Acute respiratory status dependent on biPAP now may need vent Afib RVR requiring Cardizem drip x 2 Hx of childhood polio ROSE on CPAP Debilitated status in need of IRF after stable Plan: Monitor respiratory status closely Appreciate Dr Vargas and Dr Lebron consultation Diagnosis/Problems Diagnosis/Problems (1) SEPSIS Status: Acute (2) Atrial fibrillation with rapid ventricular response Status: Acute (3) Tachypnea Status: Acute (4) ROSE on CPAP Status: Chronic (5) History of poliomyelitis Status: Chronic (6) Debilitated Status: Acute Clinical Quality Measures DVT/VTE Risk/Contraindication: Risk Factor Score Per Nursin RFS Level Per Nursing on Admit: 4+=Very High ISADORA GROVE DO Dec 11, 2018 10:33
[2018-12-11] MEDS ORDERED: LOSARTAN 100 MG (COZAAR) TABLET PO SCH (10:35)
[2018-12-11] MEDS ORDERED: HYDROCHLOROTHIAZIDE 12.5 MG (HCTZ) CAP PO SCH (10:35)
--- NOTE | 2018-12-11 11:10 | Progress Note ---
Subjective Date Seen by a Provider: Dec 11, 2018 Time Seen by a Provider: 11:07 Subjective/Events-last exam Having slightly increased difficulty with breathing. Not having any abdominal pain. Having bowel function, no gross blood. Denies fever sweats chills or chest pain at this time. Focused Exam Lactate Level 12/08/18 19:35: Lactic Acid Level 1.04 Objective Exam Vital Signs Date Time Temp Pulse Resp B/P (MAP) Pulse Ox O2 Delivery O2 Flow Rate FiO2 12/11/18 09:00 71 34 133/69 (90) 92 NIV Bilevel 50.00 12/11/18 08:58 73 23 90 50.00 12/11/18 08:00 71 19 131/63 (85) 95 Vapotherm 80.00 40.00 12/11/18 07:17 59 100 Vapotherm 40.00 30.00 12/11/18 07:17 100 Vapotherm 30.00 40 12/11/18 07:09 73 12/11/18 07:00 78 21 114/56 (75) 97 NIV Bilevel 30.00 12/11/18 06:00 76 16 120/58 (78) 97 NIV Bilevel 30.00 12/11/18 05:34 NIV Bilevel 30.00 12/11/18 05:12 Nasal Cannula 5.00 12/11/18 05:00 77 24 132/63 (86) 100 NIV Bilevel 30.00 12/11/18 04:00 NIV Bilevel 30 12/11/18 04:00 77 23 140/63 (88) 100 NIV Bilevel 30.00 12/11/18 03:57 77 23 100 40.00 12/11/18 03:00 58 20 117/56 (76) 100 NIV Bilevel 30.00 12/11/18 02:00 59 21 120/58 (78) 99 NIV Bilevel 30.00 12/11/18 01:41 60 30 100 40.00 12/11/18 01:00 61 12/11/18 01:00 58 16 122/58 (79) 100 NIV Bilevel 30.00 12/11/18 00:00 NIV Bilevel 30 12/11/18 00:00 59 24 110/59 (76) 99 NIV Bilevel 30.00 12/10/18 23:00 61 16 107/54 (71) 100 NIV Bilevel 30.00 12/10/18 22:00 62 22 116/58 (77) 100 NIV Bilevel 30.00 12/10/18 21:56 64 30 99 40.00 12/10/18 21:00 75 17 118/57 (77) 100 NIV Bilevel 30.00 12/10/18 20:27 NIV Bilevel 30.00 12/10/18 20:00 NIV Bilevel 30 12/10/18 20:00 86 20 127/69 (88) 96 Nasal Cannula 5.00 12/10/18 19:30 98.8 Nasal Cannula 5.00 12/10/18 19:03 72 25 100 40.00 12/10/18 19:00 72 12/10/18 19:00 71 18 102/55 (71) 100 NIV Bilevel 30.00 12/10/18 18:00 64 21 118/55 (76) 100 NIV Bilevel 30.00 12/10/18 17:00 82 29 114/52 (72) 100 NIV Bilevel 30.00 12/10/18 16:00 68 20 115/97 (103) 100 NIV Bilevel 30.00 12/10/18 15:43 97.9 12/10/18 15:40 NIV Bilevel 30 12/10/18 15:30 NIV Bilevel 30.00 12/10/18 15:16 88 12/10/18 15:00 98 25 112/54 (73) 96 NIV Bilevel 40.00 12/10/18 14:29 115 25 100 40.00 12/10/18 14:00 110 22 127/60 (82) 100 NIV Bilevel 40.00 12/10/18 13:51 NIV Bilevel 40.00 12/10/18 13:01 86 12/10/18 13:00 92 25 108/64 (79) 100 Room Air 5.00 12/10/18 12:00 101 15 112/63 (79) 90 NIV Bilevel 40.00 12/10/18 12:00 97.9 12/10/18 11:19 92 I & O 12/11/18 07:00 Intake Total 3645.0 ml Output Total 2775 ml Balance 870.0 ml Capillary Refill : General Appearance: No Apparent Distress, WD/WN HEENT: PERRL/EOMI, TMs Normal, Normal ENT Inspection Neck: Normal Inspection Respiratory: Chest Non Tender, Accessory Muscle Use Cardiovascular: Regular Rate, Rhythm Gastrointestinal: non tender, soft, no organomegaly, no pulsatile mass; No distended Extremity: Non Tender Neurologic/Psychiatric: Alert, Oriented x3 Skin: Normal Color, Warm/Dry Lymphatic: No Adenopathy Results Lab Laboratory Tests 12/11/18 03:06: White Blood Count 10.6, Red Blood Count 2.68L, Hemoglobin 8.2L, Hematocrit 27L, Mean Corpuscular Volume 99, Mean Corpuscular Hemoglobin 31, Mean Corpuscular Hemoglobin Concent 31L, Red Cell Distribution Width 15.9H, Platelet Count 323, Mean Platelet Volume 8.9, Neutrophils (%) (Auto) 77H, Lymphocytes (%) (Auto) 7L, Monocytes (%) (Auto) 16H, Eosinophils (%) (Auto) 0, Basophils (%) (Auto) 0, Neutrophils # (Auto) 8.2H, Lymphocytes # (Auto) 0.7L, Monocytes # (Auto) 1.7H, Eosinophils # (Auto) 0.0, Basophils # (Auto) 0.0, Sodium Level 143, Potassium Level 3.5L, Chloride Level 110H, Carbon Dioxide Level 24, Anion Gap 9, Blood Urea Nitrogen 23H, Creatinine 1.77H, Estimat Glomerular Filtration Rate 37, BUN/Creatinine Ratio 13, Glucose Level 106H, Calcium Level 7.7L, Phosphorus Level 2.2L, Magnesium Level 1.7L 12/11/18 03:15: Blood Gas Puncture Site LEFT RADIAL, Blood Gas Patient Temperature 98.9, Arterial Blood pH 7.38, Arterial Blood Partial Pressure CO2 45, Arterial Blood Partial Pressure O2 86, Arterial Blood HCO3 26, Arterial Blood Total CO2 27.5, Arterial Blood Oxygen Saturation 98, Arterial Blood Base Excess 1.7, Zachery Test YES-POS, Blood Gas Ventilator Setting NO, Blood Gas Inspired Oxygen 30% Microbiology 12/08/18 Blood Culture - Preliminary, Resulted No growth Assessment/Plan Assessment/Plan Assessment/Plan Shortness of breath Hypoxia Status post colonoscopy with snare polypectomy and hot biopsy polypectomy 2 of right colon yesterday. Severe sepsis by criteria Fever Afib rvr Cellulitis left lower extremity Patient is 78-year-old male reviewed his CT scan is no evidence of any bowel perforation no free air. He is not having abdominal pain or discomfort in the abdomen. Patient no source of fever at this time. He is on broad-spectrum antibiotics and receiving IV fluids appropriate for severe sepsis. Patient had significant leukocytosis now decreased. Having bowel movements with no evidence of gross blood. No surgical intervention needed at this time. On Eliquis. If any bleeding will need to hold. Will sign off, call if needed. Clinical Quality Measures DVT/VTE Risk/Contraindication: Risk Factor Score Per Nursin RFS Level Per Nursing on Admit: 4+=Very High ANDREAS MANE DO Dec 11, 2018 11:10
--- NOTE | 2018-12-11 11:36 | NUR ---
CONTACTED DR VANN ABOUT SCR UPTO 1.77 HOLD LOSARTAN AND HYDROCHLORTHIAZIDE RENAL DOSE SOTALOL TO 80MG PO DAILY AND ELIQUIS TO 2.5MG PO BID
--- NOTE | 2018-12-11 11:48 | Physical Therapy Daily Note ---
PT Daily Note-Current Subjective Patient and family agree to PT. Mental Status Patient Orientation: Normal For Age Attachments: Oxygen (BiPap), [place] Catheter, IV Transfers Therapy Code Descriptions/Definitions Functional [place] Measure: 0=Not Assessed/NA 4=Minimal Assistance 1=Total Assistance 5=Supervision or Setup 2=Maximal Assistance 6=Modified [place] 3=Moderate Assistance 7=Complete [place] Therapy Quality Codes: 6 Independent with activity with or without an assistive device 5 Patient requires set up or clean up by helper. Patient completes activity by themselves 4 Supervision or touching assist (CGA). [place] provide cues , steadying assist 3 The helper provides less than half the effort to complete the activity 2 The helper provides more than half the effort to complete the activity 1 Dependent. The helper does all the effort to complete an activity 7 Patient refused to complete or attempt activity 9 The patient did not perform the activity before the current illness or injury 88 Not attempted due to Medical conditions or safety concerns Transfers (B, C, W/C) (FIM): 1 Scootin Rollin Supine to/from Sit: 1 Patient is unable to maintain sitting EOB without assistance. Patient leans to right and has difficulty self correcting requiring maximum assistance. Patient sat EOB performing bilateral LE exercises while OT addressed sitting balance/then switched with patient performing bilateral UE exercises while PT addressed sitting balance. Exercises Supine Ex: Ankle pumps, Heel Slides, Straight leg raise Supine Reps: 15 (AAROM) Seated Therapy Exercises: Long arc quads Seated Reps: 15 (AROM) Assessment Patient fatigues with minimal activity with cotreating with OT/PT. SAO2 did maintain >90% during treatment, however, patient is unable to maintain sitting EOB without assistance. PT Short Term Goals Short Term Goals Time Frame: Dec 16, 2018 Transfers (B,C,W/C) (FIM): 3 Gait (FIM): 1 Gait Distance Comment: 3' Gait Level of Assist: 3 Gait Assistive Device: FWW PT Plan Treatment/Plan Treatment Plan: Continue Plan of Care Treatment Plan: Bed Mobility, Concurrent Therapy, Education, Functional Activity Janny, Functional Strength, Gait, Safety, Therapeutic Exercise, Transfers Treatment Duration: Dec 16, 2018 Frequency: 6 times per week Estimated Hrs Per Day: .25 hour per day Patient and/or Family Agrees t: Yes Time/GCodes Time In: 1046 Time Out: 1104 Total Billed Treatment Time: 18 Total Billed Treatment 1 visit FA 18 min SHEA HOWARD PT Dec 11, 2018 11:48
--- NOTE | 2018-12-11 13:13 | Occupational Ther Daily Note ---
OT Current Status-Daily Note Subjective pt laying in bed upon OT/ PT arrival in no apparent distress. pt agreed to tx session. pt co/o no pain. Mental Status/Objective Therapy Code Descriptions/Definitions Functional [place] Measure: 0=Not Assessed/NA 4=Minimal Assistance 1=Total Assistance 5=Supervision or Setup 2=Maximal Assistance 6=Modified [place] 3=Moderate Assistance 7=Complete [place] Other Treatment noted pt incontinent when therapy enter room. pt required MOD A to perform rolling R<> L and tactile/ hand over hand placement of placement. pt required MAX A to perform supine to sit. noted Right lateral leaning requiring heavy skilled cuing for self correcting with MAX A. . while seated EOB pt performing bilateral LE exercises while OT addressed sitting balance/then switched with patient performing bilateral UE exercises while PT addressed sit ting balance. Patient fatigues with minimal activity with co-treating with OT/PT. SAO2 did maintain >90% during treatment Education OT Patient Education: Correct positioning, Energy conservation, Progress toward Goal/Update tx plan, Purpose of tx/functional activities, Reviewed precautions, Safety issues, Transfer techniques Teaching Recipient: Patient, Family Teaching Methods: Demonstration, Discussion Response to Teaching: Verbalize Understanding, Return Demonstration OT Short Term Goals Short Term Goals Eating(FIM): 6 Grooming(FIM): 4 Bathing(FIM): 3 Upper Body Dressing(FIM): 3 Lower Body Dressing(FIM): 3 Toileting(FIM): 3 Transfers (B,C,W/C) (FIM): 3 Toilet/Commode Transfer(FIM): 2 1=Demonstrate adherence to instructed precautions during ADL tasks. 2=Patient will verbalize/demonstrate understanding of assistive devices/modifications for ADL. 3=Patient will improve strength/tolerance for activity to enable patient to perform ADL's. OT Penitentiary Goals Penitentiary Goals Eating (FIM): 7 Grooming(FIM): 6 Bathing(FIM): 5 Upper Body Dressing(FIM): 5 Lower Body Dressing(FIM): 5 Toileting(FIM): 5 Transfers (B,C,W/C) (FIM): 5 Toilet/Commode Transfer(FIM): 5 1=Demonstrate adherence to instructed precautions during ADL tasks. 2=Patient will verbalize/demonstrate understanding of assistive devices/modifications for ADL. 3=Patient will improve strength/tolerance for activity to enable patient to perform ADL's. OT Education/Plan Problem List/Assessment Assessment: Decreased Activ Tolerance, Decreased Safety Aware, Decreased UE Strength, Dependent Transfers, Impaired Bed Mobility, Impaired Coordination, Impaired Funct Balance, Impaired I ADL's, Impaired Self-Care Skills, Restricted Funct UE ROM pt present with functional limitations affecting areas of ADLs and functional transfers with deficits in the above mention. pt currently required total assist X 2 person to perform sit to stands, TA for LB dressing, UE dressing, and toileting. pt has very limited activity tolerance and tires easily from slight activity such as UE ROM. pt would benefit from OT Services to increase independence with ADLs//. functional transfers. pt is NOT safe to return home at this time. Discharge Recommendations Plan/Recommendations: Continue POC Treatment Plan/Plan of Care Treatment,Training & Education: Yes Patient would benefit from OT for education, treatment and training to promote independence in ADL's, mobility, safety and/or upper extremity function for ADL's. Plan of Care: ADL Retraining, Caregiver Training, Concurrent Therapy, Functional Mobility, Group Exercise/Act as Ind, UE Funct Exercise/Act Treatment Duration: Dec 30, 2018 Frequency: 5 times per week Estimated Hrs Per Day: .25 hour per day Agreement: Yes Rehab Potential: Fair Time/GCodes Start Time: 10:46 Stop Time: 11:04 Billed Treatment Time FA 18 minutes, 1 unit BRANNON DUGAN OT Dec 11, 2018 13:13
--- NOTE | 2018-12-11 17:34 | NUR ---
0900 PT UNABLE TO TOLERATE VAPOTHERM, PT STRUGGLING FOR AIR, AND SA02 READING'S IN THE UPPER 70-80'S . PT PLACED ON BIPAP PER RT. MORPHINE 2MG GIVEN IVP FOR AIR HUNGER. AT BEDSIDE.
[2018-12-11] MEDS: TOLTERODINE LA 2 MG (DETROL LA) CAP PO SCH (20:19)
[2018-12-11] MEDS: SERTRALINE 50 MG (ZOLOFT) TABLET PO SCH (20:20)
[2018-12-11] MEDS: APIXABAN 2.5 MG (ELIQUIS) TABLET PO SCH (20:20)
[2018-12-11] MEDS ORDERED: SOTALOL 80 MG (BETAPACE) TAB PO SCH (21:00)
--- NOTE | 2018-12-11 21:08 | Wound Care Assessment ---
Wound Care Assessment Date Seen by Provider: Dec 11, 2018 Time Seen by Provider: 21:03 Chief Complaint Ulcer L calf. HPI The patient is a 78 year old male admitted for pneumonia, noted to have cellulitis of L calf. The patient had a lesion of the L calf cauterized as an out-patient a month ago and the wound has not healed. The redness has developed over the last week. He is on multiple antibiotics for his pneumonia. Dakin's dressings ordered. Will follow. Past Medical History: Admits Heart Disease (Atrial fibrillation) COPD, ROSE, CAD, HTN, Hx of Polio, Pneumonia with sepsis. Recreational Drug Use: No Alcohol Use: Denies Use Review of Systems General: Chills HEENT: Visual Changes (macular degeneration.) Pulmonary: Dyspnea Cardiovascular: Chest Pain Gastrointestinal: No: Abdominal Pain Genitourinary: No Dysuria Musculoskeletal: leg pain (Left.) Neurological: Weakness Other systems Endocrine -- No history of diabetes. Integumentary -- Skin cancer removed L calf a month ago. Exam Vital Signs Date Time Temp Pulse Resp B/P (MAP) Pulse Ox O2 Delivery O2 Flow Rate FiO2 12/11/18 20:21 97.5 12/11/18 20:00 64 38 133/70 (91) 93 Vapotherm 80.00 40.00 12/11/18 19:58 40 Capillary Refill : General Appearance: WD/WN, mild distress HEENT: normal ENT inspection Neck: non-tender, normal inspection; No carotid bruit, No thyromegaly Cardiovascular: regular rate, rhythm, no gallop Respiratory: rhonchi (left chest) Gastrointestinal: normal bowel sounds, non tender, no organomegaly Extremities: swelling (and erythema L calf) Skin: other (L medial calf -- 1.8 x 1.9 x 0.2 cm, 100% eschar, no drainage, periwound with erythema and tenderness.) Results Laboratory Tests 12/11/18 03:06: White Blood Count 10.6, Red Blood Count 2.68L, Hemoglobin 8.2L, Hematocrit 27L, Mean Corpuscular Volume 99, Mean Corpuscular Hemoglobin 31, Mean Corpuscular Hemoglobin Concent 31L, Red Cell Distribution Width 15.9H, Platelet Count 323, Mean Platelet Volume 8.9, Neutrophils (%) (Auto) 77H, Lymphocytes (%) (Auto) 7L, Monocytes (%) (Auto) 16H, Eosinophils (%) (Auto) 0, Basophils (%) (Auto) 0, Neutrophils # (Auto) 8.2H, Lymphocytes # (Auto) 0.7L, Monocytes # (Auto) 1.7H, Eosinophils # (Auto) 0.0, Basophils # (Auto) 0.0, Sodium Level 143, Potassium Level 3.5L, Chloride Level 110H, Carbon Dioxide Level 24, Anion Gap 9, Blood Urea Nitrogen 23H, Creatinine 1.77H, Estimat Glomerular Filtration Rate 37, BUN/Creatinine Ratio 13, Glucose Level 106H, Calcium Level 7.7L, Phosphorus Level 2.2L, Magnesium Level 1.7L 12/11/18 03:15: Blood Gas Puncture Site LEFT RADIAL, Blood Gas Patient Temperature 98.9, Arterial Blood pH 7.38, Arterial Blood Partial Pressure CO2 45, Arterial Blood Partial Pressure O2 86, Arterial Blood HCO3 26, Arterial Blood Total CO2 27.5, Arterial Blood Oxygen Saturation 98, Arterial Blood Base Excess 1.7, Zachery Test YES-POS, Blood Gas Ventilator Setting NO, Blood Gas Inspired Oxygen 30% Microbiology 12/08/18 Blood Culture - Preliminary, Resulted No growth 12/10/18 MRSA Screen - Final, Complete MRSA not isolated Microbiology 12/10/18 MRSA Screen - Final, Complete MRSA not isolated Assessment/Plan/Dx 1. Ulcer, L calf, non-healing. full thickness. 2. R/O arterial insufficiency L leg. 3. Cellulitis l calf, due to non-healing would L calf. 4. Coronary artery disease, atrial fibrillation, COPD with respiratory failure. Plan: Will begin dakin's dressings. Arterial evaluation can await greater clinical stability. Will follow. CATALINO MEIER MD Dec 11, 2018 21:08
[2018-12-11] MEDS: TRIAMCINOLONE 0.1% CR (KENALOG) 15 GM TUBE TP SCH ×2 (22:32→22:33)
[2018-12-12] VITALS (27 sets, daily range): BP systolic 107–146; BP diastolic 51–91
[2018-12-12] MEDS: RT-ALBUTEROL/IPRATROPIUM 3 ML (DUONEB) VIAL INH SCH ×6 (01:00→21:40)
[2018-12-12 04:02] LABS: ABG BASE EXCESS 4.5 MMOL/L (-2.5-2.5); ABG OXYGEN SATURATION 98 % (94-100); ABG PCO2 47 MMHG (35-45); ABG PO2 93 MMHG (79-93); ABG TCO2 30.6 MMOL/L (21.0-31.0)
[2018-12-12 04:05] LABS: BASOPHILS % (AUTO) 0 % (0-10); EOSINOPHILS % (AUTO) 0 % (0-10); HEMATOCRIT 28 % (40-54); HEMOGLOBIN 8.8 G/DL (13.3-17.7); LYMPHOCYTES # (AUTO) 0.7 X 10^3 (1.0-4.0); LYMPHOCYTES % (AUTO) 7 % (12-44); MEAN CORPUSCULAR HEMOGLOBIN 31 PG (25-34); MEAN CORPUSCULAR HGB CONC 31 G/DL (32-36); MEAN CORPUSCULAR VOLUME 99 FL (80-99); MEAN PLATELET VOLUME 8.9 FL (7.4-10.4); MONOCYTES # (AUTO) 1.8 X 10^3 (0.0-1.0); MONOCYTES % (AUTO) 18 % (0-12); NEUTROPHILS # (AUTO) 7.8 X 10^3 (1.8-7.8); NEUTROPHILS % (AUTO) 75 % (42-75); PLATELET COUNT 333 10^3/uL (130-400); RED CELL DISTRIBUTION WIDTH 15.4 % (10.0-14.5); WHITE BLOOD COUNT 10.4 10^3/uL (4.3-11.0)
[2018-12-12 04:07] LABS: ALLENS TEST YES-POS; INSPIRED O2 80%; PATIENT TEMP 97.6; VENTILATOR NO
[2018-12-12 04:24] LABS: CREATININE SERUM 1.93 MG/DL (0.60-1.30); POTASSIUM 3.7 MMOL/L (3.6-5.0)
[2018-12-12] MEDS: MAGNESIUM 1 GM/100 ML IVPB 100 ML IV SCH (05:44)
[2018-12-12] MEDS: POTASSIUM CL 10MEQ/50ML IVPB 50 ML IV SCH (05:44)
--- NOTE | 2018-12-12 06:30 | Pulmonary Progress Note ---
Sepsis Event Evaluation Height, Weight, BMI Height: 5'8.00" Weight: 192lbs. 5.0oz. 87.084884ve; 28.8 BMI Method: Exam Exam Vital Signs Date Time Temp Pulse Resp B/P (MAP) Pulse Ox O2 Delivery O2 Flow Rate FiO2 12/12/18 06:00 55 24 140/62 (88) 95 NIV Bilevel 30.00 12/12/18 05:00 59 23 137/66 (89) 95 NIV Bilevel 30.00 12/12/18 04:00 57 23 146/66 (92) 94 NIV Bilevel 30.00 12/12/18 04:00 NIV Bilevel 40 12/12/18 03:50 57 22 94 40.00 12/12/18 03:50 97.6 12/12/18 03:00 55 20 129/91 (104) 93 NIV Bilevel 30.00 12/12/18 02:00 57 21 123/54 (77) 94 NIV Bilevel 30.00 12/12/18 01:00 56 20 94 40.00 12/12/18 01:00 55 12/12/18 01:00 55 19 128/56 (80) 91 NIV Bilevel 30.00 12/12/18 00:00 52 19 123/51 (75) 93 NIV Bilevel 30.00 12/12/18 00:00 NIV Bilevel 30 12/11/18 23:00 57 19 113/53 (73) 93 NIV Bilevel 30.00 12/11/18 22:29 NIV Bilevel 30.00 12/11/18 22:03 62 30 90 30.00 12/11/18 22:00 63 13 123/54 (77) 97 Vapotherm 80.00 40.00 12/11/18 21:00 67 23 133/72 (92) 96 Vapotherm 80.00 40.00 12/11/18 20:21 97.5 12/11/18 20:00 64 38 133/70 (91) 93 Vapotherm 80.00 40.00 12/11/18 20:00 Vapotherm 40.00 80 12/11/18 19:58 92 Vapotherm 80.00 40 12/11/18 19:00 64 32 128/78 (95) 93 Vapotherm 80.00 40.00 12/11/18 19:00 64 12/11/18 18:55 92 Vapotherm 80.00 40 12/11/18 18:19 56 30 91 25.00 12/11/18 18:00 55 18 114/62 (79) 91 NIV Bilevel 25.00 12/11/18 17:00 56 24 124/53 (76) 94 NIV Bilevel 25.00 12/11/18 16:45 NIV Bilevel 30 12/11/18 16:00 57 24 113/76 (88) 95 NIV Bilevel 25.00 12/11/18 15:00 55 27 116/53 (74) 93 NIV Bilevel 25.00 12/11/18 14:39 NIV Bilevel 25.00 12/11/18 14:37 55 22 95 25.00 12/11/18 14:00 54 19 112/54 (73) 96 NIV Bilevel 50.00 12/11/18 13:15 55 12/11/18 13:00 53 19 114/54 (74) 92 NIV Bilevel 50.00 12/11/18 12:45 NIV Bilevel 30 12/11/18 12:00 56 23 104/49 (67) 91 NIV Bilevel 50.00 12/11/18 11:26 58 97 50 12/11/18 11:26 58 25 96 30.00 12/11/18 11:26 NIV Bilevel 30.00 12/11/18 11:00 87 22 109/54 (72) 97 NIV Bilevel 50.00 12/11/18 10:00 84 12 104/59 (74) 93 NIV Bilevel 50.00 12/11/18 09:00 71 34 133/69 (90) 92 NIV Bilevel 50.00 12/11/18 08:58 73 23 90 50.00 12/11/18 08:20 NIV Bilevel 30 12/11/18 08:00 71 19 131/63 (85) 95 Vapotherm 80.00 40.00 12/11/18 07:17 59 100 Vapotherm 40.00 30.00 12/11/18 07:17 100 Vapotherm 30.00 40 12/11/18 07:09 73 12/11/18 07:00 78 21 114/56 (75) 97 NIV Bilevel 30.00 I & O 12/12/18 07:00 Intake Total 1190 ml Output Total 3250 ml Balance -2060 ml Height & Weight Height: 5'8.00" Weight: 192lbs. 5.0oz. 87.424632ho; 28.8 BMI Method: General Appearance: WD/WN, Moderate Distress, Other (biPAP intact) HEENT: PERRL/EOMI, TMs Normal, Normal ENT Inspection Neck: Normal Inspection Respiratory: Chest Non Tender, No Accessory Muscle Use, No Respiratory Distress, Accessory Muscle Use Cardiovascular: Regular Rate, Rhythm Gastrointestinal: non tender, soft, no organomegaly, no pulsatile mass; No distended Extremity: Non Tender Neurologic/Psychiatric: Alert, Oriented x3 Skin: Normal Color, Warm/Dry Lymphatic: No Adenopathy Results Lab Laboratory Tests 12/11/18 03:06 12/12/18 03:50 Assessment/Plan Assessment/Plan Severe sepsis with PNA -Vanco/Zosyn -IVF Respiratory failure -BiPAP QHS and PRN -Trial pt back to Vapotherm today Cellulitis LLL Thrush -Nystatin S/S Afib RVR - now converted -Cardizem gtt -Cardiology following Hx of childhood polio Debility/weakness -PT/OT ROSE -CPAP DANIELITO DELGADILLO DO Dec 12, 2018 06:30
[2018-12-12] MEDS: KCL 20 MEQ TAB (K-DUR) PO SCH (07:14)
--- NOTE | 2018-12-12 08:20 | Diagnostic Imaging Report ---
INDICATION: Respiratory distress. COMPARISON: 12/11/2018. FINDINGS: Single view of the chest demonstrates cardiac enlargement with increasing bilateral interstitial pulmonary infiltrates. There is no pneumothorax or large effusion. Sternal wires are midline. PICC line is in good position. IMPRESSION: Cardiac enlargement with increasing bilateral interstitial infiltrates representing pneumonia versus pulmonary edema. Followup recommended. Dictated by: Dictated on workstation # [id number]
--- NOTE | 2018-12-12 08:34 | Cardiology Progress Note ---
Subjective Date Seen by Provider: Dec 12, 2018 Time Seen by Provider: 08:32 Subjective/Events-last exam patient is laying down in bed, still having shortness of breath. Event since admission were reviewed. I visited with the patient and his family, all questions were answered. Review of Systems General: No Chills, No Night Sweats; Fatigue, Malaise; No Appetite, No Other HEENT: No Head Aches, No Visual Changes, No Eye Pain, No Ear Pain, No Dysphasia, No Sinus Congestion, No Post Nasal Drip, No Sore Throat, No Other Pulmonary: Dyspnea, Cough; No Pleuritic Chest Pain, No Other Cardiovascular: No: Chest Pain, Palpitations, Orthopnea, Paroxysmal Noc. Dyspnea, Edema, Lt Headedness, Other Objective-Cardiology Exam Last Set of Vital Signs Vital Signs 12/12/18 12/12/18 12/12/18 06:00 07:37 07:47 Temp 97.1 Pulse 55 Resp 24 B/P (MAP) 140/62 (88) Pulse Ox 95 O2 Delivery Vapotherm O2 Flow Rate 40.00 FiO2 80 Capillary Refill : I&O Intake and Output 12/12/18 00:00 Intake Total 2390 ml Output Total 3000 ml Balance -610 ml Intake Oral 720 ml IV Total 1670 ml Output Urine Total 3000 ml General: Alert, Oriented X3, Cooperative HEENT: Atraumatic, PERRLA Neck: Supple, No JVD, No Thyromegaly Lungs: Normal Air Movement, Other (bilateral rhonchi) Heart: Regular Rate, Normal S1, Normal S2, No Murmurs Abdomen: Normal Bowel Sounds, Soft, No Tenderness, No Hepatosplenomegaly, No Masses Extremities: No Clubbing, No Cyanosis, No Edema, Normal Pulses, No Tenderness/Swelling Skin: No Rashes, No Breakdown, No Significant Lesion Neuro: Normal Gait, Normal Speech, Strength at 5/5 X4 Ext, Normal Tone, Sensation Intact Psych/Mental Status: Mental Status NL, Mood NL Results Lab Laboratory Tests 12/12/18 03:50 A/P-Cardiology Admission Diagnosis Sepsis Pneumonia Paroxysmal atrial fibrillation Coronary artery disease Assessment/Plan Sepsis with pneumonia, receiving antibiotics. Managed by Dr. Vargas. Paroxysmal atrial fibrillation, back in sinus rhythm, has history of paroxysmal atrial fibrillation and maintained on oral anticoagulation. Has been taking Eliquis 2.5 mg twice daily, consider increasing the dose to 5 mg twice daily. Coronary artery disease, history of CABG done in 2004. Clinically stable. Hypertension, controlled on current medication. Continue to monitor Hyperlipidemia, monitor lipids Anemia, monitor H&H. Obstructive sleep apnea using C Pap at home Clinical Quality Measures DVT/VTE Risk/Contraindication: Risk Factor Score Per Nursin RFS Level Per Nursing on Admit: 4+=Very High JEROME JIMÉNEZ MD Dec 12, 2018 08:34
[2018-12-12] MEDS: PIPERACILLIN/TAZOBACTAM (BULK) 4.5 GM in NS (IVPB) 100 ML IV SCH ×3 (08:59→23:00)
[2018-12-12] MEDS: SOTALOL 80 MG (BETAPACE) TAB PO SCH (08:59)
[2018-12-12] MEDS: TOLTERODINE LA 2 MG (DETROL LA) CAP PO SCH (08:59)
[2018-12-12] MEDS: NYSTATIN ORAL SUSP 5 ML UDC PO SCH ×3 (08:59→18:30)
[2018-12-12] MEDS: APIXABAN 2.5 MG (ELIQUIS) TABLET PO SCH ×2 (09:00→20:18)
[2018-12-12] MEDS: SERTRALINE 50 MG (ZOLOFT) TABLET PO SCH (09:00)
[2018-12-12] MEDS ORDERED: NON-FORMULARY MEDICATION 1 EA EA (Amlodipine Besylate 5 MG) PO SCH (09:00)
[2018-12-12] MEDS: TRIAMCINOLONE 0.1% CR (KENALOG) 15 GM TUBE TP SCH ×2 (09:00→20:18)
[2018-12-12] MEDS: PANTOPRAZOLE 40 MG (PROTONIX) VIAL IV SCH ×2 (09:17→20:17)
--- NOTE | 2018-12-12 12:25 | Progress Note-Hospitalist ---
Subjective HPI/CC On Admission Date Seen by Provider: Dec 12, 2018 Time Seen by Provider: 09:45 The patient is a 78-year-old white male admitted to the hospitalist service after a phone call from the nurse practitioner in the [place] emergency room. The patient had had a colonoscopy at [place] performed by Dr. Ricci. This was at approximately 7 o'clock and by 1030 he was released and went home. Slice states that he was a bit sluggish through the day. They ate early supper at about 1630 hours. After that they went for a ride around [facility] and went back to their home. He had difficulty getting out of the car and u ltimately leaned forward and slid down the front of his and sat on the driveway. He was unable to get up and she called her grandson and son-in-law to come help get him up. At that point they went to the [place] emergency room arriving at about 1930 hours. He really had no localizing signs but was found to have a temperature of 104 at arrival and a white count of 31,000. He denies cough or sputum production. There was no apparent belly pain. I was then called and arrangements were made to transfer him here. He had been given Zosyn prior to his departure from the [place]. On arrival here he underwent CT scans with contrast of the chest abdomen and pelvis. There was no pneumonia reported on the chest and no evidence of free air or abscess formation on the abdomen or pelvis. His maximum temp after arriving here was 99.6. His blood pressure has been 95/60 range. Lactic acid on arrival was 2.65 and he was given the fluid bolus to achieve the 30 mL/kg Subjective/Events-last exam patient on Vapotherm feeling less short of breath than yesterday. Minimal e xertion even moving around the bed does however lead to dyspnea. He's had a loose sounding cough but has not been able to produce much of any sputum. He denies night sweats chills or fever said no abdominal pain or nausea tolerating liquids and solids with reduced appetite. Objective Exam Vital Signs Vital Signs Date Time Temp Pulse Resp B/P (MAP) Pulse Ox O2 Delivery O2 Flow Rate FiO2 12/12/18 11:57 Vapotherm 40.00 80 12/12/18 10:15 97 12/12/18 10:00 65 35 132/64 (86) 12/12/18 07:37 97.1 Capillary Refill : General Appearance: WD/WN, Moderate Distress, Other (biPAP intact) HEENT: PERRL/EOMI, TMs Normal, Normal ENT Inspection Neck: Normal Inspection Respiratory: Chest Non Tender, No Respiratory Distress, Accessory Muscle Use, Decreased Breath Sounds, Other (scattered rhonchi with decreased breath sounds especially in the bases. No wheezing with regular respiration noted) Cardiovascular: Regular Rate, Rhythm Gastrointestinal: Normal Bowel Sounds, No Organomegaly, Non Tender, Soft Extremity: Non Tender Neurologic/Psychiatric: Alert, Oriented x3 Skin: Normal Color, Warm/Dry Lymphatic: No Adenopathy Results/Procedures Lab Laboratory Tests 12/12/18 03:50 Patient resulted labs reviewed. Assessment/Plan Assessment and Plan Assess & Plan/Chief Complaint Sepsis with pneumonia, receiving antibiotics with likely underlying severe COPD while he improved patient significant risk for mucus plugging and respiratory decline continue Vapotherm BiPAP at bedtime and as needed during the day risk for mechanical ventilation high Paroxysmal atrial fibrillation, back in sinus rhythm, has history of paroxysmal atrial fibrillation and maintained on oral anticoagulation. Has been taking Eliquis 2.5 mg twice daily, consider increasing the dose to 5 mg twice daily. Coronary artery disease, history of CABG done in 2004. Clinically stable. Hypertension, controlled on current medication. Continue to monitor Hyperlipidemia, monitor lipids Anemia, monitor H&H. Obstructive sleep apnea using BiPAP Clinical Quality Measures DVT/VTE Risk/Contraindication: Risk Factor Score Per Nursin RFS Level Per Nursing on Admit: 4+=Very High OMARI HUMPHRIES MD Dec 12, 2018 12:25
--- NOTE | 2018-12-12 13:00 | NUR ---
PATIENT ON BED PINEDA, THIS NURSE ENTERED ROOM TO CHECK IF PATIENT WAS READY TO COME OFF, UPON ENTERING PATIENT ROOM, PATIENT O2 SATS 75% ON VAPOTHERM. PATIENT NAME CALLED OUT, PATIENT OPEN EYES, VERY LETHARGIC, CLOSED EYES AGAIN. PATIENT PLACED ON BIPAP, ET 100% PUFF OF AIR GIVEN OF 2 MINUTES PER BIPAP SETTINGS. RT REQUESTED TO COME CHECK ON PATIENT AT THIS TIME.
--- NOTE | 2018-12-12 13:03 | NUR ---
PATIENT O2 SATS UP TO 93%
--- NOTE | 2018-12-12 13:20 | NUR ---
NOTIFIED DR. DELGADILLO OF RESIDENT CHANGE IN CONDITION. RECEIVED ORDER FOR RT ADRIAN DÍAZ AT BEDSIDE TO DRAW. Addendum: 12/12/18 at 1320 by HERNAN BURGOS RN RT ADRIAN AT BEDSIDE TO DRAW ANIBAL
[2018-12-12 13:28] LABS: ABG BASE EXCESS 4.2 MMOL/L (-2.5-2.5); ABG OXYGEN SATURATION 99 % (94-100); ABG PCO2 48 MMHG (35-45); ABG PH 7.39 (7.37-7.43); ABG PO2 123 MMHG (79-93); ABG TCO2 30.6 MMOL/L (21.0-31.0)
[2018-12-12 13:29] LABS: ALLENS TEST YES-POS; INSPIRED O2 60%; PATIENT TEMP 96.9; VENTILATOR NO
--- NOTE | 2018-12-12 14:03 | Physical Therapy Progress Note ---
Therapy Progress Note /Hold PT per nursing. Reports Pt had "an episode" this AM and had to be placed back on bi-pap and is now lethargic. PT will follow 12/14/18 MELANY FAJARDO DPT Dec 12, 2018 14:03
[2018-12-12] MEDS: ATORVASTATIN 20 MG (LIPITOR) TABLET PO SCH (20:17)
[2018-12-13] VITALS (27 sets, daily range): BP systolic 105–171; BP diastolic 51–85
[2018-12-13] MEDS: RT-ALBUTEROL/IPRATROPIUM 3 ML (DUONEB) VIAL INH SCH ×6 (01:13→22:00)
[2018-12-13 03:47] LABS: BASOPHILS % (AUTO) 0 % (0-10); EOSINOPHILS % (AUTO) 0 % (0-10); HEMATOCRIT 26 % (40-54); HEMOGLOBIN 8.1 G/DL (13.3-17.7); LYMPHOCYTES # (AUTO) 0.9 X 10^3 (1.0-4.0); LYMPHOCYTES % (AUTO) 8 % (12-44); MEAN CORPUSCULAR HEMOGLOBIN 31 PG (25-34); MEAN CORPUSCULAR HGB CONC 31 G/DL (32-36); MEAN CORPUSCULAR VOLUME 100 FL (80-99); MEAN PLATELET VOLUME 8.7 FL (7.4-10.4); MONOCYTES # (AUTO) 1.7 X 10^3 (0.0-1.0); MONOCYTES % (AUTO) 14 % (0-12); NEUTROPHILS # (AUTO) 9.1 X 10^3 (1.8-7.8); NEUTROPHILS % (AUTO) 78 % (42-75); PLATELET COUNT 362 10^3/uL (130-400); RED CELL DISTRIBUTION WIDTH 15.5 % (10.0-14.5); WHITE BLOOD COUNT 11.7 10^3/uL (4.3-11.0)
[2018-12-13 04:06] LABS: CALCIUM 7.5 MG/DL (8.5-10.1); CREATININE SERUM 1.87 MG/DL (0.60-1.30); MAGNESIUM 2.1 MG/DL (1.8-2.4); PHOSPHORUS 3.3 MG/DL (2.3-4.7); POTASSIUM 3.5 MMOL/L (3.6-5.0)
--- NOTE | 2018-12-13 05:14 | Pulmonary Progress Note ---
Sepsis Event Evaluation Height, Weight, BMI Height: 5'8.00" Weight: 192lbs. 5.0oz. 87.935844hq; 28.8 BMI Method: Exam Exam Vital Signs Date Time Temp Pulse Resp B/P (MAP) Pulse Ox O2 Delivery O2 Flow Rate FiO2 12/13/18 04:34 97.0 12/13/18 04:33 NIV Bilevel 50 12/13/18 04:21 53 18 97 45.00 12/13/18 04:00 54 17 128/60 (82) 97 NIV Bilevel 30.00 12/13/18 03:00 53 18 123/55 (77) 92 NIV Bilevel 30.00 12/13/18 02:00 56 18 120/51 (74) 97 NIV Bilevel 30.00 12/13/18 01:14 58 31 97 50.00 12/13/18 01:00 56 12/13/18 01:00 57 24 116/57 (76) 97 NIV Bilevel 30.00 12/13/18 00:45 NIV Bilevel 50 12/13/18 00:20 97.8 12/13/18 00:00 75 21 134/66 (88) 97 NIV Bilevel 30.00 12/12/18 23:00 57 21 122/61 (81) 98 NIV Bilevel 30.00 12/12/18 22:00 56 19 136/65 (88) 95 NIV Bilevel 30.00 12/12/18 21:40 57 20 94 50.00 12/12/18 21:00 69 17 138/60 (86) 94 NIV Bilevel 30.00 12/12/18 20:15 98.1 12/12/18 20:10 97.9 12/12/18 20:10 NIV Bilevel 50 12/12/18 20:00 68 23 113/51 (71) 94 NIV Bilevel 30.00 12/12/18 19:00 70 12/12/18 19:00 70 20 125/64 (84) 96 NIV Bilevel 30.00 12/12/18 18:52 96 Vapotherm 40.00 80 12/12/18 18:00 68 21 115/51 (72) 97 NIV Bilevel 30.00 12/12/18 17:00 56 18 111/58 (75) 95 NIV Bilevel 30.00 6/29/19 16:22 96.5 12/12/18 16:00 Vapotherm 40.00 80 12/12/18 16:00 54 18 120/55 (76) 94 NIV Bilevel 30.00 12/12/18 15:00 72 18 107/52 (70) 94 NIV Bilevel 30.00 12/12/18 14:25 71 21 92 50.00 12/12/18 14:00 80 28 125/66 (85) 91 NIV Bilevel 30.00 12/12/18 13:00 67 11 114/65 (81) 90 NIV Bilevel 30.00 12/12/18 13:00 63 12/12/18 12:00 97.4 12/12/18 12:00 62 35 114/89 (97) 96 NIV Bilevel 30.00 12/12/18 11:57 Vapotherm 40.00 80 12/12/18 11:00 91 29 140/69 (92) 97 NIV Bilevel 30.00 12/12/18 10:15 97 Vapotherm 40.00 80 12/12/18 10:00 65 35 132/64 (86) 97 NIV Bilevel 30.00 12/12/18 09:00 68 20 137/59 (85) 98 NIV Bilevel 30.00 12/12/18 08:00 70 42 136/63 (87) 97 NIV Bilevel 30.00 12/12/18 07:47 Vapotherm 40.00 80 12/12/18 07:37 97.1 12/12/18 07:00 61 29 142/65 (90) 95 NIV Bilevel 30.00 12/12/18 07:00 62 12/12/18 06:00 55 24 140/62 (88) 95 NIV Bilevel 30.00 I & O 12/13/18 07:00 Intake Total 1870 ml Output Total 1350 ml Balance 520 ml Height & Weight Height: 5'8.00" Weight: 192lbs. 5.0oz. 87.811841ba; 28.8 BMI Method: General Appearance: WD/WN, Moderate Distress, Other (biPAP intact) HEENT: PERRL/EOMI, TMs Normal, Normal ENT Inspection Neck: Normal Inspection Respiratory: Chest Non Tender, No Respiratory Distress, Accessory Muscle Use, Decreased Breath Sounds, Other (scattered rhonchi with decreased breath sounds especially in the bases. No wheezing with regular respiration noted) Cardiovascular: Regular Rate, Rhythm Gastrointestinal: non tender, soft, no organomegaly, no pulsatile mass; No distended Extremity: Non Tender Neurologic/Psychiatric: Alert, Oriented x3 Skin: Normal Color, Warm/Dry Lymphatic: No Adenopathy Results Lab Laboratory Tests 12/12/18 03:50 12/13/18 03:36 Assessment/Plan Assessment/Plan Severe sepsis with PNA -Vanco/Zosyn -IVF Respiratory failure -BiPAP QHS and PRN -Trial pt back to Vapotherm today Cellulitis LLL Thrush -Nystatin S/S Afib RVR - now converted -Cardizem gtt -Cardiology following Hx of childhood polio Debility/weakness -PT/OT ROSE -CPAP DANIELITO DELGADILLO DO Dec 13, 2018 05:14
[2018-12-13] MEDS ORDERED: morphine INJ 4 MG/ML 1 ML (VIAL/SYRINGE) IV PRN (05:15)
[2018-12-13] MEDS ORDERED: FUROSEMIDE 40 MG/4 ML INJ (LASIX) IVP ONE (05:15)
[2018-12-13] MEDS ORDERED: FUROSEMIDE 40 MG/4 ML INJ (LASIX) ONE (06:34)
[2018-12-13] MEDS: NYSTATIN ORAL SUSP 5 ML UDC PO SCH ×4 (06:35→18:01)
[2018-12-13] MEDS: KCL 20 MEQ TAB (K-DUR) PO SCH (06:35)
[2018-12-13] MEDS: POTASSIUM CL 10MEQ/50ML IVPB 50 ML IV SCH ×3 (06:35→06:42)
[2018-12-13] MEDS: MAGNESIUM 1 GM/100 ML IVPB 100 ML IV SCH (06:36)
[2018-12-13] MEDS ORDERED: KCL 20 MEQ TAB (K-DUR) PO ONE (06:45)
[2018-12-13] MEDS: PIPERACILLIN/TAZOBACTAM (BULK) 4.5 GM in NS (IVPB) 100 ML IV SCH ×3 (07:31→22:42)
[2018-12-13] MEDS: APIXABAN 2.5 MG (ELIQUIS) TABLET PO SCH ×2 (08:03→20:19)
[2018-12-13] MEDS: PANTOPRAZOLE 40 MG (PROTONIX) VIAL IV SCH ×2 (08:03→20:19)
[2018-12-13] MEDS: SOTALOL 80 MG (BETAPACE) TAB PO SCH (08:03)
[2018-12-13] MEDS: TRIAMCINOLONE 0.1% CR (KENALOG) 15 GM TUBE TP SCH ×2 (08:03→20:19)
[2018-12-13] MEDS: TOLTERODINE LA 2 MG (DETROL LA) CAP PO SCH (08:03)
[2018-12-13] MEDS: SERTRALINE 50 MG (ZOLOFT) TABLET PO SCH (08:03)
[2018-12-13] MEDS: DAKIN'S 1/4 STRENGTH (0.125%) 473 ML BTL TOP SCH (08:11)
--- NOTE | 2018-12-13 08:34 | Diagnostic Imaging Report ---
INDICATION: Respiratory distress. COMPARISON: 12/12/2018. FINDINGS: Single view of the chest demonstrates cardiac enlargement with unchanged bilateral interstitial infiltrates. There is no pneumothorax or large effusion. Sternal wires are midline. The right PICC line is in stable position. IMPRESSION: Unchanged aeration of the lungs. Dictated by: Dictated on workstation # [id number]
--- NOTE | 2018-12-13 10:22 | Cardiology Progress Note ---
Subjective Date Seen by Provider: Dec 13, 2018 Time Seen by Provider: 10:20 Subjective/Events-last exam patient had worsening shortness of breath, currently on BiPAP Review of Systems General: No Chills, No Night Sweats; Fatigue, Malaise; No Appetite, No Other HEENT: No Head Aches, No Visual Changes, No Eye Pain, No Ear Pain, No Dysphasia, No Sinus Congestion, No Post Nasal Drip, No Sore Throat, No Other Pulmonary: Dyspnea; No Cough, No Pleuritic Chest Pain, No Other Cardiovascular: No: Chest Pain, Palpitations, Orthopnea, Paroxysmal Noc. Dyspnea, Edema, Lt Headedness, Other Objective-Cardiology Exam Last Set of Vital Signs Vital Signs 12/13/18 12/13/18 12/13/18 12/13/18 07:50 08:00 08:10 10:06 Temp 97.7 Pulse 62 Resp 29 B/P (MAP) 110/55 (73) Pulse Ox 97 O2 Delivery NIV Bilevel O2 Flow Rate 45.00 FiO2 50 Capillary Refill : I&O Intake and Output 12/13/18 00:00 Intake Total 2140 ml Output Total 1850 ml Balance 290 ml Intake Oral 1220 ml IV Total 920 ml Output Urine Total 1850 ml # Voids 2 General: Alert, Oriented X3, Cooperative HEENT: Atraumatic, PERRLA Neck: Supple, No JVD, No Thyromegaly Lungs: Normal Air Movement, Other (bilateral rhonchi) Heart: Regular Rate, Normal S1, Normal S2, No Murmurs Abdomen: Normal Bowel Sounds, Soft, No Tenderness, No Hepatosplenomegaly, No Masses Extremities: No Clubbing, No Cyanosis, No Edema, Normal Pulses, No Tenderness /Swelling Skin: No Rashes, No Breakdown, No Significant Lesion Neuro: Normal Gait, Normal Speech, Strength at 5/5 X4 Ext, Normal Tone, Sensation Intact Psych/Mental Status: Mental Status NL, Mood NL Results Lab Laboratory Tests 12/13/18 03:36 A/P-Cardiology Admission Diagnosis Sepsis Pneumonia Paroxysmal atrial fibrillation Coronary artery disease Assessment/Plan Sepsis with pneumonia, receiving antibiotics. Managed by Dr. Vargas. Acute respiratory failure secondary to pneumonia and fluid overload, echocardiogram done on December 09, [address] Lebron to have normal LV size and function with ejection fraction 60 percent. Given Lasix 40 mg IV today. Continue to monitor tolerance and response Chronic kidney disease stage III, continue to monitor renal function closely Paroxysmal atrial fibrillation, back in sinus rhythm, has history of paroxysmal atrial fibrillation and maintained on oral anticoagulation. Has been taking Eliquis 2.5 mg twice daily, consider increasing the dose to 5 mg twice daily. Coronary artery disease, history of CABG done in 2004. Clinically stable. Hypertension, controlled on current medication. Continue to monitor Hyperlipidemia, monitor lipids Anemia, likely worse, continue to monitor H&H Obstructive sleep apnea using C Pap at home Clinical Quality Measures DVT/VTE Risk/Contraindication: Risk Factor Score Per Nursin RFS Level Per Nursing on Admit: 4+=Very High JEROME JIMÉNEZ MD Dec 13, 2018 10:22
--- NOTE | 2018-12-13 11:49 | Progress Note-Hospitalist ---
Subjective HPI/CC On Admission Date Seen by Provider: Dec 13, 2018 Time Seen by Provider: 08:15 The patient is a 78-year-old white male admitted to the hospitalist service after a phone call from the nurse practitioner in the [place] emergency room. The patient had had a colonoscopy at [place] performed by Dr. Ricci. This was at approximately 7 o'clock and by 1030 he was released and went home. Slice states that he was a bit sluggish through the day. They ate early supper at about 1630 hours. After that they went for a ride around [facility] and went back to their home. He had difficulty getting out of the car and u ltimately leaned forward and slid down the front of his and sat on the driveway. He was unable to get up and she called her grandson and son-in-law to come help get him up. At that point they went to the [place] emergency room arriving at about 1930 hours. He really had no localizing signs but was found to have a temperature of 104 at arrival and a white count of 31,000. He denies cough or sputum production. There was no apparent belly pain. I was then called and arrangements were made to transfer him here. He had been given Zosyn prior to his departure from the [place]. On arrival here he underwent CT scans with contrast of the chest abdomen and pelvis. There was no pneumonia reported on the chest and no evidence of free air or abscess formation on the abdomen or pelvis. His maximum temp after arriving here was 99.6. His blood pressure has been 95/60 range. Lactic acid on arrival was 2.65 and he was given the fluid bolus to achieve the 30 mL/kg Subjective/Events-last exam patient only had one event this morning where he felt short of breath with some desaturation which responded to BiPAP. Currently does not appear to be in respiratory distress reporting minimal sputum production and no chest pain. He denies night sweats chills or fever. Appetite is improving without nausea. Objective Exam Vital Signs Vital Signs Date Time Temp Pulse Resp B/P (MAP) Pulse Ox O2 Delivery O2 Flow Rate FiO2 12/13/18 11:25 Vapotherm 60.00 35.00 12/13/18 10:06 62 29 97 12/13/18 08:10 50 12/13/18 07:50 97.7 Capillary Refill : General Appearance: WD/WN, Moderate Distress, Other (biPAP intact) HEENT: PERRL/EOMI, TMs Normal, Normal ENT Inspection Neck: Normal Inspection Respiratory: Chest Non Tender, No Respiratory Distress, Accessory Muscle Use, Decreased Breath Sounds, Other (scattered rhonchi with decreased breath sounds especially in the bases. No wheezing with regular respiration noted) Cardiovascular: Regular Rate, Rhythm Gastrointestinal: Normal Bowel Sounds, No Organomegaly, Non Tender, Soft Extremity: Non Tender Neurologic/Psychiatric: Alert, Oriented x3 Skin: Normal Color, Warm/Dry Lymphatic: No Adenopathy Results/Procedures Lab Laboratory Tests 12/13/18 03:36 Patient resulted labs reviewed. 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 Rsk for mechanical ventilation still high with little pulmonary reserve. Paroxysmal atrial fibrillation, back in sinus rhythm, has history of paroxysmal atrial fibrillation and maintained on oral anticoagulation. Has been taking Eliquis 2.5 mg twice daily, consider increasing the dose to 5 mg twice daily. Coronary artery disease, history of CABG done in 2004. Clinically stable. Hypertension, controlled on current medication. Continue to monitor Hyperlipidemia, monitor lipids Anemia, monitor H&H. Obstructive sleep apnea using BiPAP Critical Care Critically Ill Patient Clinical Quality Measures DVT/VTE Risk/Contraindication: Risk Factor Score Per Nursin RFS Level Per Nursing on Admit: 4+=Very High OMARI HUMPHRIES MD Dec 13, 2018 11:49
[2018-12-13] MEDS: ATORVASTATIN 20 MG (LIPITOR) TABLET PO SCH (20:19)
[2018-12-14] VITALS (28 sets, daily range): BP systolic 91–188; BP diastolic 45–78
[2018-12-14] MEDS: RT-ALBUTEROL/IPRATROPIUM 3 ML (DUONEB) VIAL INH SCH ×5 (02:15→19:20)
[2018-12-14 03:11] LABS: BASOPHILS % (AUTO) 0 % (0-10); EOSINOPHILS % (AUTO) 0 % (0-10); HEMATOCRIT 27 % (40-54); HEMOGLOBIN 8.4 G/DL (13.3-17.7); LYMPHOCYTES # (AUTO) 0.7 X 10^3 (1.0-4.0); LYMPHOCYTES % (AUTO) 5 % (12-44); MEAN CORPUSCULAR HEMOGLOBIN 31 PG (25-34); MEAN CORPUSCULAR HGB CONC 32 G/DL (32-36); MEAN CORPUSCULAR VOLUME 100 FL (80-99); MEAN PLATELET VOLUME 8.8 FL (7.4-10.4); MONOCYTES # (AUTO) 1.8 X 10^3 (0.0-1.0); MONOCYTES % (AUTO) 13 % (0-12); NEUTROPHILS # (AUTO) 11.1 X 10^3 (1.8-7.8); NEUTROPHILS % (AUTO) 81 % (42-75); PLATELET COUNT 380 10^3/uL (130-400); RED CELL DISTRIBUTION WIDTH 15.1 % (10.0-14.5); WHITE BLOOD COUNT 13.7 10^3/uL (4.3-11.0)
[2018-12-14 03:29] LABS: CALCIUM 7.9 MG/DL (8.5-10.1); CREATININE SERUM 1.84 MG/DL (0.60-1.30); MAGNESIUM 1.8 MG/DL (1.8-2.4); PHOSPHORUS 2.5 MG/DL (2.3-4.7); POTASSIUM 3.6 MMOL/L (3.6-5.0)
[2018-12-14] MEDS: NYSTATIN ORAL SUSP 5 ML UDC PO SCH ×5 (04:28→23:55)
--- NOTE | 2018-12-14 05:56 | Diagnostic Imaging Report ---
Indication: Respiratory distress Portable chest 3:16 AM There are postop changes from CABG surgery. Right upper extremity PICC line tip projects over the SVC. There are diffuse alveolar infiltrates that could represent pulmonary edema versus inflammatory etiology. This is unchanged from the previous day. Impression: Stable chest with diffuse alveolar infiltrates possibly represent pulmonary edema. There is no appreciable effusion. Dictated by: Dictated on workstation # [id number]
[2018-12-14] MEDS: PIPERACILLIN/TAZOBACTAM (BULK) 4.5 GM in NS (IVPB) 100 ML IV SCH ×3 (06:16→23:54)
--- NOTE | 2018-12-14 06:36 | Pulmonary Progress Note ---
Subjective Time Seen by a Provider: 06:46 Subjective/Events-last exam Pt is still requiring a lot of oxygen via Vapotherm. Sepsis Event Evaluation Height, Weight, BMI Height: 5'8.00" Weight: 200lbs. 9.0oz. 90.430791fb; 28.8 BMI Method: Exam Exam Vital Signs Date Time Temp Pulse Resp B/P (MAP) Pulse Ox O2 Delivery O2 Flow Rate FiO2 12/14/18 06:00 70 30 146/58 (87) 97 NIV Bilevel 40.00 12/14/18 05:00 70 24 93/63 (73) 94 NIV Bilevel 40.00 12/14/18 04:22 97.2 12/14/18 04:20 Vapotherm 35.00 50 12/14/18 04:00 86 16 152/75 (100) NIV Bilevel 40.00 12/14/18 03:00 62 18 147/58 (87) 96 NIV Bilevel 40.00 12/14/18 02:15 64 26 100 40.00 12/14/18 02:08 61 25 140/70 (93) 100 NIV Bilevel 40.00 12/14/18 01:00 59 12/14/18 01:00 59 21 140/55 (83) 98 NIV Bilevel 40.00 12/14/18 00:20 98.0 12/14/18 00:04 Vapotherm 35.00 50 12/14/18 00:00 60 12 104/64 (77) 99 NIV Bilevel 40.00 12/13/18 23:00 64 21 136/53 (80) 98 NIV Bilevel 40.00 12/13/18 22:00 57 29 139/55 (83) 100 NIV Bilevel 40.00 12/13/18 22:00 57 22 100 40.00 12/13/18 21:00 60 33 121/53 (75) 99 NIV Bilevel 40.00 12/13/18 20:34 Vapotherm 35.00 50 12/13/18 20:10 97.0 12/13/18 20:07 71 27 100 40.00 12/13/18 20:07 75 22 91 NIV Bilevel 40.00 12/13/18 20:00 70 36 131/76 (94) 94 Vapotherm 50.00 35.00 12/13/18 19:00 68 12/13/18 19:00 68 34 141/64 (89) 98 Vapotherm 60.00 35.00 12/13/18 18:25 96 Vapotherm 35.00 50 12/13/18 18:00 68 35 146/62 (90) 96 Vapotherm 60.00 35.00 12/13/18 17:00 65 15 142/64 (90) 98 Vapotherm 60.00 35.00 12/13/18 16:53 Vapotherm 35.00 50 12/13/18 16:00 98.1 12/13/18 16:00 70 31 128/68 (88) 96 Vapotherm 60.00 35.00 12/13/18 15:00 67 22 127/55 (79) 98 Vapotherm 60.00 35.00 12/13/18 14:13 98 Vapotherm 35.00 50 12/13/18 14:00 63 19 128/56 (80) 98 Vapotherm 60.00 35.00 12/13/18 13:00 64 13 105/77 (86) 98 Vapotherm 60.00 35.00 12/13/18 12:51 66 12/13/18 12:34 Vapotherm 40.00 12/13/18 12:34 97.1 12/13/18 12:00 63 13 124/85 (98) 99 Vapotherm 60.00 35.00 12/13/18 11:25 Vapotherm 60.00 35.00 12/13/18 11:00 58 10 130/65 (86) 100 NIV Bilevel 50.00 12/13/18 10:06 62 29 97 45.00 12/13/18 10:00 61 20 131/65 (87) 90 NIV Bilevel 50.00 12/13/18 09:00 61 15 134/64 (87) 95 NIV Bilevel 50.00 12/13/18 08:10 NIV Bilevel 50 12/13/18 08:00 62 21 110/55 (73) 96 NIV Bilevel 50.00 12/13/18 07:50 97.7 12/13/18 07:21 NIV Bilevel 50.00 12/13/18 07:04 87 12/13/18 07:00 83 36 171/71 (104) 86 NIV Bilevel 30.00 I & O 12/14/18 07:00 Intake Total 1120 ml Output Total 2820 ml Balance -1700 ml Height & Weight Height: 5'8.00" Weight: 200lbs. 9.0oz. 90.176120ny; 28.8 BMI Method: General Appearance: WD/WN, Moderate Distress, Other (biPAP intact) HEENT: PERRL/EOMI, TMs Normal, Normal ENT Inspection Neck: Normal Inspection Respiratory: Chest Non Tender, No Respiratory Distress, Accessory Muscle Use, Decreased Breath Sounds, Other (scattered rhonchi with decreased breath sounds especially in the bases. No wheezing with regular respiration noted) Cardiovascular: Regular Rate, Rhythm Gastrointestinal: normal bowel sounds, non tender, no organomegaly Extremity: Non Tender Neurologic/Psychiatric: Alert, Oriented x3 Skin: Normal Color, Warm/Dry Lymphatic: No Adenopathy Results Lab Laboratory Tests 12/13/18 03:36 12/14/18 03:00 Assessment/Plan Assessment/Plan Severe sepsis with PNA - -Vanco/Zosyn -IVF - hep locked -Repeat [facility] cultures -UA was cancelled per lab from admission. -Will place another order for UA. Lab knows not to cancel Respiratory failure -BiPAP QHS and PRN -Trial pt back to Vapotherm today -Persistent bilateral infiltrates per CXR. Pt has little reserve Pulmonary edema from IVF EF 60% per echo -Continue Lasix Diarrhea - -Check Cdiff toxin Atelectasis -IS and easy pap Cellulitis LLL Thrush -Nystatin S/S Afib RVR - now converted -Cardizem gtt -Cardiology following Hx of childhood polio Debility/weakness -PT/OT ROSE -CPAP DANIELITO DELGADILLO DO Dec 14, 2018 06:36
[2018-12-14] MEDS ORDERED: FUROSEMIDE 40 MG/4 ML INJ (LASIX) IVP ONE (06:45)
[2018-12-14] MEDS ORDERED: PHARMACY TO DOSE IV SCH (06:45)
[2018-12-14] MEDS ORDERED: POTASSIUM CL 10MEQ/50ML IVPB 50 ML IV SCH (07:00)
[2018-12-14] MEDS: POTASSIUM CL 10MEQ/50ML IVPB 50 ML IV SCH (07:20)
[2018-12-14] MEDS: MAGNESIUM 1 GM/100 ML IVPB 100 ML IV SCH (07:20)
[2018-12-14] MEDS: KCL 20 MEQ TAB (K-DUR) PO SCH (07:21)
[2018-12-14] MEDS ORDERED: KCL 20 MEQ TAB (K-DUR) PO ONE (08:00)
[2018-12-14 08:40] LABS: BILIRUBIN,URINE NEGATIVE (NEGATIVE); CLARITY,URINE CLEAR; COLOR,URINE YELLOW; GLUCOSE, URINE (UA) NEGATIVE (NEGATIVE); KETONES,URINE NEGATIVE (NEGATIVE); LEUKOCYTE ESTERASE ,URINE 1+ (NEGATIVE); NITRITE,URINE NEGATIVE (NEGATIVE); PH,URINE 7 (5-9); PROTEIN,URINE NEGATIVE (NEGATIVE); UROBILINOGEN,URINE NORMAL (NORMAL)
[2018-12-14 08:52] LABS: BACTERIA,URINE TRACE /HPF; RBC,URINE 25-50 /HPF
[2018-12-14] MEDS: DAKIN'S 1/4 STRENGTH (0.125%) 473 ML BTL TOP SCH (09:00)
[2018-12-14] MEDS: PANTOPRAZOLE 40 MG (PROTONIX) VIAL IV SCH (09:04)
[2018-12-14] MEDS: VANCOMYCIN 1250 MG/NS 250 ML IVPB IV SCH ×2 (09:04)
[2018-12-14] MEDS: TRIAMCINOLONE 0.1% CR (KENALOG) 15 GM TUBE TP SCH ×2 (09:05→21:26)
--- NOTE | 2018-12-14 09:49 | Progress Note-Cardiology ---
Cardiology SOAP Progress Note Subjective: Short of breath No cp or palp or syncope Gen malaise Objective: I&O/Vital Signs 12/13/18 12/13/18 12/13/18 12/14/18 22:00 22:00 23:00 00:00 Pulse 57 57 64 60 Resp 22 29 21 12 B/P (MAP) 139/55 (83) 136/53 (80) 104/64 (77) Pulse Ox 100 100 98 99 O2 Delivery NIV Bilevel NIV Bilevel NIV Bilevel O2 Flow Rate 40.00 40.00 40.00 40.00 12/14/18 12/14/18 12/14/18 12/14/18 00:04 00:20 01:00 01:00 Temp 98.0 Pulse 59 59 Resp 21 B/P (MAP) 140/55 (83) Pulse Ox 98 O2 Delivery Vapotherm NIV Bilevel O2 Flow Rate 35.00 40.00 FiO2 50 12/14/18 12/14/18 12/14/18 12/14/18 02:08 02:15 03:00 04:00 Pulse 61 64 62 86 Resp 25 26 18 16 B/P (MAP) 140/70 (93) 147/58 (87) 152/75 (100) Pulse Ox 100 100 96 O2 Delivery NIV Bilevel NIV Bilevel NIV Bilevel O2 Flow Rate 40.00 40.00 40.00 40.00 12/14/18 12/14/18 12/14/18 12/14/18 04:20 04:22 05:00 06:00 Temp 97.2 Pulse 70 70 Resp 24 30 B/P (MAP) 93/63 (73) 146/58 (87) Pulse Ox 94 97 O2 Delivery Vapotherm NIV Bilevel NIV Bilevel O2 Flow Rate 35.00 40.00 40.00 FiO2 50 12/14/18 12/14/18 12/14/18 12/14/18 06:25 06:36 06:52 07:00 Pulse 75 80 94 Resp 13 24 B/P (MAP) Pulse Ox 92 94 90 O2 Delivery Vapotherm Vapotherm Vapotherm O2 Flow Rate 70.00 35.00 100.00 35.00 35.00 FiO2 50 12/14/18 12/14/18 08:00 08:16 Pulse 68 Resp 28 Pulse Ox 95 O2 Delivery Vapotherm O2 Flow Rate 100.00 40.00 FiO2 35 7/1/19 00:00 Intake Total 620 ml Output Total 1320 ml Balance -700 ml Weight (Pounds): 200 Weight (Ounces): 9.0 Weight (Calculated Kilograms): 90.866900 Constitutional: AAO x 3, well-developed, well-nourished Respiratory: No accessory muscle use, No respiratory distress; chest expansion is symmetric, chest is bilaterally symmetric, other (good air entry) Cardiovascular: regular rate-rhythm; No JVD; S1 and S2, systolic murmur Gastrointestional: No tender; distended, audible bowel sounds Extremities: no lower extremity edema bilateral Neurologic/Psychiatric: grossly intact, power is 5/5 both on sides Skin: No rash on exposed areas, No ulcerations on exposed areas Results/Procedures: Labs Laboratory Tests 12/14/18 03:00: White Blood Count 13.7H, Red Blood Count 2.68L, Hemoglobin 8.4L, Hematocrit 27L, Mean Corpuscular Volume 100H, Mean Corpuscular Hemoglobin 31, Mean Corpuscular Hemoglobin Concent 32, Red Cell Distribution Width 15.1H, Platelet Count 380, Mean Platelet Volume 8.8, Neutrophils (%) (Auto) 81H, Lymphocytes (%) (Auto) 5L, Monocytes (%) (Auto) 13H, Eosinophils (%) (Auto) 0, Basophils (%) (Auto) 0, Neutrophils # (Auto) 11.1H, Lymphocytes # (Auto) 0.7L, Monocytes # (Auto) 1.8H, Eosinophils # (Auto) 0.0, Basophils # (Auto) 0.0, Sodium Level 145, Potassium Level 3.6, Chloride Level 107, Carbon Dioxide Level 29, Anion Gap 9, Blood Urea Nitrogen 27H, Creatinine 1.84H, Estimat Glomerular Filtration Rate 36, BUN/Creatinine Ratio 15, Glucose Level 120H, Calcium Level 7.9L, Phosphorus Level 2.5, Magnesium Level 1.8 12/14/18 07:00: Lactic Acid Level 0.71 12/14/18 07:30: Urine Color YELLOW, Urine Clarity CLEAR, Urine pH 7, Urine Specific Wells 1.005L, Urine Protein NEGATIVE, Urine Glucose (UA) NEGATIVE, Urine Ketones NEGATIVE, Urine Nitrite NEGATIVE, Urine Bilirubin NEGATIVE, Urine Urobilinogen NORMAL, Urine Leukocyte Esterase 1+H, Urine RBC (Auto) 4+H, Urine RBC 25-50H, Urine WBC 2-5, Urine Squamous Epithelial Cells 2-5, Urine Crystals NONE, Urine Bacteria TRACE, Urine Casts NONE, Urine Mucus NEGATIVE, Urine Culture Indicated YES Microbiology 12/08/18 Blood Culture - Final, Complete No growth 12/10/18 MRSA Screen - Final, Complete MRSA not isolated Laboratory Tests 12/13/18 03:36 12/14/18 03:00 A/P: Assessment: Multifactorial shortness of breath: sepsis, PAF, anemia, renal insuff, ac cooper CHF PA-fib Ac renal insufficiency Echo 12/09/18: LVEF 55-60%, mild MR, mild enlargement of LA, RVSP 38 mmHg Sepsis of undetermined etiology - surgical/medical services managing L leg cellulitis Stroke prophylaxis with apixaban CAD - H/O CABG x [address] Huang at [facility], [place] - reports recent MPI in the last [address] Lopez (reported to be normal) Sleep apnea - CPAP tx Plan: * Complex management due to multiple comorbidities * Continue current regimen * Monitor labs * I spoke with him and his and answered questions BRENDA VANN MD FACP FAC CCDS Dec 14, 2018 09:49
[2018-12-14] MEDS ORDERED: warFARin 3 MG (COUMADIN) TAB PO SCH (10:15)
--- NOTE | 2018-12-14 10:18 | Physical Therapy Progress Note ---
Therapy Progress Note Per RN, patient SAO2 decreases with bed change and he is unable to safely tolerated therapy on this date. PT will continue to monitor patient status. SHEA HOWARD PT Dec 14, 2018 10:18
--- NOTE | 2018-12-14 10:55 | Occ Therapy Progress Note ---
Therapy Progress Note Per chart review and PT, patient SAO2 decreases with bed change and he is unable to safely tolerated therapy this date. OT will attempt to see patient 12/15/18 BRANNON DUGAN OT Dec 14, 2018 10:55
[2018-12-14] MEDS: SOTALOL 80 MG (BETAPACE) TAB PO SCH (12:43)
[2018-12-14] MEDS: SERTRALINE 50 MG (ZOLOFT) TABLET PO SCH (12:43)
[2018-12-14] MEDS: APIXABAN 2.5 MG (ELIQUIS) TABLET PO SCH ×2 (12:43→21:25)
[2018-12-14] MEDS: TOLTERODINE LA 2 MG (DETROL LA) CAP PO SCH (12:43)
--- NOTE | 2018-12-14 13:32 | Progress Note-Hospitalist ---
Subjective HPI/CC On Admission Date Seen by Provider: Dec 14, 2018 Time Seen by Provider: 07:45 The patient is a 78-year-old white male admitted to the hospitalist service after a phone call from the nurse practitioner in the [place] emergency room. The patient had had a colonoscopy at [place] performed by Dr. Ricci. This was at approximately 7 o'clock and by 1030 he was released and went home. Slice states that he was a bit sluggish through the day. They ate early supper at about 1630 hours. After that they went for a ride around [facility] and went back to their home. He had difficulty getting out of the car and kade orozco leaned forward and slid down the front of his and sat on the driveway. He was unable to get up and she called her grandson and son-in-law to come help get him up. At that point they went to the [place] emergency room arriving at about 1930 hours. He really had no localizing signs but was found to have a temperature of 104 at arrival and a white count of 31,000. He denies cough or sputum production. There was no apparent belly pain. I was then called and arrangements were made to transfer him here. He had been given Zosyn prior to his departure from the [place]. On arrival here he underwent CT scans with contrast of the chest abdomen and pelvis. There was no pneumonia reported on the chest and no evidence of free air or abscess formation on the abdomen or pelvis. His maximum temp after arriving here was 99.6. His blood pressure has been 95/60 range. Lactic acid on arrival was 2.65 and he was given the fluid bolus to achieve the 30 mL/kg Subjective/Events-last exam Pt reports feeling terrible and short of breath. Had just requested to be put back on BiPAP prior to my admission. at bedside. No questions. Focused Exam Lactate Level 12/14/18 07:00: Lactic Acid Level 0.71 Objective Exam Vital Signs Vital Signs Date Time Temp Pulse Resp B/P (MAP) Pulse Ox O2 Delivery O2 Flow Rate FiO2 12/14/18 12:00 57 18 117/50 (72) 97 Vapotherm 100.00 35.00 12/14/18 12:00 97.0 12/14/18 12:00 35 Capillary Refill : General Appearance: WD/WN, Mild Distress, Other (biPAP in place) Respiratory: No Accessory Muscle Use, Rhonci, Other (on BiPAP) Cardiovascular: Regular Rate, Rhythm, No Murmur Gastrointestinal: Normal Bowel Sounds, No Organomegaly, Non Tender, Soft Extremity: No Pedal Edema Neurologic/Psychiatric: Alert, Oriented x3 Results/Procedures Lab Laboratory Tests 12/14/18 03:00 Patient resulted labs reviewed. Assessment/Plan Assessment and Plan Assess & Plan/Chief Complaint Acute Respiratory Failure due to pneumonia On BiPAP Pulm consulted, appreciate recs Poor pulmonary reserve- dyspneic with minimal exertion May need mechanical ventilation- patient agreeable to that and trach if needed Severe sepsis Continue on abx Cultures from [facility] requested- original blood cultures grew Group G Strep Continue Vanc Afib RVR Rate controlled Cardiology consulted, appreciate recs Continue sotalol Eliquis NAA Creatinine stable Continue renally dosed meds Post polio syndrome Critical Care Critically Ill Patient Clinical Quality Measures DVT/VTE Risk/Contraindication: Risk Factor Score Per Nursin RFS Level Per Nursing on Admit: 4+=Very High MARJORIE VERDIN MD Dec 14, 2018 13:32
[2018-12-14] MEDS: PATIENT MAY USE OWN MED,SINGLE MED PO SCH (15:52)
[2018-12-14] MEDS ORDERED: ATROPINE INJECTION 1 MG/10 ML SYR (ABBOTT) ONE (18:11)
--- NOTE | 2018-12-14 18:16 | NUR ---
TIME LINE NOTE 181-PCCT NOTIFIED NURSE PT HEARTRATE IN 40'S, THIS NURSE ENTERED PATIENT ROOM ET NOTED PATIENT O2 SAT 40'S, PATIENT BLUE ET "GASPS FOR AIR", CALLED FOR HELP FROM [employer]WORKERS, PHILLIP RN BEGAN BAGGING PATIENT 1817-CODE BLUE BUTTON PUSHED R/T PT RESP ARREST 1817-RT TOOK OVER BAGGING AT THIS TIME 1820 DR MORGAN, DR VANN PRESENT IN PT ROOM 1824 DR TERRY WOODS TOOK OVER CODE FROM DR. MORGAN ET DR. VANN, ABG DRAWN 1826 PT PLACED ON BIPAP AT THIS TIME 183 PH 7.27 PCO2 PH 78, NOTIFIED DR. STEWART OF RESULTS, DR STATED TO WAIT TO SEE CXR 183 RECEIVED ORDERS FOR BLOOD DRAW CXR, EKG 184 PATIENT CLEANED UP LINENS CHANGED, ET FAMILY LET BACK IN ROOM AT THIS TIME, DR. TERRY WOODS SPOKE WITH FAMILY ET EXPLAINED SITUATION TO FAMILY, NO QUESTIONS FROM FAMILY 184 DR. STEWART SIGNED OFF, STATED WOULD FOLLOW UP ET MONITOR LABS AT THIS TIME.
[2018-12-14 18:33] LABS: ABG BASE EXCESS 8.4 MMOL/L (-2.5-2.5); ABG OXYGEN SATURATION 98 % (94-100); ABG PO2 95 MMHG (79-93); ABG TCO2 37.7 MMOL/L (21.0-31.0)
[2018-12-14 18:34] LABS: ALLENS TEST YES-POS; INSPIRED O2 70% BIPAP; PATIENT TEMP 97.6; VENTILATOR NO
[2018-12-14 18:36] LABS: ABG PCO2 78 MMHG (35-45); ABG PH 7.27 (7.37-7.43)
--- NOTE | 2018-12-14 18:53 | Diagnostic Imaging Report ---
INDICATION: Respiratory arrest. TIME OF EXAM: 6:35 p.m. COMPARISON: Correlation is made with prior study from earlier the same day. FINDINGS: Changes of median sternotomy are noted. An external pacer overlies the right hemithorax. Congestive changes are noted in both lungs; however, this does appear to be improved since earlier today. No significant effusion is seen. There is no pneumothorax. IMPRESSION: Improving pulmonary infiltrates when compared with exam earlier the same day. Dictated by: Dictated on workstation # [id number]
[2018-12-14] MEDS: ATORVASTATIN 20 MG (LIPITOR) TABLET PO SCH (21:25)
[2018-12-15] VITALS (23 sets, daily range): BP systolic 110–164; BP diastolic 48–109
[2018-12-15 03:19] LABS: BASOPHILS % (AUTO) 0 % (0-10); EOSINOPHILS # (AUTO) 0.1 10^3/uL (0.0-0.3); EOSINOPHILS % (AUTO) 1 % (0-10); HEMATOCRIT 26 % (40-54); HEMOGLOBIN 8.3 G/DL (13.3-17.7); LYMPHOCYTES # (AUTO) 0.8 X 10^3 (1.0-4.0); LYMPHOCYTES % (AUTO) 6 % (12-44); MEAN CORPUSCULAR HEMOGLOBIN 32 PG (25-34); MEAN CORPUSCULAR HGB CONC 31 G/DL (32-36); MEAN CORPUSCULAR VOLUME 100 FL (80-99); MEAN PLATELET VOLUME 8.6 FL (7.4-10.4); MONOCYTES # (AUTO) 1.7 X 10^3 (0.0-1.0); MONOCYTES % (AUTO) 13 % (0-12); NEUTROPHILS # (AUTO) 10.1 X 10^3 (1.8-7.8); NEUTROPHILS % (AUTO) 79 % (42-75); PLATELET COUNT 474 10^3/uL (130-400); RED CELL DISTRIBUTION WIDTH 15.2 % (10.0-14.5); WHITE BLOOD COUNT 12.8 10^3/uL (4.3-11.0)
[2018-12-15 03:38] LABS: CREATININE SERUM 1.8 MG/DL (0.60-1.30); MAGNESIUM 1.8 MG/DL (1.8-2.4); PHOSPHORUS 2.5 MG/DL (2.3-4.7); POTASSIUM 3.6 MMOL/L (3.6-5.0)
[2018-12-15 04:24] LABS: ABG BASE EXCESS 11.6 MMOL/L (-2.5-2.5); ABG OXYGEN SATURATION 93 % (94-100); ABG PCO2 61 MMHG (35-45); ABG PO2 67 MMHG (79-93); ABG TCO2 38.8 MMOL/L (21.0-31.0)
[2018-12-15 04:26] LABS: ALLENS TEST YES-POS; INSPIRED O2 50%; PATIENT TEMP 98.4; VENTILATOR NO
--- NOTE | 2018-12-15 05:36 | Pulmonary Progress Note ---
Sepsis Event Evaluation Height, Weight, BMI Height: 5'8.00" Weight: 200lbs. 9.0oz. 90.836954pg; 28.8 BMI Method: Focused Exam Lactate Level 12/14/18 07:00: Lactic Acid Level 0.71 Exam Exam Vital Signs Date Time Temp Pulse Resp B/P (MAP) Pulse Ox O2 Delivery O2 Flow Rate FiO2 12/15/18 04:17 98.4 12/15/18 04:17 NIV Bilevel 50 12/15/18 04:00 58 12 148/66 (93) 95 NIV Bilevel 50.00 12/15/18 03:00 63 32 136/57 (83) 95 NIV Bilevel 50.00 12/15/18 02:00 62 25 141/56 (84) 97 NIV Bilevel 50.00 12/15/18 01:00 59 12/15/18 01:00 59 19 121/48 (72) 93 NIV Bilevel 50.00 12/15/18 00:30 98.2 12/15/18 00:22 NIV Bilevel 50 12/15/18 00:00 59 23 133/50 (77) 93 NIV Bilevel 50.00 12/14/18 23:00 61 19 117/53 (74) 98 NIV Bilevel 50.00 12/14/18 22:00 55 21 133/48 (76) 99 NIV Bilevel 50.00 12/14/18 21:00 59 22 137/56 (83) 96 NIV Bilevel 50.00 12/14/18 20:35 NIV Bilevel 50 12/14/18 20:05 97.9 12/14/18 20:00 81 32 133/64 (87) 96 NIV Bilevel 50.00 12/14/18 19:30 NIV Bilevel 50.00 12/14/18 19:20 80 21 100 50.00 12/14/18 19:00 81 14 111/51 (71) 100 NIV Bilevel 70.00 12/14/18 19:00 80 12/14/18 18:27 NIV Bilevel 70.00 12/14/18 18:00 77 49 188/78 (114) 82 Vapotherm 70.00 35.00 12/14/18 17:00 64 32 133/61 (85) 100 Vapotherm 70.00 35.00 12/14/18 16:00 Vapotherm 100.00 35 12/14/18 16:00 66 12 148/60 (89) 100 Vapotherm 70.00 35.00 12/14/18 15:07 66 98 80 12/14/18 15:07 98 Vapotherm 35.00 80 12/14/18 15:00 64 24 91/57 (68) 100 Vapotherm 80.00 35.00 12/14/18 14:00 71 49 125/45 (71) 100 Vapotherm 80.00 35.00 12/14/18 13:00 67 12/14/18 13:00 66 22 136/63 (87) 99 Vapotherm 80.00 35.00 12/14/18 12:00 57 18 117/50 (72) 97 Vapotherm 100.00 35.00 12/14/18 12:00 97.0 12/14/18 12:00 Vapotherm 100.00 35 12/14/18 11:10 59 22 100 40.00 12/14/18 11:00 60 31 133/55 (81) 98 Vapotherm 100.00 35.00 12/14/18 10:00 58 26 141/55 (83) 98 Vapotherm 100.00 35.00 12/14/18 09:00 58 29 134/63 (86) 94 Vapotherm 100.00 35.00 12/14/18 08:16 68 28 95 40.00 12/14/18 08:00 82 27 153/70 (97) 98 Vapotherm 100.00 35.00 12/14/18 08:00 Vapotherm 100.00 35 12/14/18 07:00 94 12/14/18 07:00 80 27 100 Vapotherm 100.00 35.00 12/14/18 06:52 80 24 90 Vapotherm 100.00 35.00 12/14/18 06:36 94 Vapotherm 35.00 50 12/14/18 06:25 75 13 92 Vapotherm 70.00 35.00 12/14/18 06:00 70 30 146/58 (87) 97 NIV Bilevel 40.00 I & O 12/15/18 07:00 Intake Total 1770 ml Output Total 4025 ml Balance -2255 ml Height & Weight Height: 5'8.00" Weight: 200lbs. 9.0oz. 90.811469cc; 28.8 BMI Method: General Appearance: WD/WN, Mild Distress, Other (biPAP in place) Respiratory: No Accessory Muscle Use, Rhonci, Other (on BiPAP) Cardiovascular: Regular Rate, Rhythm, No Murmur Gastrointestinal: normal bowel sounds, non tender, no organomegaly Extremity: No Pedal Edema Neurologic/Psychiatric: Alert, Oriented x3 Results Lab Laboratory Tests 12/14/18 03:00 12/15/18 03:07 Assessment/Plan Assessment/Plan Severe sepsis with PNA - -Vanco/Zosyn -Pt may need intubation today. -IVF - hep locked -Repeat [facility] cultures -UA was cancelled per lab from admission. -Will place another order for UA. Lab knows not to cancel Respiratory failure -BiPAP QHS and PRN -Trial pt back to Vapotherm today -Persistent bilateral infiltrates per CXR. Pt has little reserve Pulmonary edema from IVF EF 60% per echo -Continue Lasix Diarrhea - -Check Cdiff toxin Atelectasis -IS and easy pap Cellulitis LLL Thrush -Nystatin S/S Afib RVR - now converted -Cardizem gtt -Cardiology following Hx of childhood polio Debility/weakness -PT/OT ROSE -CPAP DANIELITO DELGADILLO DO Dec 15, 2018 05:36
[2018-12-15] MEDS: KCL 20 MEQ TAB (K-DUR) PO SCH (06:32)
[2018-12-15] MEDS: NYSTATIN ORAL SUSP 5 ML UDC PO SCH ×4 (06:33→23:15)
[2018-12-15] MEDS: MAGNESIUM 1 GM/100 ML IVPB 100 ML IV SCH (06:33)
[2018-12-15] MEDS: POTASSIUM CL 10MEQ/50ML IVPB 50 ML IV SCH (06:33)
[2018-12-15] MEDS: PIPERACILLIN/TAZOBACTAM (BULK) 4.5 GM in NS (IVPB) 100 ML IV SCH ×3 (06:34→23:15)
[2018-12-15] MEDS: RT-ALBUTEROL/IPRATROPIUM 3 ML (DUONEB) VIAL INH SCH ×5 (06:53→22:14)
--- NOTE | 2018-12-15 07:48 | Progress Note-Hospitalist ---
Subjective HPI/CC On Admission Date Seen by Provider: Dec 15, 2018 Time Seen by Provider: 07:43 The patient is a 78-year-old white male admitted to the hospitalist service after a phone call from the nurse practitioner in the [facility] emergency room. The patient had had a colonoscopy at [facility] performed by Dr. Ricci. This was at approximately 7 o'clock and by 1030 he was released and went home. Slice states that he was a bit sluggish through the day. They ate early supper at about 1630 hours. After that they went for a ride around [facility] and went back to their home. He had difficulty getting out of the car and kade orozco leaned forward and slid down the front of his and sat on the driveway. He was unable to get up and she called her grandson and son-in-law to come help get him up. At that point they went to the [facility] emergency room arriving at about 1930 hours. He really had no localizing signs but was found to have a temperature of 104 at arrival and a white count of 31,000. He denies cough or sputum production. There was no apparent belly pain. I was then called and arrangements were made to transfer him here. He had been given Zosyn prior to his departure from the [facility]. On arrival here he underwent CT scans with contrast of the chest abdomen and pelvis. There was no pneumonia reported on the chest and no evidence of free air or abscess formation on the abdomen or pelvis. His maximum temp after arriving here was 99.6. His blood pressure has been 95/60 range. Lactic acid on arrival was 2.65 and he was given the fluid bolus to achieve the 30 mL/kg Subjective/Events-last exam Pt reports feeling much better today. Breathing better today. Reviewed events from last night with RN. Focused Exam Lactate Level 12/14/18 07:00: Lactic Acid Level 0.71 Objective Exam Vital Signs Vital Signs Date Time Temp Pulse Resp B/P (MAP) Pulse Ox O2 Delivery O2 Flow Rate FiO2 12/15/18 07:00 97.4 12/15/18 06:55 98 Vapotherm 35.00 70 12/15/18 06:00 64 32 152/65 (94) Capillary Refill : General Appearance: No Apparent Distress, WD/WN, Chronically ill Respiratory: No Accessory Muscle Use, No Respiratory Distress, Rhonci Cardiovascular: Regular Rate, Rhythm, No Murmur Gastrointestinal: Normal Bowel Sounds, No Organomegaly, Non Tender, Soft Extremity: No Calf Tenderness, No Pedal Edema Neurologic/Psychiatric: Alert, Oriented x3, Normal Mood/Affect Results/Procedures Lab Laboratory Tests 12/15/18 03:07 Patient resulted labs reviewed. Assessment/Plan Assessment and Plan Assess & Plan/Chief Complaint Acute Respiratory Failure due to pneumonia Alternating from BiPAP to Vapotherm tondrew Suffered respiratory arrest last night that required BVM ventilation Pulm consulted, appreciate recs Poor pulmonary reserve- dyspneic with minimal exertion May need mechanical ventilation- patient agreeable to that and trach if needed Lasix given this am Severe sepsis Continue on abx Cultures from [facility] requested- original blood cultures grew Group G Strep Continue Vanc/Zosyn Afib RVR Rate controlled Cardiology consulted, appreciate recs Continue sotalol Eliquis NAA Creatinine stable Continue renally dosed meds Mild contraction alkalosis- monitor for worsening tomorrow with repeat lasix dose today Post polio syndrome Anemia Stable around 8 Check iron levels Transfuse to keep greater than 8 given cardiac history and critical illness Critical Care Critically Ill Patient Diagnosis/Problems Diagnosis/Problems (1) Acute respiratory failure (2) NAA (acute kidney injury) (3) Normocytic anemia (4) Streptococcal pneumonia (5) SEPSIS Status: Acute (6) Atrial fibrillation with rapid ventricular response Status: Acute (7) History of poliomyelitis Status: Chronic Clinical Quality Measures DVT/VTE Risk/Contraindication: Risk Factor Score Per Nursin RFS Level Per Nursing on Admit: 4+=Very High MARJORIE VERDIN MD Dec 15, 2018 07:48
--- NOTE | 2018-12-15 07:58 | Physical Therapy Progress Note ---
Therapy Progress Note PT to Hold secondary to decline in medical status. PT will continue to monitor patient status to determine when to resume services. SHEA HOWARD PT Dec 15, 2018 07:58
[2018-12-15] MEDS: VANCOMYCIN 1250 MG/NS 250 ML IVPB IV SCH ×2 (08:20)
[2018-12-15] MEDS: [UNRECOGNIZED DRUG - REMARK] PO SCH (08:21)
[2018-12-15] MEDS: FUROSEMIDE 40 MG/4 ML INJ (LASIX) IVP SCH (08:22)
[2018-12-15] MEDS: SOTALOL 80 MG (BETAPACE) TAB PO SCH (08:24)
[2018-12-15] MEDS: DAKIN'S 1/4 STRENGTH (0.125%) 473 ML BTL TOP SCH (08:24)
[2018-12-15] MEDS: SERTRALINE 50 MG (ZOLOFT) TABLET PO SCH (08:24)
[2018-12-15] MEDS: PANTOPRAZOLE 40 MG (PROTONIX) TAB PO SCH (08:24)
[2018-12-15] MEDS: APIXABAN 2.5 MG (ELIQUIS) TABLET PO SCH ×2 (08:24→20:19)
[2018-12-15] MEDS: TRIAMCINOLONE 0.1% CR (KENALOG) 15 GM TUBE TP SCH ×2 (08:25→20:19)
[2018-12-15] MEDS: PATIENT MAY USE OWN MED,SINGLE MED PO SCH (08:27)
--- NOTE | 2018-12-15 08:36 | Diagnostic Imaging Report ---
PATIENT HISTORY: Respiratory distress. TECHNIQUE: Frontal view of the chest. COMPARISON: 12/14/2018 FINDINGS: Lung volumes are mildly low. The right PICC line tip projects over the low SVC. Sternotomy wires and post CABG changes are seen. There is mild cardiomegaly with central vascular congestion. Mild interstitial and airspace opacities are seen. Overall aeration appears stable since the prior exam. There is no pleural effusion or pneumothorax. IMPRESSION: Bilateral pulmonary opacities, with stable aeration compared to the prior study. Dictated by: Dictated on workstation # [id number]
--- NOTE | 2018-12-15 08:38 | Progress Note-Cardiology ---
Cardiology SOAP Progress Note Subjective: Sitting up in bed. Family x2 at the bedside. He states his breathing is unchanged from yesterday. No c/o CP or palpitations. Objective: I&O/Vital Signs 12/15/18 12/15/18 12/15/18 12/15/18 05:39 06:00 06:55 07:00 Pulse 64 76 Resp 32 B/P (MAP) 152/65 (94) Pulse Ox 100 98 O2 Delivery Vapotherm Vapotherm Vapotherm O2 Flow Rate 70.00 70.00 35.00 FiO2 70 12/15/18 12/15/18 12/15/18 12/15/18 07:00 07:00 07:42 08:00 Temp 97.4 Pulse 76 73 Resp 41 14 B/P (MAP) 148/62 (90) 132/57 (82) Pulse Ox 95 96 O2 Delivery Vapotherm Vapotherm Vapotherm O2 Flow Rate 70.00 35.00 70.00 FiO2 60 12/15/18 12/15/18 12/15/18 12/15/18 09:00 10:00 10:19 11:00 Pulse 74 85 70 62 Resp 34 40 21 22 B/P (MAP) 164/68 (100) 119/51 (73) 119/51 (73) Pulse Ox 93 98 98 98 O2 Delivery Vapotherm Vapotherm Vapotherm O2 Flow Rate 70.00 70.00 50.00 70.00 12/15/18 12/15/18 12/15/18 12/15/18 11:45 12:00 12:00 14:26 Temp 97.6 Pulse 60 Resp 23 B/P (MAP) 141/61 (87) Pulse Ox 98 99 O2 Delivery Vapotherm Vapotherm Vapotherm O2 Flow Rate 35.00 70.00 35.00 FiO2 60 60 12/15/18 12/15/18 16:00 16:00 Temp 98.4 O2 Delivery Vapotherm O2 Flow Rate 35.00 FiO2 60 12/15/18 00:00 Intake Total 1010 ml Output Total 3475 ml Balance -2465 ml Weight (Pounds): 196 Weight (Ounces): 2.0 Weight (Calculated Kilograms): 88.076618 Constitutional: AAO x 3, well-developed, well-nourished Respiratory: No accessory muscle use, No respiratory distress; chest expansion is symmetric, chest is bilaterally symmetric, other (good air entry with coarse breath sounds) Cardiovascular: regular rate-rhythm; No JVD; S1 and S2, systolic murmur Gastrointestional: No tender; round, audible bowel sounds Extremities: no lower extremity edema bilateral Neurologic/Psychiatric: grossly intact, power is 5/5 both on sides Skin: No rash on exposed areas, No ulcerations on exposed areas Results/Procedures: Labs Laboratory Tests 12/14/18 18:30: Blood Gas Puncture Site R RAD, Blood Gas Patient Temperature 97.6, Arterial Blood pH 7.27*L, Arterial Blood Partial Pressure CO2 78*H, Arterial Blood Partial Pressure O2 95H, Arterial Blood HCO3 35H, Arterial Blood Total CO2 37.7H , Arterial Blood Oxygen Saturation 98, Arterial Blood Base Excess 8.4H, Zachery Test YES-POS, Blood Gas Ventilator Setting NO, Blood Gas Inspired Oxygen 70% BIPAP 12/14/18 18:45: Troponin I 0.046H, B-Type Natriuretic Peptide 1450.1H 12/15/18 03:07: White Blood Count 12.8H, Red Blood Count 2.63L, Hemoglobin 8.3L, Hematocrit 26L, Mean Corpuscular Volume 100H, Mean Corpuscular Hemoglobin 32, Mean Corpuscular Hemoglobin Concent 31L, Red Cell Distribution Width 15.2H, Platelet Count 474H, Mean Platelet Volume 8.6, Neutrophils (%) (Auto) 79H, Lymphocytes (%) (Auto) 6L, Monocytes (%) (Auto) 13H, Eosinophils (%) (Auto) 1, Basophils (%) (Auto) 0, Neutrophils # (Auto) 10.1H, Lymphocytes # (Auto) 0.8L, Monocytes # (Auto) 1.7H, Eosinophils # (Auto) 0.1, Basophils # (Auto) 0.0, Sodium Level 146H, Potassium Level 3.6, Chloride Level 103, Carbon Dioxide Level 33H, Anion Gap 10, Blood Urea Nitrogen 27H, Creatinine 1.80H, Estimat Glomerular Filtration Rate 37, BUN/Creatinine Ratio 15, Glucose Level 109H, Calcium Level 8.0L, Phosphorus Level 2.5, Magnesium Level 1.8 12/15/18 04:02: Blood Gas Puncture Site LEFT RADIAL, Blood Gas Patient Temperature 98.4, Arterial Blood pH 7.40, Arterial Blood Partial Pressure CO2 61H, Arterial Blood Partial Pressure O2 67L, Arterial Blood HCO3 37H, Arterial Blood Total CO2 38.8H , Arterial Blood Oxygen Saturation 93L, Arterial Blood Base Excess 11.6H, Zachery Test YES-POS, Blood Gas Ventilator Setting NO, Blood Gas Inspired Oxygen 50% Microbiology 12/08/18 Blood Culture - Final, Complete No growth 12/10/18 MRSA Screen - Final, Complete MRSA not isolated 12/14/18 Urine Culture - Final, Complete NO GROWTH A/P: Assessment: Ac resp failure and multifactorial shortness of breath: sepsis, PAF, anemia, renal insuff, ac cooper CHF PA-fib - currently SR with controlled rate Ac renal insufficiency Pneumonia - Medical & Pulmonary services managing Echo 12/09/18: LVEF 55-60%, mild MR, mild enlargement of LA, RVSP 38 mmHg Sepsis - Medical services managing L leg cellulitis - management per Medical services UTI - management per medical services Stroke prophylaxis with apixaban CAD - H/O CABG x [address] Huang at [facility], [place], [place] - reports recent MPI in the last [address] Lopez (reported to be normal) Sleep apnea - CPAP tx Plan: * Complex management due to multiple comorbidities * Continue current regimen * Monitor labs * We have spoken with him and his and answered questions Physician Assessment Physician Assessment Had an episode of resp arrest yesterday evening, but did not require ventilator. Resp Therapy techs were able to help him out of it Still short of breath No cp or palp or syncope Lungs: fair bilat air entry; diminished at the bases Cor: reg Ext: no c/c; mild bilateral leg edema A&R * As documented in our note above that I updated (italics) and as noted below * Complex management due to multiple comorbidities and resp failure * Continue current cardiac regimen * Monitor labs * I spoke with him and his and answered CV-related questions JED ROMERO ASSISTED LIVING DIRECTOR Dec 15, 2018 08:[address] [facility] Dec 15, 2018 16:36
--- NOTE | 2018-12-15 09:13 | NUR ---
Pastoral visit w/family, stated pt doing well after crisis last night, will continue to monitor.
--- NOTE | 2018-12-15 11:24 | Occ Therapy Progress Note ---
Therapy Progress Note per chart review/ discussion with other disciplines patients continues to be on hold secondary to decline in medical status. OT will continue to follow BRANNON DUGAN OT Dec 15, 2018 11:23
--- NOTE | 2018-12-15 18:29 | Wound Care Assessment ---
Wound Care Assessment Date Seen by Provider: Dec 15, 2018 Time Seen by Provider: 09:00 Chief Complaint Ulcer L calf. HPI The patient is a 78 year old male admitted for pneumonia, noted to have cellulitis of L calf. The patient had a lesion of the L calf cauterized as an out-patient a month ago and the wound has not healed. The redness has developed over the last week. He is on multiple antibiotics for his pneumonia. Dakin's dressings ordered. Will follow. 12/15/18 --- Interval note: The L calf is much less painful and tender. The erythema is resolved. The wound base is clean. Past Medical History: Admits Heart Disease (Atrial fibrillation) Recreational Drug Use: No Alcohol Use: Denies Use Review of Systems Pulmonary: Dyspnea Cardiovascular: No: Chest Pain Exam Vital Signs Date Time Temp Pulse Resp B/P (MAP) Pulse Ox O2 Delivery O2 Flow Rate FiO2 12/15/18 18:20 93 Vapotherm 60.00 30 12/15/18 17:00 80 34 144/64 (90) 12/15/18 16:00 98.4 Capillary Refill : General Appearance: mild distress HEENT: other (BiPAP in place.) Neck: normal inspection Cardiovascular: regular rate, rhythm Respiratory: decreased breath sounds Gastrointestinal: non tender Extremities: other (L medial calf ulcer --- 1.5 x 1.6 x 0.2 cm, base 100% slough, mod. s.s. drainage.) Results Laboratory Tests 12/14/18 18:30: Blood Gas Puncture Site R RAD, Blood Gas Patient Temperature 97.6, Arterial Blood pH 7.27*L, Arterial Blood Partial Pressure CO2 78*H, Arterial Blood Partial Pressure O2 95H, Arterial Blood HCO3 35H, Arterial Blood Total CO2 37.7H , Arterial Blood Oxygen Saturation 98, Arterial Blood Base Excess 8.4H, Zachery Test YES-POS, Blood Gas Ventilator Setting NO, Blood Gas Inspired Oxygen 70% BIPAP 12/14/18 18:45: Troponin I 0.046H, B-Type Natriuretic Peptide 1450.1H 12/15/18 03:07: White Blood Count 12.8H, Red Blood Count 2.63L, Hemoglobin 8.3L, Hematocrit 26L, Mean Corpuscular Volume 100H, Mean Corpuscular Hemoglobin 32, Mean Corpuscular Hemoglobin Concent 31L, Red Cell Distribution Width 15.2H, Platelet Count 474H, Mean Platelet Volume 8.6, Neutrophils (%) (Auto) 79H, Lymphocytes (%) (Auto) 6L, Monocytes (%) (Auto) 13H, Eosinophils (%) (Auto) 1, Basophils (%) (Auto) 0, Neutrophils # (Auto) 10.1H, Lymphocytes # (Auto) 0.8L, Monocytes # (Auto) 1.7H, Eosinophils # (Auto) 0.1, Basophils # (Auto) 0.0, Sodium Level 146H, Potassium Level 3.6, Chloride Level 103, Carbon Dioxide Level 33H, Anion Gap 10, Blood Urea Nitrogen 27H, Creatinine 1.80H, Estimat Glomerular Filtration Rate 37, BUN/Creatinine Ratio 15, Glucose Level 109H, Calcium Level 8.0L, Phosphorus Level 2.5, Magnesium Level 1.8 12/15/18 04:02: Blood Gas Puncture Site LEFT RADIAL, Blood Gas Patient Temperature 98.4, Arterial Blood pH 7.40, Arterial Blood Partial Pressure CO2 61H, Arterial Blood Partial Pressure O2 67L, Arterial Blood HCO3 37H, Arterial Blood Total CO2 38.8H , Arterial Blood Oxygen Saturation 93L, Arterial Blood Base Excess 11.6H, Zachery Test YES-POS, Blood Gas Ventilator Setting NO, Blood Gas Inspired Oxygen 50% Microbiology 12/14/18 Blood Culture - Preliminary, Resulted No growth 12/10/18 MRSA Screen - Final, Complete MRSA not isolated 12/14/18 Urine Culture - Final, Complete NO GROWTH Microbiology 12/14/18 Blood Culture - Preliminary, Resulted No growth 12/14/18 Blood Culture - Preliminary, Resulted No growth 12/14/18 Blood Culture - Preliminary, Resulted No growth 12/14/18 Urine Culture - Final, Complete NO GROWTH Assessment/Plan/Dx 1. Ulcer, L calf, non-healing. full thickness. 2. R/O arterial insufficiency L leg. 3. Cellulitis l calf, due to non-healing would L calf. 4. Coronary artery disease, atrial fibrillation, COPD with respiratory failure. Plan: Will begin dakin's dressings. Arterial evaluation can await greater clinical stability. Will follow. CATALINO MEIER MD Dec 15, 2018 18:29
[2018-12-15] MEDS: ATORVASTATIN 20 MG (LIPITOR) TABLET PO SCH (20:19)
[2018-12-16] VITALS (23 sets, daily range): BP systolic 120–171; BP diastolic 46–76
[2018-12-16] MEDS: RT-ALBUTEROL/IPRATROPIUM 3 ML (DUONEB) VIAL INH SCH ×6 (02:05→23:09)
[2018-12-16 03:32] LABS: BASOPHILS % (AUTO) 0 % (0-10); EOSINOPHILS % (AUTO) 0 % (0-10); HEMATOCRIT 27 % (40-54); HEMOGLOBIN 8.2 G/DL (13.3-17.7); LYMPHOCYTES # (AUTO) 0.8 X 10^3 (1.0-4.0); LYMPHOCYTES % (AUTO) 7 % (12-44); MEAN CORPUSCULAR HEMOGLOBIN 31 PG (25-34); MEAN CORPUSCULAR HGB CONC 31 G/DL (32-36); MEAN CORPUSCULAR VOLUME 101 FL (80-99); MEAN PLATELET VOLUME 8.5 FL (7.4-10.4); MONOCYTES # (AUTO) 1.5 X 10^3 (0.0-1.0); MONOCYTES % (AUTO) 13 % (0-12); NEUTROPHILS # (AUTO) 8.8 X 10^3 (1.8-7.8); NEUTROPHILS % (AUTO) 79 % (42-75); PLATELET COUNT 476 10^3/uL (130-400); RED CELL DISTRIBUTION WIDTH 14.9 % (10.0-14.5); WHITE BLOOD COUNT 11.1 10^3/uL (4.3-11.0)
[2018-12-16 03:45] LABS: CALCIUM 8.1 MG/DL (8.5-10.1); CREATININE SERUM 1.57 MG/DL (0.60-1.30); MAGNESIUM 1.7 MG/DL (1.8-2.4); PHOSPHORUS 2.3 MG/DL (2.3-4.7); POTASSIUM 3.3 MMOL/L (3.6-5.0)
[2018-12-16 03:48] LABS: ABG BASE EXCESS 15.3 MMOL/L (-2.5-2.5); ABG OXYGEN SATURATION 70 % (94-100); ABG PCO2 45 MMHG (35-45); ABG PH 7.55 (7.37-7.43); ABG PO2 100 MMHG (79-93); ABG TCO2 40.7 MMOL/L (21.0-31.0)
[2018-12-16 03:49] LABS: ALLENS TEST YES-POS; INSPIRED O2 50%; PATIENT TEMP 98.2; VENTILATOR NO
--- NOTE | 2018-12-16 05:45 | Pulmonary Progress Note ---
Subjective Time Seen by a Provider: 06:42 Subjective/Events-last exam Pt appears slightly improved today. Sepsis Event Evaluation Height, Weight, BMI Height: 5'8.00" Weight: 196lbs. 2.0oz. 88.287880yk; 28.8 BMI Method: Focused Exam Lactate Level 12/14/18 07:00: Lactic Acid Level 0.71 Exam Exam Vital Signs Date Time Temp Pulse Resp B/P (MAP) Pulse Ox O2 Delivery O2 Flow Rate FiO2 12/16/18 04:05 Vapotherm 35.00 60 12/16/18 04:02 97.6 12/16/18 04:02 62 20 160/73 (102) 99 NIV Bilevel 50.00 12/16/18 03:00 53 14 151/63 (92) 100 NIV Bilevel 50.00 12/16/18 02:05 58 23 100 50.00 12/16/18 02:00 58 24 171/71 (104) 100 NIV Bilevel 50.00 12/16/18 01:00 68 19 146/56 (86) 98 NIV Bilevel 50.00 12/16/18 01:00 68 12/16/18 00:50 Vapotherm 35.00 60 12/16/18 00:40 59 23 98 50.00 12/16/18 00:00 57 129/51 (77) 100 NIV Bilevel 50.00 12/15/18 23:45 97.4 12/15/18 23:00 64 25 110/57 (74) 100 NIV Bilevel 50.00 12/15/18 22:17 61 27 99 50.00 12/15/18 22:15 99 NIV Bilevel 50 12/15/18 22:13 64 27 149/51 (83) 100 NIV Bilevel 50.00 12/15/18 21:00 61 27 138/63 (88) 98 NIV Bilevel 50.00 12/15/18 20:40 60 98 NIV Bilevel 50.00 12/15/18 20:10 Vapotherm 35.00 60 12/15/18 20:00 60 11 125/64 (84) 100 Vapotherm 70.00 30.00 12/15/18 20:00 97.8 12/15/18 19:00 71 28 130/109 (116) 91 Vapotherm 70.00 30.00 12/15/18 19:00 71 12/15/18 18:20 93 Vapotherm 60.00 30 12/15/18 17:00 80 34 144/64 (90) 99 Vapotherm 70.00 12/15/18 16:00 98.4 12/15/18 16:00 70 27 139/56 (83) 98 Vapotherm 70.00 12/15/18 16:00 Vapotherm 35.00 60 12/15/18 15:00 68 40 125/94 (104) 98 Vapotherm 70.00 12/15/18 14:26 99 Vapotherm 35.00 60 12/15/18 14:00 65 22 152/65 (94) 98 Vapotherm 70.00 12/15/18 13:00 59 20 118/53 (74) 100 Vapotherm 70.00 12/15/18 13:00 58 12/15/18 12:00 60 23 141/61 (87) 98 Vapotherm 70.00 12/15/18 12:00 97.6 12/15/18 11:45 Vapotherm 35.00 60 12/15/18 11:00 62 22 119/51 (73) 98 Vapotherm 70.00 12/15/18 10:19 70 21 98 50.00 12/15/18 10:00 85 40 119/51 (73) 98 Vapotherm 70.00 12/15/18 09:00 74 34 164/68 (100) 93 Vapotherm 70.00 12/15/18 08:00 73 14 132/57 (82) 96 Vapotherm 70.00 12/15/18 07:42 Vapotherm 35.00 60 12/15/18 07:00 76 41 148/62 (90) 95 Vapotherm 70.00 12/15/18 07:00 97.4 12/15/18 07:00 76 12/15/18 06:55 98 Vapotherm 35.00 70 12/15/18 06:00 64 32 152/65 (94) 100 Vapotherm 70.00 I & O 12/16/18 07:00 Intake Total 1742.5 ml Output Total 2500 ml Balance -757.5 ml Height & Weight Height: 5'8.00" Weight: 196lbs. 2.0oz. 88.823802uu; 28.8 BMI Method: General Appearance: WD/WN, Chronically ill, Mild Distress, Obese Respiratory: No Accessory Muscle Use, No Respiratory Distress, Rhonci Cardiovascular: Regular Rate, Rhythm, No Murmur Gastrointestinal: normal bowel sounds, non tender, no organomegaly Extremity: No Calf Tenderness, No Pedal Edema Neurologic/Psychiatric: Alert, Oriented x3, Normal Mood/Affect Results Lab Laboratory Tests 12/15/18 03:07 12/16/18 03:04 Assessment/Plan Assessment/Plan Severe sepsis with PNA - -12/07 Zosyn -D/C vancomycin -IVF - hep locked -Repeat [facility] cultures -UA was cancelled per lab from admission. -Will place another order for UA. Lab knows not to cancel Respiratory failure -BiPAP QHS and PRN -Trial pt back to Vapotherm today -Persistent bilateral infiltrates per CXR. Pt has little reserve Pulmonary edema from IVF EF 60% per echo -Continue Lasix Hypokalemia/hypomag -replace Anemia -Monitor Atelectasis -IS and easy pap Cellulitis LLL Thrush -Nystatin S/S Afib RVR - now converted -Cardizem gtt -Cardiology following Hx of childhood polio Debility/weakness -PT/OT ROSE -CPAP DANIELITO DELGADILLO DO Dec 16, 2018 05:45
[2018-12-16] MEDS: PIPERACILLIN/TAZOBACTAM (BULK) 4.5 GM in NS (IVPB) 100 ML IV SCH ×3 (06:14→23:53)
[2018-12-16] MEDS: MAGNESIUM 1 GM/100 ML IVPB 100 ML IV SCH (06:15)
[2018-12-16] MEDS: NYSTATIN ORAL SUSP 5 ML UDC PO SCH ×4 (06:15→23:53)
[2018-12-16] MEDS: POTASSIUM CL 10MEQ/50ML IVPB 50 ML IV SCH (07:31)
[2018-12-16] MEDS: KCL 20 MEQ TAB (K-DUR) PO SCH (07:33)
--- NOTE | 2018-12-16 07:35 | NUR ---
PT RECEIVED 2GM IV MAG FROM PREVIOUS RN.
[2018-12-16] MEDS ORDERED: KCL 20 MEQ TAB (K-DUR) PO ONE ×2 (07:45→09:45)
[2018-12-16] MEDS: SOTALOL 80 MG (BETAPACE) TAB PO SCH (07:53)
[2018-12-16] MEDS: SERTRALINE 50 MG (ZOLOFT) TABLET PO SCH (07:53)
[2018-12-16] MEDS: PANTOPRAZOLE 40 MG (PROTONIX) TAB PO SCH (07:53)
[2018-12-16] MEDS: FUROSEMIDE 40 MG/4 ML INJ (LASIX) IVP SCH (07:53)
[2018-12-16] MEDS: APIXABAN 2.5 MG (ELIQUIS) TABLET PO SCH ×2 (07:54→22:01)
[2018-12-16] MEDS: TRIAMCINOLONE 0.1% CR (KENALOG) 15 GM TUBE TP SCH ×2 (07:54→22:02)
[2018-12-16] MEDS: DAKIN'S 1/4 STRENGTH (0.125%) 473 ML BTL TOP SCH (07:54)
[2018-12-16] MEDS: PATIENT MAY USE OWN MED,SINGLE MED PO SCH (07:55)
[2018-12-16] MEDS: [UNRECOGNIZED DRUG - REMARK] PO SCH (07:55)
--- NOTE | 2018-12-16 08:09 | Progress Note-Hospitalist ---
Subjective HPI/CC On Admission Date Seen by Provider: Dec 16, 2018 Time Seen by Provider: 08:03 Subjective/Events-last exam Pt reports doing well and feeling better. Breathing better. Focused Exam Lactate Level 12/14/18 07:00: Lactic Acid Level 0.71 Objective Exam Vital Signs Vital Signs Date Time Temp Pulse Resp B/P (MAP) Pulse Ox O2 Delivery O2 Flow Rate FiO2 12/16/18 10:37 98 Vapotherm 40.00 50 12/16/18 10:00 60 18 123/46 (71) 12/16/18 08:12 97.3 Capillary Refill : General Appearance: WD/WN, Chronically ill, Mild Distress, Obese Respiratory: No Accessory Muscle Use, No Respiratory Distress, Rhonci Cardiovascular: Regular Rate, Rhythm, No Murmur Gastrointestinal: Normal Bowel Sounds, No Organomegaly, Non Tender, Soft Extremity: No Calf Tenderness, No Pedal Edema Neurologic/Psychiatric: Alert, Oriented x3, Normal Mood/Affect Results/Procedures Lab Laboratory Tests 12/16/18 03:04 Patient resulted labs reviewed. Assessment/Plan Assessment and Plan Assess & Plan/Chief Complaint Acute Respiratory Failure due to pneumonia Alternating from BiPAP to Vapotherm still Pulm consulted, appreciate recs Poor pulmonary reserve- dyspneic with minimal exertion May need mechanical ventilation- patient agreeable to that and trach if needed Lasix given this am again- monitor I/Os Severe sepsis- resolving Continue on abx- Vanc DC-ed Cultures from [facility] requested- original blood cultures grew Group G Strep Afib RVR Rate controlled Cardiology consulted, appreciate recs Continue sotalol Eliquis NAA Creatinine improved Continue renally dosed meds Mild contraction alkalosis- trend Post polio syndrome Anemia Stable around 8 Check iron levels Transfuse to keep greater than 8 given cardiac history and critical illness May transfuse tomorrow, discussed with patient and agreeable Critical Care Critically Ill Patient Diagnosis/Problems Diagnosis/Problems (1) Acute respiratory failure (2) NAA (acute kidney injury) (3) Normocytic anemia (4) Streptococcal pneumonia (5) SEPSIS Status: Acute (6) Atrial fibrillation with rapid ventricular response Status: Acute (7) History of poliomyelitis Status: Chronic Clinical Quality Measures DVT/VTE Risk/Contraindication: Risk Factor Score Per Nursin RFS Level Per Nursing on Admit: 4+=Very High MARJORIE VERDIN MD Dec 16, 2018 08:08
--- NOTE | 2018-12-16 08:42 | Diagnostic Imaging Report ---
EXAMINATION: Portable erect AP chest at 3:18 AM. INDICATION: Respiratory distress. FINDINGS: The appearance of the chest has improved somewhat since 12/15/2018 as the right lung does seem better aerated. There are still alveolar/interstitial infiltrates involving the right lung and to a much lesser extent the left lung. The heart is stable in size. The mediastinum is not widened. The osseous structures are intact. The sternotomy wires, surgical clips, and the right-sided PICC line seen previously are again evident and no different. IMPRESSION: The appearance of the chest has improved slightly since the prior exam as the right lung does seem somewhat better aerated. A followup study would be recommended for continued evaluation. Dictated by: Dictated on workstation # [id number]
--- NOTE | 2018-12-16 08:43 | Progress Note-Cardiology ---
Cardiology SOAP Progress Note Subjective: Gen malaise Shortness of breath as before No cp or syncope or palp Objective: I&O/Vital Signs 12/15/18 12/15/18 12/15/18 12/15/18 21:00 22:13 22:15 22:17 Pulse 61 64 61 Resp 27 27 27 B/P (MAP) 138/63 (88) 149/51 (83) Pulse Ox 98 100 99 99 O2 Delivery NIV Bilevel NIV Bilevel NIV Bilevel O2 Flow Rate 50.00 50.00 50.00 FiO2 50 12/15/18 12/15/18 12/16/18 12/16/18 23:00 23:45 00:00 00:40 Temp 97.4 Pulse 64 57 59 Resp 25 23 B/P (MAP) 110/57 (74) 129/51 (77) Pulse Ox 100 100 98 O2 Delivery NIV Bilevel NIV Bilevel O2 Flow Rate 50.00 50.00 50.00 12/16/18 12/16/18 12/16/18 12/16/18 00:50 01:00 01:00 02:00 Pulse 68 68 58 Resp 19 24 B/P (MAP) 146/56 (86) 171/71 (104) Pulse Ox 98 100 O2 Delivery Vapotherm NIV Bilevel NIV Bilevel O2 Flow Rate 35.00 50.00 50.00 FiO2 60 12/16/18 12/16/18 12/16/18 12/16/18 02:05 03:00 04:02 04:02 Temp 97.6 Pulse 58 53 62 Resp 23 14 20 B/P (MAP) 151/63 (92) 160/73 (102) Pulse Ox 100 100 99 O2 Delivery NIV Bilevel NIV Bilevel O2 Flow Rate 50.00 50.00 50.00 12/16/18 12/16/18 12/16/18 12/16/18 04:05 05:00 06:13 06:36 Pulse 57 52 58 Resp 13 8 23 B/P (MAP) 126/57 (80) 162/61 (94) Pulse Ox 100 100 100 O2 Delivery Vapotherm NIV Bilevel NIV Bilevel O2 Flow Rate 35.00 50.00 50.00 50.00 FiO2 60 12/16/18 12/16/18 12/16/18 12/16/18 07:00 07:00 08:00 08:00 Pulse 71 61 73 Resp 20 42 B/P (MAP) 143/60 (87) 127/66 (86) Pulse Ox 100 94 O2 Delivery NIV Bilevel Vapotherm NIV Bilevel O2 Flow Rate 50.00 40.00 50.00 FiO2 50 12/16/18 08:12 Temp 97.3 12/16/18 00:00 Intake Total 820 ml Output Total 1600 ml Balance -780 ml Weight (Pounds): 201 Weight (Ounces): 7.4 Weight (Calculated Kilograms): 91.528491 Constitutional: AAO x 3, well-developed, well-nourished Respiratory: No accessory muscle use, No respiratory distress; chest expansion is symmetric, chest is bilaterally symmetric, other (good air entry with coarse breath sounds) Cardiovascular: regular rate-rhythm; No JVD; S1 and S2, systolic murmur Gastrointestional: No tender; round, audible bowel sounds Extremities: no lower extremity edema bilateral Neurologic/Psychiatric: grossly intact, power is 5/5 both on sides Skin: No rash on exposed areas, No ulcerations on exposed areas Results/Procedures: Labs Laboratory Tests 12/16/18 03:04: White Blood Count 11.1H, Red Blood Count 2.66L, Hemoglobin 8.2L, Hematocrit 27L, Mean Corpuscular Volume 101H, Mean Corpuscular Hemoglobin 31, Mean Corpuscular Hemoglobin Concent 31L, Red Cell Distribution Width 14.9H, Platelet Count 476H, Mean Platelet Volume 8.5, Neutrophils (%) (Auto) 79H, Lymphocytes (%) (Auto) 7L, Monocytes (%) (Auto) 13H, Eosinophils (%) (Auto) 0, Basophils (%) (Auto) 0, Neutrophils # (Auto) 8.8H, Lymphocytes # (Auto) 0.8L, Monocytes # (Auto) 1.5H, Eosinophils # (Auto) 0.0, Basophils # (Auto) 0.0, Sodium Level 145, Potassium L evel 3.3L, Chloride Level 101, Carbon Dioxide Level 34H, Anion Gap 10, Blood Urea Nitrogen 24H, Creatinine 1.57H, Estimat Glomerular Filtration Rate 43, BUN/Creatinine Ratio 15, Glucose Level 108H, Calcium Level 8.1L, Phosphorus Level 2.3, Magnesium Level 1.7L, B-Type Natriuretic Peptide 762.2H 12/16/18 03:40: Blood Gas Puncture Site RIGHT RADIAL, Blood Gas Patient Temperature 98.2, Arterial Blood pH 7.55H, Arterial Blood Partial Pressure CO2 45, Arterial Blood Partial Pressure O2 100H, Arterial Blood HCO3 39H, Arterial Blood Total CO2 40.7H, Arterial Blood Oxygen Saturation 70L, Arterial Blood Base Excess 15.3H, Zachery Test YES-POS, Blood Gas Ventilator Setting NO, Blood Gas Inspired Oxygen 50% Microbiology 12/14/18 Blood Culture - Preliminary, Resulted No growth 12/10/18 MRSA Screen - Final, Complete MRSA not isolated 12/14/18 Urine Culture - Final, Complete NO GROWTH A/P: Assessment: Ac resp failure and multifactorial shortness of breath: sepsis, PAF, anemia, renal insuff, ac cooper CHF PA-fib - currently SR with controlled rate Ac renal insufficiency Pneumonia - Medical & Pulmonary services managing Echo 12/09/18: LVEF 55-60%, mild MR, mild enlargement of LA, RVSP 38 mmHg Sepsis - Medical services managing L leg cellulitis - management per Medical services UTI - management per Medical services Stroke prophylaxis with apixaban CAD - H/O CABG x [address] Huang at [facility], [place] - reports recent MPI in the last [address] Lopez (reported to be normal) Sleep apnea - CPAP tx Plan: * Complex management due to multiple comorbidities * Continue current regimen * Replenish lytes * Monitor labs * I spoke with him and his and answered questions BR[facility] VANN MD [facility] Dec 16, 2018 08:43
--- NOTE | 2018-12-16 11:08 | Physical Therapy Daily Note ---
PT Daily Note-Current Subjective Patient in bed pre tx, agrees to PT, has no complaints of pain. Patient agrees to get into a chair. Appearance Patient in chair at bedside post tx with nurse call, phone, tray, family in the room. Mental Status Patient Orientation: Person, Place, Situation Attachments: SCD's, Oxygen, [place] Catheter, IV Transfers Therapy Code Descriptions/Definitions Functional [place] Measure: 0=Not Assessed/NA 4=Minimal Assistance 1=Total Assistance 5=Supervision or Setup 2=Maximal Assistance 6=Modified [place] 3=Moderate Assistance 7=Complete [place] Therapy Quality Codes: 6 Independent with activity with or without an assistive device 5 Patient requires set up or clean up by helper. Patient completes activity by themselves 4 Supervision or touching assist (CGA). [place] provide cues , steadying assist 3 The helper provides less than half the effort to complete the activity 2 The helper provides more than half the effort to complete the activity 1 Dependent. The helper does all the effort to complete an activity 7 Patient refused to complete or attempt activity 9 The patient did not perform the activity before the current illness or injury 88 Not attempted due to Medical conditions or safety concerns Transfers (B, C, W/C) (FIM): 2 Scootin Rollin Supine to/from Sit: 2 Sit to/from Stand: 2 Bed to/from Chair: 2 Max assist for supine to sit, sit to stand and transfer. Patient is retropulsive. If he has his shoes on his feet do not slip forward like they did on his evaluation. Gait Training Gait (FIM): 1 Distance: 2' Gait Level of Assist: 2 Gait Persons Needed: 1 During transfer patient took a few steps to the left side with max assist, therapist in front of patient assisting with balance and weight shifting. Exercises Seated Therapy Exercises: Ankle pumps, Long arc quads, Hip flexion Seated Reps: 15 Treatments LE exercise, bed mobility and transfers Assessment Current Status: Fair Progress improved transfers PT Short Term Goals Short Term Goals Time Frame: Dec 16, 2018 Transfers (B,C,W/C) (FIM): 3 Gait (FIM): 1 Gait Distance Comment: 3' Gait Level of Assist: 3 Gait Assistive Device: FWW PT Plan Problem List Problem List: Activity Tolerance, Functional Strength, Safety, Balance, Gait, Transfer, Bed Mobility, ROM Treatment/Plan Treatment Plan: Continue Plan of Care Treatment Plan: Bed Mobility, Concurrent Therapy, Education, Functional Activity Janny, Functional Strength, Gait, Safety, Therapeutic Exercise, Transfers Treatment Duration: Dec 16, 2018 Frequency: 6 times per week Estimated Hrs Per Day: .25 hour per day Patient and/or Family Agrees t: Yes Safety Risks/Education Patient Education: Gait Training, Transfer Techniques, Correct Positioning, Safety Issues Teaching Recipient: Patient Teaching Methods: Demonstration, Discussion Response to Teaching: Reinforcement Needed Time/GCodes Time In: 1043 Time Out: 1104 Total Billed Treatment Time: 21 Total Billed Treatment 1 visit FA 21' EDY VOGEL PT Dec 16, 2018 11:08
--- NOTE | 2018-12-16 12:07 | Occupational Ther Daily Note ---
OT Current Status-Daily Note Subjective NSG stated pt is now stable to participate in OT treatment services. pt sitting in recliner chair upon OT arrival in no apparent distress. pt agreed to OT evaluation session. pt reports no pain. pt stated he is feeling much better than prior Mental Status/Objective Therapy Code Descriptions/Definitions Functional [place] Measure: 0=Not Assessed/NA 4=Minimal Assistance 1=Total Assistance 5=Supervision or Setup 2=Maximal Assistance 6=Modified [place] 3=Moderate Assistance 7=Complete [place] Other Treatment pt pleasantly declined ADLs this date secondary to having sponge [place] [facility] [place] pt education on UE ex to increase activity tolerance/ UE strength against gravity. pt perform 10X1 shoulder flexion/ EXT/ ADD/. ABD, and 10X1 elbow flex/. ext. noted pt vitals remained stable during session. pt provided handout of ex. to complete indep in room. pt sitting in recliner chair post OT services, call light within reach, all needs met. pt an daughter present in room. Education OT Patient Education: Energy conservation, Exercise program, Purpose of tx/functional activities Teaching Recipient: Patient, Family Teaching Methods: Demonstration, Discussion Response to Teaching: Verbalize Understanding, Return Demonstration OT Short Term Goals Short Term Goals Eating(FIM): 6 Grooming(FIM): 4 Bathing(FIM): 3 Upper Body Dressing(FIM): 3 Lower Body Dressing(FIM): 3 Toileting(FIM): 3 Transfers (B,C,W/C) (FIM): 3 Toilet/Commode Transfer(FIM): 2 1=Demonstrate adherence to instructed precautions during ADL tasks. 2=Patient will verbalize/demonstrate understanding of assistive devices/modifications for ADL. 3=Patient will improve strength/tolerance for activity to enable patient to perform ADL's. OT Neon Sign Installer Goals Fdc Goals Eating (FIM): 7 Grooming(FIM): 6 Bathing(FIM): 5 Upper Body Dressing(FIM): 5 Lower Body Dressing(FIM): 5 Toileting(FIM): 5 Transfers (B,C,W/C) (FIM): 5 Toilet/Commode Transfer(FIM): 5 1=Demonstrate adherence to instructed precautions during ADL tasks. 2=Patient will verbalize/demonstrate understanding of assistive devices/modifications for ADL. 3=Patient will improve strength/tolerance for activity to enable patient to perform ADL's. OT Education/Plan Problem List/Assessment Assessment: Decreased Activ Tolerance, Decreased Safety Aware, Decreased UE Strength, Dependent Transfers, Impaired Bed Mobility, Impaired Cognition, Impaired Coordination, Impaired Funct Balance, Impaired I ADL's, Impaired Self- Care Skills pt present with functional limitations affecting areas of ADLs and functional transfers with deficits in the above mention. pt continues to require total assist person to perform sit to stands, TA for LB dressing, UE dressing, and vane leting. pt has very limited activity tolerance and tires easily from slight activity such as UE ROM. pt would benefit from OT Services to increase independence with ADLs//. functional transfers. pt is NOT safe to return home at this time. Discharge Recommendations Plan/Recommendations: Continue POC Treatment Plan/Plan of Care Treatment,Training & Education: Yes Patient would benefit from OT for education, treatment and training to promote i ndependence in ADL's, mobility, safety and/or upper extremity function for ADL's. Plan of Care: ADL Retraining, Caregiver Training, Concurrent Therapy, Functional Mobility, Group Exercise/Act as Ind, UE Funct Exercise/Act Treatment Duration: Dec 30, 2018 Frequency: 5 times per week Estimated Hrs Per Day: .25 hour per day Agreement: Yes Rehab Potential: Fair Time/GCodes Start Time: 11:35 Stop Time: 11:50 Billed Treatment Time EX 15 minutes, 1 unit BRANNON DUGAN OT Dec 16, 2018 12:07
[2018-12-16] MEDS: ATORVASTATIN 20 MG (LIPITOR) TABLET PO SCH (22:01)
[2018-12-17] VITALS (15 sets, daily range): BP systolic 129–182; BP diastolic 57–89
[2018-12-17] MEDS: RT-ALBUTEROL/IPRATROPIUM 3 ML (DUONEB) VIAL INH SCH ×6 (03:21→20:58)
[2018-12-17 03:28] LABS: BASOPHILS # (AUTO) 0.1 10^3/uL (0.0-0.1); BASOPHILS % (AUTO) 0 % (0-10); EOSINOPHILS # (AUTO) 0.1 10^3/uL (0.0-0.3); EOSINOPHILS % (AUTO) 1 % (0-10); HEMATOCRIT 28 % (40-54); HEMOGLOBIN 8.7 G/DL (13.3-17.7); LYMPHOCYTES # (AUTO) 0.9 X 10^3 (1.0-4.0); LYMPHOCYTES % (AUTO) 7 % (12-44); MEAN CORPUSCULAR HEMOGLOBIN 31 PG (25-34); MEAN CORPUSCULAR HGB CONC 31 G/DL (32-36); MEAN CORPUSCULAR VOLUME 100 FL (80-99); MEAN PLATELET VOLUME 8.3 FL (7.4-10.4); MONOCYTES # (AUTO) 1.7 X 10^3 (0.0-1.0); MONOCYTES % (AUTO) 13 % (0-12); NEUTROPHILS # (AUTO) 9.9 X 10^3 (1.8-7.8); NEUTROPHILS % (AUTO) 79 % (42-75); PLATELET COUNT 531 10^3/uL (130-400); RED CELL DISTRIBUTION WIDTH 15.2 % (10.0-14.5); WHITE BLOOD COUNT 12.6 10^3/uL (4.3-11.0)
[2018-12-17 03:49] LABS: CALCIUM 8.2 MG/DL (8.5-10.1); CREATININE SERUM 1.56 MG/DL (0.60-1.30); MAGNESIUM 2.3 MG/DL (1.8-2.4); PHOSPHORUS 2.1 MG/DL (2.3-4.7); POTASSIUM 3.8 MMOL/L (3.6-5.0)
--- NOTE | 2018-12-17 05:41 | Pulmonary Progress Note ---
Subjective Time Seen by a Provider: 05:48 Subjective/Events-last exam Pt appears to be doing better Sepsis Event Evaluation Height, Weight, BMI Height: 5'8.00" Weight: 201lbs. 7.4oz. 91.356383dl; 28.8 BMI Method: Focused Exam Lactate Level 12/14/18 07:00: Lactic Acid Level 0.71 Exam Exam Vital Signs Date Time Temp Pulse Resp B/P (MAP) Pulse Ox O2 Delivery O2 Flow Rate FiO2 12/17/18 05:00 62 23 175/77 (109) 99 Vapotherm 40.00 20.00 12/17/18 04:00 64 32 178/76 (110) 94 Vapotherm 40.00 20.00 12/17/18 03:21 97 Vapotherm 20.00 40 12/17/18 03:00 65 33 166/72 (103) 89 NIV Bilevel 40.00 12/17/18 02:00 56 24 148/66 (93) 97 NIV Bilevel 40.00 12/17/18 01:00 57 12/17/18 01:00 56 20 129/57 (81) 97 NIV Bilevel 40.00 12/17/18 00:00 54 17 147/66 (93) 97 NIV Bilevel 40.00 12/17/18 00:00 Vapotherm 20.00 40 12/16/18 23:54 97.4 12/16/18 23:09 57 18 100 50.00 12/16/18 23:09 NIV Bilevel 40.00 12/16/18 23:00 56 18 141/60 (87) 100 NIV Bilevel 50.00 12/16/18 22:00 59 19 140/56 (84) 100 NIV Bilevel 50.00 12/16/18 21:00 77 20 126/57 (80) 99 NIV Bilevel 50.00 12/16/18 20:00 84 26 143/76 (98) 99 NIV Bilevel 50.00 12/16/18 20:00 Vapotherm 20.00 40 12/16/18 19:30 97.5 12/16/18 19:00 73 34 88 Vapotherm 40.00 20.00 12/16/18 19:00 73 12/16/18 18:45 92 Vapotherm 20.00 40 12/16/18 18:44 Vapotherm 40.00 20.00 12/16/18 18:00 65 24 100 NIV Bilevel 50.00 12/16/18 17:57 NIV Bilevel 50.00 12/16/18 17:00 68 27 151/65 (93) 95 Vapotherm 40.00 20.00 12/16/18 16:00 Vapotherm 20.00 40 12/16/18 16:00 67 151/65 (93) 95 Vapotherm 40.00 20.00 12/16/18 15:30 98.8 12/16/18 15:12 Vapotherm 40.00 20.00 12/16/18 15:05 98 Vapotherm 30.00 45 12/16/18 15:00 70 10 140/73 (95) 90 Vapotherm 45.00 30.00 12/16/18 14:00 61 128/55 (79) 97 Vapotherm 45.00 30.00 12/16/18 13:00 66 31 120/55 (76) 99 Vapotherm 45.00 30.00 12/16/18 13:00 65 12/16/18 12:00 64 16 132/76 (94) 100 Vapotherm 45.00 30.00 12/16/18 12:00 Vapotherm 40.00 50 12/16/18 11:30 96.3 12/16/18 11:00 63 33 146/63 (90) 99 Vapotherm 45.00 30.00 12/16/18 10:37 98 Vapotherm 40.00 50 12/16/18 10:00 60 18 123/46 (71) 100 Vapotherm 45.00 30.00 12/16/18 09:00 63 26 123/46 (71) 97 NIV Bilevel 50.00 12/16/18 08:12 97.3 12/16/18 08:00 73 42 127/66 (86) 94 NIV Bilevel 50.00 12/16/18 08:00 Vapotherm 40.00 50 12/16/18 07:00 61 20 143/60 (87) 100 NIV Bilevel 50.00 12/16/18 07:00 71 12/16/18 06:36 58 23 100 50.00 12/16/18 06:13 52 8 162/61 (94) 100 NIV Bilevel 50.00 I & O 12/17/18 07:00 Intake Total 2360 ml Output Total 2650 ml Balance -290 ml Height & Weight Height: 5'8.00" Weight: 201lbs. 7.4oz. 91.443745qc; 28.8 BMI Method: General Appearance: WD/WN, Chronically ill, Mild Distress, Obese Respiratory: No Accessory Muscle Use, No Respiratory Distress, Rhonci Cardiovascular: Regular Rate, Rhythm, No Murmur Gastrointestinal: normal bowel sounds, non tender, no organomegaly Extremity: No Calf Tenderness, No Pedal Edema Neurologic/Psychiatric: Alert, Oriented x3, Normal Mood/Affect Results Lab Laboratory Tests 12/16/18 03:04 12/17/18 03:15 Assessment/Plan Assessment/Plan Severe sepsis with PNA - -12/07 Zosyn -D/C vancomycin -IVF - hep locked -Repeat [facility] cultures -UA was cancelled per lab from admission. -Will place another order for UA. Lab knows not to cancel Respiratory failure -BiPAP QHS and PRN -Vapotherm during the day -Persistent bilateral infiltrates per CXR. Pt has little reserve Pulmonary edema from IVF EF 60% per echo -Continue Lasix Hypokalemia/hypomag -replace Anemia -Monitor Atelectasis -IS and easy pap Cellulitis LLL Thrush -Nystatin S/S Afib RVR - now converted -Cardizem gtt -Cardiology following Hx of childhood polio Debility/weakness -PT/OT ROSE -CPAP DANIELITO DELGADILLO DO Dec 17, 2018 05:41
[2018-12-17] MEDS: POTASSIUM CL 10MEQ/50ML IVPB 50 ML IV SCH (05:58)
[2018-12-17] MEDS: KCL 20 MEQ TAB (K-DUR) PO SCH (05:59)
[2018-12-17] MEDS: NYSTATIN ORAL SUSP 5 ML UDC PO SCH ×3 (05:59→17:50)
[2018-12-17] MEDS: MAGNESIUM 1 GM/100 ML IVPB 100 ML IV SCH (05:59)
[2018-12-17] MEDS: PIPERACILLIN/TAZOBACTAM (BULK) 4.5 GM in NS (IVPB) 100 ML IV SCH ×3 (07:06→23:08)
[2018-12-17] MEDS: APIXABAN 2.5 MG (ELIQUIS) TABLET PO SCH ×2 (09:21→19:42)
[2018-12-17] MEDS: SERTRALINE 50 MG (ZOLOFT) TABLET PO SCH (09:21)
[2018-12-17] MEDS: SOTALOL 80 MG (BETAPACE) TAB PO SCH (09:21)
[2018-12-17] MEDS: PANTOPRAZOLE 40 MG (PROTONIX) TAB PO SCH (09:21)
[2018-12-17] MEDS: [UNRECOGNIZED DRUG - REMARK] PO SCH (09:22)
[2018-12-17] MEDS: FUROSEMIDE 40 MG/4 ML INJ (LASIX) IVP SCH (09:22)
[2018-12-17] MEDS: PATIENT MAY USE OWN MED,SINGLE MED PO SCH (09:26)
[2018-12-17] MEDS: DAKIN'S 1/4 STRENGTH (0.125%) 473 ML BTL TOP SCH (09:27)
[2018-12-17] MEDS: TRIAMCINOLONE 0.1% CR (KENALOG) 15 GM TUBE TP SCH ×2 (09:28→19:42)
--- NOTE | 2018-12-17 09:48 | Diagnostic Imaging Report ---
EXAM: Portable erect AP chest at 3:52 a.m. INDICATION: Respiratory distress FINDINGS: The appearance of the chest continues to improve slowly as the right lung does seem better aerated than noted on the prior exam of 12/15/2018. There are still residual interstitial infiltrates in the right lung and, to a lesser extent, the left lung. The heart is stable. The mediastinum is widened. The osseous structures are intact. The sternotomy wires, surgical clips and the right-sided PICC line seen previously are unchanged. IMPRESSION: The appearance of the chest has improved somewhat as the right lung does seem better aerated. A followup study would be recommended for continued evaluation. Dictated by: Dictated on workstation # [id number]
--- NOTE | 2018-12-17 09:50 | Progress Note-Hospitalist ---
Subjective HPI/CC On Admission Date Seen by Provider: Dec 17, 2018 Time Seen by Provider: 09:45 Subjective/Events-last exam Pt reports feeling better today. Was attempting to do IS while I was at bedside but oxygen fell out of nose and sats quickly dropped to 80% within about 1 minute. Replaced and stayed at bedside until they improved to 90+%. No other complaints or concerns. Objective Exam Vital Signs Vital Signs Date Time Temp Pulse Resp B/P (MAP) Pulse Ox O2 Delivery O2 Flow Rate FiO2 12/17/18 09:00 66 17 148/72 (97) 95 Vapotherm 40.00 20.00 12/17/18 06:57 40 12/16/18 23:54 97.4 Capillary Refill : General Appearance: No Apparent Distress, Chronically ill, Obese Respiratory: No Accessory Muscle Use, No Respiratory Distress, Rhonci Cardiovascular: Regular Rate, Rhythm, No Murmur Gastrointestinal: Normal Bowel Sounds, No Organomegaly, Non Tender, Soft Extremity: No Calf Tenderness, No Pedal Edema Neurologic/Psychiatric: Alert, Oriented x3, Normal Mood/Affect Results/Procedures Lab Laboratory Tests 12/17/18 03:15 Patient resulted labs reviewed. Assessment/Plan Assessment and Plan Assess & Plan/Chief Complaint Acute Respiratory Failure due to pneumonia Remains on Vapotherm this AM Pulm consulted, appreciate recs Poor pulmonary reserve- dyspneic with minimal exertion Lasix given daily- trend I/Os Severe sepsis- resolving Continue on abx Afib RVR Rate controlled Cardiology consulted, appreciate recs Continue sotalol Eliquis NAA Creatinine stable Continue renally dosed meds Mild contraction alkalosis- trend slightly worse today- may need to decrease lasix if worsens tomorrow Post polio syndrome Anemia Stable in the 8s Check iron levels thrombocytosis trend, likely due to illness as is acute phase reactant Critical Care Critically Ill Patient Diagnosis/Problems Diagnosis/Problems (1) Acute respiratory failure (2) NAA (acute kidney injury) (3) Normocytic anemia (4) Streptococcal pneumonia (5) SEPSIS Status: Acute (6) Atrial fibrillation with rapid ventricular response Status: Acute (7) History of poliomyelitis Status: Chronic Clinical Quality Measures DVT/VTE Risk/Contraindication: Risk Factor Score Per Nursin RFS Level Per Nursing on Admit: 4+=Very High MARJORIE VERDIN MD Dec 17, 2018 9:50 am
--- NOTE | 2018-12-17 10:30 | NUR ---
PT TRANSFERRED TO ROOM 417 VIA BED. PT FAMILY TOOK PT PERSONAL BELONGINGS WITH PT. PT INTRODUCED TO [facility]. REPORT GIVEN TO REECE SUE FOR CONTINUING CARE.
--- NOTE | 2018-12-17 10:40 | NUR ---
Pt to room 417 via bed form ICU with RT and Lolita SUE. Report received.
--- NOTE | 2018-12-17 11:30 | Progress Note-Cardiology ---
Cardiology SOAP Progress Note Subjective: Gen malaise Mod shortness of breath No cp or palp or syncope Objective: I&O/Vital Signs 12/16/18 12/17/18 12/17/18 12/17/18 23:54 00:00 00:00 01:00 Temp 97.4 Pulse 54 56 Resp 17 20 B/P (MAP) 147/66 (93) 129/57 (81) Pulse Ox 97 97 O2 Delivery Vapotherm NIV Bilevel NIV Bilevel O2 Flow Rate 20.00 40.00 40.00 FiO2 40 12/17/18 12/17/18 12/17/18 12/17/18 01:00 02:00 03:00 03:21 Pulse 57 56 65 Resp 24 33 B/P (MAP) 148/66 (93) 166/72 (103) Pulse Ox 97 89 97 O2 Delivery NIV Bilevel NIV Bilevel Vapotherm O2 Flow Rate 40.00 40.00 20.00 FiO2 40 12/17/18 12/17/18 12/17/18 12/17/18 04:00 04:00 05:00 06:00 Pulse 64 62 68 Resp 32 23 20 B/P (MAP) 178/76 (110) 175/77 (109) 167/70 (102) Pulse Ox 94 99 93 O2 Delivery Vapotherm Vapotherm Vapotherm Vapotherm O2 Flow Rate 20.00 40.00 40.00 40.00 20.00 20.00 20.00 FiO2 40 12/17/18 12/17/18 12/17/18 12/17/18 06:57 07:00 07:00 08:00 Pulse 68 69 76 Resp 34 21 B/P (MAP) 172/71 (104) 182/89 (120) Pulse Ox 99 91 91 O2 Delivery Vapotherm Vapotherm Vapotherm O2 Flow Rate 20.00 40.00 40.00 20.00 20.00 FiO2 40 12/17/18 12/17/18 12/17/18 12/17/18 08:00 08:00 08:51 09:00 Temp 96.9 Pulse 73 66 Resp 26 17 B/P (MAP) 148/72 (97) Pulse Ox 91 95 O2 Delivery Vapotherm Vapotherm O2 Flow Rate 20.00 50.00 40.00 20.00 FiO2 40 12/17/18 12/17/18 10:18 11:19 Pulse Ox 97 98 O2 Delivery OxyMask OxyMask O2 Flow Rate 15.00 10.00 12/17/18 00:00 Intake Total 1570 ml Output Total 1450 ml Balance 120 ml Weight (Pounds): 201 Weight (Ounces): 0.0 Weight (Calculated Kilograms): 91.846734 Constitutional: AAO x 3, well-developed, well-nourished Respiratory: No accessory muscle use, No respiratory distress; chest expansion is symmetric, chest is bilaterally symmetric, other (good air entry with coarse breath sounds) Cardiovascular: regular rate-rhythm; No JVD; S1 and S2, systolic murmur Gastrointestional: No tender; round, audible bowel sounds Extremities: no lower extremity edema bilateral Neurologic/Psychiatric: grossly intact, power is 5/5 both on sides Skin: No rash on exposed areas, No ulcerations on exposed areas Results/Procedures: Labs Laboratory Tests 12/17/18 03:15: White Blood Count 12.6H, Red Blood Count 2.84L, Hemoglobin 8.7L, Hematocrit 28L, Mean Corpuscular Volume 100H, Mean Corpuscular Hemoglobin 31, Mean Corpuscular Hemoglobin Concent 31L, Red Cell Distribution Width 15.2H, Platelet Count 531H, Mean Platelet Volume 8.3, Neutrophils (%) (Auto) 79H, Lymphocytes (%) (Auto) 7L, Monocytes (%) (Auto) 13H, Eosinophils (%) (Auto) 1, Basophils (%) (Auto) 0, Neutrophils # (Auto) 9.9H, Lymphocytes # (Auto) 0.9L, Monocytes # (Auto) 1.7H, Eosinophils # (Auto) 0.1, Basophils # (Auto) 0.1, Sodium Level 144, Potassium Level 3.8, Chloride Level 99, Carbon Dioxide Level 37H, Anion Gap 8, Blood Urea Nitrogen 25H, Creatinine 1.56H, Estimat Glomerular Filtration Rate 43, BUN/Creatinine Ratio 16, Glucose Level 103, Calcium Level 8.2L, Phosphorus Level 2.1L, Magnesium Level 2.3 12/17/18 10:20: Microbiology 12/14/18 Blood Culture - Preliminary, Resulted No growth 12/16/18 C. difficile GDH Antigen & Toxins - Final, Complete 12/10/18 MRSA Screen - Final, Complete MRSA not isolated 12/14/18 Urine Culture - Final, Complete NO GROWTH Laboratory Tests 12/16/18 03:04 12/17/18 03:15 A/P: Assessment: Ac resp failure and multifactorial shortness of breath: sepsis, PAF, anemia, renal insuff, ac cooper CHF PA-fib - currently SR with controlled rate Ac renal insufficiency - Med Svce managing Pneumonia and sepsis - Medical & Pulmonary services managing Echo 12/09/18: LVEF 55-60%, mild MR, mild enlargement of LA, RVSP 38 mmHg L leg cellulitis - management per Medical services UTI - management per Medical services Stroke prophylaxis with apixaban CAD - H/O CABG x [address] Huang at [facility], [place] - reports recent MPI in the last [address] Lopez (reported to be normal) Sleep apnea - CPAP tx Plan: * Complex management due to multiple comorbidities * Continue current regimen * Monitor labs * I spoke with him and his and daugters today and answered questions BRENDA VANN MD FACP [facility] Dec 17, 2018 11:30
--- NOTE | 2018-12-17 11:48 | Physical Therapy Daily Note ---
PT Daily Note-Current Subjective Pt. in bed and agrees to therapy. He denies pain. Mental Status Patient Orientation: Normal For Age Attachments: Oxygen Transfers Therapy Code Descriptions/Definitions Functional [place] Measure: 0=Not Assessed/NA 4=Minimal Assistance 1=Total Assistance 5=Supervision or Setup 2=Maximal Assistance 6=Modified [place] 3=Moderate Assistance 7=Complete [place] Therapy Quality Codes: 6 Independent with activity with or without an assistive device 5 Patient requires set up or clean up by helper. Patient completes activity by themselves 4 Supervision or touching assist (CGA). [place] provide cues , steadying justin t 3 The helper provides less than half the effort to complete the activity 2 The helper provides more than half the effort to complete the activity 1 Dependent. The helper does all the effort to complete an activity 7 Patient refused to complete or attempt activity 9 The patient did not perform the activity before the current illness or injury 88 Not attempted due to Medical conditions or safety concerns Transfers (B, C, W/C) (FIM): 1 Supine to/from Sit: 2 Bed to/from Chair: 1 max assist x 2 bed to chair transfer using swing pivot Treatments transfers Assessment Current Status: Fair Progress Pt. continues to require max assist x 2 with out of bed transfers. Pt. had poor sitting balance at EOB requiring mod A to maintain upright position. Pt. up in chair post session with call light and all needs met. PT Short Term Goals Short Term Goals Time Frame: Dec 16, 2018 Transfers (B,C,W/C) (FIM): 3 Gait (FIM): 1 Gait Distance Comment: 3' Gait Level of Assist: 3 Gait Assistive Device: FWW PT Plan Treatment/Plan Treatment Plan: Continue Plan of Care Treatment Plan: Bed Mobility, Concurrent Therapy, Education, Functional Activity Janny, Functional Strength, Gait, Safety, Therapeutic Exercise, Transfers Treatment Duration: Dec 16, 2018 Frequency: 6 times per week Estimated Hrs Per Day: .25 hour per day Patient and/or Family Agrees t: Yes Time/GCodes Time In: 1115 Time Out: 1130 Total Billed Treatment Time: 15 Total Billed Treatment 1, FA 15' BARTOLOME ZARATE PT Dec 17, 2018 11:48
--- NOTE | 2018-12-17 14:18 | Occupational Ther Daily Note ---
OT Current Status-Daily Note Subjective pt laying in bed upon OT arrival in no apparent distress. pt agreed to OT TX session with focus on increase independence with HEP and increase UE strength/ activity tolerance for daily activities.s pt reports no pain this date. Mental Status/Objective Therapy Code Descriptions/Definitions Functional [place] Measure: 0=Not Assessed/NA 4=Minimal Assistance 1=Total Assistance 5=Supervision or Setup 2=Maximal Assistance 6=Modified [place] 3=Moderate Assistance 7=Complete [place] Attachments: Oxygen Other Treatment pt eduction on HEP with yellow theraband. pt perform 10X2 shoulder flex/ EXT/ ABD/ ADD with increase rest break between set for activity tolerance. pt require d cuing for each ex and noted no carry through of ex noted. noted pt tends to hold breath during activity and requires cuing to breath. pt laying in bed post OT session, all needs met. pt present in room. Education OT Patient Education: Exercise program, Progress toward Goal/Update tx plan, Purpose of tx/functional activities Teaching Recipient: Patient Teaching Methods: Demonstration, Discussion Response to Teaching: Reinforcement Needed OT Short Term Goals Short Term Goals Eating(FIM): 6 Grooming(FIM): 4 Bathing(FIM): 3 Upper Body Dressing(FIM): 3 Lower Body Dressing(FIM): 3 Toileting(FIM): 3 Transfers (B,C,W/C) (FIM): 3 Toilet/Commode Transfer(FIM): 2 1=Demonstrate adherence to instructed precautions during ADL tasks. 2=Patient will verbalize/demonstrate understanding of assistive devices/modifications for ADL. 3=Patient will improve strength/tolerance for activity to enable patient to perform ADL's. OT Critical Care Physician Assistant Goals Critical Care Physician Assistant Goals Eating (FIM): 7 Grooming(FIM): 6 Bathing(FIM): 5 Upper Body Dressing(FIM): 5 Lower Body Dressing(FIM): 5 Toileting(FIM): 5 Transfers (B,C,W/C) (FIM): 5 Toilet/Commode Transfer(FIM): 5 1=Demonstrate adherence to instructed precautions during ADL tasks. 2=Patient will verbalize/demonstrate understanding of assistive devices/modifications for ADL. 3=Patient will improve strength/tolerance for activity to enable patient to perform ADL's. OT Education/Plan Problem List/Assessment Assessment: Decreased Activ Tolerance, Decreased Safety Aware, Decreased UE Strength, Dependent Transfers pt present with functional limitations affecting areas of ADLs and functional transfers with deficits in the above mention. pt would benefit from continued OT Services to increase independence with ADLs//. functional transfers. pt is NOT safe to return home at this time. Discharge Recommendations Plan/Recommendations: Continue POC Therapy D/C Recommendations: 24 hr Supervision Treatment Plan/Plan of Care Treatment,Training & Education: Yes Patient would benefit from OT for education, treatment and training to promote independence in ADL's, mobility, safety and/or upper extremity function for ADL's. Plan of Care: ADL Retraining, Caregiver Training, Concurrent Therapy, Functional Mobility, Group Exercise/Act as Ind, UE Funct Exercise/Act Treatment Duration: Dec 30, 2018 Frequency: 5 times per week Estimated Hrs Per Day: .25 hour per day Agreement: Yes Rehab Potential: Fair Time/GCodes Start Time: 13:25 Stop Time: 13:50 Billed Treatment Time EX 25 minutes, 2 units BRANNON DUGAN OT Dec 17, 2018 14:18
[2018-12-17] MEDS: ATORVASTATIN 20 MG (LIPITOR) TABLET PO SCH (19:42)
[2018-12-18] MEDS: NYSTATIN ORAL SUSP 5 ML UDC PO SCH ×2 (00:15→05:49)
[2018-12-18] MEDS: RT-ALBUTEROL/IPRATROPIUM 3 ML (DUONEB) VIAL INH SCH ×2 (01:51→06:59)
[2018-12-18 03:32] VITALS: BP 136/64
[2018-12-18] MEDS: KCL 20 MEQ TAB (K-DUR) PO SCH (05:46)
[2018-12-18] MEDS: MAGNESIUM 1 GM/100 ML IVPB 100 ML IV SCH (05:46)
[2018-12-18] MEDS: POTASSIUM CL 10MEQ/50ML IVPB 50 ML IV SCH (05:46)
[2018-12-18 05:59] LABS: BASOPHILS % (AUTO) 0 % (0-10); EOSINOPHILS % (AUTO) 0 % (0-10); HEMATOCRIT 25 % (40-54); HEMOGLOBIN 7.8 G/DL (13.3-17.7); LYMPHOCYTES # (AUTO) 1.1 X 10^3 (1.0-4.0); LYMPHOCYTES % (AUTO) 9 % (12-44); MEAN CORPUSCULAR HEMOGLOBIN 31 PG (25-34); MEAN CORPUSCULAR HGB CONC 31 G/DL (32-36); MEAN CORPUSCULAR VOLUME 100 FL (80-99); MEAN PLATELET VOLUME 8.5 FL (7.4-10.4); MONOCYTES # (AUTO) 1.4 X 10^3 (0.0-1.0); MONOCYTES % (AUTO) 11 % (0-12); NEUTROPHILS # (AUTO) 9.6 X 10^3 (1.8-7.8); NEUTROPHILS % (AUTO) 79 % (42-75); PLATELET COUNT 420 10^3/uL (130-400); RED CELL DISTRIBUTION WIDTH 14.9 % (10.0-14.5); WHITE BLOOD COUNT 12.2 10^3/uL (4.3-11.0)
[2018-12-18 06:14] LABS: CALCIUM 7.9 MG/DL (8.5-10.1); CREATININE SERUM 1.52 MG/DL (0.60-1.30); PHOSPHORUS 2.5 MG/DL (2.3-4.7); POTASSIUM 3.4 MMOL/L (3.6-5.0)
[2018-12-18] MEDS: PIPERACILLIN/TAZOBACTAM (BULK) 4.5 GM in NS (IVPB) 100 ML IV SCH (06:14)
--- NOTE | 2018-12-18 07:06 | NUR ---
patient is resting at this time with Bipap on at 40% and satting 96% so RT decreased O2 from 40% to 30%
--- NOTE | 2018-12-18 07:27 | Pulmonary Progress Note ---
Subjective Time Seen by a Provider: 07:27 Subjective/Events-last exam No complications noted. Sepsis Event Evaluation Height, Weight, BMI Height: 5'8.00" Weight: 201lbs. 0.0oz. 91.811891qi; 28.8 BMI Method: Exam Exam Vital Signs Date Time Temp Pulse Resp B/P (MAP) Pulse Ox O2 Delivery O2 Flow Rate FiO2 12/18/18 07:00 56 12/18/18 06:59 70 18 96 40.00 12/18/18 03:32 97.5 75 16 136/64 (88) 95 NIV Bilevel 12/18/18 01:54 63 16 95 40.00 12/18/18 01:00 62 12/17/18 23:54 98.4 60 16 158/70 (99) 94 Vapotherm 40.00 20.00 12/17/18 20:58 95 OxyMask 5.00 12/17/18 20:54 OxyMask 5.00 12/17/18 19:56 98.7 65 20 173/81 (111) 95 Vapotherm 40.00 20.00 12/17/18 19:00 63 12/17/18 15:39 98.0 63 20 155/68 (97) 99 Vapotherm 40.00 20.00 12/17/18 13:50 98 OxyMask 5.00 12/17/18 13:45 68 98 12/17/18 12:47 68 12/17/18 12:00 97.0 65 28 171/80 (110) 100 Vapotherm 40.00 20.00 12/17/18 11:19 98 OxyMask 10.00 12/17/18 10:18 97 OxyMask 15.00 12/17/18 09:00 66 17 148/72 (97) 95 Vapotherm 40.00 20.00 12/17/18 08:51 73 26 91 50.00 12/17/18 08:00 96.9 12/17/18 08:00 Vapotherm 20.00 40 12/17/18 08:00 76 21 182/89 (120) 91 Vapotherm 40.00 20.00 I & O 12/18/18 07:00 Intake Total 2440 ml Output Total 1920 ml Balance 520 ml Height & Weight Height: 5'8.00" Weight: 201lbs. 0.0oz. 91.856883cs; 28.8 BMI Method: General Appearance: No Apparent Distress, WD/WN, Chronically ill, Obese Respiratory: No Accessory Muscle Use, No Respiratory Distress, Rhonci Cardiovascular: Regular Rate, Rhythm, No Murmur Gastrointestinal: normal bowel sounds, non tender, no organomegaly Extremity: No Calf Tenderness, No Pedal Edema Neurologic/Psychiatric: Alert, Oriented x3, Normal Mood/Affect Results Lab Laboratory Tests 12/17/18 03:15 12/18/18 05:53 Assessment/Plan Assessment/Plan Severe sepsis with PNA - -12/07 Zosyn -IVF - hep locked -Repeat [facility] cultures Respiratory failure -BiPAP QHS and PRN -Vapotherm during the day -Persistent bilateral infiltrates per CXR. Pt has little reserve Pulmonary edema from IVF EF 60% per echo -Continue Lasix Hypokalemia/hypomag -replace Anemia -Monitor Atelectasis -IS and easy pap Cellulitis LLL Thrush -Nystatin S/S Afib RVR - now converted -Cardizem gtt -Cardiology following Hx of childhood polio Debility/weakness -PT/OT ROSE -CPAP DANIELITO DELGADILLO DO Dec 18, 2018 07:27
[2018-12-18 08:00] VITALS: BP 159/79
[2018-12-18] MEDS: DAKIN'S 1/4 STRENGTH (0.125%) 473 ML BTL TOP SCH (08:51)
[2018-12-18] MEDS: APIXABAN 2.5 MG (ELIQUIS) TABLET PO SCH (08:52)
[2018-12-18] MEDS: FUROSEMIDE 40 MG/4 ML INJ (LASIX) IVP SCH (08:52)
[2018-12-18] MEDS: TRIAMCINOLONE 0.1% CR (KENALOG) 15 GM TUBE TP SCH (08:52)
[2018-12-18] MEDS: SOTALOL 80 MG (BETAPACE) TAB PO SCH (08:52)
[2018-12-18] MEDS: SERTRALINE 50 MG (ZOLOFT) TABLET PO SCH (08:53)
[2018-12-18] MEDS: PANTOPRAZOLE 40 MG (PROTONIX) TAB PO SCH (08:53)
[2018-12-18] MEDS: [UNRECOGNIZED DRUG - REMARK] PO SCH (08:54)
[2018-12-18] MEDS ORDERED: NS IV 500 ML 500 ML IV SCH (09:31)
[2018-12-18] MEDS ORDERED: FUROSEMIDE 40 MG/4 ML INJ (LASIX) IVP ONE (09:45)
--- NOTE | 2018-12-18 09:48 | Physical Therapy Daily Note ---
PT Daily Note-Current Subjective Patient is on mask O2 and agrees to PT. Spouse present Mental Status Patient Orientation: Normal For Age Attachments: Oxygen, [place] Catheter, IV Transfers Therapy Code Descriptions/Definitions Functional [place] Measure: 0=Not Assessed/NA 4=Minimal Assistance 1=Total Assistance 5=Supervision or Setup 2=Maximal Assistance 6=Modified [place] 3=Moderate Assistance 7=Complete [place] Therapy Quality Codes: 6 Independent with activity with or without an assistive device 5 Patient requires set up or clean up by helper. Patient completes activity by themselves 4 Supervision or touching assist (CGA). [place] provide cues , steadying assist 3 The helper provides less than half the effort to complete the activity 2 The helper provides more than half the effort to complete the activity 1 Dependent. The helper does all the effort to complete an activity 7 Patient refused to complete or attempt activity 9 The patient did not perform the activity before the current illness or in jury 88 Not attempted due to Medical conditions or safety concerns Transfers (B, C, W/C) (FIM): 2 Scootin Rollin Supine to/from Sit: 2 Sit to/from Stand: 2 Bed to/from Chair: 2 patient requires max assist with all mobility and is retropulsive with sit to stand and SPT bed to recliner Exercises Seated Therapy Exercises: Ankle pumps, Long arc quads, Hip flexion Seated Reps: 15 Assessment Patient tolerated increase in activity and is up in recliner with needs met. PT Short Term Goals Short Term Goals Time Frame: Jan 02, 2019 Transfers (B,C,W/C) (FIM): 3 Gait (FIM): 1 Gait Distance Comment: 3' Gait Level of Assist: 3 Gait Assistive Device: FWW PT Plan Treatment/Plan Treatment Plan: Discontinue PT, goals met Treatment Plan: Bed Mobility, Concurrent Therapy, Education, Functional Activity Janny, Functional Strength, Gait, Safety, Therapeutic Exercise, Transfers Treatment Duration: Jan 02, 2019 Frequency: 6 times per week Estimated Hrs Per Day: .25 hour per day Patient and/or Family Agrees t: Yes Time/GCodes Time In: 842 Time Out: 854 Total Billed Treatment Time: 12 Total Billed Treatment 1 visit FA 12 min SHEA HOWARD PT Dec 18, 2018 09:48
--- NOTE | 2018-12-18 10:28 | NUR ---
Swing Bed Note: Qualifies for swing bed for continued IV ABX (Pneumonia with Sepsis, Debility) and PT et OT for continued strengthening d/t extended period of illness with weakness et history of Polio. Will admit to swing bed today. Thank you for this referral!
--- NOTE | 2018-12-18 10:59 | Discharge Summary-Hospitalist ---
Diagnosis/Chief Complaint Date of Admission Dec 07, 2018 at 11:56 pm Date of Discharge Admission Diagnosis 1.apparent bacteremia. 2.severe sepsis by definition. 3.history of atrial fibrillation. 4.history of childhood polio. Discharge Diagnosis (1) Acute respiratory failure (2) NAA (acute kidney injury) (3) Normocytic anemia (4) Streptococcal pneumonia (5) SEPSIS Status: Acute (6) Atrial fibrillation with rapid ventricular response Status: Acute (7) History of poliomyelitis Status: Chronic Discharge Summary Discharge Physical Exam Allergies: Coded Allergies: No Known Drug Allergies (Unverified , 12/07/18) Vitals & I&Os Vital Signs Date Time Temp Pulse Resp B/P (MAP) Pulse Ox O2 Delivery O2 Flow Rate FiO2 12/18/18 08:36 94 Nasal Cannula 5.00 12/18/18 08:34 58 22 12/18/18 08:00 97.6 159/79 (105) 12/17/18 08:00 40 Hospital Course Labs (last 24 hrs) Laboratory Tests 12/18/18 05:53: White Blood Count 12.2H, Red Blood Count 2.51L, Hemoglobin 7.8L, Hematocrit 25L, Mean Corpuscular Volume 100H, Mean Corpuscular Hemoglobin 31, Mean Corpuscular Hemoglobin Concent 31L, Red Cell Distribution Width 14.9H, Platelet Count 420H, Mean Platelet Volume 8.5, Neutrophils (%) (Auto) 79H, Lymphocytes (%) (Auto) 9L, Monocytes (%) (Auto) 11, Eosinophils (%) (Auto) 0, Basophils (%) (Auto) 0, Neutrophils # (Auto) 9.6H, Lymphocytes # (Auto) 1.1, Monocytes # (Auto) 1.4H, Eosinophils # (Auto) 0.0, Basophils # (Auto) 0.0, Sodium Level 143, Potassium Level 3.4L, Chloride Level 98, Carbon Dioxide Level 37H, Anion Gap 8, Blood Urea Nitrogen 24H, Creatinine 1.52H, Estimat Glomerular Filtration Rate 45, BUN/Creatinine Ratio 16, Glucose Level 100, Calcium Level 7.9L, Phosphorus Level 2.5, Magnesium Level 2.0 Microbiology 12/14/18 Blood Culture - Preliminary, Resulted No growth 12/16/18 C. difficile GDH Antigen & Toxins - Final, Complete 12/10/18 MRSA Screen - Final, Complete MRSA not isolated 12/14/18 Urine Culture - Final, Complete NO GROWTH Patient resulted labs reviewed. Pending Labs Laboratory Tests 12/18/18 05:53: White Blood Count 12.2, Red Blood Count 2.51, Hemoglobin 7.8, Hematocrit 25, Mean Corpuscular Volume 100, Mean Corpuscular Hemoglobin 31, Mean Corpuscular Hemoglobin Concent 31, Red Cell Distribution Width 14.9, Platelet Count 420, Mean Platelet Volume 8.5, Neutrophils (%) (Auto) 79, Lymphocytes (%) (Auto) 9, Monocytes (%) (Auto) 11, Eosinophils (%) (Auto) 0, Basophils (%) (Auto) 0, Neutrophils # (Auto) 9.6, Lymphocytes # (Auto) 1.1, Monocytes # (Auto) 1.4, Eosinophils # (Auto) 0.0, Basophils # (Auto) 0.0, Sodium Level 143, Potassium Level 3.4, Chloride Level 98, Carbon Dioxide Level 37, Anion Gap 8, Blood Urea Nitrogen 24, Creatinine 1.52, Estimat Glomerular Filtration Rate 45, BUN/Creatinine Ratio 16, Glucose Level 100, Calcium Level 7.9, Phosphorus Level 2.5, Magnesium Level 2.0 Discharge Home Medications: Active Scripts Active Reported Triamcinolone Acetonide 0.1% Cream (Triamcinolone Acet) 15 Gm Cr TP UD USES ON FACE & CHEST 2X DAILY X 2 WEEKS THEN ON ARMS 2X DAILY X 2 WEEKS (ALTERNATES LOCATIONS WITH FLUOROURACIL CREAM) Acetaminophen 500 Mg Tablet 1,000 Mg PO Q8H PRN Warfarin Sodium 3 Mg Tablet 4.5 Mg PO SUTUWETHFRSA Atorvastatin Calcium 20 Mg Tablet 20 Mg PO DAILY Telmisartan-Hctz 80-12.5 mg Tb (Telmisartan/Hydrochlorothiazid) 1 Each Tablet 1 Tab PO DAILY Amlodipine Besylate 5 Mg Tablet 5 Mg PO DAILY Fluorouracil 40 Gm Cream..g. TOP UD USES ON FACE & CHEST 2X DAILY X 2 WEEKS THEN ON ARMS 2X DAILY X 2 WEEKS (ALTERNATES LOCATIONS WITH TRIAMCINOLONE CREAM) Warfarin Sodium 3 Mg Tablet 3 Mg PO MO Toviaz (Fesoterodine Fumarate) 4 Mg Tab.sr.24h 4 Mg PO DAILY Sertraline HCl 25 Mg Tablet 25 Mg PO DAILY Sotalol (Sotalol HCl) 80 Mg Tablet 80 Mg PO BID Instructions to patient/family Please see electronic discharge instructions given to patient. Clinical Quality Measures DVT/VTE Risk/Contraindication: Risk Factor Score Per Nursin RFS Level Per Nursing on Admit: 4+=Very High MARJORIE VERDIN MD Dec 18, 2018 10:59 am
[2018-12-18] MEDS ORDERED: APIX2.5T PO (11:03)
== END 2018-12-18 11:36 | disposition swing bed (61) | DRG 871 ==
LOC: 4TH 23:56 → ICU 12-08 16:34 → 4TH 12-17 10:36
PROVIDERS: ADMIT Internal Medicine; ATTEND Family Medicine
DX: A40.3 Sepsis due to Streptococcus pneumoniae (principal); R65.20 Severe sepsis without septic shock; J98.11 Atelectasis; L03.116 Cellulitis of left lower limb; B37.0 Candidal stomatitis; J81.1 Chronic pulmonary edema; N17.9 Acute kidney failure, unspecified; N39.0 Urinary tract infection, site not specified; L97.229 Non-pressure chronic ulcer of left calf with unspecified severity; J15.4 Pneumonia due to other streptococci; J96.01 Acute respiratory failure with hypoxia; I50.31 Acute diastolic (congestive) heart failure; I48.0 Paroxysmal atrial fibrillation; G47.33 Obstructive sleep apnea (adult) (pediatric); I25.10 Atherosclerotic heart disease of native coronary artery without angina pectoris; M62.561 Muscle wasting and atrophy, not elsewhere classified, right lower leg; B91 Sequelae of poliomyelitis; H35.30 Unspecified macular degeneration; G47.30 Sleep apnea, unspecified; E87.6 Hypokalemia; T50.2X5A Adverse effect of carbonic-anhydrase inhibitors, benzothiadiazides and other diuretics, initial encounter; Z95.1 Presence of aortocoronary bypass graft; Z79.01 Long term (current) use of anticoagulants; Z98.890 Other specified postprocedural states; E83.42 Hypomagnesemia; D64.9 Anemia, unspecified; R53.1 Weakness; D47.3 Essential (hemorrhagic) thrombocythemia; N18.3 Chronic kidney disease, stage 3 (moderate); R19.7 Diarrhea, unspecified
CPT/HCPCS: 36415; 36569; 36600; 71045; 71260; 74177; 76937; 80048; 80053; 80202; 81000; 82040; 82728; 82805; 83540; 83605; 83735; 83880; 84100; 84443; 84484; 85007; 85018; 85025; 85027; 85610; 85730; 86850; 86900; 86901; 86920; 87040; 87081; 87088; 87324; 87449; 93005; 93306; 94640; 94660

== ENCOUNTER 2018-12-18 10:21 | Inpatient (IN) | payer MEDICARE, BC ==
[~2018-12-18] VITALS: Ht 172.7 cm; Wt 91.2 kg
[~2018-12-18 10:21] MED LIST: ACET-93 PO; AMLO5TAB9 PO; ATOR20TA66 PO; FESO4TAB PO; FLUO40CR8 TOP; SERT25TA5 PO; SOTA80TA62 PO; TELM1TAB27 PO; TR1C15 TP; WARF3TAB56 PO
[2018-12-18] MEDS ORDERED: APIX2.5T PO (11:03)
[2018-12-18] MEDS ORDERED: PIPERACILLIN/TAZOBACTAM (BULK) 4.5 GM in NS (IVPB) 100 ML IV SCH (11:45)
[2018-12-18] MEDS ORDERED: NS IV 500 ML 500 ML IV SCH (11:45)
[2018-12-18] MEDS ORDERED: RT-ALBUTEROL/IPRATROPIUM 3 ML (DUONEB) VIAL INH PRN (11:45)
[2018-12-18 12:00] VITALS: BP 151/77
--- OUTSIDE RECORDS SUMMARY | 2018-12-18 12:23 | XMS REPORT | Clinical Summary ---
Author Author [facility] Organization [facility] Address Unknown Phone Unavailable Care Team Providers Care Assistant Field Hockey Coach Name Role Phone PCP Unavailable Allergies Not [...]
--- OUTSIDE RECORDS SUMMARY | 2018-12-18 12:24 | XMS REPORT | Continuity of Care Document ---
[...] REPLACED BY OTHER MEANS 04/16/2016 RANDOLPH SILVERIO Telly Z96.651 PRESENCE OF RIGHT ARTIFICIAL KNEE JOINT 05/16/2016 BHARGAVI, SERGIO Thompson 780.79 OTHER MALAISE AND FATIGUE 05/16/2016 SERGIO BURK 781.99 OTHER SYMPTOMS INVOLVING NERVOUS AND MUSCULOSKELETAL SYSTEMS 05/16/2016 SERGIO BURK R29.6 REPEATED FALLS 05/16/2016 SERGIO BURK R53.1 WEAKNESS 05/15/2017 BHARGAVISERGIO ABRAHAM 427.31 ATRIAL FIBRILLATION 05/15/2017 BHARGAVI, SERGIO Varner 715.15 OSTEOARTHROSIS, LOCALIZED, PRIMARY, INVOLVING PELVIC REGION AND THIGH 05/15/2017 BHARGAVISERGIO I48.1 PERSISTENT ATRIAL FIBRILLATION 05/15/2017 SERGIO BURK M16.12 UNILATERAL PRIMARY OSTEOARTHRITIS, LEFT HIP 07/24/2017 Robin Parrish 401.9 UNSPECIFIED ESSENTIAL HYPERTENSION 07/24/2017 Robin Parrish I10 ESSENTIAL (PRIMARY) HYPERTENSION 07/24/2017 Robin Parrish 401.9 UNSPECIFIED ESSENTIAL HYPERTENSION 07/24/2017 Robin Parrish 427.31 ATRIAL FIBRILLATION 07/24/2017 Robin Parrish I10 ESSENTIAL (PRIMARY) HYPERTENSION 07/24/2017 Robin Parrish I48.0 PAROXYSMAL ATRIAL FIBRILLATION 07/24/2017 Robin Parrish 401.9 UNSPECIFIED ESSENTIAL HYPERTENSION 07/24/2017 Robin Parrish 427.31 ATRIAL FIBRILLATION 07/24/2017 Robin Parrish I10 ESSENTIAL (PRIMARY) HYPERTENSION 07/24/2017 Robin Parrish I48.0 PAROXYSMAL ATRIAL FIBRILLATION 10/24/2018 LEISURE, FIDELIA W 274.00 GOUTY ARTHROPATHY, UNSPECIFIED 10/24/2018 LEISURE, LYNIETA W M10.0 IDIOPATHIC GOUT 10/24/2018 LEISURE, LYNIETA W M10.072 IDIOPATHIC GOUT, LEFT ANKLE AND FOOT 12/07/2018 ROSALINDA [place] 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 12/07/2018 ROSALINDA [place] 401.0 MALIGNANT ESSENTIAL HYPERTENSION 12/07/2018 ROSALINDA [place] 414.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 12/07/2018 ROSALINDA [place] 427.31 ATRIAL FIBRILLATION 12/07/2018 ROSALINDA [place] 486 PNEUMONIA, ORGANISM UNSPECIFIED 12/07/2018 ROSALINDA [place] 518.82 OTHER PULMONARY INSUFFICIENCY, NOT ELSEWHERE CLASSIFIED 12/07/2018 ROSALINDA [place] 780.60 FEVER, UNSPECIFIED 12/07/2018 ROSALINDA [place] A40.8 OTHER STREPTOCOCCAL SEPSIS 12/07/2018 [place]IN[place] I10 ESSENTIAL (PRIMARY) HYPERTENSION 12/07/2018 [place]INDA [place] 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 Results Test [...] Cholesterol 129 mg/dL 100-240 HDL 29 mg/dL - LDL-Calculated 67 mg/dL 0-100 Trig 163 mg/dL [...] Cholesterol 125 mg/dL 100-240 HDL 32 mg/dL 30- LDL-Calculated 66 mg/dL 0-100 Trig 133 mg/dL [...] - 12/07/18 09:24 Surg Path Sent to [facility] Pathology Cardiac Panel - 12/07/18 20:25 CK 50 U/L 26-174 CK-MB 1.9 ng/ml 0.0-9.2 Myoglobin 29.0 ng/ml 1.6-154.9 Troponin <0.020 ng/mL 0.0-0.4 BNP - 12/07/18 20:25 BNP 73.10 pg/ml 0.00-100.00 Blood Culture - 12/07/18 20:25 PRELIM CULTURE RESULTS Blood Culture POSITIVE, Growth Day [id number] Positive Cocci in Chains noted on Gram Stain.[id number] Testing Pending MEDIA PLATED Setup at 21:15 on 12/07/[id number] Culture Media Position B32 CULTURE SOURCE drawn @ Right Arm Arterial Blood Gas - 12/07/18 20:30 Base 3.00 mmol/L 1.80-4.20 HCO3 28 mmol/L 20-31 O2 Sat 100 15L O2 % 95-100 pCO2 52 mm/Hg 35-45 pH 7.34 7.35-7.45 PO2 203 mm/Hg 80-95 Blood Culture - 12/07/18 20:30 PRELIM CULTURE RESULTS Blood Culture POSITIVE, Growth Day 1X0D0A Gram Positive cocci in clusters noted on gram [id number] Further Testing Pending MEDIA PLATED Setup at 21:15 on 12/07/[id number] Culture Media Position C50 CULTURE SOURCE drawn @ Left Wrist (arterial blood) Sensi - 12/07/18 20:30 FINAL CULTURE RESULTS Streptococcus dysgalactiae group (Isolate 1) Ampicillin/Sulbactam N/R Ampicillin N/R Amoxicillin/K Clavulanate N/R Ceftriaxone N/R Clindamycin N/R Cefoxitin Screen N/R Ciprofloxacin N/R Daptomycin N/R Erythromycin N/R Nitrofurantoin N/R Gentamicin N/R Gentamicin Synergy Screen N/R Inducible Clindamycin N/R Levofloxacin N/R Linezolid N/R Moxifloxacin N/R Oxacillin N/R Penicillin N/R Rifampin N/R Streptomycin Synergy N/R Synercid N/R Trimethoprim/ Sulfamethoxazole N/R Tetracycline N/R Vancomycin N/R EKG - 12/07/18 20:51 EKG Complete Urinalysis [...] 5-8.5 Urine-Protein Negative Negative Urine-RBC 0-2/HPF Urine-Specific [place] 1.020 1.000-1.030 Urine-WBC 0-2/HPF Urobilinogen 0.2 0.2-1.0 Urine Culture - 12/07/18 21:25 PRELIM CULTURE RESULTS No Growth 24 hours FINAL CULTURE RESULTS No Growth 48 hours MEDIA PLATED Setup at 21:55 on 12/07/2018 CULTURE SOURCE cath urine Encounters ACCT No. Visit Date/Time Discharge Status Pt. Type Provider Facility Loc./Unit Complaint [id number] 12/07/2018 20:28:00 12/07/2018 [facility]10:[id number]2018 00:00:00 12/07/2018 10:00:00 DIS Outpatient Kenneth Ricci [id number] 12/04/2018 06:37:00 12/04/2018 23:59:00 DIS Outpatient TY LEAL [id number] 12/03/2018 12:26:00 12/03/2018 23:59:00 DIS Outpatient Kenneth Ricic [id number] 11/20/2018 09:29:00 11/20/2018 23:59:00 DIS Outpatient TY LEAL [id number] 11/06/2018 08:39:00 11/06/2018 23:59:00 DIS Outpatient Josr Lopez [id number] 10/24/2018 20:52:00 10/24/2018 [facility]34[id number]2018 09:23:00 10/22/2018 23:59:00 DIS Outpatient Josr Lopez [id number] 10/15/2018 08:39:00 10/15/2018 23:59:00 DIS Outpatient Josr Lopez [id number] 09/17/2018 07:33:00 09/17/2018 23:59:00 DIS Outpatient Josr Lopez [id number] 08/18/2018 09:04:00 08/18/2018 23:59:00 DIS Outpatient Robin Parrish [id number] 08/11/2018 10:24:00 08/11/2018 23:59:00 DIS Outpatient Josr Lopez [id number] 07/20/2018 09:06:00 07/20/2018 23:59:00 DIS Outpatient Juan Joseoni, Robin [id number] 07/06/2018 09:08:00 07/06/2018 23:59:00 DIS Outpatient Josr Lopez [id number] 06/17/2018 08:39:00 06/17/2018 23:59:00 DIS Outpatient Josr Lopez [id number] 06/03/2018 09:25:00 06/03/2018 23:59:00 DIS Outpatient Paoni, Robin [id number] 05/20/2018 09:36:00 05/20/2018 23:59:00 DIS Outpatient Paoni, Robin [id number] 04/21/2018 09:11:00 04/21/2018 23:59:00 DIS Outpatient Paoni, Roibn [id number] 04/07/2018 08:26:00 04/07/2018 23:59:00 DIS Outpatient Paoni, Robin [id number] 03/24/2018 07:54:00 03/24/2018 23:59:00 DIS Outpatient Paoni, Robin [id number] 03/16/2018 07:49:00 03/16/2018 23:59:00 DIS Outpatient Juan Josekaren, Robin [id number] 03/10/2018 08:16:00 03/10/2018 23:59:00 DIS Outpatient Josr Lopez [id number] 03/03/2018 09:36:00 03/03/2018 23:59:00 DIS Outpatient Francois Robin [id number] 02/24/2018 08:45:00 02/24/2018 23:59:00 DIS Outpatient Josr Lopez [id number] 02/17/2018 07:30:00 02/17/2018 23:59:00 DIS Outpatient Francois Robin [id number] 01/22/2018 07:54:00 01/22/2018 23:59:00 DIS Outpatient RAMAKRISHNA FLORES [id number] 12/25/2017 07:30:00 12/25/2017 23:59:00 DIS Outpatient Josr Lopez [id number] 12/22/2017 07:49:00 12/22/2017 23:59:00 DIS Outpatient Josr Lopez [id number] 11/24/2017 07:05:00 11/24/2017 23:59:00 DIS Outpatient Josr Lopez [id number] 10/22/2017 08:57:00 10/22/2017 23:59:00 DIS Outpatient Josr Lopez [id number] 10/01/2017 08:49:00 10/01/2017 23:59:00 DIS Outpatient Josr Lopez [id number] 08/27/2017 09:37:00 08/27/2017 23:59:00 DIS Outpatient Josr Lopez [id number] 07/30/2017 08:34:00 07/30/2017 23:59:00 DIS Outpatient Josr Lopez [id number] 07/24/2017 08:45:00 07/24/2017 23:59:00 DIS Outpatient Robin Parrish [id number] 07/02/2017 07:35:00 07/02/2017 23:59:00 DIS Outpatient Josr Lopez [id number] 06/20/2017 07:15:00 06/20/2017 23:59:00 DIS Outpatient Josr Lopez [id number] 06/19/2017 09:31:00 06/19/2017 23:59:00 DIS Outpatient Josr Lopez [id number] 06/04/2017 12:54:00 06/04/2017 23:59:00 DIS Outpatient Josr Lopez [id number] 05/21/2017 00:00:00 05/21/2017 23:59:00 DIS Outpatient Robin Parrish [id number] 05/15/2017 10:28:00 05/15/2017 15:08:00 DIS Outpatient SERGIO BURK [id number] 05/06/2017 10:57:00 05/06/2017 23:59:00 DIS Outpatient SERGIO BURK [id number] 05/02/2017 10:37:00 05/02/2017 23:59:00 DIS Outpatient SERGIO BURK [id number] 04/23/2017 08:47:00 04/23/2017 23:59:00 DIS Outpatient Robin Parrish [id number] 04/21/2017 08:07:00 04/21/2017 23:59:00 DIS Outpatient Josr Lopez [id number] 04/10/2017 10:30:00 04/10/2017 23:59:00 DIS Outpatient Josr Lopez [id number] 03/07/2017 09:30:00 03/07/2017 23:59:00 DIS Outpatient Josr Lopez [id number] 02/07/2017 06:30:00 02/07/2017 23:59:00 DIS Outpatient John Josr [id number] 01/10/2017 07:55:00 01/10/2017 23:59:00 DIS Outpatient UNLISTEDALISSON [id number] 12/11/2016 09:03:00 12/11/2016 23:59:00 DIS Outpatient Josr Lopez [id number] 11/13/2016 07:37:00 11/13/2016 23:59:00 DIS Outpatient Josr Lopez [id number] 08/06/2016 12:49:00 11/06/2016 09:30:00 DIS Outpatient BHARGAVISERGIO ABRAHAM [id number] 10/31/2016 11:45:00 10/31/2016 23:59:00 DIS Outpatient Josr Lopez [id number] 10/10/2016 08:37:00 10/10/2016 23:59:00 DIS Outpatient Josr Lopez [id number] 10/04/2016 10:38:00 10/04/2016 23:59:00 DIS Outpatient DEMETRIUS GOFF JR [id number] 09/25/2016 07:14:00 09/25/2016 23:59:00 DIS Outpatient Josr Lopez [id number] 09/13/2016 09:47:00 09/13/2016 23:59:00 DIS Outpatient Josr Lopez [id number] 08/30/2016 06:53:00 08/30/2016 23:59:00 DIS Outpatient Josr Lopez [id number] 08/02/2016 10:59:00 08/02/2016 23:59:00 DIS Outpatient BHARGAVISERGIO ABRAHAM [id number] 07/30/2016 06:31:00 07/30/2016 23:59:00 DIS Outpatient Robin Parrish [id number] 07/12/2016 16:20:00 07/12/2016 23:59:00 DIS Outpatient Josr Lopez [id number] 07/09/2016 08:34:00 07/09/2016 23:59:00 DIS Outpatient Robin Parrish [id number] 06/18/2016 09:31:00 06/18/2016 23:59:00 DIS Outpatient Josr Lopez [id number] 06/04/2016 09:46:00 06/04/2016 23:59:00 DIS Outpatient Josr Lopez [id number] 05/14/2016 09:39:00 05/14/2016 23:59:00 DIS Outpatient Josr Lopez [id number] 05/07/2016 09:33:00 05/07/2016 23:59:00 DIS Outpatient Josr Lopez [id number] 01/18/2016 16:19:00 04/16/2016 11:30:00 DIS Outpatient RANDOLPH SILVERIO [id number] 01/19/2018 06:58:05 Document Registration [id number] 05/14/2017 14:54:15 Document Registration [id number] 10/24/2018 20:52:00 Document Registration
--- NOTE | 2018-12-18 12:29 | NUR ---
Admission Drug Regimen Review: Date: 12/18/18 Time: 1230 Review Completed, No Issues found
--- NOTE | 2018-12-18 12:35 | NUR ---
SERGIO RODAS JR admitted to swing bed status to room 417-1, with an admitting diagnosis of SWB PNEUM, POST BOWEL PERFORATION, on 12/18/18 from acute inpatient status. PT AND OT to evaluate patient for activity needs. SERGIO RODAS JR and/or family introduced to surroundings, call light, bed controls, phone, TV, temperature control, lights, meal times, smoking policy, visitor policy, side rail policy, bathrooms, and showers. Patient rights given to patient in the handbook.. SERGIO RODAS JR and/or family member verbalized understanding that [facility] is not responsible for the loss or damage to any personal effects or valuables that are kept in the patients possession during their hospitalization. SERGIO RODAS JR and/or family verbalizes understanding of the Interdisciplinary Patient Education. Patient and/or family were informed about the Rapid Response Team and its purpose. Call light with in reach and patient demonstrates understanding of how to use. SERGIO RODAS JR reports no further needs at this time.
[2018-12-18] MEDS: NYSTATIN ORAL SUSP 5 ML UDC PO SCH ×3 (13:03→23:51)
--- NOTE | 2018-12-18 13:16 | NUR ---
IRF Evaluation Order received to evaluate patient for the ARU. Chart review complete; will discuss findings with Dr. Quarles. In partnership with Faby, [facility] Coordinator met with patient and spouse to discuss details specific to rehabilitation program. Patient agreeable to therapy regimen and admission. Patient will likely swing, today, with the intention of admitting to ARU, next week. Will continue to follow patient's progress with therapy, as it relates to evaluation. Thank you for this referral.
--- NOTE | 2018-12-18 13:55 | Physical Therapy Evaluation ---
PT Evaluation-General Medical Diagnosis Admission Date Dec 18, 2018 at 11:53 Medical Diagnosis: PNA/possible bowel perforation Onset Date: Dec 07, 2018 Therapy Diagnosis Therapy Diagnosis: generalized weakness/debility Height/Weight Height (Feet): 5 Height (Inches): 8.00 Weight (Pounds): 201 Weight (Ounces): 0.0 Precautions Precautions/Isolations: Fall Prevention, Standard Precautions Weight Bear Status Right Lower Extremity: Right Full Weight Bearing Left Lower Extremity: Left Full Weight Bearing Referral Physician: Christen Reason for Referral: Evaluation/Treatment Medical History Pertinent Medical History: CAD Additional Medical History polio Current History Admit to [facility] status Reviewed History: Yes Social History Home: Single Level Current Living Status: Spouse Entry Into Home: Stairs With Railing PT Steps Into Home: 3 Prior/Core FIM Prior Level of Function Therapy Code Descriptions/Definitions Functional [place] Measure: 0=Not Assessed/NA 4=Minimal Assistance 1=Total Assistance 5=Supervision or Setup 2=Maximal Assistance 6=Modified [place] 3=Moderate Assistance 7=Complete [place] Therapy Quality Codes: 6 Independent with activity with or without an assistive device 5 Patient requires set up or clean up by helper. Patient completes activity by themselves 4 Supervision or touching assist (CGA). [place] provide cues , steadying assist 3 The helper provides less than half the effort to complete the activity 2 The helper provides more than half the effort to complete the activity 1 Dependent. The helper does all the effort to complete an activity 7 Patient refused to complete or attempt activity 9 The patient did not perform the activity before the current illness or injury 88 Not attempted due to Medical conditions or safety concerns Functional Abilities and Goals: Independent: Patient completed the activities by him/herself, with or without an assistive device, with no assistance from a helper. Needed Some Help: Patient needed partial assistance from another person to complete activities. Dependent: A helper completed the activities for the patient. Unknown: Not Applicable: Bed Mobility: 6 Transfers (B,C,W/C) (FIM): 6 Gait: 6 Stairs: 6 Indoor Mobility (Ambulation): Independent Stairs: Independent Prior Devices Use: Walker Prior Device Use: 4WW PT Evaluation-Current Subjective Patient and family agree to PT. Pain Numeric Pain Scale: 0-No Pain Location: No Pain Reported Objective Patient Orientation: Confused Problem Solving: Poor Attachments: Oxygen, [place] Catheter, IV ROM/Strength ROM Lower Extremities bilateral LE WFL (noted bilateral ankle diminished ROM secondary to polio) Strenght Lower Extremities 3-/5 grossly bilaterally Integumentary/Posture Integumentary refer to nursing notes Bowel Incontinence: Yes Bladder Incontinence: [place] Cath Posture WFL/retropulsive in sit and in stand Neuromuscular (Tone, Coordination, Reflexes) severely diminished coordination Sensory Vision: Wears Glasses Hearing: Functional Sensation Right Lower Extremit: Impaired Sensation Left Lower Extremity: Impaired Transfers Therapy Code Descriptions/Definitions Functional [place] Measure: 0=Not Assessed/NA 4=Minimal Assistance 1=Total Assistance 5=Supervision or Setup 2=Maximal Assistance 6=Modified [place] 3=Moderate Assistance 7=Complete [place] Therapy Quality Codes: 6 Independent with activity with or without an assistive device 5 Patient requires set up or clean up by helper. Patient completes activity by themselves 4 Supervision or touching assist (CGA). [place] provide cues , steadying assist 3 The helper provides less than half the effort to complete the activity 2 The helper provides more than half the effort to complete the activity 1 Dependent. The helper does all the effort to complete an activity 7 Patient refused to complete or attempt activity 9 The patient did not perform the activity before the current illness or injury 88 Not attempted due to Medical conditions or safety concerns Transfers (B, C, W/C) (FIM): 1 Scootin Rollin Roll Left to Right (QC): 2 Supine to/from Sit: 2 Sit to/from Stand: 1 (severe retropulsion with all mobility) Sit to Lying (QC): 2 Lying to Sitting/Side of Bed(Q: 2 Sit to Stand (QC): 1 Chair/Omp-bd-Pcbow Xfer(QC): 1 Gait Does the Patient Walk?: No and Walking Goal IS indicated Mode of Locomotion: Both Anticipated Mode of Locomotion: Both Balance Sitting Static: Poor Sitting Dynamic: Poor Standing Static: Poor Standing Dynamic: Poor Treatment Sit to stand dependent assist x 5 sets to increase strength and reposition in bed Assessment/Needs 78 y.o. male, will benefit from skilled PT to address functional strength and mobility to improve current LOF. Patient is severely limited with all gross motor skills and deconditioned. Rehab Potential: Fair PT Short Term Goals Short Term Goals Time Frame: Jan 01, 2019 Transfers (B,C,W/C) (FIM): 3 Gait (FIM): 1 Distance (FIM): 1=up to 49 ft Gait Distance Comment: 10 ' Gait Level of Assist: 3 Gait Assistive Device: FWW PT Prison Goals Electronic Imager Goals PT Electronic Imager Goals Time Frame: Jan 15, 2019 Transfers (B,C,W/C) (FIM): 6 Sit to Lying (QC): 6 Lying-Sitting on Side/Bed(QC): 6 Sit to Stand (QC): 6 Rollin Roll Left to Right (QC): 6 Chair/Kpg-gx-Oggmt Xfer(QC): 6 Car Transfer (QC): 6 Does the Patient Walk: Yes Gait (FIM): 2 Gait distance (FIM): 0=206-96 ft Distance: 75' Walk 10 feet (QC): 4 Walk 10ft-Uneven Surface(QC): 4 Walk 50ft with 2 Turns (QC): 4 Gait Level of Assist: 4 Gait Assistive Device: FWW PT Plan Problem List Problem List: Activity Tolerance, Functional Strength, Safety, Balance, Gait, Transfer, Bed Mobility Treatment/Plan Treatment Plan: Continue Plan of Care Treatment Plan: Bed Mobility, Education, Functional Activity Janny, Functional Strength, Gait, Safety, Therapeutic Exercise, Transfers Treatment Duration: Jan 15, 2019 Frequency: 6 times per week Estimated Hrs Per Day: .25 hour per day Patient and/or Family Agrees t: Yes Discharge Recommendations Therapy D/C Recommendations: Acute Rehab, Retirement Placement, Senior Living (TCU/NH) Time/GCodes Time In: 1245 Time Out: 1315 Total Billed Treatment Time: 30 Total Billed Treatment 1 visit EVModC 15 min FA 15 min SHEA HOWARD PT Dec 18, 2018 13:55
--- NOTE | 2018-12-18 14:08 | Occupational Therapy Eval ---
OT Evaluation-General/PLF Medical Diagnosis Admission Date Dec 18, 2018 at 11:53 Medical Diagnosis: AFIB, RVR, SEPSIS Onset Date: Dec 18, 2018 Therapy Diagnosis Therapy Diagnosis: impaired ADLs and mobility Height/Weight Height (Feet): 5 Height (Inches): 8.00 Weight (Pounds): 201 Weight (Ounces): 0.0 Precautions Precautions/Isolations: Fall Prevention, Standard Precautions Weight Bear Status Weight Bearing Restriction: Weight Bearing/Tolerated Referral Referral Reason: Activity Tolerance, Self Care, Evaluation/Treatment, Strengthening/ROM Medical History Additional Medical History CAD, polio Current History Admit to [facility] status for continued therapy and medical management. Reviewed History: Yes Social History Home: Single Level Current Living Status: Significant Other Entry Into Home: Stairs With Railing Steps Into Home: 3 ADL-Prior Level of Function Therapy Code Descriptions/Definitions Functional [place] Measure: 0=Not Assessed/NA 4=Minimal Assistance 1=Total Assistance 5=Supervision or Setup 2=Maximal Assistance 6=Modified [place] 3=Moderate Assistance 7=Complete [place] Therapy Quality Codes: 6 Independent with activity with or without an assistive device 5 Patient requires set up or clean up by helper. Patient completes activity by themselves 4 Supervision or touching assist (CGA). [place] provide cues , steadying assist 3 The helper provides less than half the effort to complete the activity 2 The helper provides more than half the effort to complete the activity 1 Dependent. The helper does all the effort to complete an activity 7 Patient refused to complete or attempt activity 9 The patient did not perform the activity before the current illness or injury 88 Not attempted due to Medical conditions or safety concerns Functional Abilities and Goals: Independent: Patient completed the activities by him/herself, with or without an assistive device, with no assistance from a helper. Needed Some Help: Patient needed partial assistance from another person to complete activities. Dependent: A helper completed the activities for the patient. Unknown: Not Applicable: ADL PLOF Comments per pt and spouse indep PLOF with ADLs and functional transfers using RW. Self Care: Independent Functional Cognition: Independent DME/Equipment: Shower Drive Self: Yes OT Current Status Subjective pt layin gin bed upon OT arrival in no appearnt distress. pt agreed to OT eval/ TX session. spouse present in room. Pain Numeric Pain Scale: 0-No Pain Mental Status/Objective Patient Orientation: Person, Place, Time, Situation Attachments: Colostomy/Ileostomy, IV, Oxygen (5L mask), Telemetry Current Glasses/Contacts: Yes (reading ) Hearing Aids: No Dentures/Partials: No Hand Dominance: Right Upper Extremity ROM WFL Upper Extremity Coordination opposition WFL Upper Extremity Sensation cornel UE WNL Upper Extremity Strength 4-/5 MMT ADL-Treatment Eating (FIM): 7 Eating (QC): 6 Grooming (FIM): 4 (washing cornel hands, wash face, comb hair, noted limited activity tolernace ) Oral Hygiene (QC): 4 Bathing (FIM): 2 Bathing Location: L Arm, R Arm, Chest Shower/Bathe Self (QC): 1 Upper Body Dressing (FIM): 1 (jacket ) Upper Body Dressing (QC): 1 Lower Body Dressing (FIM): 1 (cornel socks) Lower Body Dressing (QC): 1 On/Off Footwear (QC): 1 Toileting (FIM): 1 (required TA for eat step. noted bed dumont useage. ) Toileting Hygiene (QC): 1 Transfers (B, C, W/C) (FIM): 1 (2 person asssit ) Toilet/Commode Transfer (FIM): 0 (NT secodnary to safety) Toilet Transfer (QC): 0 (NT secodnary to safety) Shower Transfer (FIM): 0 (NT secodnary to safety) pt education on use of AE to increase independence with bathing, pt verbalized understanding but refused to complete task this date secondary to having sponge bath with [facility] [place] this [place]. pt agreed ot attempt task 12/21/18. post OT session. pt on bedpan.NSG and NSG aide aware pt is having a DM . present in room. isabel light within reach, Education OT Patient Education: Energy conservation, Modified ADL techniques, Progress toward Goal/Update tx plan, Purpose of tx/functional activities, Reviewed precautions, Safety issues Teaching Recipient: Patient Teaching Methods: Demonstration, Discussion Response to Teaching: Verbalize Understanding, Return Demonstration OT Short Term Goals Short Term Goals Grooming(FIM): 5 Bathing(FIM): 4 Upper Body Dressing(FIM): 4 Lower Body Dressing(FIM): 3 Toileting(FIM): 4 Transfers (B,C,W/C) (FIM): 3 Toilet/Commode Transfer(FIM): 3 Tub Transfer(FIM): 3 Shower Transfer(FIM): 3 Additional Short Term Goals: 1-Demonstrate ADL Tasks, 2-Verbalize Understanding, 3-ImproveStrength/Janny 1=Demonstrate adherence to instructed precautions during ADL tasks. 2=Patient will verbalize/demonstrate understanding of assistive devices/modifications for ADL. 3=Patient will improve strength/tolerance for activity to enable patient to perform ADL's. OT Churn Drill Operator Goals Longterm Goals Time Frame: Jan 08, 2019 Groomin Oral Hygiene (QC): 6 Bathing(FIM): 6 Bathing Location: L Arm, R Arm, L Upper Leg, R Upper Leg, L Lower Leg (including foot), R Lower Leg (including foot), Chest, Abdomen, Buttocks, Perineal Area Shower/Bathe Self (QC): 6 Upper Body Dressing(FIM): 6 Upper Body Dressing (QC): 6 Lower Body Dressing(FIM): 6 Lower Body Dressing (QC): 6 On/Off Footwear (QC): 6 Toileting(FIM): 6 Toileting Hygiene (QC): 6 Transfers (B,C,W/C) (FIM): 5 Toilet/Commode Transfer(FIM): 5 Toilet/Commode Transfer (QC): 5 Additional Goals: 1-Demonstrate ADL Tasks, 2-Verbalize Understanding, 3- ImproveStrength/Janny 1=Demonstrate adherence to instructed precautions during ADL tasks. 2=Patient will verbalize/demonstrate understanding of assistive devices/ modifications for ADL. 3=Patient will improve strength/tolerance for activity to enable patient to perform ADL's. OT Education/Plan Problem List/Assessment Assessment: Decreased Activ Tolerance, Decreased Safety Aware, Decreased UE Strength, Dependent Transfers, Impaired Bed Mobility, Impaired Coordination, Impaired Funct Balance, Impaired I ADL's, Impaired Self-Care Skills, Restricted Funct UE ROM pt presents with functional limitations affecting areas of ADLs and functional transfers with deficits in the above mention. pt would benefit from skilled OT services to increase independence with ADLs and functional transfers. Discharge Recommendations Plan/Recommendations: Continue POC Treatment Plan/Plan of Care Treatment,Training & Education: Yes Patient would benefit from OT for education, treatment and training to promote independence in ADL's, mobility, safety and/or upper extremity function for ADL's. Plan of Care: ADL Retraining, Caregiver Training, Functional Mobility, Group Exercise/Act as Ind, UE Funct Exercise/Act Treatment Duration: Jan 08, 2019 Frequency: 5 times per week Estimated Hrs Per Day: .5 hour per day Agreement: Yes Rehab Potential: Fair Time/GCodes Start Time: 13:00 Stop Time: 13:25 Billed Treatment Time EVM 10 minutes ADL 15 minutes, 1 unit BRANNON DUGAN OT Dec 18, 2018 14:08
[2018-12-18] MEDS: RT-ALBUTEROL/IPRATROPIUM 3 ML (DUONEB) VIAL INH SCH ×3 (15:14→21:50)
[2018-12-18] MEDS ORDERED: FUROSEMIDE 40 MG/4 ML INJ (LASIX) IVP NR (15:15)
[2018-12-18 15:20] LABS: ABG BASE EXCESS 5.5 MMOL/L (-2.5-2.5); ABG OXYGEN SATURATION 85 % (94-100); ABG PCO2 92 MMHG (35-45); ABG PO2 64 MMHG (79-93); ABG TCO2 36.5 MMOL/L (21.0-31.0); ALLENS TEST YES-POS; INSPIRED O2 100% BIPAP; VENTILATOR NO
[2018-12-18 15:21] LABS: PATIENT TEMP 97.7
[2018-12-18 15:22] LABS: ABG PH 7.18 (7.37-7.43)
--- NOTE | 2018-12-18 16:45 | Diagnostic Imaging Report ---
EXAMINATION: Chest 1 view. HISTORY: Hypoxia. COMPARISON: 12/17/2018. FINDINGS: Median sternotomy wires are aligned. Coronary artery bypass graft markers are noted. A right upper extremity peripherally inserted central catheter tip terminates in the superior vena cava. There is progressive, now moderate to severe, pulmonary edema. There is partial right lower lobe atelectasis. There are tiny bilateral pleural effusions. No pneumothorax. Heart size is unchanged. IMPRESSION: Progressive, now moderate to severe, pulmonary edema. Dictated by: Dictated on workstation # [id number]
[2018-12-18 17:15] LABS: ABG OXYGEN SATURATION 100 % (94-100); ABG PCO2 69 MMHG (35-45); ABG PO2 159 MMHG (79-93); ABG TCO2 38.4 MMOL/L (21.0-31.0)
[2018-12-18 17:16] LABS: ALLENS TEST YES-POS; INSPIRED O2 100%; PATIENT TEMP 96.8; VENTILATOR NO
[2018-12-18 17:17] LABS: ABG PH 7.33 (7.37-7.43)
--- NOTE | 2018-12-18 18:00 | NUR ---
ON BIPAP -- HELD
--- NOTE | 2018-12-18 18:07 | NUR ---
PLEASE NOTE THAT THE CRITICAL LABS WERE CALLED TO RT AND RT ADVISED DR DELGADILLO -- PT ON BIPAP AND RT MONITORING
--- NOTE | 2018-12-18 18:16 | Progress Note-Cardiology ---
Cardiology SOAP Progress Note Subjective: On BiPAP Somnolent but responsive No cp or palp or syncope Objective: I&O/Vital Signs 12/18/18 12/18/18 12/18/18 12:00 12:31 15:14 Temp 98.5 Pulse 58 59 81 Resp 20 30 B/P (MAP) 151/77 (101) Pulse Ox 97 90 O2 Delivery OxyMask O2 Flow Rate 5.00 100.00 Weight (Pounds): 201 Weight (Ounces): 0.0 Weight (Calculated Kilograms): 91.710170 Constitutional: AAO x 3, well-developed, well-nourished Respiratory: No accessory muscle use; other (fair to good air entry) Cardiovascular: regular rate-rhythm, S1 and S2, systolic murmur (soft LORRAINE at card base) Gastrointestional: No tender; soft; No guarding, No rebound; audible bowel sounds Extremities: No clubbing, No cyanosis, No significant edema Neurologic/Psychiatric: other (able to move all limbs equally) Skin: No rash on exposed areas, No ulcerations on exposed areas Results/Procedures: Labs Laboratory Tests 12/18/18 15:11: Blood Gas Puncture Site R RAD, Blood Gas Patient Temperature 97.7, Arterial Blood pH 7.18*L, Arterial Blood Partial Pressure CO2 92*H, Arterial Blood Partial Pressure O2 64L, Arterial Blood HCO3 34H, Arterial Blood Total CO2 36.5H , Arterial Blood Oxygen Saturation 85L, Arterial Blood Base Excess 5.5H, Zachery Test YES-POS, Blood Gas Ventilator Setting NO, Blood Gas Inspired Oxygen 100% BIPAP 12/18/18 16:45: Blood Gas Puncture Site RR, Blood Gas Patient Temperature 96.8, Arterial Blood pH 7.33*L, Arterial Blood Partial Pressure CO2 69H, Arterial Blood Partial Pressure O2 159H, Arterial Blood HCO3 36H, Arterial Blood Total CO2 38.4H, Arterial Blood Oxygen Saturation 100, Arterial Blood Base Excess 10.0H, Zachery Test YES-POS, Blood Gas Ventilator Setting NO, Blood Gas Inspired Oxygen 100% A/P: Assessment: Ac resp failure and multifactorial shortness of breath: sepsis, PAF, anemia, renal insuff, ac cooper CHF PA-fib - currently SR with controlled rate Ac renal insufficiency - Med Svce managing Pneumonia and sepsis - Medical & Pulmonary services managing Echo 12/09/18: LVEF 55-60%, mild MR, mild enlargement of LA, RVSP 38 mmHg L leg cellulitis - management per Medical services UTI - management per Medical services Stroke prophylaxis with apixaban CAD - H/O CABG x [address] Huang at [facility], [place] - reports recent MPI in the last [address] Lopez (reported to be normal) Sleep apnea - CPAP tx Plan: * Continue sotalol for rhythm maintenance and apixaban for stroke prophylaxis * Monitor labs from time to time BRENDA VANN MD FACP FAC CCDS Dec 18, 2018 18:16
--- NOTE | 2018-12-18 18:22 | NUR ---
THE 1530 IV LASIX 20 MG WAS GIVEN ON THE ACUTE MAR -- PRIOR TO THE CHANGE TO SWB ADMISSION
[2018-12-18] MEDS: PIPERACILLIN/TAZOBACTAM (BULK) 4.5 GM in NS (IVPB) 100 ML IV SCH ×2 (18:48→23:55)
[2018-12-18 18:59] VITALS: BP 143/72
[2018-12-18] MEDS: ATORVASTATIN 20 MG (LIPITOR) TABLET PO SCH (20:17)
[2018-12-18] MEDS: APIXABAN 2.5 MG (ELIQUIS) TABLET PO SCH (20:18)
[2018-12-18] MEDS: TRIAMCINOLONE 0.1% CR (KENALOG) 15 GM TUBE TP SCH (20:18)
--- NOTE | 2018-12-18 20:40 | Wound Care Assessment ---
Wound Care Assessment Date Seen by Provider: Dec 18, 2018 Time Seen by Provider: 20:10 Chief Complaint L calf ulcer. HPI The patient is a 78 year old male with L calf ulcer following ablation of skin lesion outside the hospital two months ago. The wound has failed to heal and appears to have a combined arterial and venous etiology. The patient's respiratory status has been so precarious that diagnostic evaluation has been postponed. He is currently on face mask ventilation. I would hold off on any vascular testing for now. The previous cellulitis is cleared. The wound is stable, though still all necrotic tissue. Past Medical History: Admits Heart Disease Review of Systems Pulmonary: Dyspnea Cardiovascular: No: Chest Pain Gastrointestinal: No: Abdominal Pain Exam Vital Signs Date Time Temp Pulse Resp B/P (MAP) Pulse Ox O2 Delivery O2 Flow Rate FiO2 12/18/18 19:25 64 22 98 75.00 12/18/18 18:59 98.5 143/72 (95) OxyMask 12/18/18 18:50 90 Capillary Refill : General Appearance: mild distress HEENT: other (Bi-PAP in place.) Neck: normal inspection Cardiovascular: systolic murmur Respiratory: decreased breath sounds Gastrointestinal: non tender Extremities: other (1.9 x 1.4 x 0.2 cm, 100% slough. periwound clear.) Results Laboratory Tests 12/18/18 15:11: Blood Gas Puncture Site R RAD, Blood Gas Patient Temperature 97.7, Arterial Blood pH 7.18*L, Arterial Blood Partial Pressure CO2 92*H, Arterial Blood Parti al Pressure O2 64L, Arterial Blood HCO3 34H, Arterial Blood Total CO2 36.5H, Arterial Blood Oxygen Saturation 85L, Arterial Blood Base Excess 5.5H, Zachery Test YES-POS, Blood Gas Ventilator Setting NO, Blood Gas Inspired Oxygen 100% BIPAP 12/18/18 16:45: Blood Gas Puncture Site RR, Blood Gas Patient Temperature 96.8, Arterial Blood pH 7.33*L, Arterial Blood Partial Pressure CO2 69H, Arterial Blood Partial Pressure O2 159H, Arterial Blood HCO3 36H, Arterial Blood Total CO2 38.4H, Arterial Blood Oxygen Saturation 100, Arterial Blood Base Excess 10.0H, Zachery Test YES-POS, Blood Gas Ventilator Setting NO, Blood Gas Inspired Oxygen 100% Assessment/Plan/Dx 1. L calf, non-healing ulcer. 2. Cellulitis L calf, resolved. 3. Atherosclerotic peripheral arterial disease with ulceration of L calf. 4. Venous insufficiency BLE. Plan: Continue Dakin's dressings. Hold arterial/venous evaluation until more clinically stable. Will follow. CATALINO MEIER MD Dec 18, 2018 20:40
--- NOTE | 2018-12-18 22:50 | NUR ---
PT ON VAPOTHERM, TELE NOTIFIED THIS RN THAT PT HR 110'S-130'S. RN IN ROOM TO ASSESS PT, NO S/S OF DISTRESS NOTED. SPO2 NOTED TO BE 87% HR 126 RR 20. PT PLACED ON BIPAP AT THIS TIME AND RT NOTIFIED. BIPAP ON SB AT BEDSIDE ON 31/01 AND 75% FIO2 SPO2 INCREASES TO 94% AFTER 2 MINUTES OF PT WEARING BIPAP. Addendum: 12/18/18 at 2309 by JOSE RIVAS RN HR DOWN TO 100
--- NOTE | 2018-12-18 23:53 | NUR ---
PT RESTING WITH EYES CLOSED AT THIS TIME ON BIPAP, NYSTATIN HELD D/T ELEVATED HR AND LOW SPO2 EARLIER IN THE SHIFT AND REQUIRING BIPAP TO MAINTAIN SPO2 AND DECREASED HR
[2018-12-19] MEDS ORDERED: DILTIAZEM 240 MG (CARDIZEM CD) CAP PO STA (00:14)
--- NOTE | 2018-12-19 00:15 | NUR ---
6804 tele notified this rn that pt in a-fib, 0012 ekg obtained shows a-fib with rate 127, tele shows afib 120's to 146. dr berg paged awating return call [address] berg orders for cardizem cd 240mg x 1 if sbp above 100, if not wait until sbp above 100 then administer. 0016 bp 108/71 hr 138 rr 20 spo2 94%. pt resting with eyes closed at this time.
[2018-12-19] MEDS: PIPERACILLIN/TAZO 4.5 GM/NS 100 ML IV SCH ×8 (00:17→17:45)
[2018-12-19] MEDS: RT-ALBUTEROL/IPRATROPIUM 3 ML (DUONEB) VIAL INH SCH ×6 (02:50→22:32)
[2018-12-19] MEDS: NYSTATIN ORAL SUSP 5 ML UDC PO SCH ×3 (05:03→17:45)
[2018-12-19 05:20] VITALS: BP 113/51
[2018-12-19] MEDS: MAGNESIUM 1 GM/100 ML IVPB 100 ML IV SCH (06:00)
[2018-12-19] MEDS: POTASSIUM CL 10MEQ/50ML IVPB 50 ML IV SCH (06:00)
[2018-12-19] MEDS: KCL 20 MEQ TAB (K-DUR) PO SCH (06:00)
--- NOTE | 2018-12-19 07:41 | Pulmonary Progress Note ---
Subjective Time Seen by a Provider: 07:41 Subjective/Events-last exam PT has worsening respiratory distress yesterday. Currently on BIPAP. Sepsis Event Evaluation Height, Weight, BMI Height: 5'8.00" Weight: 201lbs. 0.0oz. 91.785299zz; 28.8 BMI Method: Exam Exam Vital Signs Date Time Temp Pulse Resp B/P (MAP) Pulse Ox O2 Delivery O2 Flow Rate FiO2 12/19/18 05:20 98.8 64 18 113/51 (71) 97 NIV Bilevel 12/19/18 02:50 63 23 98 65.00 12/19/18 00:49 91 12/18/18 21:50 95 Vapotherm 40.00 75 12/18/18 20:20 NIV Bilevel 12/18/18 19:25 64 22 98 75.00 12/18/18 19:00 67 12/18/18 18:59 98.5 64 18 143/72 (95) 96 OxyMask 5.00 12/18/18 18:50 99 Vapotherm 40.00 90 12/18/18 15:14 81 30 90 100.00 12/18/18 12:31 59 12/18/18 12:00 98.5 58 20 151/77 (101) 97 OxyMask 5.00 I & O 12/19/18 07:00 Intake Total 2240 ml Output Total 1800 ml Balance 440 ml Height & Weight Height: 5'8.00" Weight: 201lbs. 0.0oz. 91.407103xm; 28.8 BMI Method: General Appearance: Anxious, Mild Distress, Obese HEENT: PERRL/EOMI, Normal ENT Inspection, Pharynx Normal Neck: Full Range of Motion, Non Tender, Supple Respiratory: Chest Non Tender, Crackles, Decreased Breath Sounds Cardiovascular: No Edema Capillary Refill: Less Than 3 Seconds Gastrointestinal: normal bowel sounds, non tender, soft Extremity: Normal Capillary Refill, No Pedal Edema Neurologic/Psychiatric: Alert, Oriented x3 Skin: Normal Color, Warm/Dry Lymphatic: No Adenopathy Assessment/Plan Assessment/Plan Severe sepsis with PNA - -12/07 Zosyn -IVF - hep locked -Repeat [facility] cultures Respiratory failure - Worsening episode yesterday -Repeat ABG, CXR, and labs now -BiPAP QHS and PRN -Persistent bilateral infiltrates per CXR. Pt has little reserve Pulmonary edema from IVF EF 60% per echo -Continue Lasix Hypokalemia/hypomag -replace Anemia -Monitor Atelectasis -IS and easy pap Cellulitis LLL Thrush -Nystatin S/S Afib RVR - now converted -Cardizem gtt -Cardiology following Hx of childhood polio Debility/weakness -PT/OT ROSE -CPAP DANIELITO DELGADILLO DO Dec 19, 2018 07:41
[2018-12-19 08:00] VITALS: BP 118/66
--- NOTE | 2018-12-19 08:23 | Diagnostic Imaging Report ---
INDICATION: Dyspnea. COMPARISON: 12/18/2018. DISCUSSION: Single portable upright view of the chest was obtained. Borderline cardiomegaly is stable. Median sternotomy and right upper extremity PICC line are stable. Improved aeration of the lungs with decreasing consolidation. Trace left pleural effusion is stable. No pneumothorax or osseous abnormality. IMPRESSION: 1. Improved aeration of lung with decreasing consolidation. Dictated by: Dictated on workstation # [id number]
[2018-12-19 08:24] LABS: ABG BASE EXCESS 13.2 MMOL/L (-2.5-2.5); ABG OXYGEN SATURATION 100 % (94-100); ABG PCO2 52 MMHG (35-45); ABG PH 7.48 (7.37-7.43); ABG PO2 127 MMHG (79-93); ABG TCO2 39.4 MMOL/L (21.0-31.0); ALLENS TEST YES-POS
[2018-12-19 08:25] LABS: INSPIRED O2 65% BIPAP; PATIENT TEMP 98; VENTILATOR NO
[2018-12-19] MEDS: SOTALOL 80 MG (BETAPACE) TAB PO SCH (08:45)
[2018-12-19] MEDS: TOLTERODINE LA 4 MG (DETROL) CAP PO SCH (08:45)
[2018-12-19] MEDS: PANTOPRAZOLE 40 MG (PROTONIX) TAB PO SCH (08:45)
[2018-12-19] MEDS: APIXABAN 2.5 MG (ELIQUIS) TABLET PO SCH ×2 (08:46→20:36)
[2018-12-19] MEDS: SERTRALINE 50 MG (ZOLOFT) TABLET PO SCH (08:46)
[2018-12-19] MEDS: FUROSEMIDE 40 MG/4 ML INJ (LASIX) IVP SCH (08:47)
[2018-12-19] MEDS ORDERED: DAKIN'S 1/4 STRENGTH (0.125%) 473 ML BTL TOP SCH (09:00)
[2018-12-19] MEDS ORDERED: [UNRECOGNIZED DRUG - REMARK] PO SCH (09:00)
--- NOTE | 2018-12-19 09:52 | Progress Note-Hospitalist ---
Subjective HPI/CC On Admission Date Seen by Provider: Dec 19, 2018 Time Seen by Provider: 09:47 Subjective/Events-last exam Pt is a much more alert today. No complaints. Still on BiPap. at bedside. Objective Exam Vital Signs Vital Signs Date Time Temp Pulse Resp B/P (MAP) Pulse Ox O2 Delivery O2 Flow Rate FiO2 12/19/18 08:20 57 20 93 40.00 12/19/18 08:00 98.0 118/66 (83) NIV Bilevel 12/18/18 21:50 75 Capillary Refill : Less Than 3 Seconds General Appearance: No Apparent Distress, Chronically ill, Obese HEENT: Other (on BiPAP) Neck: Full Range of Motion, Non Tender, Supple Respiratory: Rhonci, Other (on BiPAP) Cardiovascular: Regular Rate, Rhythm, No Edema Gastrointestinal: Normal Bowel Sounds, Non Tender, Soft Neurologic/Psychiatric: Alert, Oriented x3, Normal Mood/Affect Results/Procedures Lab Patient resulted labs reviewed. Assessment/Plan Assessment and Plan Assess & Plan/Chief Complaint Acute Respiratory Failure Diagnosis/Problems Diagnosis/Problems (1) Acute respiratory failure Assessment & Plan: hypercapnic and multifactorial Necessitated BiPAP last night ABG much improved today Pulm consulted, appreciate recs Qualifiers: Respiratory failure complication: hypercapnia Qualified Codes: J96.02 - Acute respiratory failure with hypercapnia (2) Normocytic anemia Assessment & Plan: s/p 1 unit yesterday labs pending (3) Streptococcal pneumonia Assessment & Plan: Continue on Zosyn (4) Atrial fibrillation with rapid ventricular response Status: Acute Assessment & Plan: in and out of a-fib on eliquis has episode of RVR last night but responded to oral cardizem Cardiology consulted, appreciate recs (5) NAA (acute kidney injury) Assessment & Plan: stable at 1.5 Today's labs pending (6) History of poliomyelitis Status: Chronic Assessment & Plan: 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
[2018-12-19] MEDS: TRIAMCINOLONE 0.1% CR (KENALOG) 15 GM TUBE TP SCH ×2 (11:12→20:37)
[2018-12-19] MEDS: PATIENT MAY USE OWN MED,SINGLE MED PO SCH (11:13)
[2018-12-19 11:36] LABS: HEMOGLOBIN 8.8 G/DL (13.3-17.7); MEAN PLATELET VOLUME 8.7 FL (7.4-10.4); RED CELL DISTRIBUTION WIDTH 17.1 % (10.0-14.5); WHITE BLOOD COUNT 20.9 10^3/uL (4.3-11.0)
[2018-12-19 11:50] LABS: ALBUMIN 3.2 GM/DL (3.2-4.5); BILIRUBIN,TOTAL 0.7 MG/DL (0.1-1.0); CREATININE SERUM 1.65 MG/DL (0.60-1.30); MAGNESIUM 1.8 MG/DL (1.8-2.4); PHOSPHORUS 1.8 MG/DL (2.3-4.7); POTASSIUM 2.9 MMOL/L (3.6-5.0); TOTAL PROTEIN 5.6 GM/DL (6.4-8.2)
[2018-12-19 12:00] VITALS: BP 115/62
--- NOTE | 2018-12-19 12:33 | Physical Therapy Daily Note ---
PT Daily Note-Current Subjective Agreeable to PT. Reports he will do what he can. PT's spouse voices concern regarding foot placement with transfers. Once pt sat EOB this visit, reported he did not feel he wanted to sit up in the chair, preferred to return to bed. Spouse was in agreeance. Mental Status Patient Orientation: Person, Place, Time, Situation Transfers Therapy Code Descriptions/Definitions Functional [place] Measure: 0=Not Assessed/NA 4=Minimal Assistance 1=Total Assistance 5=Supervision or Setup 2=Maximal Assistance 6=Modified [place] 3=Moderate Assistance 7=Complete [place] Therapy Quality Codes: 6 Independent with activity with or without an assistive device 5 Patient requires set up or clean up by helper. Patient completes activity by themselves 4 Supervision or touching assist (CGA). [place] provide cues , steadying assist 3 The helper provides less than half the effort to complete the activity 2 The helper provides more than half the effort to complete the activity 1 Dependent. The helper does all the effort to complete an activity 7 Patient refused to complete or attempt activity 9 The patient did not perform the activity before the current illness or injury 88 Not attempted due to Medical conditions or safety concerns Weight Bearing Right Lower Extremity: Right Full Weight Bearing Left Lower Extremity: Left Full Weight Bearing Treatments Pt transferred supine to sit EOB with mod assist. Pt sat EOB x 10 minutes with min assist to maintain balance and worked on trunk control, foot placment on the floor and deep breathing. Pt returned to bed with max assist. Pt positioned and with all needs met post treatment. Assessment Current Status: Fair Progress pt pleasant and cooperative. Tolerated sitting EOB fair. Too fatigued to try to get up to the chair today. PT Short Term Goals Short Term Goals Time Frame: Jan 01, 2019 Transfers (B,C,W/C) (FIM): 3 Gait (FIM): 1 Distance (FIM): 1=up to 49 ft Gait Distance Comment: 10 ' Gait Level of Assist: 3 Gait Assistive Device: FWW PT Pipeline Operator Goals Jail Goals PT Jail Goals Time Frame: Jan 15, 2019 Transfers (B,C,W/C) (FIM): 6 Gait (FIM): 2 Gait distance (FIM): 1=956-10 ft Distance: 75' Gait Level of Assist: 4 Gait Assistive Device: FWW PT Plan Problem List Problem List: Activity Tolerance, Functional Strength, Safety Treatment/Plan Treatment Plan: Continue Plan of Care Treatment Plan: Bed Mobility, Education, Functional Activity Janny, Functional Strength, Gait, Safety, Therapeutic Exercise, Transfers Treatment Duration: Jan 15, 2019 Frequency: 6 times per week Estimated Hrs Per Day: .25 hour per day Patient and/or Family Agrees t: Yes Safety Risks/Education Patient Education: Safety Issues Teaching Recipient: Patient Teaching Methods: Discussion Response to Teaching: Reinforcement Needed Time/GCodes Time In: 1040 Time Out: 1107 Total Billed Treatment Time: 27 Total Billed Treatment visit FA 27 CHAVEZ PUGA PT Dec 19, 2018 12:33
--- NOTE | 2018-12-19 14:54 | Progress Note-Cardiology ---
Cardiology SOAP Progress Note Subjective: Has had productive cough Shortness of breath with activity No cp or palp or syncope Objective: I&O/Vital Signs 12/19/18 12/19/18 12/19/18 12/19/18 02:50 05:20 07:00 07:37 Temp 98.8 Pulse 63 64 58 59 Resp 23 18 22 B/P (MAP) 113/51 (71) Pulse Ox 98 97 93 O2 Delivery NIV Bilevel O2 Flow Rate 65.00 65.00 12/19/18 12/19/18 12/19/18 12/19/18 08:00 08:20 09:00 09:54 Temp 98.0 Pulse 57 57 Resp 17 20 B/P (MAP) 118/66 (83) Pulse Ox 96 93 90 94 O2 Delivery NIV Bilevel Vapotherm Vapotherm O2 Flow Rate 40.00 25.00 25.00 FiO2 40 12/19/18 12/19/18 12/19/18 12/19/18 10:57 12:00 13:00 13:00 Temp 98.3 Pulse 82 69 82 Resp 18 B/P (MAP) 115/62 (79) Pulse Ox 90 94 O2 Delivery Vapotherm Vapotherm O2 Flow Rate 25.00 40.00 25.00 FiO2 40 12/19/18 00:00 Intake Total 1620 ml Output Total 1700 ml Balance -80 ml Weight (Pounds): 201 Weight (Ounces): 0.0 Weight (Calculated Kilograms): 91.292026 Constitutional: AAO x 3, well-developed, well-nourished Respiratory: No accessory muscle use; other (fair to good air entry) Cardiovascular: regular rate-rhythm, S1 and S2, systolic murmur (soft LORRAINE at card base) Gastrointestional: No tender; soft; No guarding, No rebound; audible bowel sounds Extremities: No clubbing, No cyanosis, No significant edema Neurologic/Psychiatric: other (able to move all limbs equally) Skin: No rash on exposed areas, No ulcerations on exposed areas Results/Procedures: Labs Laboratory Tests 12/18/18 15:11: Blood Gas Puncture Site R RAD, Blood Gas Patient Temperature 97.7, Arterial Blood pH 7.18*L, Arterial Blood Partial Pressure CO2 92*H, Arterial Blood Parti al Pressure O2 64L, Arterial Blood HCO3 34H, Arterial Blood Total CO2 36.5H, Arterial Blood Oxygen Saturation 85L, Arterial Blood Base Excess 5.5H, Zachery Test YES-POS, Blood Gas Ventilator Setting NO, Blood Gas Inspired Oxygen 100% BIPAP 12/18/18 16:45: Blood Gas Puncture Site RR, Blood Gas Patient Temperature 96.8, Arterial Blood pH 7.33*L, Arterial Blood Partial Pressure CO2 69H, Arterial Blood Partial Pressure O2 159H, Arterial Blood HCO3 36H, Arterial Blood Total CO2 38.4H, Arterial Blood Oxygen Saturation 100, Arterial Blood Base Excess 10.0H, Zachery Test YES-POS, Blood Gas Ventilator Setting NO, Blood Gas Inspired Oxygen 100% 12/19/18 08:00: Blood Gas Puncture Site RT RADIAL, Blood Gas Patient Temperature 98, Arterial Blood pH 7.48H, Arterial Blood Partial Pressure CO2 52H, Arterial Blood Partial Pressure O2 127H, Arterial Blood HCO3 38H, Arterial Blood Total CO2 39.4H, Arterial Blood Oxygen Saturation 100, Arterial Blood Base Excess 13.2H, Zachery Test YES-POS, Blood Gas Ventilator Setting NO, Blood Gas Inspired Oxygen 65% BIPAP 12/19/18 11:14: White Blood Count 20.9H, Red Blood Count 2.89L, Hemoglobin 8.8L, Hematocrit 28L, Mean Corpuscular Volume 98, Mean Corpuscular Hemoglobin 30, Mean Corpuscular Hemoglobin Concent 31L, Red Cell Distribution Width 17.1H, Platelet Count 440H, Mean Platelet Volume 8.7, Sodium Level 143, Potassium Level 2.9L, Chloride Level 97L, Carbon Dioxide Level 37H, Anion Gap 9, Blood Urea Nitrogen 24H, Creatinine 1.65H, Estimat Glomerular Filtration Rate 41, BUN/Creatinine Ratio 15, Glucose Level 164H, Calcium Level 8.0L, Corrected Calcium 8.6, Phosphorus Level 1.8L, Magnesium Level 1.8, Total Bilirubin 0.7, Aspartate Amino Transf (AST/SGOT) 18, Alanine Aminotransferase (ALT/SGPT) 29, Alkaline Phosphatase 48, B-Type Natriuretic Peptide 402.2H, Total Protein 5.6L, Albumin 3.2 Laboratory Tests 12/19/18 11:14 A/P: Assessment: Ac resp failure and multifactorial shortness of breath: sepsis, PAF, anemia, renal insuff, ac cooper CHF PA-fib - currently SR with controlled rate Ac renal insufficiency - Med Svce managing Hypokalemia Pneumonia and sepsis and L leg cellulitis - Medical & Pulmonary services managing Echo 12/09/18: LVEF 55-60%, mild MR, mild enlargement of LA, RVSP 38 mmHg UTI - management per Medical services Stroke prophylaxis with apixaban CAD - H/O CABG x [address] Huang at [facility], [place] - reports recent MPI in the last [address] Lopez (reported to be normal) Sleep apnea - CPAP tx Plan: * Continue sotalol for rhythm maintenance and apixaban for stroke prophylaxis * Replenish K * Monitor labs from time to time BRENDA VANN MD FACP FAC CCDS Dec 19, 2018 14:54
[2018-12-19] MEDS ORDERED: KCL 20 MEQ TAB (K-DUR) PO NR ×2 (15:00→18:00)
[2018-12-19 17:57] VITALS: BP 116/70
[2018-12-19] MEDS: ATORVASTATIN 20 MG (LIPITOR) TABLET PO SCH (20:36)
[2018-12-20] MEDS: morphine INJ 4 MG/ML 1 ML (VIAL/SYRINGE) IV PRN (00:24)
[2018-12-20] MEDS: NYSTATIN ORAL SUSP 5 ML UDC PO SCH ×4 (00:24→17:33)
[2018-12-20] MEDS: PIPERACILLIN/TAZO 4.5 GM/NS 100 ML IV SCH ×6 (01:57→17:33)
[2018-12-20] MEDS: RT-ALBUTEROL/IPRATROPIUM 3 ML (DUONEB) VIAL INH SCH ×6 (02:32→21:44)
[2018-12-20 06:00] VITALS: BP 127/74
[2018-12-20 06:27] LABS: HEMOGLOBIN 9.5 G/DL (13.3-17.7); MEAN PLATELET VOLUME 9.3 FL (7.4-10.4); WHITE BLOOD COUNT 20.6 10^3/uL (4.3-11.0)
[2018-12-20 06:43] LABS: CALCIUM 8.1 MG/DL (8.5-10.1); CREATININE SERUM 1.61 MG/DL (0.60-1.30); MAGNESIUM 2.2 MG/DL (1.8-2.4); PHOSPHORUS 1.6 MG/DL (2.3-4.7); POTASSIUM 4.1 MMOL/L (3.6-5.0)
[2018-12-20] MEDS: POTASSIUM CL 10MEQ/50ML IVPB 50 ML IV SCH (06:49)
[2018-12-20] MEDS: KCL 20 MEQ TAB (K-DUR) PO SCH (06:50)
[2018-12-20] MEDS: MAGNESIUM 1 GM/100 ML IVPB 100 ML IV SCH (06:50)
--- NOTE | 2018-12-20 07:53 | Pulmonary Progress Note ---
Subjective Time Seen by a Provider: 14:01 Subjective/Events-last exam Improving SOB. Sepsis Event Evaluation Height, Weight, BMI Height: 5'8.00" Weight: 201lbs. 0.0oz. 91.339539fj; 28.8 BMI Method: Exam Exam Vital Signs Date Time Temp Pulse Resp B/P (MAP) Pulse Ox O2 Delivery O2 Flow Rate FiO2 12/20/18 07:00 72 12/20/18 06:46 91 Vapotherm 30.00 45 12/20/18 06:00 99.0 82 20 127/74 (91) 92 NIV Bilevel 12/20/18 02:33 70 16 94 35.00 12/20/18 01:00 68 12/20/18 00:35 71 20 92 35.00 12/19/18 22:33 70 25 94 40.00 12/19/18 21:00 90 Vapotherm 25.00 12/19/18 20:52 73 32 92 40.00 12/19/18 19:36 91 Vapotherm 30.00 45 12/19/18 19:00 71 12/19/18 17:57 99.9 82 20 116/70 (85) 93 Vapotherm 45.00 30.00 12/19/18 15:12 89 Vapotherm 25.00 40 12/19/18 13:00 82 12/19/18 13:00 69 12/19/18 12:00 98.3 82 18 115/62 (79) 94 Vapotherm 40.00 25.00 12/19/18 10:57 90 Vapotherm 25.00 40 12/19/18 09:54 94 Vapotherm 25.00 40 12/19/18 09:00 90 Vapotherm 25.00 12/19/18 08:20 57 20 93 40.00 12/19/18 08:00 98.0 57 17 118/66 (83) 96 NIV Bilevel I & O 12/20/18 07:00 Intake Total 1870 ml Output Total 925 ml Balance 945 ml Height & Weight Height: 5'8.00" Weight: 201lbs. 0.0oz. 91.836125yl; 28.8 BMI Method: General Appearance: No Apparent Distress, Chronically ill, Obese HEENT: Other (on BiPAP) Neck: Full Range of Motion, Non Tender, Supple Respiratory: Rhonci, Other (on BiPAP) Cardiovascular: Regular Rate, Rhythm, No Edema Capillary Refill: Less Than 3 Seconds Gastrointestinal: normal bowel sounds, non tender, soft Neurologic/Psychiatric: Alert, Oriented x3, Normal Mood/Affect Results Lab Laboratory Tests 12/19/18 11:14 12/20/18 06:15 Assessment/Plan Assessment/Plan Severe sepsis with PNA - -12/07 Zosyn -IVF - hep locked -Repeat [facility] cultures Respiratory failure - Worsening episode yesterday -Repeat ABG, CXR, and labs now -BiPAP QHS and PRN / Vapotherm -Persistent bilateral infiltrates per CXR. Pt has little reserve Pulmonary edema from IVF EF 60% per echo -Continue Lasix Anemia -Monitor Atelectasis -IS and easy pap Cellulitis LLL Afib RVR - now converted -Cardiology following Hx of childhood polio Debility/weakness -PT/OT ROSE -CPAP DANIELITO DELGADILLO DO Dec 20, 2018 07:53
[2018-12-20] MEDS: TOLTERODINE LA 4 MG (DETROL) CAP PO SCH (08:49)
[2018-12-20] MEDS: FUROSEMIDE 40 MG/4 ML INJ (LASIX) IVP SCH (08:49)
[2018-12-20] MEDS: PANTOPRAZOLE 40 MG (PROTONIX) TAB PO SCH (08:49)
[2018-12-20] MEDS: SOTALOL 80 MG (BETAPACE) TAB PO SCH (08:49)
[2018-12-20] MEDS: APIXABAN 2.5 MG (ELIQUIS) TABLET PO SCH ×2 (08:49→20:02)
[2018-12-20] MEDS: SERTRALINE 50 MG (ZOLOFT) TABLET PO SCH (08:49)
[2018-12-20] MEDS: PATIENT MAY USE OWN MED,SINGLE MED PO SCH (08:52)
[2018-12-20] MEDS: DAKIN'S 1/4 STRENGTH (0.125%) 473 ML BTL TOP SCH ×2 (08:59→20:02)
[2018-12-20] MEDS: TRIAMCINOLONE 0.1% CR (KENALOG) 15 GM TUBE TP SCH ×2 (09:00→20:03)
--- NOTE | 2018-12-20 16:01 | Progress Note-Cardiology ---
Cardiology SOAP Progress Note Subjective: No cp or palp or syncope Gen weakness and malaise Short of breath with mild activity Objective: I&O/Vital Signs 12/20/18 12/20/18 12/20/18 12/20/18 06:00 06:46 07:00 09:00 Temp 99.0 Pulse 82 72 Resp 20 B/P (MAP) 127/74 (91) Pulse Ox 92 91 90 O2 Delivery NIV Bilevel Vapotherm Vapotherm O2 Flow Rate 30.00 30.00 FiO2 45 12/20/18 12/20/18 12/20/18 10:48 13:00 15:38 Pulse 70 Pulse Ox 94 95 O2 Delivery Vapotherm Vapotherm O2 Flow Rate 30.00 30.00 FiO2 45 45 12/20/18 00:00 Intake Total 1870 ml Output Total 925 ml Balance 945 ml Weight (Pounds): 201 Weight (Ounces): 0.0 Weight (Calculated Kilograms): 91.439471 Constitutional: AAO x 3, well-developed, well-nourished Respiratory: No accessory muscle use; other (fair to good air entry) Cardiovascular: regular rate-rhythm, S1 and S2, systolic murmur (soft LORRAINE at card base) Gastrointestional: No tender; soft; No guarding, No rebound; audible bowel sounds Extremities: No clubbing, No cyanosis, No significant edema Neurologic/Psychiatric: other (able to move all limbs equally) Skin: No rash on exposed areas, No ulcerations on exposed areas Results/Procedures: Labs Laboratory Tests 12/20/18 06:15: White Blood Count 20.6H, Red Blood Count 3.07L, Hemoglobin 9.5L, Hematocrit 31L, Mean Corpuscular Volume 101H, Mean Corpuscular Hemoglobin 31, Mean Corpuscular Hemoglobin Concent 31L, Red Cell Distribution Width 17.0H, Platelet Count 469H, Mean Platelet Volume 9.3, Sodium Level 143, Potassium Level 4.1, Chloride Level 103, Carbon Dioxide Level 27, Anion Gap 13, Blood Urea Nitrogen 24H, Creatinine 1.61H, Estimat Glomerular Filtration Rate 42, BUN/Creatinine Ratio 15, Glucose Level 113H, Calcium Level 8.1L, Phosphorus Level 1.6L, Magnesium Level 2.2 Laboratory Tests 12/19/18 11:14 12/20/18 06:15 A/P: Assessment: Ac resp failure and multifactorial shortness of breath: sepsis, PAF, anemia, renal insuff, ac cooper CHF PA-fib - currently SR with controlled rate Ac renal insufficiency - Med Svce managing Pneumonia and sepsis and L leg cellulitis - Medical & Pulmonary services managing Echo 12/09/18: LVEF 55-60%, mild MR, mild enlargement of LA, RVSP 38 mmHg UTI - management per Medical services Stroke prophylaxis with apixaban CAD - H/O CABG x [address] Huang at [facility], [place], [place] - reports recent MPI in the last [address] Lopez (reported to be normal) Sleep apnea - CPAP tx Plan: * Continue sotalol for rhythm maintenance and apixaban for stroke prophylaxis * Hypokalemia now corrected * Monitor labs from time to time * I spoke with him and his fam and answered CV-related questions BRENDA VANN MD FACP [facility] CCDS Dec 20, 2018 16:01
[2018-12-20 18:04] VITALS: BP 117/68
[2018-12-20] MEDS: ATORVASTATIN 20 MG (LIPITOR) TABLET PO SCH (20:02)
[2018-12-21] MEDS: PIPERACILLIN/TAZO 4.5 GM/NS 100 ML IV SCH ×6 (02:17→16:34)
[2018-12-21] MEDS: RT-ALBUTEROL/IPRATROPIUM 3 ML (DUONEB) VIAL INH SCH ×5 (02:41→20:26)
[2018-12-21] MEDS: NYSTATIN ORAL SUSP 5 ML UDC PO SCH ×4 (02:55→16:32)
[2018-12-21] MEDS: KCL 20 MEQ TAB (K-DUR) PO SCH (05:23)
[2018-12-21] MEDS: POTASSIUM CL 10MEQ/50ML IVPB 50 ML IV SCH (05:23)
[2018-12-21] MEDS: MAGNESIUM 1 GM/100 ML IVPB 100 ML IV SCH (05:23)
[2018-12-21] MEDS: morphine INJ 4 MG/ML 1 ML (VIAL/SYRINGE) IV PRN (05:36)
[2018-12-21 06:00] VITALS: BP 80/52
[2018-12-21 06:01] LABS: HEMOGLOBIN 9.2 G/DL (13.3-17.7); RED CELL DISTRIBUTION WIDTH 16.3 % (10.0-14.5); WHITE BLOOD COUNT 21.3 10^3/uL (4.3-11.0)
[2018-12-21 06:15] LABS: CREATININE SERUM 1.64 MG/DL (0.60-1.30); MAGNESIUM 1.7 MG/DL (1.8-2.4); POTASSIUM 3.3 MMOL/L (3.6-5.0)
[2018-12-21] MEDS: APIXABAN 2.5 MG (ELIQUIS) TABLET PO SCH ×2 (09:09→21:52)
[2018-12-21] MEDS: SOTALOL 80 MG (BETAPACE) TAB PO SCH (09:09)
[2018-12-21] MEDS: TOLTERODINE LA 4 MG (DETROL) CAP PO SCH (09:09)
[2018-12-21] MEDS: PANTOPRAZOLE 40 MG (PROTONIX) TAB PO SCH (09:09)
[2018-12-21] MEDS: DAKIN'S 1/4 STRENGTH (0.125%) 473 ML BTL TOP SCH ×2 (09:10→21:52)
[2018-12-21] MEDS: SERTRALINE 50 MG (ZOLOFT) TABLET PO SCH (09:10)
[2018-12-21] MEDS: TRIAMCINOLONE 0.1% CR (KENALOG) 15 GM TUBE TP SCH ×2 (09:10→21:52)
[2018-12-21] MEDS: FUROSEMIDE 40 MG/4 ML INJ (LASIX) IVP SCH (09:11)
[2018-12-21] MEDS: PATIENT MAY USE OWN MED,SINGLE MED PO SCH (09:11)
--- NOTE | 2018-12-21 10:02 | Physical Therapy Daily Note ---
PT Daily Note-Current Subjective Patient and spouse agree to PT. No c/o. Pain Numeric Pain Scale: 0-No Pain Location: No Pain Reported Mental Status Patient Orientation: Person, Time, Situation Attachments: Oxygen (vapotherm), Pickens Catheter Transfers Therapy Code Descriptions/Definitions Functional [place] Measure: 0=Not Assessed/NA 4=Minimal Assistance 1=Total Assistance 5=Supervision or Setup 2=Maximal Assistance 6=Modified [place] 3=Moderate Assistance 7=Complete [place] Therapy Quality Codes: 6 Independent with activity with or without an assistive device 5 Patient requires set up or clean up by helper. Patient completes activity by themselves 4 Supervision or touching assist (CGA). [place] provide cues , steadying assist 3 The helper provides less than half the effort to complete the activity 2 The helper provides more than half the effort to complete the activity 1 Dependent. The helper does all the effort to complete an activity 7 Patient refused to complete or attempt activity 9 The patient did not perform the activity before the current illness or injury 88 Not attempted due to Medical conditions or safety concerns Transfers (B, C, W/C) (FIM): 1 Scootin Rollin Roll Left to Right (QC): 4 Supine to/from Sit: 3 Sit to/from Stand: 1 Sit to Lying (QC): 3 Sit to Stand (QC): 1 Chair/[id number]-Wgtnm Xfer(QC): 1 Bed to/from Chair: 1 sit to stand lift utilized for sit to stand and transfer to commode and recliner for patient and staff safety due to patient inability to perform this task due to extreme weakness Weight Bearing Right Lower Extremity: Right Full Weight Bearing Left Lower Extremity: Left Full Weight Bearing Exercises Supine Ex: Quad Set, Heel Slides, Hip abd/add Supine Reps: 10 Seated Therapy Exercises: Long arc quads Seated Reps: 10 Assessment Patient is up in recliner with needs met. Nursing has been instructed to utilize sit to stand lift for transfers for safety. PT Short Term Goals Short Term Goals Time Frame: Jan 01, 2019 Transfers (B,C,W/C) (FIM): 3 Gait (FIM): 1 Distance (FIM): 1=up to 49 ft Gait Distance Comment: 10 ' Gait Level of Assist: 3 Gait Assistive Device: FWW PT Skilled Nursing Goals Skilled Nursing Goals PT [facility] Promoter Goals Time Frame: Jan 15, 2019 Transfers (B,C,W/C) (FIM): 6 Sit to Lying (QC): 6 Lying-Sitting on Side/Bed(QC): 6 Sit to Stand (QC): 6 Rollin Roll Left to Right (QC): 6 Chair/[id number]-cy-Ujlnh Xfer(QC): 6 Car Transfer (QC): 6 Does the Patient Walk: Yes Gait (FIM): 2 Gait distance (FIM): 4=786-93 ft Distance: 75' Walk 10 feet (QC): 4 Walk 10ft-Uneven Surface(QC): 4 Walk 50ft with 2 Turns (QC): 4 Gait Level of Assist: 4 Gait Assistive Device: FWW PT Plan Treatment/Plan Treatment Plan: Continue Plan of Care Treatment Plan: Bed Mobility, Education, Functional Activity Janny, Functional Strength, Gait, Safety, Therapeutic Exercise, Transfers Treatment Duration: Jan 15, 2019 Frequency: 6 times per week Estimated Hrs Per Day: .25 hour per day Patient and/or Family Agrees t: Yes Time/GCodes Time In: 859 Time Out: 925 Total Billed Treatment Time: 26 Total Billed Treatment 1 visit FA 18 min EX 8 min SHEA HOWARD PT Dec 21, 2018 10:02
--- NOTE | 2018-12-21 14:06 | Occupational Ther Daily Note ---
OT Current Status-Daily Note Subjective Pt. does not report pain. Appearance Pt. up in chair. Reports that he is ready to get back to bed. Mental Status/Objective Patient Orientation: Unable to Assess Therapy Code Descriptions/Definitions Functional [place] Measure: 0=Not Assessed/NA 4=Minimal Assistance 1=Total Assistance 5=Supervision or Setup 2=Maximal Assistance 6=Modified [place] 3=Moderate Assistance 7=Complete [place] Attachments: Pickens Catheter, IV, Oxygen, Telemetry ADL-Treatment Transfers (B, C, W/C) (FIM): 1 Other Treatment Pt. is up in chair. Agrees to lay down. Spouse in room and states that he has been up for awhile. Lunch arrives while pt. is going to transfer to bed. Reports that he is not hungry. OT provides encouragement to eat for healing and nutrition. Utilized sit-stand lift with second person assist due to vapotherm and multiple tubing. Transferred sit-stand with lift and transferred to chair. Pt. required cues to initiate core and sit up on side of bed without support. Pt. able to sit unsupported approximately 5 minutes while tubing was being managed. Max assist for sit-supine and pt positioned in bed to comfort level. HOB elevated and tray placed in front of pt. Spouse in room and sets up tray to assist pt. with eating. All needs met. Education OT Patient Education: Correct positioning, Modified ADL techniques, Progress toward Goal/Update tx plan, Purpose of tx/functional activities, Reviewed precautions, Rehab process, Transfer techniques Teaching Recipient: Patient Teaching Methods: Demonstration, Discussion Response to Teaching: Verbalize Understanding, Return Demonstration OT Short Term Goals Short Term Goals Grooming(FIM): 5 Bathing(FIM): 4 Upper Body Dressing(FIM): 4 Lower Body Dressing(FIM): 3 Toileting(FIM): 4 Transfers (B,C,W/C) (FIM): 3 Toilet/Commode Transfer(FIM): 3 Tub Transfer(FIM): 3 Shower Transfer(FIM): 3 Additional Short Term Goals: 1-Demonstrate ADL Tasks, 2-Verbalize Understanding, 3-ImproveStrength/Janny 1=Demonstrate adherence to instructed precautions during ADL tasks. 2=Patient will verbalize/demonstrate understanding of assistive devices/modifications for ADL. 3=Patient will improve strength/tolerance for activity to enable patient to perform ADL's. OT Supervisor Offset Plate Preparation Goals Supervisor Offset Plate Preparation Goals Time Frame: Jan 08, 2019 Grooming(FIM): 6 Bathing(FIM): 6 Bathing Location: L Arm, R Arm, L Upper Leg, R Upper Leg, L Lower Leg (including foot), R Lower Leg (including foot), Chest, Abdomen, Buttocks, Perineal Area Upper Body Dressing(FIM): 6 Lower Body Dressing(FIM): 6 Toileting(FIM): 6 Transfers (B,C,W/C) (FIM): 5 Toilet/Commode Transfer(FIM): 5 Additional Goals: 1-Demonstrate ADL Tasks, 2-Verbalize Understanding, 3- ImproveStrength/Janny 1=Demonstrate adherence to instructed precautions during ADL tasks. 2=Patient will verbalize/demonstrate understanding of assistive d evices/modifications for ADL. 3=Patient will improve strength/tolerance for activity to enable patient to perform ADL's. OT Education/Plan Problem List/Assessment Assessment: Decreased Activ Tolerance, Decreased UE Strength, Dependent Transfers, Impaired Bed Mobility, Impaired Cognition, Impaired Coordination, Impaired Funct Balance, Impaired I ADL's, Impaired Self-Care Skills, Restricted Funct UE ROM pt presents with functional limitations affecting areas of ADLs and functional transfers with deficits in the above mention. pt would benefit from skilled OT services to increase independence with ADLs and functional transfers. Discharge Recommendations Plan/Recommendations: Continue POC Therapy D/C Recommendations: 24 hr Supervision Treatment Plan/Plan of Care Treatment,Training & Education: Yes Patient would benefit from OT for education, treatment and training to promote independence in ADL's, mobility, safety and/or upper extremity function for ADL's. Plan of Care: ADL Retraining, Caregiver Training, Functional Mobility, Group Exercise/Act as Ind, UE Funct Exercise/Act Treatment Duration: Jan 08, 2019 Frequency: 5 times per week Estimated Hrs Per Day: .5 hour per day Agreement: Yes Rehab Potential: Fair Time/GCodes Start Time: 13:05 Stop Time: 13:35 Total Time Billed (hr/min): 30 Billed Treatment Time 1, FA x 2 BINH GIBSON OT Dec 21, 2018 14:06
--- NOTE | 2018-12-21 15:29 | Progress Note-Hospitalist ---
Progress Note Progress Notes/Assess & Plan Date Seen 12/21/18 Time Seen by Provider: 15:26 Assessment & Plan The patient reports that he is been sitting up in the chair at bedside for 3-4 hours at a time. Continues to be short of breath. He is not coughing or producing phlegm. He continues to require oxygen. His white blood count on 12/18 was 12,200. On the it climbed to 20,900 and has remained over 20,000 each day since. Physical exam: He is able to speak in short sentences. Lungs show distant breath sounds. CV is regular. There is no pedal edema. Impression: Respiratory insufficiency. 2.granulocytosis etiology unclear. Plan: Continue present medications. EVA FOSTER MD Dec 21, 2018 15:29
[2018-12-21] MEDS: ZINC OXIDE 16% OINT (BUTT PASTE) 113 GM TUBE TOP PRN (16:33)
--- NOTE | 2018-12-21 17:19 | Pulmonary Progress Note ---
Subjective Time Seen by a Provider: 14:01 Subjective/Events-last exam Pt appears to be doing better. Sepsis Event Evaluation Height, Weight, BMI Height: 5'8.00" Weight: 201lbs. 0.0oz. 91.187192wi; 28.8 BMI Method: Exam Exam Vital Signs Date Time Temp Pulse Resp B/P (MAP) Pulse Ox O2 Delivery O2 Flow Rate FiO2 12/21/18 12:55 64 12/21/18 12:01 97 Vapotherm 30.00 35 12/21/18 07:35 90 Vapotherm 30.00 35 12/21/18 07:00 83 12/21/18 06:00 98.2 115 20 80/52 (61) 95 Vapotherm 45.00 30.00 12/21/18 03:33 75 20 93 35.00 12/21/18 02:43 93 Vapotherm 30.00 40 12/21/18 01:00 91 12/20/18 21:45 94 Vapotherm 30.00 45 12/20/18 21:00 94 Vapotherm 30.00 12/20/18 19:00 93 12/20/18 18:12 92 Vapotherm 30.00 45 12/20/18 18:04 98.0 82 22 117/68 (84) 96 Vapotherm 45.00 30.00 I & O 12/21/18 07:00 Intake Total 2250 ml Output Total 2000 ml Balance 250 ml Height & Weight Height: 5'8.00" Weight: 201lbs. 0.0oz. 91.310732bq; 28.8 BMI Method: General Appearance: No Apparent Distress, Chronically ill, Obese HEENT: Other (on BiPAP) Neck: Full Range of Motion, Non Tender, Supple Respiratory: Rhonci, Other (on BiPAP) Cardiovascular: Regular Rate, Rhythm, No Edema Capillary Refill: Less Than 3 Seconds Gastrointestinal: non tender Neurologic/Psychiatric: Alert, Oriented x3, Normal Mood/Affect Results Lab Laboratory Tests 12/20/18 06:15 12/21/18 04:55 Assessment/Plan Assessment/Plan Severe sepsis with PNA - improving -12/07 Zosyn -IVF - hep locked -Repeat [facility] cultures Respiratory failure - Worsening episode yesterday -Repeat ABG, CXR, and labs now -BiPAP QHS and PRN / Vapotherm -Persistent bilateral infiltrates per CXR. Pt has little reserve Pulmonary edema from IVF EF 60% per echo -Continue Lasix Anemia -Monitor Atelectasis -IS and easy pap Cellulitis LLL Afib RVR - now converted -Cardiology following Hx of childhood polio Debility/weakness -PT/OT ROSE -CPAP DANIELITO DELGADILLO DO Dec 21, 2018 17:19
[2018-12-21 17:38] VITALS: BP 124/71
[2018-12-21] MEDS: ATORVASTATIN 20 MG (LIPITOR) TABLET PO SCH (21:52)
[2018-12-22] MEDS: RT-ALBUTEROL/IPRATROPIUM 3 ML (DUONEB) VIAL INH SCH ×6 (01:01→22:14)
[2018-12-22] MEDS: PIPERACILLIN/TAZO 4.5 GM/NS 100 ML IV SCH ×6 (02:05→18:13)
[2018-12-22 05:38] LABS: HEMOGLOBIN 8.4 G/DL (13.3-17.7); MEAN PLATELET VOLUME 9.1 FL (7.4-10.4); WHITE BLOOD COUNT 17.8 10^3/uL (4.3-11.0)
[2018-12-22 05:58] LABS: CREATININE SERUM 1.68 MG/DL (0.60-1.30); MAGNESIUM 1.9 MG/DL (1.8-2.4); PHOSPHORUS 2.4 MG/DL (2.3-4.7); POTASSIUM 3.6 MMOL/L (3.6-5.0)
[2018-12-22] MEDS: NYSTATIN ORAL SUSP 5 ML UDC PO SCH ×5 (07:32→23:43)
[2018-12-22] MEDS: KCL 20 MEQ TAB (K-DUR) PO SCH ×2 (07:35→07:36)
[2018-12-22 08:00] VITALS: BP 109/59
[2018-12-22] MEDS: APIXABAN 2.5 MG (ELIQUIS) TABLET PO SCH ×2 (09:17→20:29)
[2018-12-22] MEDS: SERTRALINE 50 MG (ZOLOFT) TABLET PO SCH (09:17)
[2018-12-22] MEDS: [UNRECOGNIZED DRUG - REMARK] PO SCH (09:17)
[2018-12-22] MEDS: SOTALOL 80 MG (BETAPACE) TAB PO SCH (09:17)
[2018-12-22] MEDS: FUROSEMIDE 40 MG/4 ML INJ (LASIX) IVP SCH (09:18)
[2018-12-22] MEDS: PANTOPRAZOLE 40 MG (PROTONIX) TAB PO SCH (09:18)
[2018-12-22] MEDS: TRIAMCINOLONE 0.1% CR (KENALOG) 15 GM TUBE TP SCH ×2 (09:18→20:29)
[2018-12-22] MEDS: DAKIN'S 1/4 STRENGTH (0.125%) 473 ML BTL TOP SCH ×2 (09:19→23:43)
[2018-12-22] MEDS: PATIENT MAY USE OWN MED,SINGLE MED PO SCH (09:19)
--- NOTE | 2018-12-22 10:00 | Physical Therapy Daily Note ---
PT Daily Note-Current Subjective Patient reluctantly agrees to PT. Spouse present. Pain Numeric Pain Scale: 0-No Pain Location: No Pain Reported Mental Status Patient Orientation: Person, Time Attachments: Oxygen (Vapotherm), Pickens Catheter Transfers Therapy Code Descriptions/Definitions Functional [place] Measure: 0=Not Assessed/NA 4=Minimal Assistance 1=Total Assistance 5=Supervision or Setup 2=Maximal Assistance 6=Modified [place] 3=Moderate Assistance 7=Complete [place] Therapy Quality Codes: 6 Independent with activity with or without an assistive device 5 Patient requires set up or clean up by helper. Patient completes activity by themselves 4 Supervision or touching assist (CGA). [place] provide cues , steadying assist 3 The helper provides less than half the effort to complete the activity 2 The helper provides more than half the effort to complete the activity 1 Dependent. The helper does all the effort to complete an activity 7 Patient refused to complete or attempt activity 9 The patient did not perform the activity before the current illness or injury 88 Not attempted due to Medical conditions or safety concerns Transfers (B, C, W/C) (FIM): 1 Scootin Rollin Roll Left to Right (QC): 1 Supine to/from Sit: 1 Sit to/from Stand: 1 Sit to Lying (QC): 1 Sit to Stand (QC): 1 Chair/[id number]-cv-Gtvtk Xfer(QC): 1 Bed to/from Chair: 1 extreme listing to right with inability to self correct. Patient requires dependent assist with all mobility and sit to stand lift is used for all transfers. Patient is incontinent BM during sit to stand transfer with lift Weight Bearing Right Lower Extremity: Right Full Weight Bearing Left Lower Extremity: Left Full Weight Bearing Exercises Supine Ex: Quad Set, Heel Slides, Straight leg raise, Hip abd/add Supine Reps: 15 (AAROM) Seated Therapy Exercises: Long arc quads Seated Reps: 15 Assessment Patient continues to requires vapotherm for O2 need. Patient tolerates minimal activity and is dependent with all mobility. PT educated patient and spouse on importance of performing trunk flexion/leaning in chair to improve core strength and to perform bilateral LE in sit PRN. From a PT standpoint, patient, currently will require extended care facility due to minimal to no gains. PT Short Term Goals Short Term Goals Time Frame: Jan 01, 2019 Transfers (B,C,W/C) (FIM): 3 Gait (FIM): 1 Distance (FIM): 1=up to 49 ft Gait Distance Comment: 10 ' Gait Level of Assist: 3 Gait Assistive Device: FWW PT Contact Center Professional Goals Contact Center Professional Goals PT Assisted Goals Time Frame: Jan 15, 2019 Transfers (B,C,W/C) (FIM): 6 Sit to Lying (QC): 6 Lying-Sitting on Side/Bed(QC): 6 Sit to Stand (QC): 6 Rollin Roll Left to Right (QC): 6 Chair/Kio-uz-Jytec Xfer(QC): 6 Car Transfer (QC): 6 Does the Patient Walk: Yes Gait (FIM): 2 Gait distance (FIM): 2=720-13 ft Distance: 75' Walk 10 feet (QC): 4 Walk 10ft-Uneven Surface(QC): 4 Walk 50ft with 2 Turns (QC): 4 Gait Level of Assist: 4 Gait Assistive Device: FWW PT Plan Treatment/Plan Treatment Plan: Continue Plan of Care Treatment Plan: Bed Mobility, Education, Functional Activity Janny, Functional Strength, Gait, Safety, Therapeutic Exercise, Transfers Treatment Duration: Jan 15, 2019 Frequency: 6 times per week Estimated Hrs Per Day: .25 hour per day Patient and/or Family Agrees t: Yes Time/GCodes Time In: 934 Time Out: 957 Total Billed Treatment Time: 23 Total Billed Treatment 1 visit EX 8 min FA 15 min SHEA HOWARD PT Dec 22, 2018 10:00
--- NOTE | 2018-12-22 10:17 | NUR ---
Visited with Arron et his . Upon entering room he is sitting in chair at bedside. He is very alert et orientated x3. He currently has vapotherm in place for his oxygen needs at 25/35%. His voice quality is soft et hard to understand. He reports that his throat is scratchy et it is difficult to make his voice strong. There is no shortness of breath noted at this time with talking et sitting in his chair just breathy voice quality. He has his tennis shoes on. We talked about bringing in clothes for Arron to wear and they asked about having his quintana catheter taken out. They also asked about having his diet changed. He is currently on a peptic ulcer restricted diet and would like to be on a regular diet to increase his options for food. He is using the bi-pap at [facility] et reports that he is sleeping better with this in place. He is also more alert during the day. I f/u with Dr. Dos Santos and he would like for the quintana catheter to be discontinued and the patient can have his diet changed to a regular diet.
--- NOTE | 2018-12-22 12:01 | Occupational Ther Daily Note ---
OT Current Status-Daily Note Subjective Pt alert, sitting in recliner. present in room. Pt agrees to therapy. States that he feels okay. On Vapotherm. Mental Status/Objective Patient Orientation: Person, Place, Time, Situation Therapy Code Descriptions/Definitions Functional [place] Measure: 0=Not Assessed/NA 4=Minimal Assistance 1=Total Assistance 5=Supervision or Setup 2=Maximal Assistance 6=Modified [place] 3=Moderate Assistance 7=Complete [place] Attachments: IV, Oxygen (vapotherm), Telemetry ADL-Treatment Therapy Code Descriptions/Definitions Functional [place] Measure: 0=Not Assessed/NA 4=Minimal Assistance 1=Total Assistance 5=Supervision or Setup 2=Maximal Assistance 6=Modified [place] 3=Moderate Assistance 7=Complete [place] Therapy Quality Codes: 6 Independent with activity with or without an assistive device 5 Patient requires set up or clean up by helper. Patient completes activity by themselves 4 Supervision or touching assist (CGA). [place] provide cues , steadying assist 3 The helper provides less than half the effort to complete the activity 2 The helper provides more than half the effort to complete the activity 1 Dependent. The helper does all the effort to complete an activity 7 Patient refused to complete or attempt activity 9 The patient did not perform the activity before the current illness or injury 88 Not attempted due to Medical conditions or safety concerns Other Treatment Pt has medium resistance theraband in room. Pt was able to demonstrate one exercise. Pt continues to require skilled instruction for correct technique, count and remembering exercises. Pt was able to complete 4 exercises 1 set 10 r eps with breaks between each set. UE exercises to increase UE strength and activity tolerance for transfers and daily functional tasks. After therapy, pt sitting in recliner with call light/phone in reach. All needs met in room. OT Short Term Goals Short Term Goals Grooming(FIM): 5 Bathing(FIM): 4 Upper Body Dressing(FIM): 4 Lower Body Dressing(FIM): 3 Toileting(FIM): 4 Transfers (B,C,W/C) (FIM): 3 Toilet/Commode Transfer(FIM): 3 Tub Transfer(FIM): 3 Shower Transfer(FIM): 3 Additional Short Term Goals: 1-Demonstrate ADL Tasks, 2-Verbalize Understanding, 3-ImproveStrength/Janny 1=Demonstrate adherence to instructed precautions during ADL tasks. 2=Patient will verbalize/demonstrate understanding of assistive devices/modifications for ADL. 3=Patient will improve strength/tolerance for activity to enable patient to perform ADL's. OT Senior Living Goals Theater Education Teacher Goals Time Frame: Jan 08, 2019 Groomin Oral Hygiene (QC): 6 Bathing(FIM): 6 Bathing Location: L Arm, R Arm, L Upper Leg, R Upper Leg, L Lower Leg (including foot), R Lower Leg (including foot), Chest, Abdomen, Buttocks, Perineal Area Shower/Bathe Self (QC): 6 Upper Body Dressing(FIM): 6 Upper Body Dressing (QC): 6 Lower Body Dressing(FIM): 6 Lower Body Dressing (QC): 6 On/Off Footwear (QC): 6 Toileting(FIM): 6 Toileting Hygiene (QC): 6 Transfers (B,C,W/C) (FIM): 5 Toilet/Commode Transfer(FIM): 5 Toilet/Commode Transfer (QC): 5 Additional Goals: 1-Demonstrate ADL Tasks, 2-Verbalize Understanding, 3- ImproveStrength/Janny 1=Demonstrate adherence to instructed precautions during ADL tasks. 2=Patient will verbalize/demonstrate understanding of assistive devices/modifications for ADL. 3=Patient will improve strength/tolerance for activity to enable patient to perform ADL's. OT Education/Plan Problem List/Assessment Assessment: Decreased Activ Tolerance, Decreased UE Strength, Dependent Tra nsfers, Impaired Funct Balance, Impaired Self-Care Skills, Restricted Funct UE ROM pt presents with functional limitations affecting areas of ADLs and functional transfers with deficits in the above mention. pt would benefit from skilled OT services to increase independence with ADLs and functional transfers. Discharge Recommendations Plan/Recommendations: Continue POC Treatment Plan/Plan of Care Patient would benefit from OT for education, treatment and training to promote independence in ADL's, mobility, safety and/or upper extremity function for ADL's. Plan of Care: ADL Retraining, Caregiver Training, Functional Mobility, Group Exercise/Act as Ind, UE Funct Exercise/Act Treatment Duration: Jan 08, 2019 Frequency: 5 times per week Estimated Hrs Per Day: .5 hour per day Agreement: Yes Rehab Potential: Fair Time/GCodes Start Time: 11:31 Stop Time: 11:55 Total Time Billed (hr/min): 24 Billed Treatment Time 1 visit-EX 2 (24 min) CHAVEZ PAYAN Dec 22, 2018 12:00
--- NOTE | 2018-12-22 12:25 | Progress Note-Cardiology ---
Cardiology SOAP Progress Note Subjective: Sitting up in recliner at the bedside. States he feels much improved today. Feels SOB continues to improve. No c/o CP, palpitations, syncope or near syncope. Objective: I&O/Vital Signs 12/22/18 12/22/18 12/22/18 12/22/18 08:00 09:00 10:35 12:25 Temp 98.0 Pulse 64 70 Resp 22 B/P (MAP) 109/59 (76) Pulse Ox 96 94 O2 Delivery Vapotherm Vapotherm Vapotherm O2 Flow Rate 35.00 25.00 25.00 25.00 FiO2 35 35 12/22/18 12/22/18 15:56 17:39 Temp 98.2 Pulse 67 Resp 20 B/P (MAP) 141/62 (88) Pulse Ox 99 99 O2 Delivery High Flow N/C Nasal Cannula O2 Flow Rate 10.00 6.00 12/22/18 00:00 Intake Total 1650 ml Output Total 600 ml Balance 1050 ml Weight (Pounds): 201 Weight (Ounces): 0.0 Weight (Calculated Kilograms): 91.224378 Constitutional: AAO x 3, well-developed, well-nourished Respiratory: No accessory muscle use; other (fair to good air entry) Cardiovascular: regular rate-rhythm, S1 and S2, systolic murmur (soft [place] at card base) Gastrointestional: No tender; soft; No guarding, No rebound; audible bowel sounds Extremities: No clubbing, No cyanosis; significant edema (LLE mild swelling) Neurologic/Psychiatric: other (able to move all limbs equally), grossly intact Skin: No rash on exposed areas, No ulcerations on exposed areas Results/Procedures: Labs Laboratory Tests 12/22/18 05:20: White Blood Count 17.8H, Red Blood Count 2.74L, Hemoglobin 8.4L, Hematocrit 27L, Mean Corpuscular Volume 98, Mean Corpuscular Hemoglobin 31, Mean Corpuscular Hemoglobin Concent 31L, Red Cell Distribution Width 16.0H, Platelet Count 431H, Mean Platelet Volume 9.1, Sodium Level 143, Potassium Level 3.6, Chloride Level 100, Carbon Dioxide Level 31, Anion Gap 12, Blood Urea Nitrogen 22H, Creatinine 1.68H, Estimat Glomerular Filtration Rate 40, BUN/Creatinine Ratio 13, Glucose Level 98, Calcium Level 8.0L, Phosphorus Level 2.4, Magnesium Level 1.9 Laboratory Tests 12/21/18 04:55 12/22/18 05:20 A/P: Assessment: Ac resp failure and multifactorial shortness of breath: sepsis, PAF, anemia, renal insuff, ac cooper CHF PA-fib - currently SR with controlled rate Ac renal insufficiency - Med Svce managing Pneumonia and sepsis and L leg cellulitis - Medical & Pulmonary services managing Echo 12/09/18: LVEF 55-60%, mild MR, mild enlargement of LA, RVSP 38 mmHg UTI - management per Medical services Stroke prophylaxis with apixaban CAD - H/O CABG x [address] Huang at [facility], [place], [place] - reports recent MPI in the last [address] Lopez (reported to be normal) Sleep apnea - CPAP tx Plan: * Continue sotalol for rhythm maintenance and apixaban for stroke prophylaxis * Monitor labs from time to time * We have spoken with him and his fam and answered CV-related questions Physician Assessment Physician Assessment No cp or palp or syncope or shortness of breath at rest Lungs: good bilat air entry Cor: reg Ext: no c/c/e A&R * As documented in our note above that I updated (italics) and as noted below * I spoke with her and her family and answered CV-related questions * Ok to d/c to Rehab floor, from card standpoint * Outpt f/u advised * Dr Chaidez covering Card Svce beginning tomorrow JED ROMERO [facility] Dec 22, 2018 12:25 BRENDA VANN MD [facility] Dec 22, 2018 19:51
--- NOTE | 2018-12-22 14:04 | Pulmonary Progress Note ---
Subjective Time Seen by a Provider: 14:04 Subjective/Events-last exam Pt appears to be doing better Sepsis Event Evaluation Height, Weight, BMI Height: 5'8.00" Weight: 201lbs. 0.0oz. 91.930047yw; 28.8 BMI Method: Exam Exam Vital Signs Date Time Temp Pulse Resp B/P (MAP) Pulse Ox O2 Delivery O2 Flow Rate FiO2 12/22/18 12:25 70 12/22/18 10:35 94 Vapotherm 25.00 35 12/22/18 09:00 Vapotherm 25.00 35 12/22/18 08:00 98.0 64 22 109/59 (76) 96 Vapotherm 35.00 25.00 12/22/18 07:00 60 12/22/18 03:55 77 21 97 35.00 12/22/18 01:01 87 21 94 35.00 12/22/18 01:00 77 12/21/18 21:00 94 NIV Bilevel 25.00 12/21/18 20:27 72 18 94 35.00 12/21/18 19:00 79 12/21/18 17:38 98.0 67 22 124/71 (88) 95 Vapotherm 35.00 25.00 I & O 12/22/18 07:00 Intake Total 1850 ml Output Total 1100 ml Balance 750 ml Height & Weight Height: 5'8.00" Weight: 201lbs. 0.0oz. 91.928584qs; 28.8 BMI Method: General Appearance: Anxious, Mild Distress, Obese HEENT: PERRL/EOMI, Normal ENT Inspection, Pharynx Normal Neck: Full Range of Motion, Non Tender, Supple Respiratory: Chest Non Tender, Crackles, Decreased Breath Sounds Cardiovascular: No Edema Capillary Refill: Less Than 3 Seconds Gastrointestinal: normal bowel sounds, non tender, soft Extremity: Normal Capillary Refill, No Pedal Edema Neurologic/Psychiatric: Alert, Oriented x3 Skin: Normal Color, Warm/Dry Lymphatic: No Adenopathy Results Lab Laboratory Tests 12/21/18 04:55 12/22/18 05:20 Assessment/Plan Assessment/Plan Severe sepsis with PNA - improving -12/07 Zosyn -Repeat [facility]is cultures -Will change to regular NC Respiratory failure - Worsening episode yesterday -BiPAP QHS and PRN / Vapotherm -Persistent bilateral infiltrates per CXR. Pt has little reserve Pulmonary edema from IVF EF 60% per echo -Lasix Anemia -Monitor Atelectasis -IS and easy pap Cellulitis LLL Afib RVR - now converted -Cardiology following Hx of childhood polio Debility/weakness -PT/OT ROSE -CPAP DANIELITO DELGADILLO DO Dec 22, 2018 14:04
[2018-12-22 17:39] VITALS: BP 141/62
[2018-12-22] MEDS: ATORVASTATIN 20 MG (LIPITOR) TABLET PO SCH (20:28)
--- NOTE | 2018-12-22 21:00 | NUR ---
DRESSING CHANGE PERFORMED BY DOCTOR ROSLYN SMITH RN. THIS NURSE DID NOT PERFORM DRESSING CHANGE THIS EVENING Addendum: 12/23/18 at 0020 by MARIANO MOBLEY RN DRESSING CHANGE PERFORMED BY DOCTOR LATE AFTERNOON 12/22/18 PER VIKRAM SMITH. THIS NURSE DID NOT PERFORM DRESSING CHANGE THIS EVENING
--- NOTE | 2018-12-22 21:33 | Wound Care Assessment ---
Wound Care Assessment Date Seen by Provider: Dec 22, 2018 Time Seen by Provider: 19:00 Chief Complaint L calf ulcer. HPI The patient is a 78 year old male with L calf ulcer following ablation of skin lesion outside the hospital two months ago. The wound has failed to heal and appears to have a combined arterial and venous etiology. The patient's respiratory status has been so precarious that diagnostic evaluation has been postponed. He is currently on face mask ventilation. I would hold off on any vascular testing for now. The previous cellulitis is cleared. The wound is stable, though still all necrotic tissue. 12/22/18 -- Interval Note: Wound appears stable. The patient is to be going to ARU soon. We will continue present dressings and defer arterial work-up until on ARU. Past Medical History: Admits Heart Disease Exam Vital Signs Date Time Temp Pulse Resp B/P (MAP) Pulse Ox O2 Delivery O2 Flow Rate FiO2 12/22/18 19:26 98 High Flow N/C 6.00 12/22/18 19:00 66 12/22/18 17:39 98.2 20 141/62 (88) 12/22/18 10:35 35 Capillary Refill : Less Than 3 Seconds Results Laboratory Tests 12/22/18 05:20: White Blood Count 17.8H, Red Blood Count 2.74L, Hemoglobin 8.4L, Hematocrit 27L, Mean Corpuscular Volume 98, Mean Corpuscular Hemoglobin 31, Mean Corpuscular Hemoglobin Concent 31L, Red Cell Distribution Width 16.0H, Platelet Count 431H, Mean Platelet Volume 9.1, Sodium Level 143, Potassium Level 3.6, Chloride Level 100, Carbon Dioxide Level 31, Anion Gap 12, Blood Urea Nitrogen 22H, Creatinine 1.68H, Estimat Glomerular Filtration Rate 40, BUN/Creatinine Ratio 13, Glucose Level 98, Calcium Level 8.0L, Phosphorus Level 2.4, Magnesium Level 1.9 Assessment/Plan/Dx 1. L calf, non-healing ulcer. 2. Cellulitis L calf, resolved. 3. Atherosclerotic peripheral arterial disease with ulceration of L calf. 4. Venous insufficiency BLE. Plan: Continue Dakin's dressings. Hold arterial/venous evaluation until more clinically stable. Will follow. CATALINO MEIER MD Dec 22, 2018 21:33
[2018-12-23] MEDS: PIPERACILLIN/TAZO 4.5 GM/NS 100 ML IV SCH ×2 (02:27)
[2018-12-23] MEDS: RT-ALBUTEROL/IPRATROPIUM 3 ML (DUONEB) VIAL INH SCH ×6 (03:11→22:36)
[2018-12-23 05:06] VITALS: BP 142/63
[2018-12-23] MEDS: NYSTATIN ORAL SUSP 5 ML UDC PO SCH ×4 (05:57→23:21)
[2018-12-23 06:53] LABS: HEMOGLOBIN 8.6 G/DL (13.3-17.7); MEAN PLATELET VOLUME 8.9 FL (7.4-10.4); RED CELL DISTRIBUTION WIDTH 15.9 % (10.0-14.5); WHITE BLOOD COUNT 19.3 10^3/uL (4.3-11.0)
[2018-12-23 06:59] LABS: CREATININE SERUM 1.57 MG/DL (0.60-1.30); POTASSIUM 3.4 MMOL/L (3.6-5.0)
[2018-12-23 07:12] VITALS: BP 142/63
[2018-12-23] MEDS: PANTOPRAZOLE 40 MG (PROTONIX) TAB PO SCH (07:55)
[2018-12-23] MEDS: APIXABAN 2.5 MG (ELIQUIS) TABLET PO SCH ×2 (07:55→20:02)
[2018-12-23] MEDS: SERTRALINE 50 MG (ZOLOFT) TABLET PO SCH (07:55)
[2018-12-23] MEDS: FUROSEMIDE 40 MG/4 ML INJ (LASIX) IVP SCH (07:55)
[2018-12-23] MEDS: SOTALOL 80 MG (BETAPACE) TAB PO SCH (07:55)
[2018-12-23] MEDS: DAKIN'S 1/4 STRENGTH (0.125%) 473 ML BTL TOP SCH ×2 (07:56→20:14)
[2018-12-23] MEDS: TRIAMCINOLONE 0.1% CR (KENALOG) 15 GM TUBE TP SCH ×2 (07:56→20:13)
[2018-12-23] MEDS: PATIENT MAY USE OWN MED,SINGLE MED PO SCH (07:56)
[2018-12-23] MEDS: [UNRECOGNIZED DRUG - REMARK] PO SCH (07:56)
--- NOTE | 2018-12-23 09:15 | NUR ---
Visited with Arron et his this morning about discharge planning. We visited about OT working with Arron yesterday and teaching him exercises to do with the yellow theraband at bedside. Arron reports that he has only used the theraband once. We talked about the importance of these exercises et increasing his strength to return to his home. He voiced that is his ultimate goal is to return home with his at his prior independent level. We also discussed not waiting for therapy or someone else to come in and tell him to perform and to do these exercises throughout the day. He reports that he would like to go to inpatient rehab, but we discussed that at this time it appears that he will likely have to [place] [facility] because it appears that he is not able to tolerate that level of intense therapies. He was surprised by this et reports that he will work hard to see if he can tolerate the therapies. His voiced appreciation et understanding. I will f/u with them later today to see how he did with therapy.
--- NOTE | 2018-12-23 10:12 | Physical Therapy Daily Note ---
PT Daily Note-Current Subjective Patient in bed pre tx, agrees to PT, has no complaints of pain at rest. Patient recently got back into bed with OT but agrees to get back into the recliner. Appearance Patient in recliner post tx with nurse call, phone, tray, in room. Mental Status Patient Orientation: Person, Place Attachments: Oxygen Transfers Therapy Code Descriptions/Definitions Functional [place] Measure: 0=Not Assessed/NA 4=Minimal Assistance 1=Total Assistance 5=Supervision or Setup 2=Maximal Assistance 6=Modified [place] 3=Moderate Assistance 7=Complete [place] Therapy Quality Codes: 6 Independent with activity with or without an assistive device 5 Patient requires set up or clean up by helper. Patient completes activity by themselves 4 Supervision or touching assist (CGA). [place] provide cues , steadying assist 3 The helper provides less than half the effort to complete the activity 2 The helper provides more than half the effort to complete the activity 1 Dependent. The helper does all the effort to complete an activity 7 Patient refused to complete or attempt activity 9 The patient did not perform the activity before the current illness or injury 88 Not attempted due to Medical conditions or safety concerns Transfers (B, C, W/C) (FIM): 2 Scootin Rollin Supine to/from Sit: 3 Sit to/from Stand: 2 Bed to/from Chair: 2 Patient is slightly retropulsive in sitting and very retropulsive standing. He needs to have his tennis shoes on to stand or his feet will slide forward during transfers. Patient attempted to take a few steps toward the chair but could not, had to perform therapist assisted stand pivot. Weight Bearing Right Lower Extremity: Right Full Weight Bearing Left Lower Extremity: Left Full Weight Bearing Exercises Seated Therapy Exercises: Ankle pumps, Long arc quads, Hip flexion Seated Reps: 15 Treatments bed mobility and transfers, LE exercise Assessment Current Status: Poor Progress little change in mobility PT Short Term Goals Short Term Goals Time Frame: Jan 01, 2019 Transfers (B,C,W/C) (FIM): 3 Gait (FIM): 1 Distance (FIM): 1=up to 49 ft Gait Distance Comment: 10 ' Gait Level of Assist: 3 Gait Assistive Device: FWW PT Prison Goals Fur Cleaner Goals PT Fur Cleaner Goals Time Frame: Jan 15, 2019 Transfers (B,C,W/C) (FIM): 6 Sit to Lying (QC): 6 Lying-Sitting on Side/Bed(QC): 6 Sit to Stand (QC): 6 Rollin Roll Left to Right (QC): 6 Chair/[id number] Xfer(QC): 6 Car Transfer (QC): 6 Does the Patient Walk: Yes Gait (FIM): 2 Gait distance (FIM): 1=024-28 ft Distance: 75' Walk 10 feet (QC): 4 Walk 10ft-Uneven Surface(QC): 4 Walk 50ft with 2 Turns (QC): 4 Gait Level of Assist: 4 Gait Assistive Device: FWW PT Plan Problem List Problem List: Activity Tolerance, Functional Strength, Safety, Balance, Gait, Transfer, Bed Mobility, ROM Treatment/Plan Treatment Plan: Continue Plan of Care Treatment Plan: Bed Mobility, Education, Functional Activity Janny, Functional Strength, Gait, Safety, Therapeutic Exercise, Transfers Treatment Duration: Jan 15, 2019 Frequency: 6 times per week Estimated Hrs Per Day: .25 hour per day Patient and/or Family Agrees t: Yes Safety Risks/Education Patient Education: Transfer Techniques, Correct Positioning, Safety Issues Teaching Recipient: Patient Teaching Methods: Demonstration, Discussion Response to Teaching: Reinforcement Needed Time/GCodes Time In: 0944 Time Out: 1000 Total Billed Treatment Time: 16 Total Billed Treatment 1 visit FA 16' EDY VOGEL PT Dec 23, 2018 10:12
--- NOTE | 2018-12-23 10:41 | Progress Note-Hospitalist ---
Subjective HPI/CC On Admission Date Seen by Provider: Dec 23, 2018 Time Seen by Provider: 10:00 Subjective/Events-last exam Pt actually much improved after a pep talk from swing bed indicating the may need to go to a nursing facility He is now having increased motivation and I instruct him to do exercises while he is sitting in chair Bowels are moving Eating and drinking a little better Requiring BiPAP at times so very slow progress Inpatient rehab discussed Review of Systems General: Fatigue Pulmonary: Dyspnea Objective Exam Vital Signs Vital Signs Date Time Temp Pulse Resp B/P (MAP) Pulse Ox O2 Delivery O2 Flow Rate FiO2 12/23/18 19:00 97 High Flow N/C 3.00 12/23/18 18:00 98.7 73 20 135/75 (95) 12/23/18 07:12 6 Capillary Refill : Less Than 3 Seconds General Appearance: No Apparent Distress, WD/WN, Anxious, Chronically ill, Obese HEENT: PERRL/EOMI, Normal ENT Inspection, Pharynx Normal Neck: Full Range of Motion, Non Tender, Supple Respiratory: Chest Non Tender, Decreased Breath Sounds Cardiovascular: No Edema Gastrointestinal: Normal Bowel Sounds, Non Tender, Soft Extremity: Normal Capillary Refill, No Pedal Edema Neurologic/Psychiatric: Alert, Oriented x3, No Motor/Sensory Deficits, Normal Mood/Affect, public health aide II-XII Norm as Tested Skin: Normal Color, Warm/Dry Lymphatic: No Adenopathy Results/Procedures Lab Laboratory Tests 12/23/18 05:35 Patient resulted labs reviewed. Assessment/Plan Assessment and Plan Assess & Plan/Chief Complaint Assessment: Acute on chronic respiratory failure PAF Diastolic CHF ARF Pneumonia Cellulitis ROSE CAD previous CABG On OAC Plan: PT/OT Strengthen IRF? Diagnosis/Problems Diagnosis/Problems (1) Acute respiratory failure Status: Chronic Qualifiers: Respiratory failure complication: hypercapnia Qualified Codes: J96.02 - Acute respiratory failure with hypercapnia (2) ROSE on CPAP Status: Chronic (3) Debilitated Status: Acute (4) Tachypnea Status: Acute (5) Normocytic anemia Status: Chronic (6) History of poliomyelitis Status: Chronic (7) NAA (acute kidney injury) (8) Atrial fibrillation with rapid ventricular response Status: Chronic Clinical Quality Measures DVT/VTE Risk/Contraindication: Risk Factor Score Per Nursin ISADORA GROVE DO Dec 23, 2018 10:41
--- NOTE | 2018-12-23 11:34 | Occupational Ther Daily Note ---
OT Current Status-Daily Note Subjective Pt. does not report pain, but reports that he is very tired. Mental Status/Objective Patient Orientation: Unable to Assess Therapy Code Descriptions/Definitions Functional [place] Measure: 0=Not Assessed/NA 4=Minimal Assistance 1=Total Assistance 5=Supervision or Setup 2=Maximal Assistance 6=Modified [place] 3=Moderate Assistance 7=Complete [place] Attachments: IV ADL-Treatment Therapy Code Descriptions/Definitions Functional [place] Measure: 0=Not Assessed/NA 4=Minimal Assistance 1=Total Assistance 5=Supervision or Setup 2=Maximal Assistance 6=Modified [place] 3=Moderate Assistance 7=Complete [place] Therapy Quality Codes: 6 Independent with activity with or without an assistive device 5 Patient requires set up or clean up by helper. Patient completes activity by themselves 4 Supervision or touching assist (CGA). [place] provide cues , steadying assist 3 The helper provides less than half the effort to complete the activity 2 The helper provides more than half the effort to complete the activity 1 Dependent. The helper does all the effort to complete an activity 7 Patient refused to complete or attempt activity 9 The patient did not perform the activity before the current illness or injury 88 Not attempted due to Medical conditions or safety concerns Toileting (FIM): 1 Toileting Hygiene (QC): 1 Transfers (B, C, W/C) (FIM): 1 (Max assist supine to/from sit. Max x 2 for positioning in bed.) Pt. agrees to work with OT. Transferred supine-sit with max assist overall. Pt. requires cues to bring feet to edge of bed. Multiple cues to sequence steps. Once sitting, pt. was educated and prompted on keeping upright balance. OT brought pt. to EOB with sheet. Worked on trunk flexion/extension, lateral tilts sitting. Emphasis put on keeping feet on floor, keeping wider LUCIE. Pt. able to lean back and forward with assist to come back to upright. Educated pt. on need for core exercises. Pt. asks several times if he can lay back down. En couraged to sit a little longer until he states that he can't sit any longer. Pt. transferred back to bed with max assist. Max x 2 for bed positioning. Pt. became incontinent of urine. Pt. rolled with max assist for OT to cleanse pt., and remove padding. Fresh gown placed on pt. and all needs are met. Education OT Patient Education: Correct positioning, Modified ADL techniques, Progress toward Goal/Update tx plan, Purpose of tx/functional activities, Reviewed precautions, Rehab process, Transfer techniques Teaching Recipient: Patient, Significant Other Teaching Methods: Demonstration, Discussion Response to Teaching: Verbalize Understanding, Return Demonstration OT Short Term Goals Short Term Goals Grooming(FIM): 5 Bathing(FIM): 4 Upper Body Dressing(FIM): 4 Lower Body Dressing(FIM): 3 Toileting(FIM): 4 Transfers (B,C,W/C) (FIM): 3 Toilet/Commode Transfer(FIM): 3 Tub Transfer(FIM): 3 Shower Transfer(FIM): 3 Additional Short Term Goals: 1-Demonstrate ADL Tasks, 2-Verbalize Understanding, 3-ImproveStrength/Janny 1=Demonstrate adherence to instructed precautions during ADL tasks. 2=Patient will verbalize/demonstrate understanding of assistive devices/modifications for ADL. 3=Patient will improve strength/tolerance for activity to enable patient to perform ADL's. OT Usp Goals Usp Goals Time Frame: Jan 08, 2019 Groomin Oral Hygiene (QC): 6 Bathing(FIM): 6 Bathing Location: L Arm, R Arm, L Upper Leg, R Upper Leg, L Lower Leg (including foot), R Lower Leg (including foot), Chest, Abdomen, Buttocks, Perineal Area Shower/Bathe Self (QC): 6 Upper Body Dressing(FIM): 6 Upper Body Dressing (QC): 6 Lower Body Dressing(FIM): 6 Lower Body Dressing (QC): 6 On/Off Footwear (QC): 6 Toileting(FIM): 6 Toileting Hygiene (QC): 6 Transfers (B,C,W/C) (FIM): 5 Toilet/Commode Transfer(FIM): 5 Toilet/Commode Transfer (QC): 5 Additional Goals: 1-Demonstrate ADL Tasks, 2-Verbalize Understanding, 3- ImproveStrength/Janny 1=Demonstrate adherence to instructed precautions during ADL tasks. 2=Patient will verbalize/demonstrate understanding of assistive devices/modifications for ADL. 3=Patient will improve strength/tolerance for activity to enable patient to perform ADL's. OT Education/Plan Problem List/Assessment Assessment: Decreased Activ Tolerance, Decreased Safety Aware, Decreased UE Strength, Dependent Transfers, Impaired Bed Mobility, Impaired Cognition, Impaired Funct Balance, Impaired I ADL's, Impaired Self-Care Skills pt presents with functional limitations affecting areas of ADLs and functional transfers with deficits in the above mention. pt would benefit from skilled OT services to increase independence with ADLs and functional transfers. Discharge Recommendations Plan/Recommendations: Continue POC Therapy D/C Recommendations: 24 hr Supervision Treatment Plan/Plan of Care Treatment,Training & Education: Yes Patient would benefit from OT for education, treatment and training to promote independence in ADL's, mobility, safety and/or upper extremity function for ADL's. Plan of Care: ADL Retraining, Caregiver Training, Functional Mobility, Group Exercise/Act as Ind, UE Funct Exercise/Act Treatment Duration: Jan 08, 2019 Frequency: 5 times per week Estimated Hrs Per Day: .5 hour per day Agreement: Yes Rehab Potential: Guarded Time/GCodes Start Time: 09:10 Stop Time: 09:33 Total Time Billed (hr/min): 23 Billed Treatment Time 1, FA x 2 BINH GIBSON OT Dec 23, 2018 11:34
--- NOTE | 2018-12-23 15:22 | Pulmonary Progress Note ---
Subjective Time Seen by a Provider: 15:22 Subjective/Events-last exam Pt appears to be doing better. No complications noted. Sepsis Event Evaluation Height, Weight, BMI Height: 5'8.00" Weight: 201lbs. 0.0oz. 91.503373ia; 28.8 BMI Method: Exam Exam Vital Signs Date Time Temp Pulse Resp B/P (MAP) Pulse Ox O2 Delivery O2 Flow Rate FiO2 12/23/18 14:10 99 High Flow N/C 6.00 12/23/18 13:02 67 12/23/18 11:10 98 FI02 5.00 12/23/18 09:00 High Flow N/C 5.00 12/23/18 07:12 98 High Flow N/C 6.00 12/23/18 07:12 67 98 6 12/23/18 07:00 62 12/23/18 05:06 98.4 64 20 142/63 (89) 90 High Flow N/C 5.00 12/23/18 01:00 61 12/22/18 22:14 95 High Flow N/C 5.00 12/22/18 20:25 High Flow N/C 5.00 12/22/18 19:26 98 High Flow N/C 6.00 12/22/18 19:00 66 12/22/18 17:39 98.2 67 20 141/62 (88) 99 High Flow N/C 6.00 12/22/18 15:56 99 High Flow N/C 10.00 I & O 12/23/18 06:59 Intake Total 1820 ml Output Total 835 ml Balance 985 ml Height & Weight Height: 5'8.00" Weight: 201lbs. 0.0oz. 91.747341bb; 28.8 BMI Method: General Appearance: No Apparent Distress, WD/WN, Anxious, Chronically ill, Obese HEENT: PERRL/EOMI, Normal ENT Inspection, Pharynx Normal Neck: Full Range of Motion, Non Tender, Supple Respiratory: Chest Non Tender, Decreased Breath Sounds Cardiovascular: No Edema Capillary Refill: Less Than 3 Seconds Gastrointestinal: normal bowel sounds, non tender, soft Extremity: Normal Capillary Refill, No Pedal Edema Neurologic/Psychiatric: Alert, Oriented x3, No Motor/Sensory Deficits, Normal Mood/Affect, water conservation specialist II-XII Norm as Tested Skin: Normal Color, Warm/Dry Lymphatic: No Adenopathy Results Lab Laboratory Tests 12/22/18 05:20 12/23/18 05:35 Assessment/Plan Assessment/Plan sepsis with PNA - improving clinically -12/07 Zosyn - D/C and monitor WBC -Repeat [facility] cultures and CXR Respiratory failure - pt is doing much better -Pt will need f/u CXR as out patient in about 8wks. -Pt is on NC and doing well Worsening leukocytosis -CXR - will repeat -Currently off ABx -Pt appears to be doing better pulmonary lakhani. Hypokalemia -replace Pulmonary edema from IVF EF 60% per echo -Lasix Anemia -Monitor Atelectasis -IS and easy pap Cellulitis LLL Afib RVR - now converted -Cardiology following Hx of childhood polio Debility/weakness -PT/OT ROSE -CPAP DANIELITO DELGADILLO DO Dec 23, 2018 15:22
[2018-12-23 18:00] VITALS: BP 135/75
[2018-12-23] MEDS: ATORVASTATIN 20 MG (LIPITOR) TABLET PO SCH (20:02)
[2018-12-23] MEDS: ZINC OXIDE 16% OINT (BUTT PASTE) 113 GM TUBE TOP PRN (20:05)
--- NOTE | 2018-12-23 23:08 | Cardiology Progress Note ---
Cardiology SOAP Progress Note Subjective: Improved shortness of breath. Objective: I&O/Vital Signs 12/24/18 11:34 Pulse 72 Resp 18 B/P (MAP) 160/75 Pulse Ox 92 O2 Delivery High Flow N/C O2 Flow Rate 3.00 12/24/18 00:00 Intake Total 942 ml Output Total 875 ml Balance 67 ml Weight (Pounds): 201 Weight (Ounces): 0.0 Weight (Calculated Kilograms): 91.324344 Constitutional: AAO x 3, well-developed, well-nourished Respiratory: No accessory muscle use; other (fair to good air entry) Cardiovascular: regular rate-rhythm, S1 and S2, systolic murmur (soft LORRAINE at card base) Gastrointestional: No tender; soft; No guarding, No rebound; audible bowel s ounds Extremities: No clubbing, No cyanosis; significant edema (LLE mild swelling) Neurologic/Psychiatric: other (able to move all limbs equally), grossly intact Skin: No rash on exposed areas, No ulcerations on exposed areas Results/Procedures: Labs Laboratory Tests 12/24/18 06:00: White Blood Count 21.3H, Red Blood Count 2.75L, Hemoglobin 8.3L, Hematocrit 27L, Mean Corpuscular Volume 98, Mean Corpuscular Hemoglobin 30, Mean Corpuscular Hemoglobin Concent 31L, Red Cell Distribution Width 15.7H, Platelet Count 577H, Mean Platelet Volume 8.5, Sodium Level 141, Potassium Level 3.0L, Chloride Level 98, Carbon Dioxide Level 34H, Anion Gap 9, Blood Urea Nitrogen 19H, Creatinine 1.37H, Estimat Glomerular Filtration Rate 50, BUN/Creatinine Ratio 14, Glucose Level 124H, Calcium Level 8.3L, Phosphorus Level 2.4, Magnesium Level 2.1 A/P: Assessment/Dx: Ac resp failure and multifactorial shortness of breath: sepsis, PAF, anemia, renal insuff, ac cooper CHF PA-fib - currently SR with controlled rate Ac renal insufficiency - Med Svce managing Pneumonia and sepsis and L leg cellulitis - Medical & Pulmonary services managing Echo 12/09/18: LVEF 55-60%, mild MR, mild enlargement of LA, RVSP 38 mmHg UTI - management per Medical services Stroke prophylaxis with apixaban CAD - H/O CABG x [address] Huang at [facility], [place] - reports recent MPI in the last [address] Lopez (reported to be normal) Sleep apnea - CPAP tx Plan: * Continue sotalol for rhythm maintenance and apixaban for stroke prophylaxis * Monitor labs from time to time Thank you for your consultation. Please call me if you have any questions. Rosario Chaidez MD, FACP, FACC, FSCAI, FHRS, CCDS Interventional Cardiology Cardiac Electrophysiology Vascular Medicine and Endovascular Interventions Dorothy CHAIDEZ MD Dec 23, 2018 23:08
[2018-12-24] MEDS: RT-ALBUTEROL/IPRATROPIUM 3 ML (DUONEB) VIAL INH SCH ×3 (02:50→10:26)
[2018-12-24] MEDS: NYSTATIN ORAL SUSP 5 ML UDC PO SCH (05:53)
[2018-12-24 06:09] LABS: HEMOGLOBIN 8.3 G/DL (13.3-17.7); MEAN PLATELET VOLUME 8.5 FL (7.4-10.4); RED CELL DISTRIBUTION WIDTH 15.7 % (10.0-14.5); WHITE BLOOD COUNT 21.3 10^3/uL (4.3-11.0)
[2018-12-24 06:15] VITALS: BP 160/75
[2018-12-24 06:29] LABS: CALCIUM 8.3 MG/DL (8.5-10.1); CREATININE SERUM 1.37 MG/DL (0.60-1.30); MAGNESIUM 2.1 MG/DL (1.8-2.4)
[2018-12-24] MEDS: KCL 20 MEQ TAB (K-DUR) PO SCH (06:52)
[2018-12-24] MEDS: [UNRECOGNIZED DRUG - REMARK] PO SCH (08:27)
[2018-12-24] MEDS: SOTALOL 80 MG (BETAPACE) TAB PO SCH (08:27)
[2018-12-24] MEDS: PANTOPRAZOLE 40 MG (PROTONIX) TAB PO SCH (08:28)
[2018-12-24] MEDS: APIXABAN 2.5 MG (ELIQUIS) TABLET PO SCH (08:28)
[2018-12-24] MEDS: SERTRALINE 50 MG (ZOLOFT) TABLET PO SCH (08:28)
[2018-12-24] MEDS: FUROSEMIDE 40 MG/4 ML INJ (LASIX) IVP SCH (08:28)
[2018-12-24] MEDS: PATIENT MAY USE OWN MED,SINGLE MED PO SCH (08:30)
[2018-12-24] MEDS ORDERED: KCL 20 MEQ TAB (K-DUR) PO NR (09:15)
--- NOTE | 2018-12-24 10:27 | Discharge Summary-Hospitalist ---
Diagnosis/Chief Complaint Date of Admission Dec 18, 2018 at 11:53 Date of Discharge Discharge Date: Dec 24, 2018 Discharge Diagnosis (1) Acute respiratory failure Status: Chronic (2) ROSE on CPAP Status: Chronic (3) Debilitated Status: Acute (4) Tachypnea Status: Acute (5) Normocytic anemia Status: Chronic (6) History of poliomyelitis Status: Chronic (7) NAA (acute kidney injury) (8) Atrial fibrillation with rapid ventricular response Status: Chronic Discharge Summary Discharge Physical Exam Allergies: Coded Allergies: No Known Drug Allergies (Unverified , 12/07/18) Vitals & I&Os Vital Signs Date Time Temp Pulse Resp B/P (MAP) Pulse Ox O2 Delivery O2 Flow Rate FiO2 12/24/18 11:34 72 18 160/75 92 High Flow N/C 3.00 12/24/18 06:15 98.4 12/23/18 07:12 6 General Appearance: No Apparent Distress, WD/WN, Chronically ill Respiratory: Chest Non Tender, Lungs Clear, Normal Breath Sounds, No Accessory Muscle Use, No Respiratory Distress, Decreased Breath Sounds Cardiovascular: Regular Rate, Rhythm, No Edema, No Gallop, No JVD, No Murmur, Normal Peripheral Pulses Neurologic/Psychiatric: Alert, Oriented x3, No Motor/Sensory Deficits, Normal Mood/Affect Hospital Course Was the Problem List Reviewed?: Yes Pt had a lengthy swing bed hospital course for 7 days when he was sent there after ICU admission for acute acute on chronic respiratory failure. He required BiPAP for several days and subsequently had significant myopathy that has required inpatient rehab for intensive therapy in order to go home. He required BiPAP two days prior to the transfer to inpatient rehab but was down to nasal cannula oxygen along with nebulizer treatments and other aggressive mediation to maintain respiratory status. Bowels were moving at time of DC and he did complain of left hand pain due to the swelling from and infiltrated IV so will have the nurse removed his wedding ring and be able to work with OT to decrease the swelling of the hand. Labs (last 24 hrs) Laboratory Tests 12/24/18 06:00: White Blood Count 21.3H, Red Blood Count 2.75L, Hemoglobin 8.3L, Hematocrit 27L, Mean Corpuscular Volume 98, Mean Corpuscular Hemoglobin 30, Mean Corpuscular Hemoglobin Concent 31L, Red Cell Distribution Width 15.7H, Platelet Count 577H, Mean Platelet Volume 8.5, Sodium Level 141, Potassium Level 3.0L, Chloride Level 98, Carbon Dioxide Level 34H, Anion Gap 9, Blood Urea Nitrogen 19H, Creatinine 1.37H, Estimat Glomerular Filtration Rate 50, BUN/Creatinine Ratio 14, Glucose Level 124H, Calcium Level 8.3L, Phosphorus Level 2.4, Magnesium Level 2.1 Patient resulted labs reviewed. Pending Labs Discussion & Recommendations Discharge Planning: <30 minutes discharge planning Discharge Home Medications: Active Scripts Active Eliquis (Apixaban) 2.5 Mg Tablet 2.5 Mg PO BID Reported Triamcinolone Acetonide 0.1% Cream (Triamcinolone Acet) 15 Gm Cr TP UD USES ON FACE & CHEST 2X DAILY X 2 WEEKS THEN ON ARMS 2X DAILY X 2 WEEKS (ALTERNATES LOCATIONS WITH FLUOROURACIL CREAM) Acetaminophen 500 Mg Tablet 1,000 Mg PO Q8H PRN Atorvastatin Calcium 20 Mg Tablet 20 Mg PO DAILY Telmisartan-Hctz 80-12.5 mg Tb (Telmisartan/Hydrochlorothiazid) 1 Each Tablet 1 Tab PO DAILY Amlodipine Besylate 5 Mg Tablet 5 Mg PO DAILY Fluorouracil 40 Gm Cream..g. TOP UD USES ON FACE & CHEST 2X DAILY X 2 WEEKS THEN ON ARMS 2X DAILY X 2 WEEKS (ALTERNATES LOCATIONS WITH TRIAMCINOLONE CREAM) Toviaz (Fesoterodine Fumarate) 4 Mg Tab.sr.24h 4 Mg PO DAILY Sertraline HCl 25 Mg Tablet 25 Mg PO DAILY Sotalol (Sotalol HCl) 80 Mg Tablet 80 Mg PO BID Instructions to patient/family Please see electronic discharge instructions given to patient. Clinical Quality Measures DVT/VTE Risk/Contraindication: Risk Factor Score Per Nursin Problem Qualifiers (1) Acute respiratory failure: Respiratory failure complication: hypercapnia Qualified Codes: J96.02 - Acute respiratory failure with hypercapnia ISADORA GROVE DO Dec 24, 2018 10:27
[2018-12-24] MEDS: DAKIN'S 1/4 STRENGTH (0.125%) 473 ML BTL TOP SCH (11:00)
[2018-12-24] MEDS: TRIAMCINOLONE 0.1% CR (KENALOG) 15 GM TUBE TP SCH (11:00)
--- NOTE | 2018-12-24 11:12 | NUR ---
Report called to Shannan SUE in IRF.
[2018-12-24 11:34] VITALS: BP 160/75
--- NOTE | 2018-12-24 13:00 | Diagnostic Imaging Report ---
INDICATION: Shortness of breath. TIME OF EXAM: 11:41 a.m. Correlation is made with prior study from 12/19/2018. FINDINGS: Changes of median sternotomy and CABG are noted. There is central congestion. No overt failure is seen. No effusion is identified. There is no pneumothorax. IMPRESSION: Central congestion. No overt failure is identified. Dictated by: Dictated on workstation # [id number]
--- NOTE | 2018-12-24 23:08 | Cardiology Progress Note ---
Cardiology SOAP Progress Note Subjective: No cardiac symptoms. Objective: I&O/Vital Signs 12/24/18 11:34 Pulse 72 Resp 18 B/P (MAP) 160/75 Pulse Ox 92 O2 Delivery High Flow N/C O2 Flow Rate 3.00 12/24/18 00:00 Intake Total 942 ml Output Total 875 ml Balance 67 ml Weight (Pounds): 201 Weight (Ounces): 0.0 Weight (Calculated Kilograms): 91.966573 Constitutional: AAO x 3, well-developed, well-nourished Respiratory: No accessory muscle use; other (fair to good air entry) Cardiovascular: regular rate-rhythm, S1 and S2, systolic murmur (soft LORRAINE at card base) Gastrointestional: No tender; soft; No guarding, No rebound; audible bowel sounds Extremities: No clubbing, No cyanosis; significant edema (LLE mild swelling) Neurologic/Psychiatric: other (able to move all limbs equally), grossly intact Skin: No rash on exposed areas, No ulcerations on exposed areas Results/Procedures: Labs Laboratory Tests 12/24/18 06:00: White Blood Count 21.3H, Red Blood Count 2.75L, Hemoglobin 8.3L, Hematocrit 27L, Mean Corpuscular Volume 98, Mean Corpuscular Hemoglobin 30, Mean Corpuscular Hemoglobin Concent 31L, Red Cell Distribution Width 15.7H, Platelet Count 577H, Mean Platelet Volume 8.5, Sodium Level 141, Potassium Level 3.0L, Chloride Level 98, Carbon Dioxide Level 34H, Anion Gap 9, Blood Urea Nitrogen 19H, Creatinine 1.37H, Estimat Glomerular Filtration Rate 50, BUN/Creatinine Ratio 14, Glucose Level 124H, Calcium Level 8.3L, Phosphorus Level 2.4, Magnesium Level 2.1 A/P: Assessment/Dx: Ac resp failure and multifactorial shortness of breath: sepsis, PAF, anemia, renal insuff, ac cooper CHF PA-fib - currently SR with controlled rate Ac renal insufficiency - Med Svce managing Pneumonia and sepsis and L leg cellulitis - Medical & Pulmonary services managing Echo 12/09/18: LVEF 55-60%, mild MR, mild enlargement of LA, RVSP 38 mmHg UTI - management per Medical services Stroke prophylaxis with apixaban CAD - H/O CABG x [address] Huang at [facility], [place], [place] - reports recent MPI in the last [address] Lopez (reported to be normal) Sleep apnea - CPAP tx Plan: * Continue sotalol for rhythm maintenance and apixaban for stroke prophylaxis * Monitor labs from time to time Thank you for your consultation. Please call me if you have any questions. Rosario Chaidez MD, FACP, FACC, FSCAI, FHRS, CCDS Interventional Cardiology Cardiac Electrophysiology Vascular Medicine and Endovascular Interventions Dorothy CHAIDEZ MD Dec 24, 2018 23:08
--- NOTE | 2018-12-25 10:20 | Therapy Team Discharge Summary ---
Therapy Discharge Summary Discharge Recommendations Date of Discharge Dec 24, 2018 at 11:34 Therapy D/C Recommendations: 24 hr Supervision Occupational Therapy pt made slight progress while in swing bed status. OT has focus on increasing independence with ADLS, functional transfers, UE ROM/ Strength, increasing activity tolerance/ endurance, and static seated balance.when pt d/c pt reuqird TA for functional transfers, TA for LB dressing, MIN A for grooming, and TA for toileting. pt d/c to inpt rehabilitation for continue therapy services. all OT goal not met secondary to short stay while in SWB. Decreased Activ Tolerance, Decreased Safety Aware, Decreased UE Strength, Dep endent Transfers, Impaired Bed Mobility, Impaired Cognition, Impaired Funct Balance, Impaired I ADL's, Impaired Self-Care Skills PT Railroad Mechanic Goals Halfway Goals PT Railroad Mechanic Goals Time Frame: Jan 15, 2019 Transfers (B,C,W/C) (FIM): 6 Sit to Lying (QC): 6 Lying-Sitting on Side/Bed(QC): 6 Sit to Stand (QC): 6 Rollin Chair/[id number] Xfer(QC): 6 Does the Patient Walk: Yes Gait (FIM): 2 Gait distance (FIM): 5=951-31 ft Distance: 75' Walk 50ft with 2 Turns (QC): 4 Gait Level of Assist: 4 Gait Assistive Device: FWW OT Halfway Goals Halfway Goals Time Frame: Jan 08, 2019 Groomin (NOT MET) Oral Hygiene (QC): 6 (NOT MET) Bathing(FIM): 6 (NOT MET) Bathing Location: L Arm, R Arm, L Upper Leg, R Upper Leg, L Lower Leg (including foot), R Lower Leg (including foot), Chest, Abdomen, Buttocks, Perineal Area Upper Body Dressing(FIM): 6 (NOT MET) Lower Body Dressing(FIM): 6 (NOT MET) Toileting(FIM): 6 (NOT MET) Toileting Hygiene (QC): 6 (NOT MET) Transfers (B,C,W/C) (FIM): 5 (NOT MET) Toilet/Commode Transfer(FIM): 5 (NOT MET) Toilet/Commode Transfer (QC): 5 (NOT MET) Additional Goals: 1-Demonstrate ADL Tasks, 2-Verbalize Understanding, 3- ImproveStrength/Janny 1=Demonstrate adherence to instructed precautions during ADL tasks. 2=Patient will verbalize/demonstrate understanding of assistive devices/modifications for ADL. 3=Patient will improve strength/tolerance for activity to enable patient to perform ADL's. BRANNON DUGAN OT Dec 25, 2018 10:20
== END 2018-12-24 11:34 | DRG 189 ==
LOC: 4TH 11:53
PROVIDERS: ADMIT Family Medicine; ATTEND Family Medicine
DX: J96.02 Acute respiratory failure with hypercapnia (principal); J15.4 Pneumonia due to other streptococci; J98.11 Atelectasis; B37.0 Candidal stomatitis; J81.1 Chronic pulmonary edema; I50.31 Acute diastolic (congestive) heart failure; L97.229 Non-pressure chronic ulcer of left calf with unspecified severity; N17.9 Acute kidney failure, unspecified; G72.81 Critical illness myopathy; I25.10 Atherosclerotic heart disease of native coronary artery without angina pectoris; D64.9 Anemia, unspecified; M62.561 Muscle wasting and atrophy, not elsewhere classified, right lower leg; B91 Sequelae of poliomyelitis; I70.242 Atherosclerosis of native arteries of left leg with ulceration of calf; I87.2 Venous insufficiency (chronic) (peripheral); I48.0 Paroxysmal atrial fibrillation; E87.6 Hypokalemia; E83.42 Hypomagnesemia; N28.9 Disorder of kidney and ureter, unspecified; I34.0 Nonrheumatic mitral (valve) insufficiency; Z95.1 Presence of aortocoronary bypass graft; G47.33 Obstructive sleep apnea (adult) (pediatric); Z79.01 Long term (current) use of anticoagulants
CPT/HCPCS: 36415; 36600; 71045; 71046; 80048; 80053; 82805; 83735; 83880; 84100; 85027; 87040; 93005; 94640; 94660; 94760

== ENCOUNTER → 2019-02-02 | Outpatient (CLI) | payer MEDICARE, BC ==
[~2019-02-02] MED LIST changes: +ACHD5005 PO; +APIX2.5T PO; +CATHETER FLUSH 10 ML SYR IV PRN; +DICL100G18 TOP; +FESO8TAB PO; +FURO40TA4 PO; +POTA10TA6 PO; +REGADENOSON 0.4 MG/5 ML SYR (LEXISCAN) IV ONE; +SENN-20 PO; +STL80T PO; +ZINC28PA TOP
[2019-02-02 09:21] VITALS: BP 159/74
[2019-02-02 09:37] VITALS: BP 152/72
--- NOTE | 2019-02-02 14:09 | STRESS TEST ---
DATE OF SERVICE: 02/02/2019 RESTING AND POST REGADENOSON TECHNETIUM-99M TETROFOSMIN SPECT CT IMAGING CLINICAL DIAGNOSES: Coronary artery disease, hypertension, paroxysmal atrial fibrillation. ORDERING PHYSICIAN: Dr. Lebron. PRIMARY PHYSICIAN: Dr. Parrish. Baseline images were carried out after injection of 10.92 mCi of technetium-99m Tetrofosmin. This was followed by 0.4 mg of Regadenoson and 29.2 mCi of technetium-99m Tetrofosmin for stress imaging. The electrocardiogram showed sinus rhythm at baseline. It did not change significantly with Regadenoson infusion. The patient did not report any chest discomfort or other symptoms. The patient tolerated the procedure well. Review of images at rest and following stress does not indicate any distinct perfusion defects consistent with significant myocardial ischemia or infarction. Gated images show normal global left ventricular systolic function with normal regional wall motion. Left ventricular ejection fraction is calculated to be 55%. Left ventricular end-diastolic volume is 71 mL. TID is absent (1.13). CONCLUSIONS: 1. No evidence of significant myocardial ischemia or infarction on this study. 2. Normal regional wall motion. 3. Normal global left ventricular systolic function with a calculated ejection fraction of 55%. Job ID: [id number] DocumentID: [id number] Dictated Date: 02/02/2019 13:34:35 Core Extruder Date: 02/02/2019 14:08:50 Dictated By: BRENDA LEBRON MD, MA, FACP, FACC,
== END ==
LOC: CARD 07:58
PROVIDERS: ATTEND Internal Medicine Cardiovascular Disease
DX: I25.10 Atherosclerotic heart disease of native coronary artery without angina pectoris (principal); I10 Essential (primary) hypertension; I48.0 Paroxysmal atrial fibrillation; I65.23 Occlusion and stenosis of bilateral carotid arteries
CPT/HCPCS: 78452; 93017

== ENCOUNTER → 2021-09-18 | Outpatient (CLI) | payer MEDICARE, BC ==
[~2021-09-18] MED LIST changes: +AMLO-250 PO; -AMLO5TAB9 PO; -CATHETER FLUSH 10 ML SYR IV PRN; +CATHETER FLUSH 10 ML SYR IVP PRN; +POTA-160 PO; -POTA10TA6 PO; -REGADENOSON 0.4 MG/5 ML SYR (LEXISCAN) IV ONE; +SERT-412 PO; -SERT25TA5 PO; -TELM1TAB27 PO; +TELM1TAB36 PO
== END ==
LOC: CARD 11:33
PROVIDERS: ATTEND Nurse Practitioner Family
DX: I51.7 Cardiomegaly (principal)
CPT/HCPCS: 93306